=== PATIENT | male | born 1955 | race Caucasian/White ===

== ENCOUNTER 2019-08-01 10:02 | Outpatient (CLI) | payer OTHER, SELFPAY ==
[2019-08-01 11:25] LABS: Blood Urea Nitrogen 12 mg/dL (9-20); Estimated Glomerular Filt Rate > 60
== END 2019-08-01 10:03 | disposition home or self-care (01) ==
PROVIDERS: PCP Internal Medicine
DX: M54.9 Dorsalgia, unspecified (principal)
CPT/HCPCS: 36415; 82565; 84520

== ENCOUNTER 2019-08-21 08:52 | Outpatient (CLI) | payer OTHER, SELFPAY ==
--- NOTE | ~2019-08-21 | MR_ITS ---
EXAMINATION: MR lumbar spine wo/w con EXAM DATE: 08/21/2019 09:56 INDICATION: Low back pain. TECHNIQUE: Multi-sequential, multiplanar MR images of the lumbar spine were obtained without contrast . Sagittal T1, T2, T2 fat saturation images. Axial T2 weighted images. Axial T1 weighted sequence. Patient was then injected with 20 mL Multihance intravenous contrast and reimaged. Postcontrast axi al and sagittal T1-weighted fat saturation sequences were obtained. Comparison is made to prior exam ination from 11/15/2017. FINDINGS: There are old left L5 and probably L4 hemilaminotomy defects. There is mild disc disease L4 -5 and L5-S1. Mild to moderate disc disease at the lower thoracic spine. The conus medullaris termina orion at the L1/2 level and has normal signal intensity and morphology. There are no suspicious marrow signal abnormalities. Paraspinal soft tissue is unremarkable. There are no areas of abnormal enha ncement on the post contrast images. Level by level evaluation: T12-L1: There is a mild to moderate diffuse disc bulge asymmetric to the left Facet arthropathy: Mild. Neural foraminal stenosis: Mild left. Central canal stenosis: Mild. L1-L2: Disc does not extend beyond the endplate margin. Facet arthropathy: Mild. Neural foraminal stenosis: No stenosis. Central canal stenosis: No stenosis. L2-L3: There is a minimal diffuse disc bulge. Facet arthropathy: Mild. Neural foraminal stenosis: Minimal left. Central canal stenosis: No stenosis. L3-L4: There is a mild diffuse disc bulge. Facet arthropathy: Mild to moderate. Neural foraminal stenosis: No stenosis. Central canal stenosis: No stenosis. L4-L5: There is a mild to moderate diffuse disc bulge. Facet arthropathy: Mild to moderate. Neural foraminal stenosis: Mild to moderate bilateral. Central canal stenosis: Mild. L5-S1: There is a mild to moderate diffuse disc bulge. Facet arthropathy: Moderate right, mild to moderate left. Neural foraminal stenosis: Mild to moderate bilateral. Central canal stenosis: Mild. Difficult to appreciate any significant interval change compared to 2018 examination. IMPRESSION: Mild to moderate lower lumbar spondylosis. Reviewed, dictated and finalized at location B.
== END 2019-08-21 08:53 ==
PROVIDERS: PCP Internal Medicine
DX: M47.896 Other spondylosis, lumbar region (principal)
CPT/HCPCS: 72158; A9577

== ENCOUNTER 2019-11-21 17:30 | Outpatient (CLI) | payer OTHER, SELFPAY | END 2019-11-21 17:31 | disposition home or self-care (01) | LOC: CHSLAB 17:33 | PROVIDERS: PCP Internal Medicine; Visit Provider Specialist | DX: C44.519 Basal cell carcinoma of skin of other part of trunk (principal) | CPT/HCPCS: 88305 ==

== ENCOUNTER 2021-02-21 07:58 | Inpatient (IN) | payer OTHER, SELFPAY ==
[2021-02-21] VITALS (8 sets, daily range): BP systolic 120–177; BP diastolic 67–92; PULSE 68–88; RESP 14–22; TEMP 36.3–37.4; O2SAT 91–95
--- NOTE | ~2021-02-21 | CT_ITS ---
EXAMINATION: CT brain wo con EXAM DATE: 04/02/2021 08:57 INDICATION: Weakness. TECHNIQUE: Spiral CT of the head was performed without contrast. Axial, coronal and sagittal images were reviewed. The dose-length product (DLP) for this examination was 681.00 mGy-cm. The exposure w as tailored according to patient size, and iterative reconstruction (ASIR) was used as additional dos e reduction technique. There is no prior study for comparison. FINDINGS: There is no acute intraparenchymal hemorrhage. No evidence of intraparenchymal brain mass lesion. No evidence of acute infarction. Please note that initial head CT has limited sensitivity f or small or acute infarctions. There is mild periventricular and subcortical hypodensity, nonspecific but probably related to small vessel ischemic disease. There is mild to moderate prominence of the sulci and ventricles related to cerebral atrophy. There is intracranial carotid arteriosclerosis. There are no extra-axial collections. There is no mass effect or midline shift. The orbits are unr emarkable. Soft tissue is unremarkable. Bilateral otomastoiditis effusions. Completely opacified le ft maxillary, bilateral sphenoid sinuses. Moderate bilateral frontal sinus mucoperiosteal thickening. IMPRESSION: 1. No acute intracranial findings. 2. Chronic age related findings. 3. Bilateral otomastoiditis effusions and significant sinus opacity. Reviewed, dictated and finalized at location B. ENIR AND NOVELTY MAKER
--- NOTE | ~2021-02-21 | XR_ITS ---
XR chest 1V portable DATE: 03/11/2021 12:38 INDICATION: Respiratory failure TECHNIQUE: Portable AP chest on 03/11/2021 at 1138 hours COMPARISON: 03/10/2021 portable AP chest at 1019 hours FINDINGS: ET tube tip is 5.8 cm above the alyse. NG tube is in the upper body of the stomach, the pr oximal port just beyond the diaphragmatic hiatus. Right internal jugular central venous catheter tip overlies the proximal superior vena cava. No pneum othorax. Severe diffuse bilateral pulmonary infiltrates persist. Diffuse idiopathic skeletal hyperostosis of the thoracic spine. IMPRESSION: Persistent severe diffuse bilateral pulmonary infiltrates Reviewed, dictated and finalized at location A. PUMPING STATION SUPERVISOR
--- NOTE | ~2021-02-21 | XR_ITS ---
EXAMINATION: XR chest 1V portable INDICATION: COVID pneumonia, respiratory failure TECHNIQUE: Portable AP chest at 0508 hours COMPARISON: 04/04/2021 FINDINGS: A tracheostomy is noted. Diffuse interstitial and airspace opacities persist throughout all lung zones without significant change. There is no pleural effusion or pneumothorax. The cardiomedia stinal silhouette is stable. IMPRESSION: 1. Stable diffuse lung disease, consistent with pneumonia and/or pulmonary edema and/or acute respira tory distress syndrome (ARDS). Reviewed, dictated and finalized at location A. S DEPARTMENT SUPERVISOR IMPRESSION: 1. Stable diffuse lung disease, consistent with pneumonia and/or pulmonary yoli a and/or acute respiratory distress syndrome (ARDS).
--- NOTE | ~2021-02-21 | XR_ITS ---
EXAMINATION: XR chest 1V portable DATE: 04/07/2021 05:48 INDICATION: Acute respiratory failure. Pneumonia. TECHNIQUE: A single frontal view of the chest was obtained. COMPARISON: Chest single view 04/05/2021, chest CT 03/09/2021 FINDINGS: There are airspace and interstitial opacities throughout the lungs bilaterally. No pleural effusion or pneumothorax. The heart size is normal. A tracheostomy tube is noted. IMPRESSION: 1. Stable diffuse lung disease, consistent with pneumonia and/or pulmonary edema and/or acute respira tory distress syndrome (ARDS). Reviewed, dictated and finalized at location A. OLEER STRAIGHTENER STAMPER IMPRESSION: 1. Stable diffuse lung disease, consistent with pneumonia and/or pulmonary yoli a and/or acute respiratory distress syndrome (ARDS).
--- NOTE | ~2021-02-21 | XR_ITS ---
EXAMINATION: XR chest 1V portable DATE: 02/21/2021 08:20 INDICATION: COVID-19 pneumonia. Cough. TECHNIQUE: A single frontal view of the chest was obtained. COMPARISON: None. FINDINGS: There are patchy airspace opacities in all lung zones bilaterally. No pleural effusion or p neumothorax. The heart size is normal. IMPRESSION: 1. Diffuse lung disease, consistent with COVID-19 pneumonia. Reviewed, dictated and finalized at location A. SERVICES PLUMBER
--- NOTE | ~2021-02-21 | XR_ITS ---
XR chest 1V portable DATE: 03/15/2021 05:55 INDICATION: Respiratory distress, ventilator TECHNIQUE: Portable AP chest on 03/15/2021 0 5 mm COMPARISON: 03/14/2021 portable AP chest FINDINGS: ET tube in satisfactory position 4.4 cm above alyse. NG tube in stomach. Right internal jugular central venous catheter tip overlies the proximal superior vena cava. No pneum othorax. No pleural effusion. Persistent diffuse patchy bilateral infiltrates appear stable since 03/14/2021 IMPRESSION: Persistent diffuse patchy bilateral pulmonary infiltrates, not significantly changed sinc e 03/14/2021 Reviewed, dictated and finalized at location A. AGE MACHINE OPERATOR IMPRESSION: Persistent diffuse patchy bilateral pulmonary infiltrates, not sign ificantly changed since 03/14/2021
--- NOTE | ~2021-02-21 | CT_ITS ---
EXAMINATION: CTA chest PE protocol DATE: 02/21/2021 09:46 INDICATION: Shortness of breath and cough. COVID-19 pneumonia. TECHNIQUE: Computed tomography angiography (CTA) of the chest was performed with 100 mL Omnipaque-350 intravenous contrast timed to evaluate the pulmonary arteries. Coronal maximum intensity projection 3D-reconstructions were created by the technologist. Automated exposure control and iterative reconst ruction technique were employed. The dose-length product was 951.48 mGy-cm. COMPARISON: None. FINDINGS: There are patchy groundglass opacities, airspace opacities, crazy paving, and septal thicke chris involving all lobes. No pleural effusion. The heart size is normal. No pericardial effusion. The re is no pulmonary embolus. There is mild thoracic spondylosis. IMPRESSION: 1. No pulmonary embolus. 2. Diffuse lung disease, consistent with COVID-19 pneumonia. Reviewed, dictated and finalized at location A. ENISHMENT ANALYST
--- NOTE | ~2021-02-21 | XR_ITS ---
XR chest 1V portable DATE: 02/24/2021 06:26 INDICATION: Shortness of breath. Covid pneumonia. TECHNIQUE: Portable upright AP chest on 03/13/2021 at 0557 hours COMPARISON: 02/23/2021 portable AP chest at 1559 hours FINDINGS: There are severe diffuse patchy consolidating bilateral pulmonary infiltrates, increased in severity since 02/23/2021. Borderline heart size. There is minimal if any pleural effusion. No pneumothorax. Degenerative spurring of the thoracic spine. IMPRESSION: Extensive patchy diffuse bilateral pulmonary consolidating infiltrates, increased in gail rity since 02/23/2021 Reviewed, dictated and finalized at location A. ATRIC PHYSICIAN IMPRESSION: Extensive patchy diffuse bilateral pulmonary consolidating infiltra orion, increased in severity since 02/23/2021
--- NOTE | ~2021-02-21 | XR_ITS ---
EXAMINATION: XR chest 1V portable DATE: 03/07/2021 07:59 INDICATION: COVID pneumonia. TECHNIQUE: frontal view of the chest was obtained. COMPARISON: Chest radiograph dated 02/24/[address] dated 02/27/2021 FINDINGS: No significant interval change accounting for differences in positioning in patchy bilateral airspace opacities relatively sparing the right apex and left upper lung zone consistent with COVID pneumonia . No pleural effusion or pneumothorax. Mild cardiomegaly. IMPRESSION: 1. Unchanged diffuse bilateral lung disease consistent with COVID pneumonia. Reviewed, dictated and finalized at location A. MEL CUTTER HELPER
--- NOTE | ~2021-02-21 | XR_ITS ---
EXAMINATION: XR chest 1V portable DATE: 03/26/2021 06:14 INDICATION: COVID-19 pneumonia. TECHNIQUE: A single frontal view of the chest was obtained. COMPARISON: Chest single view 03/25/2021 FINDINGS: There are interstitial and airspace opacities throughout the lungs bilaterally. No pleural effusion or pneumothorax. The heart size is normal. There is a tracheostomy tube in expected position . A right internal jugular central venous catheter is seen with tip in the superior vena cava. IMPRESSION: 1. Diffuse lung disease with mild worsening on the right, consistent with COVID-19 pneumonia versus a cute respiratory distress syndrome (ARDS). Reviewed, dictated and finalized at location E. GLASS DESIGNER IMPRESSION: 1. Diffuse lung disease with mild worsening on the right, consistent with COVID -19 pneumonia versus acute respiratory distress syndrome (ARDS).
--- NOTE | ~2021-02-21 | XR_ITS ---
XR chest 1V portable DATE: 03/10/2021 10:30 INDICATION: Respiratory failure TECHNIQUE: Portable AP chest on 03/10/2021 at 1018 hours COMPARISON: 03/09/2021 portable AP chest at 1340 hours FINDINGS: ET tube tip is 5.3 cm above alyse. Right internal jugular central venous catheter tip over lies the proximal superior vena cava. A nasogastric tube is present, directed toward the stomach, whi ch is not included in this examination. There are persistent extensive diffuse bilateral pulmonary infiltrates IMPRESSION: Persistent extensive diffuse bilateral pulmonary infiltrates consistent with severe bilat eral pneumonia Reviewed, dictated and finalized at location A. OPEDIC CODER IMPRESSION: Persistent extensive diffuse bilateral pulmonary infiltrates consis tent with severe bilateral pneumonia
--- NOTE | ~2021-02-21 | CT_ITS ---
EXAMINATION: CTA chest PE protocol DATE: 03/09/2021 08:53 TECHNOLOGY DEVELOPMENT INTERN INDICATION: Worsening hypoxia. Covid pneumonia. TECHNIQUE: Computed tomographic angiography (CTA) of the chest was performed with 100 mL Omnipaque-35 0 intravenous contrast. The dose-length product was 1099.10 mGy-cm. Maximum intensity projection 3D-r econstructions of the aorta and other arteries were constructed by the technologist on a separate wor kstation. COMPARISON: CT dated 03/07/2021. FINDINGS: Study is technically adequate without evidence for pulmonary embolism. Evaluation of lower lobe segmental and subsegmental pulmonary arteries limited by motion. Cardiomegaly. No significant ef fusion. No pneumothorax. Mediastinal lymphadenopathy, likely reactive. There is mediastinal lipomatos is. Tiny infiltration of the liver. There is diffuse bilateral lung disease with mixed interstitial a nd airspace consolidation. No significant change from prior examination allowing for differences of t echnique. No pneumothorax. No evidence for pneumomediastinum on the current study. Mild thoracic spon dylosis. Small hiatal hernia. IMPRESSION: 1. No evidence for pulmonary embolism. 2: Stable diffuse bilateral lung disease, consistent with pneumonia. 3: Cardiomegaly. Reviewed, dictated and finalized at location A. NOLOGY DEVELOPMENT INTERN
--- NOTE | ~2021-02-21 | XR_ITS ---
XR chest 1V portable DATE: 03/31/2021 11:04 INDICATION: Increased oxygen requirement TECHNIQUE: Portable AP view on 03/31/2021 at 1056 hours COMPARISON: March 31, 2021 portable AP chest at 0526 hours FINDINGS: Tracheostomy tube in satisfactory position. No significant change of diffuse extensive bilateral pulmonary infiltrates since earlier this morning . Normal heart size. No pleural effusion or pneumothorax is evident. IMPRESSION: No significant change since earlier today Reviewed, dictated and finalized at location A. GE RELEASE MANAGER
--- NOTE | ~2021-02-21 | US_ITS ---
EXAMINATION: US venous doppler [facility] DATE: 04/09/2021 11:51 INDICATION: Fever TECHNIQUE: Camargo scale images without and with compression and Doppler images of the left lower extrem ity veins were obtained. COMPARISON: None FINDINGS: The left common femoral vein, profunda femoral vein, femoral vein, popliteal vein, peroneal trunk, posterior tibial veins, and greater saphenous vein are patent. IMPRESSION: 1. Patent left lower extremity veins. No evidence of deep venous thrombosis. Reviewed, dictated and finalized at location A. CAMERAMAN
--- NOTE | ~2021-02-21 | XR_ITS ---
EXAMINATION: XR chest 1V portable DATE: 04/04/2021 16:57 INDICATION: Respiratory distress. TECHNIQUE: A single frontal view of the chest was obtained. COMPARISON: Chest single view at 7:51 AM FINDINGS: There are airspace and interstitial opacities throughout the lungs bilaterally. No pleural effusion or pneumothorax. The heart size is normal. There is a tracheostomy tube in expected position . IMPRESSION: 1. Stable severe diffuse lung disease, consistent with pneumonia versus acute respiratory distress sy ndrome (ARDS). Reviewed, dictated and finalized at location E. TRANSCRIBER IMPRESSION: 1. Stable severe diffuse lung disease, consistent with pneumonia versus acute r espiratory distress syndrome (ARDS).
--- NOTE | ~2021-02-21 | XR_ITS ---
EXAMINATION: XR chest 1V portable DATE: 04/04/2021 08:07 INDICATION: Respiratory failure TECHNIQUE: frontal view of the chest was obtained. COMPARISON: Chest radiograph dated 04/02/2021 FINDINGS: Tracheostomy tube remains in expected position at the thoracic inlet. No significant change in diffus e patchy airspace opacities throughout both lungs. No pneumothorax or definitive pleural effusion. Fede rderline heart size accounting for AP technique IMPRESSION: 1. Unchanged diffuse bilateral lung disease consistent with pneumonia versus pulmonary edema. 2. Borderline heart size. Reviewed, dictated and finalized at location A. PERSON IMPRESSION: 1. Unchanged diffuse bilateral lung disease consistent with pneumonia versus pu lmonary edema. 2. Borderline heart size.
--- NOTE | ~2021-02-21 | XR_ITS ---
EXAMINATION: XR chest 1V portable INDICATION: Acute respiratory failure TECHNIQUE: Portable AP chest at 0509 hours COMPARISON: 04/09/2021 FINDINGS: A tracheostomy is again noted. A right upper extremity PICC ends with its tip in the midsup erior vena cava. Interstitial and airspace opacities persist throughout all lung zones with slight wo rsening in the right upper lung zone and mid lung zones. There is no pleural effusion or pneumothorax . The heart size is normal. IMPRESSION: 1. Diffuse lung disease with interval worsening, consistent with pneumonia and/or pulmonary edema and /or acute respiratory distress syndrome (ARDS). Reviewed, dictated and finalized at location A. ING CARE PARTNER IMPRESSION: 1. Diffuse lung disease with interval worsening, consistent with pneumonia and/ or pulmonary edema and/or acute respiratory distress syndrome (ARDS).
--- NOTE | ~2021-02-21 | XR_ITS ---
XR abdomen NG/feed tube insert INDICATION: Evaluate NG tube position. TECHNIQUE: Limited KUB perform for evaluating NG tube . COMPARISON: No prior studies for comparison. FINDINGS: NG tube tip in the stomach. Visualized bowel gas pattern is unremarkable. IMPRESSION: 1: NG tube tip in the stomach. Reviewed, dictated and finalized at location A. NG MACHINE TENDER CORK ROD
--- NOTE | ~2021-02-21 | XR_ITS ---
EXAMINATION: XR chest 1V portable DATE: 02/23/2021 15:03 INDICATION: Shortness of breath. COVID-19 pneumonia. TECHNIQUE: A single frontal view of the chest was obtained. COMPARISON: Chest single view 02/21/2021, chest CT 02/21/2021 FINDINGS: There are patchy airspace opacities in all lung zones bilaterally. No pleural effusion or p neumothorax. The heart size is normal. IMPRESSION: 1. Diffuse lung disease, likely stable considering differences in technique, consistent with COVID-19 pneumonia. Reviewed, dictated and finalized at location A. ORPHOLOGY TEACHER IMPRESSION: 1. Diffuse lung disease, likely stable considering differences in technique, co nsistent with COVID-19 pneumonia.
--- NOTE | ~2021-02-21 | XR_ITS ---
XR chest ET placement 03/09/2021 13:15 Indication: Shortness of breath Procedure: AP portable chest Comparison: Comparison to multiple prior studies sequentially, with oldest reviewed study dated 03/2021. Findings: Endotracheal tube tip 3.5 cm above the alyse. NG tube in the stomach. Cardiomegaly. Diffus e bilateral airspace disease. No significant effusion or pneumothorax. Impression: 1: Persistent diffuse bilateral airspace disease, compatible with pneumonia. Reviewed, dictated and finalized at location A. PHONE MESSENGER Impression: 1: Persistent diffuse bilateral airspace disease, compatible with pneumonia.
--- NOTE | ~2021-02-21 | US_ITS ---
EXAMINATION: US venous doppler [facility] DATE: 03/31/2021 12:45 INDICATION: Upper limb swelling TECHNIQUE: Grayscale images without and with compression and Doppler images of the bilateral upper ex tremity veins were obtained. COMPARISON: None. FINDINGS: The right internal jugular vein, subclavian vein, axillary vein, brachial vein, basilic vein, cephali c vein, radial vein, and ulnar vein are patent. The left internal jugular vein, subclavian vein, axillary vein, brachial vein, basilic vein, cephalic vein, radial vein, and ulnar vein are patent. IMPRESSION: 1. Patent bilateral upper extremity veins. No evidence of venous thrombosis. Reviewed, dictated and finalized at location A. HEAD SETTER
--- NOTE | ~2021-02-21 | CT_ITS ---
EXAMINATION: CTA chest PE protocol EXAM DATE: 02/27/2021 17:57 INDICATION: Covid 19 SOB . TECHNIQUE: Spiral CTA of the chest (pulmonary arteries) was performed with 100 cc Omnipaque 350 intr avenous contrast injection. Images were acquired during the pulmonary arterial phase. Coronal maxi mum intensity projection 3D-reconstructions were created by the technologist on dedicated workstation . Axial, coronal and sagittal reformatted images were reviewed. The dose-length product (DLP) for t his examination was 923.86 mGy-cm. The exposure was tailored according to patient size (auto mA exp osure control), and iterative reconstruction (ASIR) was used as additional dose reduction technique. Comparison is made to prior examination from 02/22/2020. FINDINGS: There are no pulmonary emboli in the 1st through 3rd order (central and interlobar) pulmon casey arteries. Some loss of attenuation in the basilar segmental pulmonary from respiratory motion, t hese regions not confidently evaluated. No Intraluminal filling defects identified. No thoracic aor tic dissection. Progression of diffuse airspace disease consistent with COVID pneumonia. Development of some dependent regions of confluence within this. There are no pleural or pericardial effusions. Tracheobronchial tree is patent. There is no mediastinal, hilar or axillary lymphadenopathy. T here is no pneumothorax. Mild cardiomegaly There is mild coronary arterial calcification, arterial sclerosis. Upper abdomen is unremarkable. There is thoracic spondylosis without osteoblastic or o steolytic lesions identified. IMPRESSION: 1. Limited basilar segmental evaluation, but no pulmonary emboli are suspected. 2. Diffuse COVID pneumonia, interval progression. Reviewed, dictated and finalized at location A. E MANAGEMENT SPECIALIST IMPRESSION: 1. Limited basilar segmental evaluation, but no pulmonary emboli are suspected . 2. Diffuse COVID pneumonia, interval progression.
--- NOTE | ~2021-02-21 | XR_ITS ---
EXAMINATION: XR chest 1V portable DATE: 04/09/2021 06:01 INDICATION: Acute respiratory failure. Pneumonia. TECHNIQUE: A single frontal view of the chest was obtained. COMPARISON: Chest single view 04/08/2021 FINDINGS: There are airspace and interstitial opacities throughout the lungs bilaterally. No pleural effusion or pneumothorax. The heart size is normal. There is a tracheostomy tube in expected position . A right upper extremity peripherally inserted central venous catheter (PICC) is seen with tip in th e superior vena cava. IMPRESSION: 1. Stable diffuse lung disease, consistent with pneumonia versus pulmonary edema versus acute respira tory distress syndrome (ARDS). Reviewed, dictated and finalized at location A. TRUCTION WORKER IMPRESSION: 1. Stable diffuse lung disease, consistent with pneumonia versus pulmonary yoli a versus acute respiratory distress syndrome (ARDS).
--- NOTE | ~2021-02-21 | CT_ITS ---
EXAMINATION: CT diagnostic chest wo con DATE: 03/07/2021 16:53 INDICATION: Pneumonia, worsening leukocytosis, COVID 19 positive TECHNIQUE: Computed tomography (CT) of the chest was performed without intravenous contrast. The dose -length product (DLP) was 788.12 mGy-cm. Automated exposure control and iterative reconstruction tech [id number] were employed. COMPARISON: 02/27/2021 FINDINGS: There are interstitial and airspace opacities throughout all lung zones with minimal interv al improvement. No pleural effusion or pneumothorax is identified. There is trace pneumomediastinum. No pathologically enlarged thoracic lymph nodes are identified. The heart size is normal. A small sli ding hiatal hernia is noted. There is mild thoracic spondylosis. IMPRESSION: 1. Diffuse lung disease with slight interval improvement, consistent with COVID 19 pneumonia. 2. Trace pneumomediastinum. Reviewed, dictated and finalized at location F. LTY HEAD
--- NOTE | ~2021-02-21 | XR_ITS ---
EXAMINATION: XR chest 1V portable EXAM DATE: 03/20/2021 06:13 INDICATION: Respiratory failure, COVID pneumonia . TECHNIQUE: Portable AP frontal chest x-ray was obtained. Comparison is made to prior examination from 03/19/2021. FINDINGS: There is a right-sided IJ venous line in position. Endotracheal tube tip is 5 centimeters a jaida the alyse. There is a nasogastric tube seen with tip collimated off the study, but below the l eft hemidiaphragm. Diffuse bilateral pneumonia and/or edema. There are no sizable pleural effusions. There is no pneu mothorax suspected. Cardiac silhouette is stable in size compared to prior exam. The bones and sof t tissues are unremarkable. There is no significant interval change compared to prior exam. IMPRESSION: 1. Line and tube(s) in position. 2. Diffuse bilateral pneumonia or edema unchanged. Reviewed, dictated and finalized at location A. T SPECIALIST
--- NOTE | ~2021-02-21 | XR_ITS ---
EXAMINATION: XR chest 1V portable DATE: 03/24/2021 07:07 INDICATION: COVID-19 pneumonia. Respiratory failure. TECHNIQUE: A single frontal view of the chest was obtained on 2 radiographs. COMPARISON: Chest single view 03/22/2021 FINDINGS: There are airspace and interstitial opacities throughout the lungs bilaterally. No pleural effusion or pneumothorax. The heart size is normal. There is a tracheostomy tube in expected position . A right internal jugular central venous catheter is seen with tip in the superior vena cava. IMPRESSION: 1. Stable diffuse lung disease, consistent with pneumonia versus acute respiratory distress syndrome (ARDS). Reviewed, dictated and finalized at location A. EL TRUCK TECHNICIAN IMPRESSION: 1. Stable diffuse lung disease, consistent with pneumonia versus acute respirat ory distress syndrome (ARDS).
--- NOTE | ~2021-02-21 | XR_ITS ---
XR chest 1V portable 03/30/2021 06:16 Indication: Respiratory failure Procedure: AP portable chest Comparison: Comparison to multiple prior studies sequentially, with oldest reviewed study dated 03/2021. Findings: Tracheostomy tube present. Borderline heart size. Stable diffuse bilateral airspace disease . No significant effusion or pneumothorax. No acute osseous abnormality. Impression: 1: Stable diffuse bilateral airspace disease which may represent pneumonia or edema. Reviewed, dictated and finalized at location A. NTER MACHINE APPLICATOR Impression: 1: Stable diffuse bilateral airspace disease which may represent pneumonia or e nancy.
--- NOTE | ~2021-02-21 | XR_ITS ---
EXAMINATION: XR chest 1V portable EXAM DATE: 03/17/2021 06:01 INDICATION: Respiratory failure, COVID pneumonia . TECHNIQUE: Portable AP frontal chest x-ray was obtained. Comparison is made to prior examination from 03/16/2021. FINDINGS: There is a right-sided IJ venous line in position. Endotracheal tube tip is 4-5 centimeter s above the alyse. There is a nasogastric tube seen with tip collimated off the study, but below th e left hemidiaphragm. Diffuse bilateral pneumonia and/or edema. There are no sizable pleural effusions. There is no pneu mothorax suspected. The cardiomediastinal silhouette is prominent but magnified on this AP techniqu e. The bones and soft tissues are unremarkable. There is no significant interval change compared to prior exam. IMPRESSION: 1. Line and tube(s) in position. 2. Stable airspace disease and other findings as above. Reviewed, dictated and finalized at location A. SQUEAK FILLER
--- NOTE | ~2021-02-21 | XR_ITS ---
EXAMINATION: XR chest 1V portable EXAM DATE: 03/19/2021 06:06 INDICATION: Respiratory failure, COVID pneumonia. TECHNIQUE: Portable AP frontal chest x-ray was obtained. Comparison is made to prior examination from 03/18/2021. FINDINGS: There is a right-sided IJ venous line in position. Endotracheal tube tip is 4 centimeters a jaida the alyse. There is a nasogastric tube seen with tip collimated off the study, but below the l eft hemidiaphragm. Diffuse bilateral pneumonia and/or edema. There are no sizable pleural effusions. There is no pneu mothorax suspected. Cardiac silhouette is stable in size compared to prior exam. The bones and sof t tissues are unremarkable. There is no significant interval change compared to prior exam. IMPRESSION: 1. Line and tube(s) in position. 2. Diffuse bilateral pneumonia or edema unchanged. NICAL SPECIALIST CYTOGENETICS Reviewed, dictated and finalized at location A.
--- NOTE | ~2021-02-21 | XR_ITS ---
EXAMINATION: XR chest 1V portable DATE: 03/28/2021 06:08 INDICATION: COVID-19 pneumonia. Respiratory failure. TECHNIQUE: A single frontal view of the chest was obtained. COMPARISON: Chest single view 03/27/2021 FINDINGS: There are interstitial and airspace opacities throughout the lungs bilaterally. No pleural effusion or pneumothorax. The heart size is normal. There is a tracheostomy tube in expected position . IMPRESSION: 1. Stable diffuse lung disease, consistent with COVID-19 pneumonia versus acute respiratory distress syndrome (ARDS). Reviewed, dictated and finalized at location E. WORKER
--- NOTE | ~2021-02-21 | US_ITS ---
EXAMINATION: US venous doppler [facility] DATE: 03/28/2021 12:25 INDICATION: Fever. Respiratory failure. TECHNIQUE: Grayscale ultrasound images without and with compression and Doppler ultrasound images of the bilateral lower extremity veins were obtained. COMPARISON: None. FINDINGS: The visualized portions of right common femoral vein, profunda (deep) femoral vein, femoral vein, pop liteal vein, posterior tibial veins, peroneal veins, gastrocnemius vein and greater saphenous vein ou tflow are patent. The visualized portions of left common femoral vein, profunda femoral vein, femoral vein, popliteal v ein, posterior tibial veins, peroneal veins, gastrocnemius vein and greater saphenous vein outflow ar e patent. IMPRESSION: 1. No deep venous thrombosis in either lower limb. Reviewed, dictated and finalized at location A. R AND DELIVERY REGISTERED NURSE
--- NOTE | ~2021-02-21 | XR_ITS ---
EXAMINATION: XR chest 1V portable EXAM DATE: 03/18/2021 05:34 INDICATION: Respiratory failure, COVID pneumonia. TECHNIQUE: Portable AP frontal chest x-ray was obtained. Comparison is made to prior examination from 03/17/2021. FINDINGS: There is a right-sided IJ venous line in position. Endotracheal tube tip is 5 centimeters a jaida the alyse. There is a nasogastric tube seen with tip collimated off the study, but below the l eft hemidiaphragm. Diffuse bilateral pneumonia and/or edema. There are no sizable pleural effusions. There is no pneu mothorax suspected. Cardiac silhouette is stable in size compared to prior exam. The bones and sof t tissues are unremarkable. There is no significant interval change compared to prior exam. IMPRESSION: 1. Line and tube(s) in position. 2. Stable airspace disease and other findings as above. MACHINE Reviewed, dictated and finalized at location A.
--- NOTE | ~2021-02-21 | XR_ITS ---
EXAMINATION: XR chest 1V portable INDICATION: Acute respiratory failure, pneumonia TECHNIQUE: Portable AP chest at 0510 hours COMPARISON: 04/10/2021 FINDINGS: A tracheostomy is noted. A right upper extremity PICC ends with its tip in the midsuperior vena cava. Interstitial and airspace opacities persist throughout all lung zones without significant change. There is no pleural effusion or pneumothorax. The heart size is normal. IMPRESSION: 1. Stable diffuse lung disease, consistent with pneumonia and/or pulmonary edema and/or acute respira tory distress syndrome (ARDS). Reviewed, dictated and finalized at location A. MUSICIAN IMPRESSION: 1. Stable diffuse lung disease, consistent with pneumonia and/or pulmonary yoli a and/or acute respiratory distress syndrome (ARDS).
--- NOTE | ~2021-02-21 | XR_ITS ---
EXAMINATION: XR chest 1V portable DATE: 03/22/2021 08:27 INDICATION: Respiratory failure. COVID-19 pneumonia. TECHNIQUE: A single frontal view of the chest was obtained. COMPARISON: Chest single view 03/20/2021, chest CT 03/09/21 FINDINGS: There are interstitial airspace opacities throughout the lungs bilaterally. No pleural effu josselyn or pneumothorax. The heart size is normal. There is a tracheostomy tube in expected position. A right internal jugular central venous catheter is seen with tip in the superior vena cava. IMPRESSION: 1. Stable diffuse lung disease, consistent with pneumonia versus acute respiratory distress syndrome (ARDS). Reviewed, dictated and finalized at location A. T SPINNER IMPRESSION: 1. Stable diffuse lung disease, consistent with pneumonia versus acute respirat ory distress syndrome (ARDS).
--- NOTE | ~2021-02-21 | XR_ITS ---
XR chest 1V portable DATE: 03/12/2021 11:23 INDICATION: Respiratory failure TECHNIQUE: Portable AP chest on 03/12/2021 at 1114 hours COMPARISON: 03/11/2021 portable AP chest 1138 hours FINDINGS: ET tube in satisfactory position 4.3 cm above alyse. NG tube in stomach. Right internal ju gular central venous catheter tip overlies the right brachiocephalic vein The superior vena cava. No pneumothorax. There are persistent diffuse bilateral pulmonary infiltrates, relatively unchanged since 03/11/2021. Normal heart size. No pleural effusion. IMPRESSION: No significant change of diffuse persistent bilateral pulmonary infiltrates since 03/11/19 22 Reviewed, dictated and finalized at location A. ION CUTTER IMPRESSION: No significant change of diffuse persistent bilateral pulmonary inf iltrates since 03/11/2021
--- NOTE | ~2021-02-21 | XR_ITS ---
EXAMINATION: XR chest 1V portable DATE: 04/02/2021 05:51 INDICATION: Respiratory failure TECHNIQUE: frontal view of the chest was obtained. COMPARISON: Chest radiograph dated 01/29/2022 FINDINGS: Tracheostomy tube at the thoracic inlet. No significant change accounting for differences in techniqu e in patchy airspace opacities throughout both lungs. No pneumothorax or definitive pleural effusion. Borderline heart size accounting for AP technique. IMPRESSION: 1. No change in diffuse bilateral lung disease consistent with pneumonia versus pulmonary edema 2. Borderline heart size. Reviewed, dictated and finalized at location A. PRESSROOM WORKER
--- NOTE | ~2021-02-21 | XR_ITS ---
XR chest 1V portable 03/29/2021 05:45 Indication: Respiratory failure Procedure: AP portable chest Comparison: Comparison to multiple prior studies sequentially, with oldest reviewed study dated 02/2021. Findings: There is stable diffuse bilateral airspace disease. No significant effusion or pneumothorax . Stable cardiomediastinal silhouette. Tracheostomy tube present. No pneumothorax. Impression: 1: Stable diffuse bilateral airspace disease which may represent pneumonia, edema and/or ARDS. Reviewed, dictated and finalized at location A. BER Impression: 1: Stable diffuse bilateral airspace disease which may represent pneumonia, ramona ma and/or ARDS.
--- NOTE | ~2021-02-21 | XR_ITS ---
XR chest 1V portable DATE: 03/13/2021 06:22 INDICATION: Respiratory failure TECHNIQUE: Portable AP chest on 03/13/2021 at 0516 hours COMPARISON: 03/12/2021 portable AP chest FINDINGS: Right internal jugular central venous catheter tip at right brachiocephalic vein approximat jose. No pneumothorax. ET tube tip approximately 5.5 cm above alyse. NG tube in stomach. Diffuse bilateral pulmonary infiltrates persist. No pleural effusion or pneumothorax is evident. IMPRESSION: Persistent diffuse bilateral pulmonary infiltrates; little interval change since 2 Reviewed, dictated and finalized at location A. MAKER IMPRESSION: Persistent diffuse bilateral pulmonary infiltrates; little interval change since 03/12/2021
--- NOTE | ~2021-02-21 | XR_ITS ---
EXAMINATION: XR chest 1V portable DATE: 04/08/2021 05:50 INDICATION: Acute respiratory failure. Pneumonia. TECHNIQUE: A single frontal view of the chest was obtained. COMPARISON: Chest single view 04/07/2021 FINDINGS: There are airspace and interstitial opacities throughout the lungs bilaterally. No pleural effusion or pneumothorax. The heart size is normal. There is a tracheostomy tube in expected position . IMPRESSION: 1. Stable diffuse lung disease, consistent with pneumonia versus pulmonary edema versus acute respira tory distress syndrome (ARDS). Reviewed, dictated and finalized at location A. ILE WORKER IMPRESSION: 1. Stable diffuse lung disease, consistent with pneumonia versus pulmonary yoli a versus acute respiratory distress syndrome (ARDS).
--- NOTE | ~2021-02-21 | XR_ITS ---
EXAMINATION: XR chest 1V portable DATE: 03/27/2021 06:15 INDICATION: COVID-19 pneumonia. Respiratory failure. TECHNIQUE: A single frontal view of the chest was obtained. COMPARISON: Chest single view 03/26/2021 FINDINGS: There are interstitial and airspace opacities throughout the lungs bilaterally. No pleural effusion or pneumothorax. The heart size is normal. There is a tracheostomy tube in expected position . A right internal jugular central venous catheter is seen with tip in the superior vena cava. IMPRESSION: 1. Stable diffuse lung disease, consistent with COVID-19 pneumonia versus acute respiratory distress syndrome (ARDS). Reviewed, dictated and finalized at location E. H SHEARING SUPERVISOR
--- NOTE | ~2021-02-21 | US_ITS ---
EXAMINATION: US venous doppler [facility] DATE: 04/09/2021 11:51 INDICATION: Fever TECHNIQUE: Grayscale ultrasound images without and with compression and Doppler ultrasound images of the bilateral upper extremity veins were obtained. COMPARISON: 03/31/2021 FINDINGS: The right internal jugular vein, subclavian vein, axillary vein, brachial veins, basilic vein, cephal ic vein, radial vein, and ulnar vein are patent. There is thrombosis in the left cephalic vein. The left internal jugular vein, subclavian vein, axill casey vein, brachial veins, basilic vein, radial vein, and ulnar vein are patent. IMPRESSION: 1. Left cephalic vein thrombosis. These findings were communicated to the patient's nurse in the ICU at 1204 hours on 04/09/2021. 2. No deep venous thrombosis of the right upper extremity. Reviewed, dictated and finalized at location A. ER YACHT IMPRESSION: 1. Left cephalic vein thrombosis. These findings [facility] the ICU at 1204 hours on 04/09/2021. 2. No deep venous thrombosis of the right upper extremity.
--- NOTE | ~2021-02-21 | XR_ITS ---
XR chest 1V portable DATE: 03/14/2021 06:22 INDICATION: Respiratory failure TECHNIQUE: Portable AP chest on 03/14/2021 0528 hours COMPARISON: 03/13/2021 portable AP chest FINDINGS: ET tube in satisfactory position 4.6 cm above alyse. NG tube noted passing into the stomac h. Right internal jugular central venous catheter tip overlies the right brachiocephalic vein. No pne umothorax. Persistent diffuse bilateral pulmonary infiltrates. Heart size appears normal. No pleural effusion. IMPRESSION: Persistent diffuse bilateral pulmonary infiltrates Reviewed, dictated and finalized at location A. GE TENDER
--- NOTE | ~2021-02-21 | XR_ITS ---
XR chest 1V portable 03/09/2021 06:13 Indication: Worsening hypoxia Procedure: AP portable chest Comparison: Comparison to multiple prior studies sequentially, with oldest reviewed study dated 01/24. Findings: Diffuse bilateral airspace disease, consistent with pneumonia unchanged. No significant eff usion. No pneumothorax. No acute osseous abnormality. Impression: 1: Stable diffuse bilateral airspace disease, compatible with pneumonia. Edema and ARDS less favored. Reviewed, dictated and finalized at location A. BALL WINDER Impression: 1: Stable diffuse bilateral airspace disease, compatible with pneumonia. Edema and ARDS less favored.
--- NOTE | ~2021-02-21 | XR_ITS ---
XR chest port-a-cath/central 03/09/2021 13:47 Indication: Line placement. Procedure: AP portable chest Comparison: Comparison to multiple prior studies sequentially, with oldest reviewed study dated 04/2021. Findings: Endotracheal tube tip 4.5 cm above the alyse. Right IJ central line tip in the SVC. Diffus e bilateral airspace disease, compatible with pneumonia. No acute osseous abnormality. Impression: 1: Diffuse bilateral airspace disease, compatible with pneumonia. Significant change. Reviewed, dictated and finalized at location A. ON PICKING MACHINE OPERATOR Impression: 1: Diffuse bilateral airspace disease, compatible with pneumonia. Significant dennis uribe.
--- NOTE | ~2021-02-21 | XR_ITS ---
EXAMINATION: XR chest 1V portable DATE: 04/01/2021 05:47 INDICATION: Respiratory failure TECHNIQUE: frontal view of the chest was obtained. COMPARISON: Chest radiograph dated 03/31/2021 FINDINGS: Tracheostomy tube in expected position at the thoracic inlet. No interval change accounting for diffe rences in technique in diffuse bilateral interstitial and airspace opacities. No pneumothorax. Possib le small left pleural effusion. No pneumothorax. Borderline heart size accounting for AP technique. IMPRESSION: 1. No significant interval change in diffuse bilateral lung disease consistent with pneumonia versus pulmonary edema. 2. Possible small left pleural effusion. 3. Borderline heart size. Reviewed, dictated and finalized at location A. ROPOMETRIST
--- NOTE | ~2021-02-21 | XR_ITS ---
EXAMINATION: XR chest 1V portable DATE: 03/25/2021 06:11 INDICATION: Respiratory failure. COVID-19 pneumonia. TECHNIQUE: A single frontal view of the chest was obtained. COMPARISON: Chest single view 03/24/21 FINDINGS: The patient is rotated to his left. There are airspace and interstitial opacities throughou t the lungs bilaterally. No pleural effusion or pneumothorax. The heart size is normal. There is a tr acheostomy tube in expected position. A right internal jugular central venous catheter is seen with t ip in the superior vena cava. IMPRESSION: 1. Stable diffuse lung disease, consistent with pneumonia versus acute respiratory distress syndrome (ARDS). Reviewed, dictated and finalized at location A. PING PRESS TENDER IMPRESSION: 1. Stable diffuse lung disease, consistent with pneumonia versus acute respirat ory distress syndrome (ARDS).
--- NOTE | ~2021-02-21 | XR_ITS ---
XR chest 1V portable DATE: 03/16/2021 06:31 INDICATION: Respiratory failure. Covid pneumonia. TECHNIQUE: Portable AP chest on 03/16/2021 at 0537 hours COMPARISON: 03/15/2021 portable AP chest at 0511 hours FINDINGS: ET tube is approximately 5.9 cm above alyse. NG tube in stomach. Right internal jugular central venous catheter is situated at the proximal superior vena cava. There is stable persistent diffuse bilateral pulmonary infiltrates since 03/15/2021. No pleural effusion or pneumothorax. IMPRESSION: Relatively unchanged extensive diffuse bilateral pulmonary infiltrates Reviewed, dictated and finalized at location A. CRITICAL CARE IMPRESSION: Relatively unchanged extensive diffuse bilateral pulmonary infiltra orion
--- NOTE | ~2021-02-21 | CT_ITS ---
EXAMINATION: CT chest abdomen pelvis wo con DATE: 04/11/2021 09:27 INDICATION: Fever, shortness of breath, sepsis and sinusitis. TECHNIQUE: Computed tomography (CT) of the chest, abdomen, and pelvis was performed without intraveno us contrast. Automated exposure control and iterative reconstruction technique were employed. The dos e-length product was 2211.58 mGy-cm. COMPARISON: 03/09/2021 FINDINGS: CHEST CT: Tracheostomy tube at the thoracic inlet. Diffuse consolidation and groundglass opacities throughout b oth lungs. No pleural effusion or pneumothorax. Mild emphysema. Mild cardiomegaly. No pericardial eff usion. Thoracic aorta is normal in caliber. Mild likely reactive mediastinal lymphadenopathy with rig ht paratracheal lymph node measuring 1.1 cm in maximal diameter. Right upper extremity peripherally i nserted central venous catheter (PICC) tip at the caudal superior vena cava. Mild thoracic spondylos is with bridging osteophytes at multiple levels consistent with diffuse idiopathic skeletal hyperosto sis (DISH). ABDOMEN/PELVIS CT: Percutaneous gastrostomy tube with inflated bulb within the body of the stomach. Liver, gallbladder, spleen, pancreas, bilateral adrenal glands and kidneys are normal. Shaikh catheter within the decompre ssed bladder. Small fat-containing left inguinal hernia. Bowels including the appendix are normal. No free intraperitoneal gas or fluid. No pathologically enlarged abdominal or pelvic lymphadenopathy. M oderate to severe facet osteoarthritis in the mid to lower lumbar spine. IMPRESSION: 1. Diffuse bilateral lung disease consistent with pneumonia, pulmonary edema, acute respiratory distr ess syndrome (ARDS) or some combination thereof. Line 2. Mild emphysema. 3. Mild cardiomegaly. 4. Mild likely reactive mediastinal lymphadenopathy. 5. Small fat-containing left inguinal hernia. Reviewed, dictated and finalized at location A. LE POINTED OPERATOR IMPRESSION: 1. Diffuse bilateral lung disease consistent with pneumonia, pulmonary edema, a cute respiratory distress syndrome (ARDS) or some combination thereof. Line 2. Mild emphysema. 3. Mild cardiomegaly. 4. Mild likely reactive mediastinal lymphadenopathy. 5. Small fat-containing left inguinal hernia.
--- NOTE | ~2021-02-21 | XR_ITS ---
EXAMINATION: XR chest 1V portable DATE: 03/31/2021 06:28 INDICATION: Respiratory failure TECHNIQUE: frontal view of the chest was obtained. COMPARISON: Chest radiograph dated 03/30/2021 FINDINGS: Tracheostomy tube at the thoracic inlet. No significant change in diffuse bilateral airspace opacitie s. No pneumothorax or definitive pleural effusion. Borderline heart size accounting for AP technique. IMPRESSION: 1. No significant change in diffuse bilateral lung disease consistent with pneumonia versus pulmonary edema. Reviewed, dictated and finalized at location A. EN PLANT OPERATOR IMPRESSION: 1. No significant change in diffuse bilateral lung disease consistent with pneu monia versus pulmonary edema.
--- NOTE | ~2021-02-21 | CT_ITS ---
EXAMINATION: CT sinus wo con DATE: 04/11/2021 09:26 INDICATION: Persistent fever TECHNIQUE: Computed tomography (CT) of the paranasal sinuses was performed without contrast. Iterativ e reconstruction technique was employed. Exam dose: 683.21 mGy-cm total exam DLP. COMPARISON: None FINDINGS: There is leftward deviation of the nasal septum. There is asymmetric soft tissue swelling of the right nasal turbinates There is complete opacification of the left ostiomeatal unit. The right ostiomeatal unit is clear. There is moderate mucoperiosteal thickening of the frontal sinuses. There is patchy opacification of ethmoid air cells bilaterally. There is nearly complete opacification of the left maxillary sinus. There is nearly complete opacification of both sphenoid sinuses. The mastoid air cells are completely opacified bilaterally. IMPRESSION: Leftward deviation of nasal septum Soft tissue swelling of right nasal turbinates Completely opacified left ostiomeatal unit Moderate mucoperiosteal thickening of the frontal sinuses, patchy opacification of ethmoid air cells Complete opacification of left maxillary sinus and bilateral sphenoid sinuses Complete opacification of the mastoid air cells bilaterally Reviewed, dictated and finalized at Location A. Reviewed, dictated and finalized at location B. [employer]
--- NOTE | 2021-02-21 08:09 | ECG_ITS ---
Measurements Intervals [place] Rate: 84 P: 42 MI: 142 QRS: 40 QRSD: 102 T: 17 QT: 349 QTc: 413 Interpretive Statements SINUS RHYTHM BORDERLINE ST ABNORMALITY- ANTEROLATERAL LEADS BASELINE WANDER- I, II, AVR, AVF, V3-V6 BORDERLINE ECG Electronically Signed On 02-21-2021 10:55:00 SUPPORT TEAM MEMBER by Kuldeep Nash D.O.
--- NOTE | 2021-02-21 08:20 | ED.SOB ---
HPI - SOB/Dyspnea General Chief Complaint: Shortness of Breath/Dyspnea Stated Complaint: shortness of breath, covid + Time Seen by Provider: 02/21/21 08:02 Source: RN notes reviewed History of Present Illness HPI Narrative: Patient presents to emergency department from home for shortness of breath. Patient states that he has been progressively more short of breath for the past 2 days. States he tested positive for COVID-19 yesterday but has been having initial symptoms approximately 2 weeks ago. States he is got a cough is nonproductive. He denies any fevers or chills chest pain abdominal pain notes mild nausea denies any vomiting or diarrhea. Patient states did not receive the COVID-19 vaccinations. Related Data Home Medications Medication Instructions Recorded Confirmed aspirin [Adult Low Dose Aspirin] 81 mg PO DAILY 02/21/21 02/21/21 cholecalciferol (vitamin D3) 50 mcg PO DAILY 02/21/21 02/21/21 xgworpruxmpy-owhntwcm-jxlhto 1 tablet PO DAILY 02/21/21 02/21/21 [Centrum Silver] omega 4-sul-stk-fish oil [Fish Oil] 1,200 cap PO DAILY 02/21/21 02/21/21 pregabalin 75 mg PO DAILY 02/21/21 02/21/21 simvastatin 20 mg PO DAILY 02/21/21 02/21/21 tramadol 50 mg PO Q6-12H PRN 02/21/21 02/21/21 vitamin B complex [B 1 tablet PO DAILY 02/21/21 02/21/21 Complex-Vitamin B12] Allergies Allergy/AdvReac Type Severity Reaction Status Date / Time No Known Allergies Allergy Verified 02/21/21 08:13 Review of Systems Review of Systems: Gen.: Denies fevers or chills Eyes: Denies eye pain or visual change ENT: Denies congestion Respiratory: See HPI CV: Denies chest pain or palpitations GI: Denies abdominal pain emesis or diarrhea reports nausea Musculoskeletal: Denies back pain or muscle pain Neuro: Denies numbness, tingling, weakness or focal weakness Skin: Denies rash Except as documented, all other systems reviewed and negative [facility] Past Medical History Medical History (Updated 02/21/21 @ 13:36 by Wm Cohen DO) History of hyperlipidemia Neuropathy Patient denies significant medical history Surgical History Surgical History (Updated 02/21/21 @ 12:52 by Minal Carlton PA-C) History of ankle surgery Family History Family History (Updated 02/21/21 @ 12:53 by Minal Carlton PA-C) Father Colon cancer Mother Hypertension Other Diabetes mellitus Social History Social History (Updated 02/21/21 @ 12:53 by Minal Carlton PA-C) Social History: Patient drinks a couple drinks a week but nothing significant. He does not smoke or do drugs. 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 He would like to be a full code. His surrogate decision maker is his , Lucretia Smoking status: Never smoker Alcohol intake: current Exam Narrative: APPEARANCE: No acute distress, nontoxic, resting in bed EYES: EOMI HEENT: Normocephalic, atraumatic, OMM RESPIRATORY: No respiratory distress Clear to auscultation bilaterally with no rhonchi wheezing or rales. CARDIOVASCULAR: Regular rate and rhythm without murmurs rubs or gallops. ABDOMINAL: Soft, nontender, nondistended, no rebound or guarding MUSCULOSKELETAl: Moves all extremities. No clubbing, cyanosis or edema. NEURO: Awake and alert. Following commands, speech normal, no focal deficits SKIN:: Warm, dry. No rashes lesions or abrasions PSYCHIATRIC: Normal affect/mood, Course Course Emergency Course: Patient with walking pulse ox with O2 saturation down to 88 will admit at this time Discussed with Dr Vann presentation work-up agrees with admission request patient started on remdesivir as well as Decadron Discussed with patient and family results of workup and diagnosis. Discussed need for admission. Patient and family understand and agree to current treatment plan Vital Signs Vital signs: Vital Signs Temperature 99.3 F 02/21/21 08:07 Pulse Rate 84 02/21/21 08:07 Respiratory Rate 20 02/21/21 08:07 Blood Pressure 159/77 H 01/24
[2021-02-21 09:01] LABS: INR 0.8; Prothrombin Time 11.3 Seconds (11.1-14.7)
[2021-02-21 09:02] LABS: Partial Thromboplastin Time 29.5 SECONDS (22.3-36.8)
[2021-02-21 09:05] LABS: Basophils Percent Auto 0.4 % (0.2-1.2); D Dimer 0.44 ug/mL (<0.48); Hematocrit 53.5 % (42.0-52.0); Hemoglobin 18.2 g/dL (14.0-18.0); Immature Granulocyte Absolute 0.04 K/mm3 (0.00-0.031); Immature Granulocyte Percent A 0.8 % (0-0.5); Immature Platelet Fraction Pct 6.5 % (0.9-11.2); Lymphocytes Absolute Auto 0.78 K/mm3 (0.9-3.2); Lymphocytes Percent Auto 16.3 % (18.3-44.2); Mean Corpuscular Hemoglobin 31.8 pg (26-34); Mean Corpuscular Volume 93.5 fl (80-100); Mean Platelet Volume 10.6 fl (7.4-10.4); Monocytes Absolute Auto 0.4 K/mm3 (0.1-0.6); Monocytes Percent Auto 8.8 % (2.6-8.5); Neutrophils Absolute Auto 3.5 K/mm3 (1.3-6.7); Neutrophils Percent Auto 73.7 % (45.5-73.1); Platelet Count Result 121 k/mm3 (150-375); Red Blood Count 5.72 M/mm3 (4.6-6.20); Red Cell Distribution Width 13.4 % (11.5-14.5); White Blood Count 4.8 K/mm3 (4.5-10.0)
[2021-02-21 09:19] LABS: Alanine Aminotransferase 62 U/L (4-50); Albumin Level 4.5 g/dL (3.5-5.1); Alkaline Phosphatase 75 U/L (38-126); Anion Gap 11 mmol/L (8-16); Aspartate Amino Transferase 85 U/L (17-59); Bilirubin,Total 0.9 mg/dL (0.2-1.3); Blood Urea Nitrogen 12 mg/dL (9-20); CRP 12.7 mg/dL (<1.0); Calcium 8.4 mg/dL (8.4-10.2); Carbon Dioxide 23 mmol/L (22-30); Chloride 94 mmol/L (98-107); Estimated CRCL calculation 102 ml/min; Estimated Glomerular Filt Rate > 60; Glucose 108 mg/dL (65-110); Lactate Dehydrogenase 965 U/L (313-618); Potassium 4.5 mmol/L (3.4-5.0); Sodium 128 mmol/L (137-145)
[2021-02-21] MEDS: ALBUTEROL SULFATE (*SP) AEROSOL 1 PUFF 2 PUFF INHALATION ×3 (10:12→20:09)
--- NOTE | 2021-02-21 10:38 | PC.NURSE ---
did walking o2 and patient stayed at 92% until almost done and then dropped to 88%
[2021-02-21] MEDS: REMDESIVIR 200 MG/NS 250 ML 200 MG/250 ML BAG 250 MG IVPB (12:00)
--- NOTE | 2021-02-21 12:13 | PM.IMHP ---
H&P: HPI History of Present Illness Date/Time: 02/21/21 12:13 Chief Complaint: sob Narrative: Pt is a 66-year-old male with a history of neuropathy who presented emergency room for shortness of breath. Patient states about 2 weeks ago he started feeling short of breath and was finally diagnosed with COVID yesterday 02/20/21. He called his primary care physician last week and obtained cephalexin which he says did not help. He continued to have shortness of breath and decided to come into the emergency room for such. He said he can lay flat but his shortness of breath is mostly with rest and walking. He also mentions that he feels very weak. He has not had an appetite and has had continuous diarrhea with no abdominal pain. Last week he had some soreness to touch to his sternum with cough but no other chest pain and this is actually improving. He said his cough is pretty minimal but he does have coughing spells where he feels like he can not breathe. He denies leg swelling, abdominal pain, vomiting, history of C diff, history of blood clots, or history of liver disease. Patient came into the emergency room for COVID antibody infusion and we had a conversation about the treatment plan and he agrees with the remdesivir and understands that he will not get the antibodies here. He has no history of sleep apnea but has been told that he snores. No official history of polycythemia or hyponatremia. Review of Systems Review of Systems: All systems reviewed & are unremarkable except as noted in HPI and below PMFSH Past Medical History Medical History (Updated 02/21/21 @ 13:36 by Wm Cohen DO) History of hyperlipidemia Neuropathy Patient denies significant medical history Surgical History Surgical History (Updated 02/21/21 @ 12:52 by Minal Carlton PA-C) History of ankle surgery Family History Family History (Updated 02/21/21 @ 12:53 by Minal Carlton PA-C) Father Colon cancer Mother Hypertension Other Diabetes mellitus Social History Social History (Updated 02/21/21 @ 12:53 by Minal Carlton PA-C) Social History: Patient drinks a couple drinks a week but nothing significant. He does not smoke or do drugs. 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 He would like to be a full code. His surrogate decision maker is his , Lucretia Smoking status: Never smoker Alcohol intake: current Meds Home Medications and Allergies Home Medications Medication Instructions Recorded Confirmed Type aspirin [Adult Low Dose Aspirin] 81 mg PO DAILY 02/21/21 02/21/21 History cholecalciferol (vitamin D3) 50 mcg PO DAILY 02/21/21 02/21/21 History zcnserkxphmr-tsyidcih-dfslyc 1 tablet PO DAILY 02/21/21 02/21/21 History [Centrum Silver] omega 9-lce-ugi-fish oil [Fish Oil] 1,200 cap PO DAILY 02/21/21 02/21/21 History pregabalin 75 mg PO DAILY 02/21/21 02/21/21 History simvastatin 20 mg PO DAILY 02/21/21 02/21/21 History tramadol 50 mg PO Q6-12H PRN 02/21/21 02/21/21 History vitamin B complex [B 1 tablet PO DAILY 02/21/21 02/21/21 History Complex-Vitamin B12] Allergies Allergy/AdvReac Type Severity Reaction Status Date / Time No Known Allergies Allergy Verified 02/21/21 08:13 Vital Signs Vital Signs - 24 hr 02/21/21 08:07 02/21/21 08:19 02/21/21 08:21 Temperature 99.3 F Pulse Rate 84 88 Respiratory Rate 20 Blood Pressure 159/77 H Pulse Oximetry 95 95 02/21/21 10:20 02/21/21 11:57 Temperature Pulse Rate 80 80 Respiratory Rate 20 18 Blood Pressure 177/92 H 163/86 H Pulse Oximetry 95 94 Exam Narrative: General:Well developed well nourished patient HEENT: Normocephalic, atraumatic, PERRL, Sclerae anicteric, oral mucosa moist. Neck: Supple Resp: Decreased breath sounds bilaterally with no wheezing or rhonchi Heart: RRR with no murmurs Abd: Soft, nontender. No pain to palpation. Positive bowel sounds Skin: Warm and dry Extremities: No swelling, maria
[2021-02-21] MEDS: SODIUM CHLORIDE 0.9% IV 250 ML 100 ML IV CONT (15:13)
[2021-02-21] MEDS: ENOXAPARIN 40 MG/0.4 ML SYRINGE SUB-Q (15:17)
--- NOTE | 2021-02-21 16:11 | ADMGEN ---
This patient, Wolf Castanon, was admitted to [facility] Surg Room 330-01. Patient/family oriented to hospital policies and general routines including ID bracelet, bed and alarms, visiting hours, pain management, procedures, bathroom and other care routines, personal items, smoking policy, room service/diet, and visiting hours. Information on how to activate the Rapid Response Team has been discussed. Patient/Family are encouraged to report perceived risks to care and to ask questions if they do not understand what they are told or what they should do.
[2021-02-22] MEDS: ALBUTEROL SULFATE (*SP) AEROSOL 1 PUFF 2 PUFF INHALATION ×3 (02:38→21:39)
[2021-02-22 04:00] VITALS: BP 122/62; PULSE 68; RESP 24; TEMP 36.2; O2SAT 93
[2021-02-22 07:36] LABS: Basophils Percent Auto 0.2 % (0.2-1.2); Hematocrit 50.6 % (42.0-52.0); Hemoglobin 17.4 g/dL (14.0-18.0); Immature Granulocyte Absolute 0.04 K/mm3 (0.00-0.031); Immature Granulocyte Percent A 0.8 % (0-0.5); Immature Platelet Fraction Pct 5.3 % (0.9-11.2); Lymphocytes Absolute Auto 0.68 K/mm3 (0.9-3.2); Lymphocytes Percent Auto 13.4 % (18.3-44.2); Mean Corpuscular HGB Conc 34.4 g/dl (32-36); Mean Corpuscular Hemoglobin 32.3 pg (26-34); Mean Corpuscular Volume 93.9 fl (80-100); Mean Platelet Volume 10.1 fl (7.4-10.4); Monocytes Absolute Auto 0.4 K/mm3 (0.1-0.6); Monocytes Percent Auto 7.5 % (2.6-8.5); Neutrophils Percent Auto 78.1 % (45.5-73.1); Platelet Count Result 133 k/mm3 (150-375); Red Blood Count 5.39 M/mm3 (4.6-6.20); Red Cell Distribution Width 13.1 % (11.5-14.5); White Blood Count 5.1 K/mm3 (4.5-10.0)
[2021-02-22 07:42] LABS: INR 1.1; Prothrombin Time 13.9 Seconds (11.1-14.7)
[2021-02-22 07:46] LABS: Alanine Aminotransferase 61 U/L (4-50); Albumin Level 3.9 g/dL (3.5-5.1); Alkaline Phosphatase 76 U/L (38-126); Anion Gap 9 mmol/L (8-16); Aspartate Amino Transferase 61 U/L (17-59); Bilirubin,Total 0.6 mg/dL (0.2-1.3); Blood Urea Nitrogen 13 mg/dL (9-20); Calcium 8.5 mg/dL (8.4-10.2); Carbon Dioxide 25 mmol/L (22-30); Chloride 97 mmol/L (98-107); Estimated CRCL calculation 102 ml/min; Estimated Glomerular Filt Rate > 60; Glucose 131 mg/dL (65-110); Magnesium 2.5 mg/dL (1.6-2.3); Potassium 4.6 mmol/L (3.4-5.0); Sodium 131 mmol/L (137-145)
[2021-02-22 09:14] LABS: Hepatitis B Surface Antigen Negative (Negative)
[2021-02-22 09:19] LABS: HAV RESULT Negative (Negative); Hepatitis B Core IgM Result Negative (Negative)
[2021-02-22 09:31] LABS: Hepatitis C Virus Antibody Negative (Negative)
[2021-02-22] MEDS: ACETAMINOPHEN 325 MG TABLET 650 MG PO (09:52)
[2021-02-22] MEDS: ENOXAPARIN 40 MG/0.4 ML SYRINGE SUB-Q (09:52)
[2021-02-22] MEDS: PREGABALIN (*CRX) 75 MG CAPSULE PO (09:52)
[2021-02-22] MEDS: ONDANSETRON INJ 4 MG/2 ML VIAL IV PUSH (09:53)
[2021-02-22] MEDS: SIMVASTATIN 20 MG TABLET PO (10:31)
[2021-02-22] MEDS: REMDESIVIR 100 MG/NS 250 ML 100 MG/250 ML BAG 250 MG IVPB (10:31)
--- NOTE | 2021-02-22 11:47 | PCRCNOTE ---
Window of time for administration has passed. See next scheduled administration.
[2021-02-22] MEDS: ASPIRIN 81 MG CHEWABLE TABLET PO (12:25)
[2021-02-22 12:53] VITALS: O2SAT 92
[2021-02-22 14:00] VITALS: BP 127/61; PULSE 73; RESP 14; TEMP 36.7; O2SAT 94
--- NOTE | 2021-02-22 15:04 | PM.IMPN ---
Progress Note: A&P Assessment and Plan (1) Pneumonia due to COVID-19 virus: Code(s): U07.1 - COVID-19; J12.82 - Pneumonia due to coronavirus disease 2018 Status: Acute Assessment and Plan: CTA and symptoms consistent with viral pneumonia -continue remdesivir, Decadron and Lovenox. May consider baricitinib if he starts requiring more oxygen as CXR looks severe. -he tested positive for COVID 02/20/21 but had symptoms for 2 weeks -CTA shows no signs of PE -continue isolation -he is unvaccinated CRP elevated at 0.7 LDS mildly elevated at 965 (2) Polycythemia: Code(s): D75.1 - Secondary polycythemia Status: Acute Assessment and Plan: Last hemoglobin 18.2 -could be due to dehydration, will give 250cc fluids to see if this improves -if this continues to be high may consider sleep apnea testing or follow-up with Hematology (3) Hyponatremia: Code(s): E87.1 - Hypo-osmolality and hyponatremia Status: Acute Assessment and Plan: Last sodium 128 -could be due to infection or dehydration. Will give 250cc fluids and see if this improves Check urine sodium -monitor daily labs Slightly improved 131 today (4) Transaminitis: Code(s): R74.01 - Elevation of levels of liver transaminase levels Status: Acute Assessment and Plan: Liver enzymes elevated likely due to COVID Hepatitis panel negative -hold simvastatin -monitor (5) Elevated blood pressure reading: Code(s): R03.0 - Elevated blood-pressure reading, without diagnosis of hypertension Status: Acute Assessment and Plan: Last blood pressure 163/86 -no history of this, could be due to anxiety -will do p.r.n. hydralazine. If he continues to be high may consider starting a daily medication (6) Diarrhea: Code(s): R19.7 - Diarrhea, unspecified Status: Acute Assessment and Plan: Likely due to COVID -C diff less likely, no leukocytosis. He did take a couple days of cephalexin -monitor (7) Acute respiratory failure with hypoxia: Code(s): J96.01 - Acute respiratory failure with hypoxia Status: Acute Assessment and Plan: Oxygen saturation 88% with exertion in the ER. Admitted and started on Decadron and remdesivir Additional Plan DVT prophylaxis Lovenox Subjective Date/time seen: 02/22/21 15:04 Interval history: HPI:Pt is a 66-year-old male with a history of neuropathy who presented emergency room for shortness of breath. Patient states about 2 weeks ago he started feeling short of breath and was finally diagnosed with COVID yesterday 02/20/21. He called his primary care physician last week and obtained cephalexin which he says did not help. He continued to have shortness of breath and decided to come into the emergency room for such. He said he can lay flat but his shortness of breath is mostly with rest and walking. He also mentions that he feels very weak. He has not had an appetite and has had continuous diarrhea with no abdominal pain. Last week he had some soreness to touch to his sternum with cough but no other chest pain and this is actually improving. He said his cough is pretty minimal but he does have coughing spells where he feels like he can not breathe. He denies leg swelling, abdominal pain, vomiting, history of C diff, history of blood clots, or history of liver disease. Patient came into the emergency room for COVID antibody infusion and we had a conversation about the treatment plan and he agrees with the remdesivir and understands that he will not get the antibodies here. He has no history of sleep apnea but has been told that he snores. No official history of polycythemia or hyponatremia. 02/22/2021 no overnight events feels about the same. Shortness of breath on exertion. There is on room air. Review of Systems Review of Systems: All systems reviewed & are unremarkable except as noted in HPI and
[2021-02-22 17:55] LABS: NT Pro B Type Natriuretic Pept 38 pg/mL (5-100)
[2021-02-22 20:00] VITALS: BP 137/61; PULSE 60; RESP 18; TEMP 36.8; O2SAT 91
[2021-02-22 21:40] VITALS: PULSE 98; RESP 18
[2021-02-23] VITALS (8 sets, daily range): BP systolic 118–153; BP diastolic 47–82; PULSE 63–98; RESP 14–20; TEMP 36.2–37.3; O2SAT 90–93
[2021-02-23] MEDS: MELATONIN 3 MG TABLET PO ×2 (00:41→20:08)
[2021-02-23] MEDS: PREGABALIN (*CRX) 75 MG CAPSULE PO ×3 (00:41→17:10)
[2021-02-23] MEDS: ALBUTEROL SULFATE (*SP) AEROSOL 1 PUFF 2 PUFF INHALATION ×2 (02:42→14:03)
[2021-02-23 08:30] LABS: Alanine Aminotransferase 50 U/L (4-50); Albumin Level 3.6 g/dL (3.5-5.1); Alkaline Phosphatase 70 U/L (38-126); Anion Gap 9 mmol/L (8-16); Aspartate Amino Transferase 44 U/L (17-59); Bilirubin,Total 0.4 mg/dL (0.2-1.3); Blood Urea Nitrogen 14 mg/dL (9-20); CRP 4.8 mg/dL (<1.0); Calcium 8.4 mg/dL (8.4-10.2); Carbon Dioxide 24 mmol/L (22-30); Chloride 101 mmol/L (98-107); Estimated CRCL calculation 128 ml/min; Estimated Glomerular Filt Rate > 60; Glucose 124 mg/dL (65-110); Lactate Dehydrogenase 775 U/L (313-618); Magnesium 2.3 mg/dL (1.6-2.3); Potassium 4.3 mmol/L (3.4-5.0); Sodium 134 mmol/L (137-145)
[2021-02-23 08:57] LABS: INR 1.1; Prothrombin Time 13.7 Seconds (11.1-14.7)
[2021-02-23] MEDS: REMDESIVIR 100 MG/NS 250 ML 100 MG/250 ML BAG 250 MG IVPB (10:20)
[2021-02-23] MEDS: ENOXAPARIN 40 MG/0.4 ML SYRINGE SUB-Q (10:21)
[2021-02-23] MEDS: SIMVASTATIN 20 MG TABLET PO (10:21)
[2021-02-23] MEDS: ASPIRIN 81 MG CHEWABLE TABLET PO (10:21)
[2021-02-23 12:04] LABS: Basophils Percent Auto 0.2 % (0.2-1.2); Hematocrit 47.7 % (42.0-52.0); Hemoglobin 16.4 g/dL (14.0-18.0); Immature Granulocyte Absolute 0.06 K/mm3 (0.00-0.031); Immature Granulocyte Percent A 0.7 % (0-0.5); Lymphocytes Absolute Auto 0.79 K/mm3 (0.9-3.2); Lymphocytes Percent Auto 9.8 % (18.3-44.2); Mean Corpuscular HGB Conc 34.4 g/dl (32-36); Mean Corpuscular Hemoglobin 32.5 pg (26-34); Mean Corpuscular Volume 94.5 fl (80-100); Monocytes Absolute Auto 0.5 K/mm3 (0.1-0.6); Monocytes Percent Auto 6.3 % (2.6-8.5); Neutrophils Absolute Auto 6.7 K/mm3 (1.3-6.7); Platelet Count Result 157 k/mm3 (150-375); Red Blood Count 5.05 M/mm3 (4.6-6.20); Red Cell Distribution Width 13.2 % (11.5-14.5); White Blood Count 8.1 K/mm3 (4.5-10.0)
--- NOTE | 2021-02-23 13:29 | PCRCNOTE ---
Past window of treatment time.
--- NOTE | 2021-02-23 14:26 | PM.IMPN ---
Progress Note: A&P Assessment and Plan (1) Pneumonia due to COVID-19 virus: Code(s): U07.1 - COVID-19; J12.82 - Pneumonia due to coronavirus disease 2018 Status: Acute Assessment and Plan: CTA and symptoms consistent with viral pneumonia -continue remdesivir, Decadron and Lovenox. May consider baricitinib if he starts requiring more oxygen as CXR looks severe. -he tested positive for COVID 02/20/21 but had symptoms for 2 weeks -CTA shows no signs of PE -continue isolation -he is unvaccinated CRP elevated at 0.7 LDS mildly elevated at 965 implant markers are slowly improving Will give a dose of Lasix today 40 mg IV BNP was normal Repeat chest x-ray today and monitor (2) Polycythemia: Code(s): D75.1 - Secondary polycythemia Status: Acute Assessment and Plan: Last hemoglobin 18.2 -could be due to dehydration, will give 250cc fluids to see if this improves -if this continues to be high may consider sleep apnea testing or follow-up with Hematology (3) Hyponatremia: Code(s): E87.1 - Hypo-osmolality and hyponatremia Status: Acute Assessment and Plan: Last sodium 128 -could be due to infection or dehydration. Will give 250cc fluids and see if this improves Check urine sodium -monitor daily labs Sodium level improves and back to normal (4) Transaminitis: Code(s): R74.01 - Elevation of levels of liver transaminase levels Status: Acute Assessment and Plan: Liver enzymes elevated likely due to COVID Hepatitis panel negative -hold simvastatin -monitor Liver enzymes is normal (5) Elevated blood pressure reading: Code(s): R03.0 - Elevated blood-pressure reading, without diagnosis of hypertension Status: Acute Assessment and Plan: Last blood pressure 163/86 -no history of this, could be due to anxiety -will do p.r.n. hydralazine. If he continues to be high may consider starting a daily medication (6) Diarrhea: Code(s): R19.7 - Diarrhea, unspecified Status: Acute Assessment and Plan: Likely due to COVID -C diff less likely, no leukocytosis. He did take a couple days of cephalexin -monitor (7) Acute respiratory failure with hypoxia: Code(s): J96.01 - Acute respiratory failure with hypoxia Status: Acute Assessment and Plan: Oxygen saturation 88% with exertion in the ER. Admitted and started on Decadron and remdesivir Recheck chest x-ray Limited ambulation due to shortness of breath Additional Plan DVT prophylaxis Lovenox Subjective Date/time seen: 02/23/21 14:26 Interval history: Patient still very sort of breath breathing treatment gets him coughing spell. Oxygen low low normal on room air however not able to ambulate because she gets short of breath Review of Systems Review of Systems: All systems reviewed & are unremarkable except as noted in HPI and below (HPI) Exam Narrative: General:Well developed well nourished patient looks ill HEENT: Normocephalic, atraumatic, PERRL, Sclerae anicteric, oral mucosa moist. Neck: Supple Resp: Decreased breath sounds bilaterally with no wheezing or rhonchi Heart: RRR with no murmurs Abd: Soft, nontender. No pain to palpation. Positive bowel sounds Skin: Warm and dry Extremities: No swelling, erythema or pain to palpation Neuro: Alert and Oriented x4 . CN 2-12 intact. No focal neurological deficits. Objective Data Vital Signs Vital Signs: Vital Signs - 24 hr 02/22/21 20:00 02/22/21 21:40 02/23/21 00:17 Temperature 98.2 F 99.1 F Pulse Rate 60 98 67 Respiratory Rate 18 18 20 Blood Pressure 137/61 133/47 L Pulse Oximetry 91 90 02/23/21 02:46 02/23/21 04:00 02/23/21 07:36 Temperature 97.2 F L 97.8 F Pulse Rate 98 63 63 Respiratory Rate 18 18 14 Blood Pressure 121/68 122/82 Pulse Oximetry 92 93 02/23/21 12:00 Temperature 98.7 F Pulse Rate 67 Respiratory Rate 14 Blood Pressure 123/6
[2021-02-23] MEDS: guaiFENesin 600 MG/DEXTROMETHORPHAN 30 MG SR TAB 12 HR 1 TAB PO ×2 (17:10→20:08)
[2021-02-23] MEDS: FUROSEMIDE INJ 40 MG/4 ML VIAL IV PUSH (17:10)
[2021-02-24 03:37] VITALS: BP 146/70; PULSE 67; RESP 18; TEMP 36.7; O2SAT 90
[2021-02-24 06:58] LABS: Basophils Percent Auto 0.1 % (0.2-1.2); Hematocrit 50.1 % (42.0-52.0); Hemoglobin 16.9 g/dL (14.0-18.0); Lymphocytes Absolute Auto 0.87 K/mm3 (0.9-3.2); Mean Corpuscular HGB Conc 33.7 g/dl (32-36); Mean Corpuscular Hemoglobin 31.8 pg (26-34); Mean Corpuscular Volume 94.2 fl (80-100); Mean Platelet Volume 10.2 fl (7.4-10.4); Monocytes Absolute Auto 0.7 K/mm3 (0.1-0.6); Monocytes Percent Auto 6.8 % (2.6-8.5); Neutrophils Absolute Auto 8.1 K/mm3 (1.3-6.7); Neutrophils Percent Auto 83.1 % (45.5-73.1); Platelet Count Result 182 k/mm3 (150-375); Red Blood Count 5.32 M/mm3 (4.6-6.20); Red Cell Distribution Width 13.2 % (11.5-14.5); White Blood Count 9.7 K/mm3 (4.5-10.0)
[2021-02-24 07:12] LABS: Alanine Aminotransferase 43 U/L (4-50); Albumin Level 3.7 g/dL (3.5-5.1); Alkaline Phosphatase 75 U/L (38-126); Anion Gap 8 mmol/L (8-16); Aspartate Amino Transferase 41 U/L (17-59); Bilirubin,Total 0.4 mg/dL (0.2-1.3); Blood Urea Nitrogen 15 mg/dL (9-20); CRP 3.5 mg/dL (<1.0); Calcium 8.3 mg/dL (8.4-10.2); Carbon Dioxide 28 mmol/L (22-30); Chloride 99 mmol/L (98-107); Estimated CRCL calculation 102 ml/min; Estimated Glomerular Filt Rate > 60; Glucose 120 mg/dL (65-110); Lactate Dehydrogenase 917 U/L (313-618); Potassium 3.9 mmol/L (3.4-5.0); Sodium 135 mmol/L (137-145)
[2021-02-24 07:17] LABS: INR 1.1; Prothrombin Time 14.1 Seconds (11.1-14.7)
[2021-02-24 08:00] VITALS: BP 130/68; PULSE 62; RESP 18; TEMP 35.9; O2SAT 93
[2021-02-24] MEDS: PREGABALIN (*CRX) 75 MG CAPSULE PO ×2 (10:44→18:12)
[2021-02-24] MEDS: ASPIRIN 81 MG CHEWABLE TABLET PO (10:45)
[2021-02-24] MEDS: SIMVASTATIN 20 MG TABLET PO (10:45)
[2021-02-24] MEDS: guaiFENesin 600 MG/DEXTROMETHORPHAN 30 MG SR TAB 12 HR 1 TAB PO ×2 (10:45→20:46)
[2021-02-24] MEDS: REMDESIVIR 100 MG/NS 250 ML 100 MG/250 ML BAG 250 MG IVPB (10:45)
[2021-02-24] MEDS: ENOXAPARIN 40 MG/0.4 ML SYRINGE SUB-Q (10:45)
[2021-02-24 11:58] VITALS: BP 129/68; PULSE 73; RESP 18; TEMP 36.2; O2SAT 92
[2021-02-24 15:49] VITALS: BP 123/67; PULSE 62; RESP 18; TEMP 35.9; O2SAT 94
--- NOTE | 2021-02-24 16:53 | PM.IMPN ---
Progress Note: A&P Assessment and Plan (1) Pneumonia due to COVID-19 virus: Code(s): U07.1 - COVID-19; J12.82 - Pneumonia due to coronavirus disease 2018 Status: Acute Assessment and Plan: CTA and symptoms consistent with viral pneumonia -continue remdesivir, Decadron and Lovenox. May consider baricitinib if he starts requiring more oxygen as CXR looks severe. -he tested positive for COVID 02/20/21 but had symptoms for 2 weeks -CTA shows no signs of PE -continue isolation -he is unvaccinated CRP elevated at 0.7 LDS mildly elevated at 965 implant markers are slowly improving Will give a dose of Lasix today 40 mg IV BNP was normal Repeat chest x-ray persistent opacities Continue to diurese intermittently 40 mg IV x1 today (2) Polycythemia: Code(s): D75.1 - Secondary polycythemia Status: Acute Assessment and Plan: Last hemoglobin 18.2 -could be due to dehydration, will give 250cc fluids to see if this improves -if this continues to be high may consider sleep apnea testing or follow-up with Hematology (3) Hyponatremia: Code(s): E87.1 - Hypo-osmolality and hyponatremia Status: Acute Assessment and Plan: Last sodium 128 -could be due to infection or dehydration. Will give 250cc fluids and see if this improves Check urine sodium -monitor daily labs Sodium level improves and back to normal (4) Transaminitis: Code(s): R74.01 - Elevation of levels of liver transaminase levels Status: Acute Assessment and Plan: Liver enzymes elevated likely due to COVID Hepatitis panel negative -hold simvastatin -monitor Liver enzymes is normal (5) Elevated blood pressure reading: Code(s): R03.0 - Elevated blood-pressure reading, without diagnosis of hypertension Status: Acute Assessment and Plan: Last blood pressure 163/86 -no history of this, could be due to anxiety -will do p.r.n. hydralazine. If he continues to be high may consider starting a daily medication (6) Diarrhea: Code(s): R19.7 - Diarrhea, unspecified Status: Acute Assessment and Plan: Likely due to COVID -C diff less likely, no leukocytosis. He did take a couple days of cephalexin -monitor (7) Acute respiratory failure with hypoxia: Code(s): J96.01 - Acute respiratory failure with hypoxia Status: Acute Assessment and Plan: Oxygen saturation 88% with exertion in the ER. Admitted and started on Decadron and remdesivir Recheck chest x-ray Limited ambulation due to shortness of breath Continue to finish him this Decadron Will check home O2 with ambulation Additional Plan DVT prophylaxis Lovenox Subjective Date/time seen: 02/24/21 16:53 Interval history: No overnight events. He still feels pretty bad. He has not had any bowel movement. His appetite is poor. He gets short of breath with minimal ambulation. Even going to the bathroom takes a toll on him. Review of Systems Review of Systems: All systems reviewed & are unremarkable except as noted in HPI and below (HPI) Exam Narrative: General:Well developed well nourished patient looks ill HEENT: Normocephalic, atraumatic, PERRL, Sclerae anicteric, oral mucosa moist. Neck: Supple Resp: Decreased breath sounds bilaterally with no wheezing or rhonchi Heart: RRR with no murmurs Abd: Soft, nontender. No pain to palpation. Positive bowel sounds Skin: Warm and dry Extremities: No swelling, erythema or pain to palpation Neuro: Alert and Oriented x4 . CN 2-12 intact. No focal neurological deficits. Objective Data Vital Signs Vital Signs: Vital Signs - 24 hr 02/23/21 17:00 02/23/21 20:00 02/23/21 23:25 Temperature 98.1 F 97.7 F 97.5 F L Pulse Rate 65 64 63 Respiratory Rate 16 18 20 Blood Pressure 120/75 153/72 H 118/63 Pulse Oximetry 92 90 91 02/24/21 03:37 02/24/21 08:00 02/24/21 11:58 Temperature 98.0 F 96.6 F L 97.2 F L Pulse Rate
[2021-02-24] MEDS: FUROSEMIDE INJ 40 MG/4 ML VIAL IV PUSH (18:12)
[2021-02-24] MEDS: polyethylene glycoL 3350 17 GM POWD.PACK PO (18:12)
[2021-02-24 20:00] VITALS: BP 123/77; PULSE 74; RESP 18; TEMP 36.9; O2SAT 86
[2021-02-24] MEDS: MELATONIN 3 MG TABLET PO (20:46)
[2021-02-25] VITALS (9 sets, daily range): BP systolic 116–152; BP diastolic 65–71; PULSE 61–71; RESP 16–22; TEMP 36–36.9; O2SAT 85–97
--- NOTE | 2021-02-25 04:33 | PC.NURSE ---
Pt spo2 87-89% on room air, pt in no acute distress. Pt states im not putting on oxygen, i'm not short of breath and I have not used oxygen since I been here. Encouraged pt to inform nurse if have difficulty breathing, verbalize understanding. HOB elevated 45 degrees, will continue to monitor.
[2021-02-25 07:27] LABS: Basophils Percent Auto 0.2 % (0.2-1.2); Hematocrit 51.9 % (42.0-52.0); Hemoglobin 17.5 g/dL (14.0-18.0); Immature Granulocyte Absolute 0.12 K/mm3 (0.00-0.031); Immature Granulocyte Percent A 1.3 % (0-0.5); Lymphocytes Absolute Auto 0.93 K/mm3 (0.9-3.2); Lymphocytes Percent Auto 9.9 % (18.3-44.2); Mean Corpuscular HGB Conc 33.7 g/dl (32-36); Mean Corpuscular Hemoglobin 31.8 pg (26-34); Mean Corpuscular Volume 94.2 fl (80-100); Mean Platelet Volume 10.1 fl (7.4-10.4); Monocytes Absolute Auto 0.5 K/mm3 (0.1-0.6); Monocytes Percent Auto 5.2 % (2.6-8.5); Neutrophils Absolute Auto 7.9 K/mm3 (1.3-6.7); Neutrophils Percent Auto 83.4 % (45.5-73.1); Platelet Count Result 232 k/mm3 (150-375); Red Blood Count 5.51 M/mm3 (4.6-6.20); Red Cell Distribution Width 13.3 % (11.5-14.5); White Blood Count 9.4 K/mm3 (4.5-10.0)
[2021-02-25 07:34] LABS: Alanine Aminotransferase 41 U/L (4-50); CRP 6.4 mg/dL (<1.0); Estimated CRCL calculation 128 ml/min; Estimated Glomerular Filt Rate > 60; Lactate Dehydrogenase 1003 U/L (313-618); Lipase 452 U/L (23-300)
[2021-02-25 07:47] LABS: INR 1.1; Prothrombin Time 14.3 Seconds (11.1-14.7)
[2021-02-25] MEDS: SIMVASTATIN 20 MG TABLET PO (09:42)
[2021-02-25] MEDS: ASPIRIN 81 MG CHEWABLE TABLET PO (09:42)
[2021-02-25] MEDS: guaiFENesin 600 MG/DEXTROMETHORPHAN 30 MG SR TAB 12 HR 1 TAB PO ×2 (09:42→20:13)
[2021-02-25] MEDS: ENOXAPARIN 40 MG/0.4 ML SYRINGE SUB-Q (09:42)
[2021-02-25] MEDS: PREGABALIN (*CRX) 75 MG CAPSULE PO ×2 (09:42→17:29)
[2021-02-25] MEDS: REMDESIVIR 100 MG/NS 250 ML 100 MG/250 ML BAG 250 MG IVPB (09:43)
[2021-02-25] MEDS: FUROSEMIDE INJ 40 MG/4 ML VIAL IV PUSH (09:49)
--- NOTE | 2021-02-25 09:53 | PCRCNOTE ---
Home o2 eval on hold, RN notified. Pt was on room air throughout stay, he is now requiring 3L at rest. Pt feels weak, shaky and SOB. Did not ambulate at this time for home O2.
[2021-02-25] MEDS: DOCUSATE SODIUM 100 MG CAPSULE PO ×2 (10:52→20:13)
--- NOTE | 2021-02-25 16:36 | PM.IMPN ---
Progress Note: A&P Assessment and Plan (1) Pneumonia due to COVID-19 virus: Code(s): U07.1 - COVID-19; J12.82 - Pneumonia due to coronavirus disease 2018 Status: Acute Assessment and Plan: CTA and symptoms consistent with viral pneumonia -continue remdesivir, Decadron and Lovenox. May consider baricitinib if he starts requiring more oxygen as CXR looks severe. -he tested positive for COVID 02/20/21 but had symptoms for 2 weeks -CTA shows no signs of PE -continue isolation -he is unvaccinated CRP elevated at 0.7 LDS mildly elevated at 965 implant markers are slowly improving Will give a dose of Lasix today 40 mg IV BNP was normal Repeat chest x-ray persistent opacities Continue to diurese intermittently 40 mg IV x1 today 02/26/2020 interval history today patient states is getting more short of breath requiring oxygen at rest and requiring 3 L of oxygen, patient being treated with dexamethasone 6 mg q.day 05/31 remdesivir 05/31, will start the patient on Lasix 40 mg IV daily his it has shown to improve oxygenation, patient's CRP is also increased 6.4 from 3.5 on 02/23 will continue to monitor and further recommendation to follow (2) Polycythemia: Code(s): D75.1 - Secondary polycythemia Status: Acute Assessment and Plan: Last hemoglobin 18.2 -could be due to dehydration, will give 250cc fluids to see if this improves -if this continues to be high may consider sleep apnea testing or follow-up with Hematology (3) Hyponatremia: Code(s): E87.1 - Hypo-osmolality and hyponatremia Status: Acute Assessment and Plan: Last sodium 128 -could be due to infection or dehydration. Will give 250cc fluids and see if this improves Check urine sodium -monitor daily labs Sodium level improves and back to normal (4) Transaminitis: Code(s): R74.01 - Elevation of levels of liver transaminase levels Status: Acute Assessment and Plan: Liver enzymes elevated likely due to COVID Hepatitis panel negative -hold simvastatin -monitor Liver enzymes is normal (5) Elevated blood pressure reading: Code(s): R03.0 - Elevated blood-pressure reading, without diagnosis of hypertension Status: Acute Assessment and Plan: Last blood pressure 163/86 -no history of this, could be due to anxiety -will do p.r.n. hydralazine. If he continues to be high may consider starting a daily medication (6) Diarrhea: Code(s): R19.7 - Diarrhea, unspecified Status: Acute Assessment and Plan: Likely due to COVID -C diff less likely, no leukocytosis. He did take a couple days of cephalexin -monitor (7) Acute respiratory failure with hypoxia: Code(s): J96.01 - Acute respiratory failure with hypoxia Status: Acute Assessment and Plan: Oxygen saturation 88% with exertion in the ER. Admitted and started on Decadron and remdesivir Recheck chest x-ray Limited ambulation due to shortness of breath Continue to finish him this Decadron Will check home O2 with ambulation Subjective Date/time seen: 02/25/21 16:36 Interval history: No overnight events. He still feels pretty bad. He has not had any bowel movement. His appetite is poor. He gets short of breath with minimal ambulation. Even going to the bathroom takes a toll on him. 02/26/2020 interval history today patient states is getting more short of breath requiring oxygen at rest and requiring 3 L of oxygen, patient being treated with dexamethasone 6 mg q.day 05/31 remdesivir 05/31, will start the patient on Lasix 40 mg IV daily his it has shown to improve oxygenation, patient's CRP is also increased 6.4 from 3.5 on 02/23 will continue to monitor and further recommendation to follow Review of Systems Review of Systems: All systems reviewed & are unremarkable except as noted in HPI and below (HPI) Exam Narrative: moderately obese Patient is comfortable, NAD HEENT:
[2021-02-25] MEDS: MELATONIN 3 MG TABLET PO (20:14)
[2021-02-26] VITALS (9 sets, daily range): BP systolic 121–134; BP diastolic 68–78; PULSE 63–84; RESP 14–20; TEMP 36.3–37.6; O2SAT 87–93
[2021-02-26 07:56] LABS: INR 1.1; Prothrombin Time 13.6 Seconds (11.1-14.7)
[2021-02-26 07:58] LABS: Alanine Aminotransferase 41 U/L (4-50); CRP 5.7 mg/dL (<1.0); Estimated CRCL calculation 92 ml/min; Estimated Glomerular Filt Rate > 60
[2021-02-26] MEDS: guaiFENesin 600 MG/DEXTROMETHORPHAN 30 MG SR TAB 12 HR 1 TAB PO ×2 (09:37→20:30)
[2021-02-26] MEDS: PREGABALIN (*CRX) 75 MG CAPSULE PO ×2 (09:37→16:54)
[2021-02-26] MEDS: SIMVASTATIN 20 MG TABLET PO (09:37)
[2021-02-26] MEDS: ASPIRIN 81 MG CHEWABLE TABLET PO (09:37)
[2021-02-26] MEDS: DOCUSATE SODIUM 100 MG CAPSULE PO ×2 (09:37→20:29)
[2021-02-26] MEDS: REMDESIVIR 100 MG/NS 250 ML 100 MG/250 ML BAG 250 MG IVPB (09:38)
[2021-02-26] MEDS: FUROSEMIDE INJ 40 MG/4 ML VIAL IV PUSH (09:38)
[2021-02-26] MEDS: CHOLECALCIFEROL 1,000 UNITS TABLET 1000 UNITS PO (13:16)
[2021-02-26] MEDS: ENOXAPARIN 40 MG/0.4 ML SYRINGE SUB-Q ×2 (13:16→20:29)
[2021-02-26] MEDS: ASCORBIC ACID 500 MG TABLET PO (13:16)
--- NOTE | 2021-02-26 13:18 | PM.IMPN ---
Progress Note: A&P Assessment and Plan (1) Pneumonia due to COVID-19 virus: Code(s): U07.1 - COVID-19; J12.82 - Pneumonia due to coronavirus disease 2018 Status: Acute Assessment and Plan: CTA and symptoms consistent with viral pneumonia -continue remdesivir, Decadron and Lovenox. May consider baricitinib if he starts requiring more oxygen as CXR looks severe. -he tested positive for COVID 02/20/21 but had symptoms for 2 weeks -CTA shows no signs of PE -continue isolation -he is unvaccinated CRP elevated at 0.7 LDS mildly elevated at 965 implant markers are slowly improving Will give a dose of Lasix today 40 mg IV BNP was normal Repeat chest x-ray persistent opacities Continue to diurese intermittently 40 mg IV x1 today 02/26/2020 interval history today patient states is getting more short of breath requiring oxygen at rest and requiring 3 L of oxygen, patient being treated with dexamethasone 6 mg q.day 05/31 remdesivir 05/31, will start the patient on Lasix 40 mg IV daily his it has shown to improve oxygenation, patient's CRP is also increased 6.4 from 3.5 on 02/23 will continue to monitor and further recommendation to follow 02/27/2020 interval history today patient appears more short of breath and gets short winded with exertion, complains of cough and shortness of breath, currently patient is on dexamethasone 6 mg q.day will increase it to dexamethasone 20 mg q.day for 5 days 02/26, continue remdesivir 06/30, add vitamin C and D as well zinc will monitor and further recommendation to follow. (2) Polycythemia: Code(s): D75.1 - Secondary polycythemia Status: Acute Assessment and Plan: Last hemoglobin 18.2 -could be due to dehydration, will give 250cc fluids to see if this improves -if this continues to be high may consider sleep apnea testing or follow-up with Hematology (3) Hyponatremia: Code(s): E87.1 - Hypo-osmolality and hyponatremia Status: Acute Assessment and Plan: Last sodium 128 -could be due to infection or dehydration. Will give 250cc fluids and see if this improves Check urine sodium -monitor daily labs Sodium level improves and back to normal (4) Transaminitis: Code(s): R74.01 - Elevation of levels of liver transaminase levels Status: Acute Assessment and Plan: Liver enzymes elevated likely due to COVID Hepatitis panel negative -hold simvastatin -monitor Liver enzymes is normal (5) Elevated blood pressure reading: Code(s): R03.0 - Elevated blood-pressure reading, without diagnosis of hypertension Status: Acute Assessment and Plan: Last blood pressure 163/86 -no history of this, could be due to anxiety -will do p.r.n. hydralazine. If he continues to be high may consider starting a daily medication (6) Diarrhea: Code(s): R19.7 - Diarrhea, unspecified Status: Acute Assessment and Plan: Likely due to COVID -C diff less likely, no leukocytosis. He did take a couple days of cephalexin -monitor (7) Acute respiratory failure with hypoxia: Code(s): J96.01 - Acute respiratory failure with hypoxia Status: Acute Assessment and Plan: Oxygen saturation 88% with exertion in the ER. Admitted and started on Decadron and remdesivir Recheck chest x-ray Limited ambulation due to shortness of breath Continue to finish him this Decadron Will check home O2 with ambulation Additional Plan DVT prophylaxis Lovenox Subjective Date/time seen: 02/26/21 13:18 Interval history: No overnight events. He still feels pretty bad. He has not had any bowel movement. His appetite is poor. He gets short of breath with minimal ambulation. Even going to the bathroom takes a toll on him. 02/26/2020 interval history today patient states is getting more short of breath requiring oxygen at rest and requiring 3 L of oxygen, patient being treated with dexamethasone 6 mg q
[2021-02-26] MEDS: MELATONIN 3 MG TABLET PO (20:30)
[2021-02-27] VITALS (12 sets, daily range): BP systolic 102–135; BP diastolic 64–75; PULSE 64–80; RESP 16–28; TEMP 35.7–37.8; O2SAT 83–97
[2021-02-27 07:45] LABS: INR 1.2; Prothrombin Time 14.6 Seconds (11.1-14.7)
[2021-02-27 07:50] LABS: Alanine Aminotransferase 32 U/L (4-50); Estimated CRCL calculation 92 ml/min; Estimated Glomerular Filt Rate > 60
[2021-02-27] MEDS: FUROSEMIDE INJ 40 MG/4 ML VIAL IV PUSH (09:13)
[2021-02-27] MEDS: guaiFENesin 600 MG/DEXTROMETHORPHAN 30 MG SR TAB 12 HR 1 TAB PO ×2 (09:13→20:57)
[2021-02-27] MEDS: PREGABALIN (*CRX) 75 MG CAPSULE PO ×2 (09:13→18:58)
[2021-02-27] MEDS: DOCUSATE SODIUM 100 MG CAPSULE PO ×2 (09:13→20:58)
[2021-02-27] MEDS: ASCORBIC ACID 500 MG TABLET PO (09:14)
[2021-02-27] MEDS: SIMVASTATIN 20 MG TABLET PO (09:14)
[2021-02-27] MEDS: ZINC SULFATE 220 MG CAPSULE PO (09:14)
[2021-02-27] MEDS: ASPIRIN 81 MG CHEWABLE TABLET PO (09:14)
[2021-02-27] MEDS: CHOLECALCIFEROL 1,000 UNITS TABLET 1000 UNITS PO (09:14)
[2021-02-27] MEDS: REMDESIVIR 100 MG/NS 250 ML 100 MG/250 ML BAG 250 MG IVPB (10:01)
[2021-02-27 10:54] LABS: Alveolar/Arterial O2 Gradient 282.9 mmHg; Base Excess ABG 1.7 mEq/l (+/-2.0); Fractional Inspired Oxygen 52 %; HCO3 ABG 24.2 mEq/l (22.0-26.0); Oxygen Content ABG 24.5 %vol (16.0-22.0); Oxygen Saturation ABG 88.7 % (95.0-100.0); PCO2 ABG 33.3 mmHg (35.0-45.0); PO2 ABG 50.6 mmHg (80.0-100.0); PO2 FiO2 Ratio Arterial Blood 0.97 %; Total Hemoglobin 20.2 g/dL (12.0-18.0)
[2021-02-27 10:59] LABS: Modified Allen's Test Pass; Oxyhemoglobin 86.7 % THb (90.0-100.0); Site Drawn RIGHT RADIAL
[2021-02-27 11:00] LABS: Device NASAL CANNULA
[2021-02-27] MEDS: ENOXAPARIN 40 MG/0.4 ML SYRINGE SUB-Q ×2 (12:54→20:57)
[2021-02-27] MEDS: WATER FOR IRRIGATION, STERILE 1,000 ML BOTTLE 1000 ML (15:45)
--- NOTE | 2021-02-27 16:47 | P.PNIM_ITS ---
Progress Note: A&P Assessment and Plan (1) Pneumonia due to COVID-19 virus: Code(s): U07.1 - COVID-19; J12.82 - Pneumonia due to coronavirus disease 2019 Status: Acute Assessment and Plan: CTA and symptoms consistent with viral pneumonia -continue remdesivir, Decadron and Lovenox. May consider baricitinib if he starts requiring more oxygen as CXR looks severe. -he tested positive for COVID 02/20/21 but had symptoms for 2 weeks -CTA shows no signs of PE -continue isolation -he is unvaccinated CRP elevated at 0.7 LDS mildly elevated at 965 implant markers are slowly improving Will give a dose of Lasix today 40 mg IV BNP was normal Repeat chest x-ray persistent opacities Continue to diurese intermittently 40 mg IV x1 today 02/26/2020 interval history today patient states is getting more short of breath requiring oxygen at rest and requiring 3 L of oxygen, patient being treated with dexamethasone 6 mg q.day 05/31 remdesivir 05/31, will start the patient on Lasix 40 mg IV daily his it has shown to improve oxygenation, patient's CRP is also increased 6.4 from 3.5 on 02/23 will continue to monitor and further recommendation to follow 02/27/2020 interval history today patient appears more short of breath and gets short winded with exertion, complains of cough and shortness of breath, currently patient is on dexamethasone 6 mg q.day will increase it to dexamethasone 20 mg q.day for 5 days 02/26, continue remdesivir 06/30, add vitamin C and D as well zinc will monitor and further recommendation to follow. 02/28/2020 interval history on 02/26 patient appeared more short of breath and got short winded with exertion, complained of cough and shortness of breath, patient was on dexamethasone 6 mg q.day, increased it to dexamethasone 20 mg q.day for 5 days 03/29, continue remdesivir 06/30, and being diursed, added vitamin C and D as well zinc will monitor and further recommendation to follow. will start the patient on Levaquin to cover for possible bacterial infection will continue to monitor. will also do CTA of the chest to rule out PE. (2) Polycythemia: Code(s): D75.1 - Secondary polycythemia Status: Acute Assessment and Plan: Last hemoglobin 18.2 -could be due to dehydration, will give 250cc fluids to see if this improves -if this continues to be high may consider sleep apnea testing or follow-up with Hematology (3) Hyponatremia: Code(s): E87.1 - Hypo-osmolality and hyponatremia Status: Acute Assessment and Plan: Last sodium 128 -could be due to infection or dehydration. Will give 250cc fluids and see if this improves Check urine sodium -monitor daily labs Sodium level improves and back to normal (4) Transaminitis: Code(s): R74.01 - Elevation of levels of liver transaminase levels Status: Acute Assessment and Plan: Liver enzymes elevated likely due to COVID Hepatitis panel negative -hold simvastatin -monitor Liver enzymes is normal (5) Elevated blood pressure reading: Code(s): R03.0 - Elevated blood-pressure reading, without diagnosis of hypertension Status: Acute Assessment and Plan: Last blood pressure 163/86 -no history of this, could be due to anxiety -will do p.r.n. hydralazine. If he continues to be high may consider starting a daily medication (6) Diarrhea: Code(s): R19.7 - Diarrhea, unspecified Status: Acute Assessment and Plan: Likely due to COVID -C diff less likely, no leukocytosis. He did take
[2021-02-27] MEDS: MELATONIN 3 MG TABLET PO (20:58)
[2021-02-28] VITALS (8 sets, daily range): BP systolic 123–137; BP diastolic 59–75; PULSE 61–89; RESP 16–24; TEMP 36.2–37.1; O2SAT 87–98
[2021-02-28 07:28] LABS: Hematocrit 54.2 % (42.0-52.0); Hemoglobin 18.2 g/dL (14.0-18.0); Mean Corpuscular HGB Conc 33.6 g/dl (32-36); Mean Corpuscular Hemoglobin 31.5 pg (26-34); Mean Corpuscular Volume 93.9 fl (80-100); Mean Platelet Volume 9.7 fl (7.4-10.4); Platelet Count Result 346 k/mm3 (150-375); Red Blood Count 5.77 M/mm3 (4.6-6.20); Red Cell Distribution Width 13.1 % (11.5-14.5); White Blood Count 11.4 K/mm3 (4.5-10.0)
[2021-02-28 07:39] LABS: INR 1.2; Prothrombin Time 14.7 Seconds (11.1-14.7)
[2021-02-28 07:44] LABS: Alanine Aminotransferase 28 U/L (4-50); Albumin Level 3.5 g/dL (3.5-5.1); Alkaline Phosphatase 88 U/L (38-126); Anion Gap 7 mmol/L (8-16); Aspartate Amino Transferase 31 U/L (17-59); Bilirubin,Total 0.6 mg/dL (0.2-1.3); Blood Urea Nitrogen 20 mg/dL (9-20); CRP 8.1 mg/dL (<1.0); Calcium 8.4 mg/dL (8.4-10.2); Carbon Dioxide 29 mmol/L (22-30); Chloride 97 mmol/L (98-107); Estimated CRCL calculation 102 ml/min; Estimated Glomerular Filt Rate > 60; Glucose 138 mg/dL (65-110); Potassium 3.9 mmol/L (3.4-5.0); Sodium 133 mmol/L (137-145)
[2021-02-28] MEDS: FUROSEMIDE INJ 40 MG/4 ML VIAL IV PUSH (08:13)
[2021-02-28] MEDS: ASCORBIC ACID 500 MG TABLET PO (08:14)
[2021-02-28] MEDS: ZINC SULFATE 220 MG CAPSULE PO (08:14)
[2021-02-28] MEDS: SIMVASTATIN 20 MG TABLET PO (08:14)
[2021-02-28] MEDS: DOCUSATE SODIUM 100 MG CAPSULE PO ×2 (08:14→20:13)
[2021-02-28] MEDS: ASPIRIN 81 MG CHEWABLE TABLET PO (08:14)
[2021-02-28] MEDS: guaiFENesin 600 MG/DEXTROMETHORPHAN 30 MG SR TAB 12 HR 1 TAB PO ×2 (08:14→20:13)
[2021-02-28] MEDS: CHOLECALCIFEROL 1,000 UNITS TABLET 1000 UNITS PO (08:14)
[2021-02-28] MEDS: ENOXAPARIN 40 MG/0.4 ML SYRINGE SUB-Q ×2 (08:14→20:13)
[2021-02-28] MEDS: PREGABALIN (*CRX) 75 MG CAPSULE PO ×2 (08:28→18:14)
[2021-02-28] MEDS: REMDESIVIR 100 MG/NS 250 ML 100 MG/250 ML BAG 250 MG IVPB (11:15)
[2021-02-28] MEDS: SALINE 0.65% NAS SOLN 44 ML BTL 1 SPRAY NASAL (11:16)
[2021-02-28] MEDS: ALBUTEROL SULFATE (*SP) AEROSOL 1 PUFF 2 PUFF INHALATION ×2 (15:12→19:59)
--- NOTE | 2021-02-28 15:53 | PM.IMPN ---
Progress Note: A&P Assessment and Plan (1) Pneumonia due to COVID-19 virus: Code(s): U07.1 - COVID-19; J12.82 - Pneumonia due to coronavirus disease 2019 Status: Acute Assessment and Plan: CTA and symptoms consistent with viral pneumonia -continue remdesivir, Decadron and Lovenox. May consider baricitinib if he starts requiring more oxygen as CXR looks severe. -he tested positive for COVID 02/20/21 but had symptoms for 2 weeks -CTA shows no signs of PE -continue isolation -he is unvaccinated CRP elevated at 0.7 LDS mildly elevated at 965 implant markers are slowly improving Will give a dose of Lasix today 40 mg IV BNP was normal Repeat chest x-ray persistent opacities Continue to diurese intermittently 40 mg IV x1 today 02/26/2020 interval history today patient states is getting more short of breath requiring oxygen at rest and requiring 3 L of oxygen, patient being treated with dexamethasone 6 mg q.day 05/31 remdesivir 05/31, will start the patient on Lasix 40 mg IV daily his it has shown to improve oxygenation, patient's CRP is also increased 6.4 from 3.5 on 02/23 will continue to monitor and further recommendation to follow 02/27/2020 interval history today patient appears more short of breath and gets short winded with exertion, complains of cough and shortness of breath, currently patient is on dexamethasone 6 mg q.day will increase it to dexamethasone 20 mg q.day for 5 days 02/26, continue remdesivir 06/30, add vitamin C and D as well zinc will monitor and further recommendation to follow. 02/28/2020 interval history on 02/26 patient appeared more short of breath and got short winded with exertion, complained of cough and shortness of breath, patient was on dexamethasone 6 mg q.day, increased it to dexamethasone 20 mg q.day for 5 days 03/29, continue remdesivir 06/30, and being diursed, added vitamin C and D as well zinc will monitor and further recommendation to follow. will start the patient on Levaquin to cover for possible bacterial infection will continue to monitor. will also do CTA of the chest to rule out PE. 02/29/2020 interval history CTA of the chest was negative for pulmonary emboli, patient remains on high flow oxygen complaint of shortness of breath with exertion denies any fever or chills, patient was on dexamethasone 6 mg q.day, increased it to dexamethasone 20 mg q.day for 5 days 04/26, continue remdesivir 07/31, and being diursed, added vitamin C and D as well zinc will monitor and further recommendation to follow. started the patient on Levaquin to cover for possible bacterial infection will continue to monitor. (2) Polycythemia: Code(s): D75.1 - Secondary polycythemia Status: Acute Assessment and Plan: Last hemoglobin 18.2 -could be due to dehydration, will give 250cc fluids to see if this improves -if this continues to be high may consider sleep apnea testing or follow-up with Hematology (3) Hyponatremia: Code(s): E87.1 - Hypo-osmolality and hyponatremia Status: Acute Assessment and Plan: Last sodium 128 -could be due to infection or dehydration. Will give 250cc fluids and see if this improves Check urine sodium -monitor daily labs Sodium level improves and back to normal (4) Transaminitis: Code(s): R74.01 - Elevation of levels of liver transaminase levels Status: Acute Assessment and Plan: Liver enzymes elevated likely due to COVID Hepatitis panel negative -hold simvastatin -monitor Liver enzymes is normal (5) Elevated blood pressure reading: Code(s): R03.0 - Elevated blood-pressure reading, without diagnosis of hypertension Status: Acute Assessment and Plan: Last blood pressure 163/86 -no history of this, could be due to anxiety -will do p.r.n. hydralazine. If he continues to be high may consider starting a daily medication (6) Diarrhea: Code(s): R19.7 - Diarrhea, unspecified Statu
[2021-02-28] MEDS: MELATONIN 3 MG TABLET PO (20:13)
[2021-03-01] VITALS (7 sets, daily range): BP systolic 118–141; BP diastolic 46–88; PULSE 71–80; RESP 16–22; TEMP 35.6–36.3; O2SAT 89–93
[2021-03-01] MEDS: ALBUTEROL SULFATE (*SP) AEROSOL 1 PUFF 2 PUFF INHALATION ×2 (03:30→21:56)
[2021-03-01] MEDS: PREGABALIN (*CRX) 75 MG CAPSULE PO ×2 (08:48→17:55)
[2021-03-01] MEDS: guaiFENesin 600 MG/DEXTROMETHORPHAN 30 MG SR TAB 12 HR 1 TAB PO ×2 (08:48→20:13)
[2021-03-01] MEDS: ENOXAPARIN 40 MG/0.4 ML SYRINGE SUB-Q ×2 (08:48→20:13)
[2021-03-01] MEDS: DOCUSATE SODIUM 100 MG CAPSULE PO ×2 (08:48→20:13)
[2021-03-01] MEDS: ZINC SULFATE 220 MG CAPSULE PO (08:48)
[2021-03-01] MEDS: SIMVASTATIN 20 MG TABLET PO (08:48)
[2021-03-01] MEDS: CHOLECALCIFEROL 1,000 UNITS TABLET 1000 UNITS PO (08:48)
[2021-03-01] MEDS: ASCORBIC ACID 500 MG TABLET PO (08:48)
[2021-03-01] MEDS: ASPIRIN 81 MG CHEWABLE TABLET PO (08:48)
[2021-03-01] MEDS: FUROSEMIDE INJ 40 MG/4 ML VIAL IV PUSH (08:50)
[2021-03-01 09:22] LABS: Hematocrit 53.1 % (42.0-52.0); Hemoglobin 17.7 g/dL (14.0-18.0); Mean Corpuscular HGB Conc 33.3 g/dl (32-36); Mean Corpuscular Hemoglobin 30.9 pg (26-34); Mean Corpuscular Volume 92.8 fl (80-100); Mean Platelet Volume 9.6 fl (7.4-10.4); Platelet Count Result 360 k/mm3 (150-375); Red Blood Count 5.72 M/mm3 (4.6-6.20); Red Cell Distribution Width 12.8 % (11.5-14.5); White Blood Count 13.9 K/mm3 (4.5-10.0)
[2021-03-01 09:33] LABS: INR 1.1; Prothrombin Time 14.3 Seconds (11.1-14.7)
[2021-03-01 09:42] LABS: Alanine Aminotransferase 26 U/L (4-50); Albumin Level 3.5 g/dL (3.5-5.1); Alkaline Phosphatase 80 U/L (38-126); Anion Gap 10 mmol/L (8-16); Aspartate Amino Transferase 32 U/L (17-59); Bilirubin,Total 0.5 mg/dL (0.2-1.3); Blood Urea Nitrogen 21 mg/dL (9-20); CRP 3.1 mg/dL (<1.0); Calcium 8.4 mg/dL (8.4-10.2); Carbon Dioxide 27 mmol/L (22-30); Chloride 98 mmol/L (98-107); Estimated CRCL calculation 92 ml/min; Estimated Glomerular Filt Rate > 60; Glucose 169 mg/dL (65-110); Potassium 3.6 mmol/L (3.4-5.0); Sodium 135 mmol/L (137-145)
[2021-03-01] MEDS: POTASSIUM CHLORIDE 20 MEQ TABLET 40 MEQ PO (10:53)
[2021-03-01] MEDS: REMDESIVIR 100 MG/NS 250 ML 100 MG/250 ML BAG 250 MG IVPB (10:53)
--- NOTE | 2021-03-01 14:32 | PM.IMPN ---
Progress Note: A&P Assessment and Plan (1) Pneumonia due to COVID-19 virus: Code(s): U07.1 - COVID-19; J12.82 - Pneumonia due to coronavirus disease 2019 Status: Acute Assessment and Plan: CTA and symptoms consistent with viral pneumonia -continue remdesivir, Decadron and Lovenox. May consider baricitinib if he starts requiring more oxygen as CXR looks severe. -he tested positive for COVID 02/20/21 but had symptoms for 2 weeks -CTA shows no signs of PE -continue isolation -he is unvaccinated CRP elevated at 0.7 LDS mildly elevated at 965 implant markers are slowly improving Will give a dose of Lasix today 40 mg IV BNP was normal Repeat chest x-ray persistent opacities Continue to diurese intermittently 40 mg IV x1 today 02/26/2020 interval history today patient states is getting more short of breath requiring oxygen at rest and requiring 3 L of oxygen, patient being treated with dexamethasone 6 mg q.day 05/31 remdesivir 05/31, will start the patient on Lasix 40 mg IV daily his it has shown to improve oxygenation, patient's CRP is also increased 6.4 from 3.5 on 02/23 will continue to monitor and further recommendation to follow 02/27/2020 interval history today patient appears more short of breath and gets short winded with exertion, complains of cough and shortness of breath, currently patient is on dexamethasone 6 mg q.day will increase it to dexamethasone 20 mg q.day for 5 days 02/26, continue remdesivir 06/30, add vitamin C and D as well zinc will monitor and further recommendation to follow. 02/28/2020 interval history on 02/26 patient appeared more short of breath and got short winded with exertion, complained of cough and shortness of breath, patient was on dexamethasone 6 mg q.day, increased it to dexamethasone 20 mg q.day for 5 days 03/29, continue remdesivir 06/30, and being diursed, added vitamin C and D as well zinc will monitor and further recommendation to follow. will start the patient on Levaquin to cover for possible bacterial infection will continue to monitor. will also do CTA of the chest to rule out PE. 02/29/2020 interval history CTA of the chest was negative for pulmonary emboli, patient remains on high flow oxygen complaint of shortness of breath with exertion denies any fever or chills, patient was on dexamethasone 6 mg q.day, increased it to dexamethasone 20 mg q.day for 5 days 04/26, continue remdesivir 07/31, and being diursed, added vitamin C and D as well zinc will monitor and further recommendation to follow. started the patient on Levaquin to cover for possible bacterial infection will continue to monitor. 03/01/2020 interval history CTA of the chest was negative for pulmonary emboli, patient remains on high flow oxygen complaint of shortness of breath with exertion denies any fever or chills, patient was on dexamethasone 6 mg q.day, increased it to dexamethasone 20 mg q.day for 5 days 05/27, Patient CRP is trending down to 3.1 from 8 on 02/27, continue remdesivir 08/30, and being diuresed, added vitamin C and D as well zinc will monitor and further recommendation to follow. started the patient on Levaquin to cover for possible bacterial infection will continue to monitor. will have PT evaluate the patient. (2) Polycythemia: Code(s): D75.1 - Secondary polycythemia Status: Acute Assessment and Plan: Last hemoglobin 18.2 -could be due to dehydration, will give 250cc fluids to see if this improves -if this continues to be high may consider sleep apnea testing or follow-up with Hematology (3) Hyponatremia: Code(s): E87.1 - Hypo-osmolality and hyponatremia Status: Acute Assessment and Plan: Last sodium 128 -could be due to infection or dehydration. Will give 250cc fluids and see if this improves Check urine sodium -monitor daily labs Sodium level improves and back to normal (4) Transaminitis: Code(s): R74.01 - Elevation of levels of liver transaminase le
--- NOTE | 2021-03-01 19:01 | PCRCNOTE ---
Window of time for administration has passed. See next scheduled administration.
[2021-03-01] MEDS: MELATONIN 3 MG TABLET PO (20:13)
[2021-03-01] MEDS: SODIUM CHLORIDE NASAL GEL 14.1 GM 1 APPLIC NASAL (20:21)
[2021-03-02] VITALS (8 sets, daily range): BP systolic 112–142; BP diastolic 51–83; PULSE 56–83; RESP 14–20; TEMP 36.1–36.7; O2SAT 88–97
--- NOTE | 2021-03-02 00:30 | PC.NURSE ---
Patient attempted to lay prone and got short of breath. 15L high flow cannula in place and oxygen sats are 80%, non rebreather applied 15L in addition to high flow.
--- NOTE | 2021-03-02 01:10 | PC.NURSE ---
Pt resting comfortably, no dstress noted, O2 sats are 98%, non rebreather removed and oxygen sats are 91% on 15L high flow cannula.
[2021-03-02] MEDS: ALBUTEROL SULFATE (*SP) AEROSOL 1 PUFF 2 PUFF INHALATION ×4 (03:18→19:36)
[2021-03-02 07:23] LABS: Hematocrit 51.1 % (42.0-52.0); Hemoglobin 17.3 g/dL (14.0-18.0); Mean Corpuscular HGB Conc 33.9 g/dl (32-36); Mean Corpuscular Hemoglobin 31.7 pg (26-34); Mean Corpuscular Volume 93.8 fl (80-100); Mean Platelet Volume 9.8 fl (7.4-10.4); Platelet Count Result 341 k/mm3 (150-375); Red Blood Count 5.45 M/mm3 (4.6-6.20); Red Cell Distribution Width 13.1 % (11.5-14.5)
[2021-03-02 07:33] LABS: INR 1.1; Prothrombin Time 14.2 Seconds (11.1-14.7)
[2021-03-02 07:43] LABS: Alanine Aminotransferase 21 U/L (4-50); Albumin Level 3.2 g/dL (3.5-5.1); Alkaline Phosphatase 75 U/L (38-126); Anion Gap 8 mmol/L (8-16); Aspartate Amino Transferase 32 U/L (17-59); Bilirubin,Total 0.4 mg/dL (0.2-1.3); Blood Urea Nitrogen 21 mg/dL (9-20); CRP 2.2 mg/dL (<1.0); Calcium 8.2 mg/dL (8.4-10.2); Carbon Dioxide 25 mmol/L (22-30); Chloride 100 mmol/L (98-107); Estimated CRCL calculation 114 ml/min; Estimated Glomerular Filt Rate > 60; Glucose 127 mg/dL (65-110); Sodium 133 mmol/L (137-145)
[2021-03-02] MEDS: guaiFENesin 600 MG/DEXTROMETHORPHAN 30 MG SR TAB 12 HR 1 TAB PO ×2 (10:27→21:14)
[2021-03-02] MEDS: ZINC SULFATE 220 MG CAPSULE PO (10:27)
[2021-03-02] MEDS: SIMVASTATIN 20 MG TABLET PO (10:27)
[2021-03-02] MEDS: DOCUSATE SODIUM 100 MG CAPSULE PO ×2 (10:27→21:14)
[2021-03-02] MEDS: CHOLECALCIFEROL 1,000 UNITS TABLET 1000 UNITS PO (10:28)
[2021-03-02] MEDS: ENOXAPARIN 40 MG/0.4 ML SYRINGE SUB-Q ×2 (10:28→21:13)
[2021-03-02] MEDS: ASCORBIC ACID 500 MG TABLET PO (10:28)
[2021-03-02] MEDS: ASPIRIN 81 MG CHEWABLE TABLET PO (10:28)
[2021-03-02] MEDS: REMDESIVIR 100 MG/NS 250 ML 100 MG/250 ML BAG 250 MG IVPB (10:29)
[2021-03-02] MEDS: FUROSEMIDE INJ 40 MG/4 ML VIAL IV PUSH (10:29)
[2021-03-02] MEDS: PREGABALIN (*CRX) 75 MG CAPSULE PO ×2 (10:37→18:20)
--- NOTE | 2021-03-02 11:18 | PM.IMPN ---
Progress Note: A&P Assessment and Plan (1) Pneumonia due to COVID-19 virus: Code(s): U07.1 - COVID-19; J12.82 - Pneumonia due to coronavirus disease 2019 Status: Acute Assessment and Plan: CTA and symptoms consistent with viral pneumonia -continue remdesivir, Decadron and Lovenox. May consider baricitinib if he starts requiring more oxygen as CXR looks severe. -he tested positive for COVID 02/20/21 but had symptoms for 2 weeks -CTA shows no signs of PE -continue isolation -he is unvaccinated CRP elevated at 0.7 LDS mildly elevated at 965 implant markers are slowly improving Will give a dose of Lasix today 40 mg IV BNP was normal Repeat chest x-ray persistent opacities Continue to diurese intermittently 40 mg IV x1 today 02/26/2020 interval history today patient states is getting more short of breath requiring oxygen at rest and requiring 3 L of oxygen, patient being treated with dexamethasone 6 mg q.day 05/31 remdesivir 05/31, will start the patient on Lasix 40 mg IV daily his it has shown to improve oxygenation, patient's CRP is also increased 6.4 from 3.5 on 02/23 will continue to monitor and further recommendation to follow 02/27/2020 interval history today patient appears more short of breath and gets short winded with exertion, complains of cough and shortness of breath, currently patient is on dexamethasone 6 mg q.day will increase it to dexamethasone 20 mg q.day for 5 days 02/26, continue remdesivir 06/30, add vitamin C and D as well zinc will monitor and further recommendation to follow. 02/28/2020 interval history on 02/26 patient appeared more short of breath and got short winded with exertion, complained of cough and shortness of breath, patient was on dexamethasone 6 mg q.day, increased it to dexamethasone 20 mg q.day for 5 days 03/29, continue remdesivir 06/30, and being diursed, added vitamin C and D as well zinc will monitor and further recommendation to follow. will start the patient on Levaquin to cover for possible bacterial infection will continue to monitor. will also do CTA of the chest to rule out PE. 02/29/2020 interval history CTA of the chest was negative for pulmonary emboli, patient remains on high flow oxygen complaint of shortness of breath with exertion denies any fever or chills, patient was on dexamethasone 6 mg q.day, increased it to dexamethasone 20 mg q.day for 5 days 04/26, continue remdesivir 07/31, and being diursed, added vitamin C and D as well zinc will monitor and further recommendation to follow. started the patient on Levaquin to cover for possible bacterial infection will continue to monitor. 03/01/2020 interval history CTA of the chest was negative for pulmonary emboli, patient remains on high flow oxygen complaint of shortness of breath with exertion denies any fever or chills, patient was on dexamethasone 6 mg q.day, increased it to dexamethasone 20 mg q.day for 5 days 05/27, Patient CRP is trending down to 3.1 from 8 on 02/27, continue remdesivir 08/30, and being diuresed, added vitamin C and D as well zinc will monitor and further recommendation to follow. started the patient on Levaquin to cover for possible bacterial infection will continue to monitor. will have PT evaluate the patient. 03/02/2020 interval history CTA of the chest was negative for pulmonary emboli, patient remains on high flow oxygen 15L today will try to wean patient of oxygen, complaint of shortness of breath with exertion denies any fever or chills, patient was on dexamethasone 6 mg q.day, increased it to dexamethasone 20 mg q.day for 5 days 06/26, today patient will come high-dose dexamethasone for 5 days, will taper to 10 mg q.day for another 5 days, Patient CRP is trending down to 2.2 from 8 on 02/27, continue remdesivir 08/30, and being diuresed, added vitamin C and D as well zinc will monitor and further recommendation to follow. started the patient on Levaquin to cover for possible bacterial infection will continue to monitor. will have PT
--- NOTE | 2021-03-02 14:12 | PCPTNOTE ---
The patient treatment was not able to be completed on 03/02/21 due to patient declining stating he is just to wore out today. Will plan to continue treatment per plan of care.
[2021-03-02] MEDS: MELATONIN 3 MG TABLET PO (21:14)
[2021-03-02] MEDS: SALINE 0.65% NAS SOLN 44 ML BTL 1 SPRAY NASAL ×2 (21:26→21:27)
[2021-03-02] MEDS: SODIUM CHLORIDE NASAL GEL 14.1 GM 1 APPLIC NASAL (21:27)
[2021-03-03 04:00] VITALS: BP 121/76; PULSE 57; RESP 20; TEMP 36.5; O2SAT 95
[2021-03-03 08:00] VITALS: BP 151/68; PULSE 61; PULSE 76; RESP 18; TEMP 36.5; O2SAT 93; O2SAT 95
[2021-03-03] MEDS: ENOXAPARIN 40 MG/0.4 ML SYRINGE SUB-Q ×2 (08:51→21:29)
[2021-03-03] MEDS: SIMVASTATIN 20 MG TABLET PO (08:52)
[2021-03-03] MEDS: guaiFENesin 600 MG/DEXTROMETHORPHAN 30 MG SR TAB 12 HR 1 TAB PO ×2 (08:52→21:29)
[2021-03-03] MEDS: CHOLECALCIFEROL 1,000 UNITS TABLET 1000 UNITS PO (08:52)
[2021-03-03] MEDS: ASCORBIC ACID 500 MG TABLET PO (08:52)
[2021-03-03] MEDS: ASPIRIN 81 MG CHEWABLE TABLET PO (08:52)
[2021-03-03] MEDS: ZINC SULFATE 220 MG CAPSULE PO (08:52)
[2021-03-03] MEDS: FUROSEMIDE INJ 40 MG/4 ML VIAL IV PUSH (08:53)
[2021-03-03] MEDS: PREGABALIN (*CRX) 75 MG CAPSULE PO ×2 (08:55→17:20)
[2021-03-03] MEDS: ALBUTEROL SULFATE (*SP) AEROSOL 1 PUFF 2 PUFF INHALATION ×3 (09:13→20:46)
[2021-03-03 10:48] LABS: Hematocrit 53.5 % (42.0-52.0); Hemoglobin 18.1 g/dL (14.0-18.0); Mean Corpuscular HGB Conc 33.8 g/dl (32-36); Mean Corpuscular Hemoglobin 31.9 pg (26-34); Mean Corpuscular Volume 94.2 fl (80-100); Mean Platelet Volume 9.6 fl (7.4-10.4); Platelet Count Result 335 k/mm3 (150-375); Red Blood Count 5.68 M/mm3 (4.6-6.20); Red Cell Distribution Width 13.1 % (11.5-14.5); White Blood Count 14.4 K/mm3 (4.5-10.0)
[2021-03-03 11:06] LABS: Alanine Aminotransferase 25 U/L (4-50); Albumin Level 3.7 g/dL (3.5-5.1); Alkaline Phosphatase 81 U/L (38-126); Anion Gap 11 mmol/L (8-16); Aspartate Amino Transferase 29 U/L (17-59); Bilirubin,Total 0.5 mg/dL (0.2-1.3); Blood Urea Nitrogen 22 mg/dL (9-20); CRP 2.1 mg/dL (<1.0); Calcium 8.6 mg/dL (8.4-10.2); Carbon Dioxide 30 mmol/L (22-30); Chloride 95 mmol/L (98-107); Estimated CRCL calculation 102 ml/min; Estimated Glomerular Filt Rate > 60; Glucose 200 mg/dL (65-110); Sodium 136 mmol/L (137-145)
[2021-03-03 12:00] VITALS: BP 114/67; PULSE 76; RESP 18; TEMP 35.8; O2SAT 95
--- NOTE | 2021-03-03 13:05 | PCNWS ---
Weekly nutritional screen. Pt screened in for 7 day length of stay. Patient is tolerating current diet with adequate intake. No weight loss reported. Recommend reweighing pt prior to d/c. No nutritional needs at this time.
[2021-03-03 16:00] VITALS: BP 143/63; PULSE 72; RESP 21; TEMP 35.9; O2SAT 90
[2021-03-03 20:00] VITALS: BP 125/69; PULSE 63; RESP 20; TEMP 36.6; O2SAT 92; O2SAT 93
[2021-03-03 20:49] VITALS: O2SAT 92
[2021-03-03] MEDS: DOCUSATE SODIUM 100 MG CAPSULE PO (21:29)
[2021-03-03] MEDS: MELATONIN 3 MG TABLET PO (21:29)
[2021-03-03] MEDS: SALINE 0.65% NAS SOLN 44 ML BTL 1 SPRAY NASAL (21:31)
[2021-03-03] MEDS: SODIUM CHLORIDE NASAL GEL 14.1 GM 1 APPLIC NASAL (21:32)
[2021-03-04] VITALS: BP 135/83; PULSE 63; RESP 18; TEMP 36.4; O2SAT 91
[2021-03-04] MEDS: ALBUTEROL SULFATE (*SP) AEROSOL 1 PUFF 2 PUFF INHALATION ×3 (01:36→13:40)
[2021-03-04 04:00] VITALS: BP 128/69; PULSE 64; RESP 20; TEMP 36.6; O2SAT 92
[2021-03-04 06:47] LABS: Hematocrit 51.8 % (42.0-52.0); Hemoglobin 17.3 g/dL (14.0-18.0); Mean Corpuscular HGB Conc 33.4 g/dl (32-36); Mean Corpuscular Hemoglobin 31.6 pg (26-34); Mean Corpuscular Volume 94.7 fl (80-100); Mean Platelet Volume 9.6 fl (7.4-10.4); Platelet Count Result 318 k/mm3 (150-375); Red Blood Count 5.47 M/mm3 (4.6-6.20); Red Cell Distribution Width 12.9 % (11.5-14.5); White Blood Count 15.6 K/mm3 (4.5-10.0)
[2021-03-04 07:05] LABS: Alanine Aminotransferase 21 U/L (4-50); Albumin Level 3.3 g/dL (3.5-5.1); Alkaline Phosphatase 78 U/L (38-126); Anion Gap 9 mmol/L (8-16); Aspartate Amino Transferase 26 U/L (17-59); Bilirubin,Total 0.7 mg/dL (0.2-1.3); Blood Urea Nitrogen 21 mg/dL (9-20); CRP 1.6 mg/dL (<1.0); Calcium 8.5 mg/dL (8.4-10.2); Carbon Dioxide 31 mmol/L (22-30); Chloride 94 mmol/L (98-107); Estimated CRCL calculation 92 ml/min; Estimated Glomerular Filt Rate > 60; Glucose 112 mg/dL (65-110); Potassium 4.2 mmol/L (3.4-5.0); Sodium 134 mmol/L (137-145)
[2021-03-04 08:00] VITALS: BP 139/86; PULSE 83; RESP 20; TEMP 36.5; O2SAT 90
[2021-03-04] MEDS: ASCORBIC ACID 500 MG TABLET PO (08:36)
[2021-03-04] MEDS: ZINC SULFATE 220 MG CAPSULE PO (08:36)
[2021-03-04] MEDS: DOCUSATE SODIUM 100 MG CAPSULE PO ×2 (08:36→21:58)
[2021-03-04] MEDS: ENOXAPARIN 40 MG/0.4 ML SYRINGE SUB-Q ×2 (08:36→21:57)
[2021-03-04] MEDS: SIMVASTATIN 20 MG TABLET PO (08:36)
[2021-03-04] MEDS: ASPIRIN 81 MG CHEWABLE TABLET PO (08:36)
[2021-03-04] MEDS: CHOLECALCIFEROL 1,000 UNITS TABLET 1000 UNITS PO (08:36)
[2021-03-04] MEDS: guaiFENesin 600 MG/DEXTROMETHORPHAN 30 MG SR TAB 12 HR 1 TAB PO ×2 (08:36→21:57)
[2021-03-04] MEDS: PREGABALIN (*CRX) 75 MG CAPSULE PO ×2 (08:37→17:33)
[2021-03-04] MEDS: FUROSEMIDE INJ 40 MG/4 ML VIAL IV PUSH (08:37)
[2021-03-04 12:00] VITALS: BP 124/55; PULSE 88; RESP 18; TEMP 36.2; O2SAT 92
[2021-03-04 16:00] VITALS: BP 138/71; PULSE 96; RESP 20; TEMP 36.7; O2SAT 90
--- NOTE | 2021-03-04 16:05 | PCOTNOTE ---
The patient treatment was not able to be completed on 03/04. Will plan to continue treatment per plan of care.
--- NOTE | 2021-03-04 17:55 | PM.IMPN ---
Progress Note: A&P Assessment and Plan (1) Pneumonia due to COVID-19 virus: Code(s): U07.1 - COVID-19; J12.82 - Pneumonia due to coronavirus disease 2019 Status: Acute (2) Polycythemia: Code(s): D75.1 - Secondary polycythemia Status: Acute Assessment and Plan: Last hemoglobin 18.2 -could be due to dehydration, will give 250cc fluids to see if this improves -if this continues to be high may consider sleep apnea testing or follow-up with Hematology (3) Hyponatremia: Code(s): E87.1 - Hypo-osmolality and hyponatremia Status: Acute Assessment and Plan: Last sodium 128 -could be due to infection or dehydration. Will give 250cc fluids and see if this improves Check urine sodium -monitor daily labs Sodium level improves and back to normal (4) Transaminitis: Code(s): R74.01 - Elevation of levels of liver transaminase levels Status: Acute Assessment and Plan: Liver enzymes elevated likely due to COVID Hepatitis panel negative -hold simvastatin -monitor Liver enzymes is normal (5) Elevated blood pressure reading: Code(s): R03.0 - Elevated blood-pressure reading, without diagnosis of hypertension Status: Acute Assessment and Plan: Last blood pressure 163/86 -no history of this, could be due to anxiety -will do p.r.n. hydralazine. If he continues to be high may consider starting a daily medication (6) Diarrhea: Code(s): R19.7 - Diarrhea, unspecified Status: Acute Assessment and Plan: Likely due to COVID -C diff less likely, no leukocytosis. He did take a couple days of cephalexin -monitor (7) Acute respiratory failure with hypoxia: Code(s): J96.01 - Acute respiratory failure with hypoxia Status: Acute Assessment and Plan: Oxygen saturation 88% with exertion in the ER. Admitted and started on Decadron and remdesivir Recheck chest x-ray Limited ambulation due to shortness of breath Continue to finish him this Decadron Will check home O2 with ambulation Additional Plan CTA and symptoms consistent with viral pneumonia -continue remdesivir, Decadron and Lovenox. May consider baricitinib if he starts requiring more oxygen as CXR looks severe. -he tested positive for COVID 02/20/21 but had symptoms for 2 weeks -CTA shows no signs of PE -continue isolation -he is unvaccinated CRP elevated at 0.7 LDS mildly elevated at 965 implant markers are slowly improving Will give a dose of Lasix today 40 mg IV BNP was normal Repeat chest x-ray persistent opacities Continue to diurese intermittently 40 mg IV x1 today 02/26/2020 interval history today patient states is getting more short of breath requiring oxygen at rest and requiring 3 L of oxygen, patient being treated with dexamethasone 6 mg q.day 05/31 remdesivir 05/31, will start the patient on Lasix 40 mg IV daily his it has shown to improve oxygenation, patient's CRP is also increased 6.4 from 3.5 on 02/23 will continue to monitor and further recommendation to follow 02/27/2020 interval history today patient appears more short of breath and gets short winded with exertion, complains of cough and shortness of breath, currently patient is on dexamethasone 6 mg q.day will increase it to dexamethasone 20 mg q.day for 5 days 02/26, continue remdesivir 06/30, add vitamin C and D as well zinc will monitor and further recommendation to follow. 02/28/2020 interval history on 02/26 patient appeared more short of breath and got short winded with exertion, complained of cough and shortness of breath, patient was on dexamethasone 6 mg q.day, increased it to dexamethasone 20 mg q.day for 5 days 03/29, continue remdesivir 06/30, and being diursed, added vitamin C and D as well zinc will monitor and further recommendation to follow. will start the patient on Levaquin to cover for possible bacterial infection will continue to monitor. will also do CTA of the chest to
[2021-03-04 20:00] VITALS: BP 121/64; PULSE 69; RESP 222; TEMP 36.2; O2SAT 90
[2021-03-04] MEDS: MELATONIN 3 MG TABLET PO (21:58)
[2021-03-04] MEDS: SODIUM CHLORIDE NASAL GEL 14.1 GM 1 APPLIC NASAL (21:58)
[2021-03-05] VITALS (8 sets, daily range): BP systolic 96–128; BP diastolic 50–69; PULSE 68–98; RESP 18–22; TEMP 35.8–36.6; O2SAT 90–97
[2021-03-05] MEDS: ALBUTEROL SULFATE (*SP) AEROSOL 1 PUFF 2 PUFF INHALATION ×4 (02:24→20:19)
--- NOTE | 2021-03-05 08:16 | PC.NURSE ---
I was encouraged by by manager cosmetic, Alan Sage, to contact the hospitalist re pt's status (ABG, labs trending down, chest xray that was never ordered, and lack of hospitalists notes for last 2 days) and that he was on 15L high flow nasal cannula/non-rebreather satting at 91%. I called Dr. Beck who stated that she had pt's who were more critical at the moment but we could discuss pt's case when she rounded later today.
[2021-03-05] MEDS: ENOXAPARIN 40 MG/0.4 ML SYRINGE SUB-Q ×2 (09:30→20:19)
[2021-03-05] MEDS: FUROSEMIDE INJ 40 MG/4 ML VIAL IV PUSH (09:31)
[2021-03-05] MEDS: ZINC SULFATE 220 MG CAPSULE PO (09:31)
[2021-03-05] MEDS: ASPIRIN 81 MG CHEWABLE TABLET PO (09:31)
[2021-03-05] MEDS: DOCUSATE SODIUM 100 MG CAPSULE PO ×2 (09:31→20:19)
[2021-03-05] MEDS: ASCORBIC ACID 500 MG TABLET PO (09:31)
[2021-03-05] MEDS: guaiFENesin 600 MG/DEXTROMETHORPHAN 30 MG SR TAB 12 HR 1 TAB PO ×2 (09:31→20:19)
[2021-03-05] MEDS: SIMVASTATIN 20 MG TABLET PO (09:31)
[2021-03-05] MEDS: CHOLECALCIFEROL 1,000 UNITS TABLET 1000 UNITS PO (09:31)
--- NOTE | 2021-03-05 12:12 | PCPTNOTE ---
The patient treatment was not able to be completed this morning due to patient stating he did not feel well and was maintaining SPO2 at 90% at rest with 15L nasal cannula and 15L non-rebreather. Will plan to continue treatment per plan of care.
--- NOTE | 2021-03-05 13:18 | PCOTNOTE ---
Attempted to see patient this pm, however RN advised not to see patient stating, He's not having the best of days, and his stats aren't the best. Pt on 15L high flow with additional 15L non-rebreather with SpO2 at 90%. Pt not seen for this reason.
--- NOTE | 2021-03-05 14:04 | P.PNIM_ITS ---
Progress Note: A&P Assessment and Plan (1) Pneumonia due to COVID-19 virus: Code(s): U07.1 - COVID-19; J12.82 - Pneumonia due to coronavirus disease 2019 Status: Acute (2) Polycythemia: Code(s): D75.1 - Secondary polycythemia Status: Acute Assessment and Plan: Last hemoglobin 18.2 -could be due to dehydration, will give 250cc fluids to see if this improves -if this continues to be high may consider sleep apnea testing or follow-up with Hematology (3) Hyponatremia: Code(s): E87.1 - Hypo-osmolality and hyponatremia Status: Acute Assessment and Plan: Last sodium 128 -could be due to infection or dehydration. Will give 250cc fluids and see if this improves Check urine sodium -monitor daily labs Sodium level improves and back to normal (4) Transaminitis: Code(s): R74.01 - Elevation of levels of liver transaminase levels Status: Acute Assessment and Plan: Liver enzymes elevated likely due to COVID Hepatitis panel negative -hold simvastatin -monitor Liver enzymes is normal (5) Elevated blood pressure reading: Code(s): R03.0 - Elevated blood-pressure reading, without diagnosis of hypertension Status: Acute Assessment and Plan: Last blood pressure 163/86 -no history of this, could be due to anxiety -will do p.r.n. hydralazine. If he continues to be high may consider starting a daily medication (6) Diarrhea: Code(s): R19.7 - Diarrhea, unspecified Status: Acute Assessment and Plan: Likely due to COVID -C diff less likely, no leukocytosis. He did take a couple days of cephalexin -monitor (7) Acute respiratory failure with hypoxia: Code(s): J96.01 - Acute respiratory failure with hypoxia Status: Acute Assessment and Plan: Oxygen saturation 88% with exertion in the ER. Admitted and started on Decadron and remdesivir Recheck chest x-ray Limited ambulation due to shortness of breath Continue to finish him this Decadron Will check home O2 with ambulation Additional Plan CTA and symptoms consistent with viral pneumonia -continue remdesivir, Decadron and Lovenox. May consider baricitinib if he starts requiring more oxygen as CXR looks severe. -he tested positive for COVID 02/20/21 but had symptoms for 2 weeks -CTA shows no signs of PE -continue isolation -he is unvaccinated CRP elevated at 0.7 LDS mildly elevated at 965 implant markers are slowly improving Will give a dose of Lasix today 40 mg IV BNP was normal Repeat chest x-ray persistent opacities Continue to diurese intermittently 40 mg IV x1 today 02/26/2020 interval history today patient states is getting more short of breath requiring oxygen at rest and requiring 3 L of oxygen, patient being treated with dexamethasone 6 mg q.day 05/31 remdesivir 05/31, will start the patient on Lasix 40 mg IV daily his it has shown to improve oxygenation, patient's CRP is also increased 6.4 from 3.5 on 02/23 will continue to monitor and further recommendation to follow 02/27/2020 interval history today patient appears more short of breath and gets short winded with exertion, complains of cough and shortness of breath, currently patient is on dexamethasone 6 mg q.day will increase it to dexamethasone 20 mg q.day for 5 days 02/26, continue remdesivir 06/30, add vitamin C and D as well zinc will monitor and further recommendation to follow. 02/28/2020 interval history on 02/26 patient appeared more short of breath and got short winded with
[2021-03-05 14:49] LABS: Basophils Absolute Auto 0.1 K/mm3 (0.0-0.1); Basophils Percent Auto 0.4 % (0.2-1.2); Hematocrit 53.4 % (42.0-52.0); Hemoglobin 18.1 g/dL (14.0-18.0); Immature Granulocyte Absolute 0.32 K/mm3 (0.00-0.031); Immature Granulocyte Percent A 1.9 % (0-0.5); Lymphocytes Absolute Auto 0.54 K/mm3 (0.9-3.2); Lymphocytes Percent Auto 3.2 % (18.3-44.2); Mean Corpuscular HGB Conc 33.9 g/dl (32-36); Mean Corpuscular Hemoglobin 31.2 pg (26-34); Mean Corpuscular Volume 92.1 fl (80-100); Mean Platelet Volume 9.4 fl (7.4-10.4); Monocytes Absolute Auto 0.5 K/mm3 (0.1-0.6); Monocytes Percent Auto 2.7 % (2.6-8.5); Neutrophils Absolute Auto 15.3 K/mm3 (1.3-6.7); Neutrophils Percent Auto 91.8 % (45.5-73.1); Platelet Count Result 313 k/mm3 (150-375); White Blood Count 16.7 K/mm3 (4.5-10.0)
[2021-03-05 15:01] LABS: Alanine Aminotransferase 25 U/L (4-50); Aspartate Amino Transferase 31 U/L (17-59); Estimated CRCL calculation 114 ml/min; Estimated Glomerular Filt Rate > 60
[2021-03-05 15:09] LABS: D Dimer 0.59 ug/mL (<0.48)
[2021-03-05 15:30] LABS: Alveolar/Arterial O2 Gradient 610.3 mmHg; Carboxyhemoglobin 0.2 % THb (0-2.0); Fractional Inspired Oxygen 100 %; HCO3 ABG 26.8 mEq/l (22.0-26.0); Methemoglobin ABG 0.6 %THb (0-1.5); Oxygen Content ABG 25.2 %vol (16.0-22.0); Oxygen Saturation ABG 93.7 % (95.0-100.0); Oxyhemoglobin 92.3 % THb (90.0-100.0); PCO2 ABG 38.3 mmHg (35.0-45.0); PO2 ABG 64.4 mmHg (80.0-100.0); PO2 FiO2 Ratio Arterial Blood 0.64 %; Reduced Hemoglobin 6.9 %THb (0-5.0); Total Hemoglobin 19.5 g/dL (12.0-18.0); pH ABG 7.462 (7.350-7.450)
[2021-03-05 15:32] LABS: Device HIGH FLOW NASAL CANN; Modified Allen's Test Pass; Site Drawn LEFT RADIAL
[2021-03-05] MEDS: BARICITINIB 2 MG TABLET 4 MG PO (17:33)
[2021-03-05] MEDS: hydrOXYzine HCL 25 MG TABLET PO (17:34)
[2021-03-05] MEDS: PREGABALIN (*CRX) 75 MG CAPSULE PO (17:34)
[2021-03-05] MEDS: MELATONIN 3 MG TABLET PO (20:19)
[2021-03-05] MEDS: SALINE 0.65% NAS SOLN 44 ML BTL 1 SPRAY NASAL (20:21)
[2021-03-05] MEDS: SODIUM CHLORIDE NASAL GEL 14.1 GM 1 APPLIC NASAL (20:24)
[2021-03-06] VITALS (9 sets, daily range): BP systolic 109–136; BP diastolic 56–81; PULSE 60–98; RESP 18–24; TEMP 36.1–36.6; O2SAT 90–95
[2021-03-06] MEDS: ALBUTEROL SULFATE (*SP) AEROSOL 1 PUFF 2 PUFF INHALATION ×4 (02:33→21:50)
[2021-03-06 06:49] LABS: Basophils Absolute Auto 0.1 K/mm3 (0.0-0.1); Basophils Percent Auto 0.4 % (0.2-1.2); Eosinophils Percent Auto 0.1 % (0-4.4); Hematocrit 51.9 % (42.0-52.0); Hemoglobin 17.1 g/dL (14.0-18.0); Immature Granulocyte Absolute 0.39 K/mm3 (0.00-0.031); Immature Granulocyte Percent A 2.4 % (0-0.5); Lymphocytes Absolute Auto 1.03 K/mm3 (0.9-3.2); Lymphocytes Percent Auto 6.4 % (18.3-44.2); Mean Corpuscular HGB Conc 32.9 g/dl (32-36); Mean Corpuscular Hemoglobin 31.3 pg (26-34); Mean Corpuscular Volume 94.9 fl (80-100); Mean Platelet Volume 9.7 fl (7.4-10.4); Monocytes Absolute Auto 0.8 K/mm3 (0.1-0.6); Monocytes Percent Auto 5.2 % (2.6-8.5); Neutrophils Absolute Auto 13.7 K/mm3 (1.3-6.7); Neutrophils Percent Auto 85.5 % (45.5-73.1); Platelet Count Result 301 k/mm3 (150-375); Red Blood Count 5.47 M/mm3 (4.6-6.20)
[2021-03-06 07:04] LABS: Lactic Acid Reflex 1.9 mmol/L (0.7-2.1)
[2021-03-06 07:05] LABS: Alanine Aminotransferase 21 U/L (4-50); Albumin Level 3.3 g/dL (3.5-5.1); Alkaline Phosphatase 81 U/L (38-126); Anion Gap 5 mmol/L (8-16); Aspartate Amino Transferase 25 U/L (17-59); Bilirubin,Total 0.4 mg/dL (0.2-1.3); Blood Urea Nitrogen 19 mg/dL (9-20); CRP 2.7 mg/dL (<1.0); Calcium 8.6 mg/dL (8.4-10.2); Carbon Dioxide 33 mmol/L (22-30); Chloride 99 mmol/L (98-107); Estimated CRCL calculation 102 ml/min; Estimated Glomerular Filt Rate > 60; Glucose 133 mg/dL (65-110); Magnesium 2.4 mg/dL (1.6-2.3); Potassium 4.2 mmol/L (3.4-5.0); Sodium 137 mmol/L (137-145)
[2021-03-06 07:10] LABS: Creatine Kinase 39 U/L (55-170); Lactate Dehydrogenase 850 U/L (313-618)
[2021-03-06] MEDS: ZINC SULFATE 220 MG CAPSULE PO (08:45)
[2021-03-06] MEDS: ENOXAPARIN 40 MG/0.4 ML SYRINGE SUB-Q ×2 (08:45→20:50)
[2021-03-06] MEDS: SIMVASTATIN 20 MG TABLET PO (08:45)
[2021-03-06] MEDS: PREGABALIN (*CRX) 75 MG CAPSULE PO ×2 (08:46→17:33)
[2021-03-06] MEDS: ASPIRIN 81 MG CHEWABLE TABLET PO (08:46)
[2021-03-06] MEDS: ASCORBIC ACID 500 MG TABLET PO (08:46)
[2021-03-06] MEDS: CHOLECALCIFEROL 1,000 UNITS TABLET 1000 UNITS PO (08:46)
[2021-03-06] MEDS: guaiFENesin 600 MG/DEXTROMETHORPHAN 30 MG SR TAB 12 HR 1 TAB PO ×2 (08:46→20:50)
[2021-03-06] MEDS: BARICITINIB 2 MG TABLET 4 MG PO (11:18)
[2021-03-06] MEDS: SALINE 0.65% NAS SOLN 44 ML BTL 1 SPRAY NASAL (20:49)
[2021-03-06] MEDS: DOCUSATE SODIUM 100 MG CAPSULE PO (20:50)
[2021-03-06] MEDS: MELATONIN 3 MG TABLET PO (20:50)
[2021-03-06] MEDS: SODIUM CHLORIDE NASAL GEL 14.1 GM 1 APPLIC NASAL (20:51)
[2021-03-07] VITALS (9 sets, daily range): BP systolic 111–133; BP diastolic 61–70; PULSE 60–102; RESP 16–38; TEMP 35.8–36.8; O2SAT 90–97
[2021-03-07] MEDS: ALBUTEROL SULFATE (*SP) AEROSOL 1 PUFF 2 PUFF INHALATION ×4 (02:48→21:12)
[2021-03-07 08:10] LABS: Basophils Absolute Auto 0.1 K/mm3 (0.0-0.1); Basophils Percent Auto 0.4 % (0.2-1.2); Eosinophils Percent Auto 0.2 % (0-4.4); Hematocrit 50.9 % (42.0-52.0); Hemoglobin 17.1 g/dL (14.0-18.0); Immature Granulocyte Absolute 0.55 K/mm3 (0.00-0.031); Immature Granulocyte Percent A 2.8 % (0-0.5); Lymphocytes Absolute Auto 1.15 K/mm3 (0.9-3.2); Lymphocytes Percent Auto 5.9 % (18.3-44.2); Mean Corpuscular HGB Conc 33.6 g/dl (32-36); Mean Corpuscular Hemoglobin 31.8 pg (26-34); Mean Corpuscular Volume 94.8 fl (80-100); Mean Platelet Volume 9.7 fl (7.4-10.4); Monocytes Absolute Auto 1.3 K/mm3 (0.1-0.6); Monocytes Percent Auto 6.4 % (2.6-8.5); Neutrophils Absolute Auto 16.6 K/mm3 (1.3-6.7); Neutrophils Percent Auto 84.3 % (45.5-73.1); Platelet Count Result 298 k/mm3 (150-375); Red Blood Count 5.37 M/mm3 (4.6-6.20); Red Cell Distribution Width 13.1 % (11.5-14.5); White Blood Count 19.6 K/mm3 (4.5-10.0)
[2021-03-07 08:30] LABS: Alanine Aminotransferase 20 U/L (4-50); Aspartate Amino Transferase 32 U/L (17-59); Estimated CRCL calculation 114 ml/min; Estimated Glomerular Filt Rate > 60
[2021-03-07] MEDS: ENOXAPARIN 40 MG/0.4 ML SYRINGE SUB-Q ×2 (08:36→21:05)
[2021-03-07] MEDS: ASCORBIC ACID 500 MG TABLET PO (08:37)
[2021-03-07] MEDS: SIMVASTATIN 20 MG TABLET PO (08:37)
[2021-03-07] MEDS: CHOLECALCIFEROL 1,000 UNITS TABLET 1000 UNITS PO (08:37)
[2021-03-07] MEDS: guaiFENesin 600 MG/DEXTROMETHORPHAN 30 MG SR TAB 12 HR 1 TAB PO ×2 (08:37→21:06)
[2021-03-07] MEDS: PREGABALIN (*CRX) 75 MG CAPSULE PO ×2 (08:37→17:05)
[2021-03-07] MEDS: ZINC SULFATE 220 MG CAPSULE PO (08:37)
[2021-03-07] MEDS: ASPIRIN 81 MG CHEWABLE TABLET PO (08:37)
[2021-03-07] MEDS: BARICITINIB 2 MG TABLET 4 MG PO (12:15)
--- NOTE | 2021-03-07 14:10 | PCOTNOTE ---
The OT treatment was unable to be completed 03/07/21. Will continue OT plan of care tomorrow.
--- NOTE | 2021-03-07 15:00 | PM.IMPN ---
Progress Note: A&P Assessment and Plan (1) Pneumonia due to COVID-19 virus: Code(s): U07.1 - COVID-19; J12.82 - Pneumonia due to coronavirus disease 2019 Status: Acute (2) Polycythemia: Code(s): D75.1 - Secondary polycythemia Status: Acute Assessment and Plan: Last hemoglobin 18.2 -could be due to dehydration, will give 250cc fluids to see if this improves -if this continues to be high may consider sleep apnea testing or follow-up with Hematology (3) Hyponatremia: Code(s): E87.1 - Hypo-osmolality and hyponatremia Status: Acute Assessment and Plan: Last sodium 128 -could be due to infection or dehydration. Will give 250cc fluids and see if this improves Check urine sodium -monitor daily labs Sodium level improves and back to normal (4) Transaminitis: Code(s): R74.01 - Elevation of levels of liver transaminase levels Status: Acute Assessment and Plan: Liver enzymes elevated likely due to COVID Hepatitis panel negative -hold simvastatin -monitor Liver enzymes is normal (5) Elevated blood pressure reading: Code(s): R03.0 - Elevated blood-pressure reading, without diagnosis of hypertension Status: Acute Assessment and Plan: Last blood pressure 163/86 -no history of this, could be due to anxiety -will do p.r.n. hydralazine. If he continues to be high may consider starting a daily medication (6) Diarrhea: Code(s): R19.7 - Diarrhea, unspecified Status: Acute Assessment and Plan: Likely due to COVID -C diff less likely, no leukocytosis. He did take a couple days of cephalexin -monitor (7) Acute respiratory failure with hypoxia: Code(s): J96.01 - Acute respiratory failure with hypoxia Status: Acute Assessment and Plan: Oxygen saturation 88% with exertion in the ER. Admitted and started on Decadron and remdesivir Recheck chest x-ray Limited ambulation due to shortness of breath Continue to finish him this Decadron Will check home O2 with ambulation (8) Neutrophilic leukocytosis: Code(s): D72.9 - Disorder of white blood cells, unspecified Status: Acute Additional Plan CTA and symptoms consistent with viral pneumonia -continue remdesivir, Decadron and Lovenox. May consider baricitinib if he starts requiring more oxygen as CXR looks severe. -he tested positive for COVID 02/20/21 but had symptoms for 2 weeks -CTA shows no signs of PE -continue isolation -he is unvaccinated CRP elevated at 0.7 LDS mildly elevated at 965 implant markers are slowly improving Will give a dose of Lasix today 40 mg IV BNP was normal Repeat chest x-ray persistent opacities Continue to diurese intermittently 40 mg IV x1 today 02/26/2020 interval history today patient states is getting more short of breath requiring oxygen at rest and requiring 3 L of oxygen, patient being treated with dexamethasone 6 mg q.day 05/31 remdesivir 05/31, will start the patient on Lasix 40 mg IV daily his it has shown to improve oxygenation, patient's CRP is also increased 6.4 from 3.5 on 02/23 will continue to monitor and further recommendation to follow 02/27/2020 interval history today patient appears more short of breath and gets short winded with exertion, complains of cough and shortness of breath, currently patient is on dexamethasone 6 mg q.day will increase it to dexamethasone 20 mg q.day for 5 days 02/26, continue remdesivir 06/30, add vitamin C and D as well zinc will monitor and further recommendation to follow. 02/28/2020 interval history on 02/26 patient appeared more short of breath and got short winded with exertion, complained of cough and shortness of breath, patient was on dexamethasone 6 mg q.day, increased it to dexamethasone 20 mg q.day for 5 days 03/29, continue remdesivir 06/30, and being diursed, added vitamin C and D as well zinc will monitor and further recommendation to follow. will start the
[2021-03-07 15:37] LABS: Lactic Acid Reflex 2.5 mmol/L (0.7-2.1)
[2021-03-07 15:37] LABS: Estimated CRCL calculation 128 ml/min; Estimated Glomerular Filt Rate > 60
[2021-03-07 15:39] LABS: D Dimer 0.53 ug/mL (<0.48)
[2021-03-07 15:40] LABS: CRP 2.1 mg/dL (<1.0)
[2021-03-07 15:42] LABS: Erythrocyte Sedimentation Rate 13 mm/hr (0-20)
[2021-03-07 15:46] LABS: NT Pro B Type Natriuretic Pept 46 pg/mL (5-100)
[2021-03-07] MEDS: SODIUM CHLORIDE 0.9% IV 1,000 ML 100 ML IV CONT (17:04)
[2021-03-07 17:22] LABS: Base Excess ABG 0.2 mEq/l (+/-2.0); HCO3 ABG 23.8 mEq/l (22.0-26.0); Oxygen Saturation ABG 95.1 % (95.0-100.0); PCO2 ABG 36.4 mmHg (35.0-45.0); PO2 ABG 72.2 mmHg (80.0-100.0); Total Hemoglobin 18.7 g/dL (12.0-18.0); pH ABG 7.434 (7.350-7.450)
[2021-03-07 17:23] LABS: Alveolar/Arterial O2 Gradient 24.7 mmHg; Fractional Inspired Oxygen 100 %; Oxygen Content ABG 18.7 %vol (16.0-22.0); Oxyhemoglobin 96.5 % THb (90.0-100.0)
[2021-03-07 17:24] LABS: Device HIGH FLOW NASAL CANN; Modified Allen's Test Pass; Site Drawn RIGHT RADIAL
[2021-03-07 18:19] LABS: Reflex Lactic Acid Yes or No Add Lactic
[2021-03-07 19:35] LABS: Lactic Acid 2.4 mmol/L (0.7-2.1)
[2021-03-07] MEDS: MELATONIN 3 MG TABLET PO (21:06)
[2021-03-07] MEDS: DOCUSATE SODIUM 100 MG CAPSULE PO (21:06)
[2021-03-07] MEDS: SODIUM CHLORIDE NASAL GEL 14.1 GM 1 APPLIC NASAL (21:07)
[2021-03-08] VITALS (7 sets, daily range): BP systolic 100–128; BP diastolic 44–82; PULSE 59–86; RESP 18–32; TEMP 35.9–37.4; O2SAT 90–97
[2021-03-08] MEDS: ALBUTEROL SULFATE (*SP) AEROSOL 1 PUFF 2 PUFF INHALATION ×4 (02:58→20:01)
[2021-03-08] MEDS: SODIUM CHLORIDE 0.9% IV 1,000 ML 100 ML IV CONT ×2 (03:20→16:13)
[2021-03-08 07:21] LABS: Basophils Absolute Auto 0.1 K/mm3 (0.0-0.1); Basophils Percent Auto 0.4 % (0.2-1.2); Eosinophils Percent Auto 0.1 % (0-4.4); Hematocrit 47.9 % (42.0-52.0); Immature Granulocyte Absolute 0.41 K/mm3 (0.00-0.031); Immature Granulocyte Percent A 2.5 % (0-0.5); Lymphocytes Percent Auto 4.9 % (18.3-44.2); Mean Corpuscular HGB Conc 33.4 g/dl (32-36); Mean Corpuscular Hemoglobin 31.4 pg (26-34); Mean Corpuscular Volume 93.9 fl (80-100); Mean Platelet Volume 10.2 fl (7.4-10.4); Monocytes Absolute Auto 1.1 K/mm3 (0.1-0.6); Monocytes Percent Auto 6.8 % (2.6-8.5); Neutrophils Percent Auto 85.3 % (45.5-73.1); Platelet Count Result 260 k/mm3 (150-375); Red Cell Distribution Width 12.9 % (11.5-14.5); White Blood Count 16.4 K/mm3 (4.5-10.0)
[2021-03-08 07:46] LABS: Alanine Aminotransferase 17 U/L (4-50); Aspartate Amino Transferase 34 U/L (17-59); Estimated CRCL calculation 128 ml/min; Estimated Glomerular Filt Rate > 60
--- NOTE | 2021-03-08 08:40 | P.PNIM_ITS ---
Progress Note: A&P Assessment and Plan (1) Pneumonia due to COVID-19 virus: Code(s): U07.1 - COVID-19; J12.82 - Pneumonia due to coronavirus disease 2019 Status: Acute (2) Polycythemia: Code(s): D75.1 - Secondary polycythemia Status: Acute Assessment and Plan: Last hemoglobin 18.2 -could be due to dehydration, will give 250cc fluids to see if this improves -if this continues to be high may consider sleep apnea testing or follow-up with Hematology (3) Hyponatremia: Code(s): E87.1 - Hypo-osmolality and hyponatremia Status: Acute Assessment and Plan: Last sodium 128 -could be due to infection or dehydration. Will give 250cc fluids and see if this improves Check urine sodium -monitor daily labs Sodium level improves and back to normal (4) Transaminitis: Code(s): R74.01 - Elevation of levels of liver transaminase levels Status: Acute Assessment and Plan: Liver enzymes elevated likely due to COVID Hepatitis panel negative -hold simvastatin -monitor Liver enzymes is normal (5) Elevated blood pressure reading: Code(s): R03.0 - Elevated blood-pressure reading, without diagnosis of hypertension Status: Acute Assessment and Plan: Last blood pressure 163/86 -no history of this, could be due to anxiety -will do p.r.n. hydralazine. If he continues to be high may consider starting a daily medication (6) Diarrhea: Code(s): R19.7 - Diarrhea, unspecified Status: Acute Assessment and Plan: Likely due to COVID -C diff less likely, no leukocytosis. He did take a couple days of cephalexin -monitor (7) Acute respiratory failure with hypoxia: Code(s): J96.01 - Acute respiratory failure with hypoxia Status: Acute Assessment and Plan: Oxygen saturation 88% with exertion in the ER. Admitted and started on Decadron and remdesivir Recheck chest x-ray Limited ambulation due to shortness of breath Continue to finish him this Decadron Will check home O2 with ambulation (8) Neutrophilic leukocytosis: Code(s): D72.9 - Disorder of white blood cells, unspecified Status: Acute Additional Plan CTA and symptoms consistent with viral pneumonia -continue remdesivir, Decadron and Lovenox. May consider baricitinib if he starts requiring more oxygen as CXR looks severe. -he tested positive for COVID 02/20/21 but had symptoms for 2 weeks -CTA shows no signs of PE -continue isolation -he is unvaccinated CRP elevated at 0.7 LDS mildly elevated at 965 implant markers are slowly improving Will give a dose of Lasix today 40 mg IV BNP was normal Repeat chest x-ray persistent opacities Continue to diurese intermittently 40 mg IV x1 today 02/26/2020 interval history today patient states is getting more short of breath requiring oxygen at rest and requiring 3 L of oxygen, patient being treated with dexamethasone 6 mg q.day 05/31 remdesivir 05/31, will start the patient on Lasix 40 mg IV daily his it has shown to improve oxygenation, patient's CRP is also increased 6.4 from 3.5 on 02/23 will continue to monitor and further recommendation to follow 02/27/2020 interval history today patient appears more short of breath and gets short winded with exertion, complains of cough and shortness of breath, currently patient is on dexamethasone 6 mg q.day will increase it to dexamethasone 20 mg q.day for 5 days 02/26, continue remdesivir 06/30, add vitamin C and D as well zinc will monitor and further recom
[2021-03-08] MEDS: ENOXAPARIN 40 MG/0.4 ML SYRINGE SUB-Q ×2 (08:44→20:01)
--- NOTE | 2021-03-08 08:44 | PC.NURSE ---
pt resting in bed, wishes to wait to take PO meds at this time, reviewed plan of care, and to call for assistance
--- NOTE | 2021-03-08 10:50 | PC.NURSE ---
pt winded after getting up to [facility] for BM, will take meds in aprox 30 per his request
[2021-03-08] MEDS: CHOLECALCIFEROL 1,000 UNITS TABLET 1000 UNITS PO (11:31)
[2021-03-08] MEDS: BARICITINIB 2 MG TABLET 4 MG PO (11:32)
[2021-03-08] MEDS: ASCORBIC ACID 500 MG TABLET PO (11:32)
[2021-03-08] MEDS: guaiFENesin 600 MG/DEXTROMETHORPHAN 30 MG SR TAB 12 HR 1 TAB PO (11:32)
[2021-03-08] MEDS: ZINC SULFATE 220 MG CAPSULE PO (11:32)
[2021-03-08] MEDS: SIMVASTATIN 20 MG TABLET PO (11:32)
[2021-03-08] MEDS: ASPIRIN 81 MG CHEWABLE TABLET PO (11:32)
[2021-03-08] MEDS: PREGABALIN (*CRX) 75 MG CAPSULE PO ×2 (11:32→16:14)
--- NOTE | 2021-03-08 11:45 | PCPTNOTE ---
Attempted to see pt. this date. Pt. was encouraged to participate in therapeutic exercises however, Pt. reported that he just couldn't do therapy today because he was feeling too tired and worn out.
--- NOTE | 2021-03-08 13:11 | PCOTNOTE ---
Patient not available for treatment this date due to lunch and EKG test.
[2021-03-08] MEDS: hydrOXYzine HCL 25 MG TABLET PO (17:51)
[2021-03-08] MEDS: MELATONIN 3 MG TABLET PO (20:01)
[2021-03-08] MEDS: DOCUSATE SODIUM 100 MG CAPSULE PO (20:01)
[2021-03-08] MEDS: SALINE 0.65% NAS SOLN 44 ML BTL 1 SPRAY NASAL (20:07)
[2021-03-08] MEDS: SODIUM CHLORIDE NASAL GEL 14.1 GM 1 APPLIC NASAL (20:09)
[2021-03-09] VITALS (21 sets, daily range): BP systolic 90–143; BP diastolic 55–67; PULSE 60–123; RESP 22–36; TEMP 36.1–36.6; O2SAT 75–96
[2021-03-09] MEDS: ALBUTEROL SULFATE (*SP) AEROSOL 1 PUFF 2 PUFF INHALATION ×2 (02:20→09:08)
[2021-03-09 03:46] LABS: Basophils Percent Auto 0.3 % (0.2-1.2); Eosinophils Percent Auto 0.1 % (0-4.4); Hematocrit 50.7 % (42.0-52.0); Hemoglobin 16.8 g/dL (14.0-18.0); Immature Granulocyte Absolute 0.34 K/mm3 (0.00-0.031); Immature Granulocyte Percent A 2.2 % (0-0.5); Lymphocytes Absolute Auto 0.71 K/mm3 (0.9-3.2); Lymphocytes Percent Auto 4.6 % (18.3-44.2); Mean Corpuscular HGB Conc 33.1 g/dl (32-36); Mean Corpuscular Hemoglobin 31.6 pg (26-34); Mean Corpuscular Volume 95.3 fl (80-100); Mean Platelet Volume 9.5 fl (7.4-10.4); Monocytes Percent Auto 6.3 % (2.6-8.5); Neutrophils Absolute Auto 13.4 K/mm3 (1.3-6.7); Neutrophils Percent Auto 86.5 % (45.5-73.1); Platelet Count Result 243 k/mm3 (150-375); Red Blood Count 5.32 M/mm3 (4.6-6.20); Red Cell Distribution Width 13.1 % (11.5-14.5); White Blood Count 15.5 K/mm3 (4.5-10.0)
[2021-03-09 04:16] LABS: Alanine Aminotransferase 19 U/L (4-50); Aspartate Amino Transferase 31 U/L (17-59); Estimated CRCL calculation 114 ml/min; Estimated Glomerular Filt Rate > 60
[2021-03-09 04:17] LABS: Lactic Acid Reflex 1.8 mmol/L (0.7-2.1)
[2021-03-09 04:21] LABS: Vancomycin Trough 9.8 ug/mL (10.0-20.0)
--- NOTE | 2021-03-09 04:22 | PC.NURSE ---
called Lucretia and gave her an update to let her know that pt will be transferring to [facility].
--- NOTE | 2021-03-09 05:29 | PC.NURSE ---
This patient, Wolf Castanon, was transferred to [IMU 9 ] on 03/09/21 at 0510. Personal belongings sent with patient. Report given to [[facility] ]. Appropriate documentation sent with patient.
[2021-03-09] MEDS: hydrOXYzine HCL 25 MG TABLET PO (06:20)
[2021-03-09] MEDS: SIMVASTATIN 20 MG TABLET PO (09:44)
[2021-03-09] MEDS: ASPIRIN 81 MG CHEWABLE TABLET PO (09:45)
[2021-03-09] MEDS: FUROSEMIDE INJ 40 MG/4 ML VIAL IV PUSH (09:46)
[2021-03-09] MEDS: CHOLECALCIFEROL 1,000 UNITS TABLET 1000 UNITS PO (09:46)
[2021-03-09] MEDS: ASCORBIC ACID 500 MG TABLET PO (09:46)
[2021-03-09] MEDS: SODIUM CHLORIDE NASAL GEL 14.1 GM 1 APPLIC NASAL (09:47)
[2021-03-09] MEDS: ENOXAPARIN 40 MG/0.4 ML SYRINGE SUB-Q ×2 (09:47→20:27)
[2021-03-09] MEDS: PREGABALIN (*CRX) 75 MG CAPSULE PO (09:47)
[2021-03-09] MEDS: DOCUSATE SODIUM 100 MG CAPSULE PO ×2 (09:47→20:27)
[2021-03-09] MEDS: ZINC SULFATE 220 MG CAPSULE PO (09:47)
[2021-03-09] MEDS: BARICITINIB 2 MG TABLET 4 MG PO (10:07)
--- NOTE | 2021-03-09 13:20 | PC.NURSE ---
1300- Patient arrived to ICU - 8, intubated upon arrival , R. IJ central line placed by Dr. Cox. Sedation & NMB started .
--- NOTE | 2021-03-09 13:26 | PCPTNOTE ---
Attempted to see pt this date however he was moved from IMU to ICU and per chart review is intubated.
[2021-03-09] MEDS: MIDAZOLAM 100MG/NS 100ML(*CRX) 100 MG/100 ML BAG 8 MG IV CONT (13:36)
--- NOTE | 2021-03-09 13:37 | WPDPROCEDUR ---
Procedures Intubation Intubation Date: 03/09/21 Intubation Time: 12:45 Consent: Verbal consent was obtained from the patient who is an respiratory failure A pre-procedural Time-Out was completed immediately before starting the procedure and confirmed: Patient Identification, Site, Procedure, Patient Position and the Availability of Requisite Equipment: Yes Sedative: etomidate Mg given: 20 Paralytic: succinylcholine Mg given: 100 Laryngoscope: fiber optic video scope Assist device used: fiber optic device ET tube size: 8 Tube secured depth (cm): 25 Tube secured location: lips Tube placement confirmation: visualized tube passing through cords, equal breath sounds bilaterally, no breath sounds over epigastrium and confirmation by capnometry Patient tolerated procedure: well Intubation complications: hypoxia Additional comments: patient's saturations were in 70s to 80s on BiPAP. Despite bagging with PEEP valve, his sats remained 80s. Patient was emergently intubated. Post intubation he was bagged with PEEP valve. And then placed on ventilator on high PEEP. It took him a while but he eventually recover into high 80s to low 90s.
[2021-03-09] MEDS: FENTANYL 2,500MCG/NS250ML(*CRX 2,500 MCG/250 ML BAG 20 MCG IV CONT (13:38)
--- NOTE | 2021-03-09 13:41 | PM.CNPUL ---
Assessment and Plan Assessment and plan (1) Pneumonia due to COVID-19 virus: Code(s): U07.1 - COVID-19; J12.82 - Pneumonia due to coronavirus disease 2019 Status: Acute Assessment and Plan: Patient tested positive for COVID-19 on 02/20/21 And initially was on room air. He was started on Remdesivir 02/11 and completed 10 days. He was started on dexamethasone on 02/21/2021. Baricitinob on 03/05. Patient 1st required oxygen on 02/25/2021 and has per had progressive hypoxemic respiratory failure since then, failing airflow high-flow nasal cannula and noninvasive ventilation and requiring intubation on 03/09/2021. Ventilator management per internet media planner. Patient's serial CT scans from 02/21, 02/27, 03/07 and 03/09 show progression of his COVID pneumonia despite and adequate coure of Remdesivir and continued dexamethasone and baricitinib on 03/07. He now has diffuse ground-glass infiltrates and with interstitial fibrosis in all lung webster. At this time I recommend discontinuation of the baricitinib and dexamethasone and follow him clinically off of these immunosuppressants. Given the severity of his disease I would continue vancomycin and cefepime for total of 7 days. Discussed with doctors Kiran and Brooke History of Present Illness History of Present Illness Consult date: 03/09/21 Requesting physician: Hortensia Beck MD Reason for consult: hypoxemia and other (COVID pneumonia) Chief complaint: Respiratory failure with hypoxia/COVID 19 Narrative: 03/09/2021: This is a new Pulmonary consult for COVID pneumonia with hypoxemic respiratory failure. 66-year-old man with a history of neuropathy, Hyperlipidemia who was unvaccinated for COVID presented to the emergency department on 02/21 with 2 weeks history of cough and shortness of breath which got worse 2 days prior to admission. Patient had a CT angiogram that was negative for pulmonary embolism but had patchy bilateral alveolar ground-glass infiltrates characteristic of COVID pneumonia. Patient was initially on room air from 02/21 to 02/25/21. on 02/25/2021 year carotid 3 L nasal cannula for saturations 90%. On 02/27 he required 15 L nasal cannula with saturations of 90% and a blood gas of 7.48/33/51. CT angiogram on 02/27 demonstrated progressive alveolar and interstitial infiltrates and no pulmonary embolism. Levaquin was started on 02/27 and continued to 03/06. Remdesivir was continued for 10 days and discontinued on 03/02/2021. on 03/03 required 15 L NC aplus 15 L NRB On 03/04 required 15 L NC aplus 15 L NRB, restarted Dexamethasone 10 mg q.day was started on 03/04. On 03/05 Baricitinib started On 03/06 the patient required 15 L nasal cannula post 15 L non-rebreather with saturations 93%. On 03/07 patient had white blood cell count that increased from 16-19.6, a BNP of 46, blood cultures that were negative. CT of the chest without contrast again showed progressive alveolar and interstitial infiltrates throughout the lung webster compared with 02/27/2021. there was trace pneumomediastinum. Vancomycin and cefepime were empirically started. Baricitinib was started. On 03/08 the patient required 15 L nasal cannula plus 15 L non-rebreather for saturations 95%. On 03/09 the patient required Airvo high flow NC 60 L with FIO2 94% plus a non-rebreather for saturations 90%. Patient had a CT angiogram on 03/09 that demonstrated no PE with no significant change In his diffuse alveolar and interstitial infiltrates from 03/07. no pneumo study and was appreciated. I was consulted On entering the room patient was on Airvo 60 L, 94% FIO2 plus 15 L NRB mask with saturations of 82% and in moderate respiratory distress. I immediately contacted respiratory therapy and placed him on BiPAP with a rate of 20, 18/10 and 100% FiO2. His saturations did not improve in 5 minutes and I increased him to a BiPAP of 21/13 and his saturations did not improve in 5
[2021-03-09] MEDS: MIDAZOLAM HCL (*CRX) 2 MG/2 ML VIAL 4 MG IV PUSH (13:45)
[2021-03-09] MEDS: ROCURONIUM BROMIDE 50 MG/5 ML VIAL IV PUSH (13:45)
[2021-03-09] MEDS: CISATRACURIUM BESYLATE 200 MG in DEXTROSE 5% 80 ML 19.61 ML IV CONT ×2 (13:46→20:25)
--- NOTE | 2021-03-09 14:02 | WPDPROCEDUR ---
Procedures Central Line Placement Right IJ: Central Line Date: 03/09/21 Central Line Time: 13:15 Performed Emergently - Given emergent patient condition, temporal constraints may have precluded informed consent.: Yes Consent: Patient was emergently intubated for COVID 19 pneumonia respiratory failure. He needed multiple infusions including sedation and paralytic. Patient also needed to be prone emergently to maintain his saturation. To prone we needed a secure IV access and in case patient needs vasopressors once sedated. once patient is prone to it would have been difficult to place a better IV access. Hence emergently central venous catheter was placed in right IJ. Time Out Performed: Yes Patient Position: trendelenburg Patient placed on monitor/pulse ox: Yes Provider Prep: mask, sterile gown, sterile gloves, Max. sterile barrier precautions, cap and hand hygiene with conventional soap/water or alcohol based hand rub Central line prep: 2% Chlorhexidine scrub Sterile US Technique with sterile gel/sterile probe covers: Yes Central line lumen inserted: triple Length (cm): 16 Depth of Insertion (cm): 16 Post Procedure: sutured in place, good blood return, all ports aspirated, flushed, capped, transparent dressing, hemostatic product, antimicrobial product and aseptic technique maintained throughout procedure Post procedure x-ray: tip of catheter in good position and no pneumothorax seen Patient tolerated procedure: well Complications: none
--- NOTE | 2021-03-09 14:44 | WPDCNINT ---
Assessment and Plan Assessment and plan (1) Acute respiratory failure with hypoxia: Code(s): J96.01 - Acute respiratory failure with hypoxia Status: Acute Assessment and Plan: Acute Respiratory failure secondary to COVID-19 pneumonia patient was emergently intubated and placed on mechanical ventilation I have reviewed chest x-ray and ETT advanced by 1 cm patient is currently on 100% FiO2 and PEEP of 15. ABGs pending I have placed patient in prone position. Saturations are 85% at this time and I am hoping that with time and lung recruitment his oxygenation will improve. Continue full mechanical ventilation support to prevent hypoxemia/hypercarbia and end organ damage. Low tidal volume ventilation strategy to prevent volutrauma He was given Lasix this morning but does not appear intravascularly volume overloaded as his internal jugular vein during central venous catheter insertion was collapsing. his BNP was only 46 on 03/07. I will hold further diuretics at this time Empiric vancomycin and cefepime were started on 03/07 will be continued for at least 7 days Blood cultures were sent and were pending I will check procalcitonin level Patient's serial CT scans from 02/21 to now show progression of his COVID pneumonia and worsening of CT scan despite complete course of Remdesivir and continued dexamethasone and baricitinib on 03/07. (2) Pneumonia due to COVID-19 virus: Code(s): U07.1 - COVID-19; J12.82 - Pneumonia due to coronavirus disease 2019 Status: Acute Assessment and Plan: Patient tested positive for COVID-19 on 02/20/21 and initially was on room air. Patient 1st required oxygen on 02/25/2021 and has per had progressive hypoxemic respiratory failure since then, failing airflow high-flow nasal cannula and noninvasive ventilation and requiring intubation on 03/09/2021. He was started on Remdesivir 02/11 and completed 10 days. He was started on dexamethasone on 02/21/2021 and was increased to 10 mg IV daily on 03/04. Baricitinib was started on 03/05 and will be continued at this time I am not sure off the benefit of either Barcitinib or dexamethasone at this time considering this late in the course and patient's most recent CRP was only 2.1. I will discuss with Pulmonary. (3) History of hyperlipidemia: Code(s): Z86.39 - Personal history of other endocrine, nutritional and metabolic disease Status: Inactive Assessment and Plan: on Zocor Additional Plan DVT prophylaxis - Lovenox Stress ulcer prophylaxis - start PPI Nutrition - start Tube Feeds Code Status - Full Code Case initially discussed with Dr. Augustine, Dr. Beck prior to transfer to ICU and prior to intubation. CT scan results reviewed with radiologist Total Critical Care Time - 50 minutes Due to a high probability of clinically significant, life threatening deterioration, the patient required my highest level of preparedness to intervene emergently and I personally spent this critical care time directly and personally managing the patient. This critical care time included obtaining a history; examining the patient; pulse oximetry; ordering and review of studies; arranging urgent treatment with development of a management plan; evaluation of patient's response to treatment; frequent reassessment; and discussions with other providers. It was exclusive of separately billable procedures and treating other patients and teaching time. Please see Assessment and Plan section and the rest of the note for further information on patient assessment and treatment [facility] Consult Note Consult date: 03/09/21 HPI: Wolf Castanon is a 66 year old male with past medical history of neuropathy, Hyperlipidemia who was unvaccinated for COVID was admitted on 02/21 with 2 weeks history of cough and shortness of breath which got worse 2 days prior to admission. Patient had a CT angiogram that was negative for pu
[2021-03-09 14:55] LABS: Alveolar/Arterial O2 Gradient 549.1 mmHg; Base Excess ABG -0.9 mEq/l (+/-2.0); Fractional Inspired Oxygen 100 %; HCO3 ABG 30.2 mEq/l (22.0-26.0); Oxygen Content ABG 25.9 %vol (16.0-22.0); Oxygen Saturation ABG 94.4 % (95.0-100.0); Oxyhemoglobin 93.7 % THb (90.0-100.0); PO2 ABG 87.5 mmHg (80.0-100.0); PO2 FiO2 Ratio Arterial Blood 0.88 %; Total Hemoglobin 19.7 g/dL (12.0-18.0); pH ABG 7.215 (7.350-7.450)
[2021-03-09 14:56] LABS: PCO2 ABG 76.4 mmHg (35.0-45.0)
[2021-03-09 14:57] LABS: Device VENTILATOR; Modified Allen's Test Pass; Site Drawn RIGHT RADIAL
[2021-03-09 14:59] LABS: Arterial Blood Gas PEEP 15 cmH2O; Arterial Blood Gas Tidal Volume 420 ml; Arterial Blood Gas Vent Mode CMV; Arterial Blood Gas Ventilator rate 25 /MIN
[2021-03-09] MEDS: SODIUM BICARBONATE 8.4% 50 MEQ/50 ML SYRINGE 100 MEQ IV PUSH (15:25)
--- NOTE | 2021-03-09 15:30 | PM.EVENT ---
Event Note Event Note Event Note: ABG reviewed. respiratory acidosis and hypercarbia. Pressure high on the ventilator as expected. Will give IV bicarb and tolerate permissive hypercapnia. PO2 is 87 while saturation on the monitor is only 83% which is likely an error in measurement. Requested nurse to switched to different site
[2021-03-09 17:53] LABS: Glucose Point of Care 285 mg/dl (65-105)
[2021-03-09] MEDS: INSULIN ASPART (*BKC) 100 UNITS/ML SUB-Q (17:53)
[2021-03-09 20:39] LABS: Glucose Point of Care 185 mg/dl (65-105)
[2021-03-09] MEDS: MINERAL OIL/WHITE PETROLATUM OINTMENT 1 APPLIC EACH EYE (21:00)
[2021-03-10] VITALS (35 sets, daily range): BP systolic 88–115; BP diastolic 53–66; PULSE 50–97; RESP 25; TEMP 35.9–36.7; O2SAT 91–97; BMI 39.0
[2021-03-10] MEDS: CISATRACURIUM BESYLATE 200 MG in DEXTROSE 5% 80 ML 19.61 ML IV CONT ×3 (00:48→11:28)
[2021-03-10 03:54] LABS: Hematocrit 51.3 % (42.0-52.0); Hemoglobin 16.6 g/dL (14.0-18.0); Mean Corpuscular HGB Conc 32.4 g/dl (32-36); Mean Corpuscular Hemoglobin 31.2 pg (26-34); Mean Corpuscular Volume 96.4 fl (80-100); Mean Platelet Volume 9.7 fl (7.4-10.4); Platelet Count Result 236 k/mm3 (150-375); Red Blood Count 5.32 M/mm3 (4.6-6.20); Red Cell Distribution Width 12.9 % (11.5-14.5); White Blood Count 14.9 K/mm3 (4.5-10.0)
[2021-03-10 04:07] LABS: Alanine Aminotransferase 17 U/L (4-50); Albumin Level 3.4 g/dL (3.5-5.1); Alkaline Phosphatase 86 U/L (38-126); Anion Gap 6 mmol/L (8-16); Aspartate Amino Transferase 19 U/L (17-59); Bilirubin,Total 0.5 mg/dL (0.2-1.3); Blood Urea Nitrogen 24 mg/dL (9-20); Calcium 8.5 mg/dL (8.4-10.2); Carbon Dioxide 34 mmol/L (22-30); Chloride 94 mmol/L (98-107); Estimated CRCL calculation 114 ml/min; Estimated Glomerular Filt Rate > 60; Glucose 130 mg/dL (65-110); Magnesium 2.7 mg/dL (1.6-2.3); Potassium 4.6 mmol/L (3.4-5.0); Sodium 134 mmol/L (137-145)
[2021-03-10 04:53] LABS: CRP 14.8 mg/dL (<1.0); Lactate Dehydrogenase 911 U/L (313-618)
[2021-03-10 05:31] LABS: Vancomycin Trough 13.4 ug/mL (10.0-20.0)
[2021-03-10 05:35] LABS: Alveolar/Arterial O2 Gradient 473.5 mmHg; Base Excess ABG 1.5 mEq/l (+/-2.0); Carboxyhemoglobin 0.3 % THb (0-2.0); Fractional Inspired Oxygen 95 %; HCO3 ABG 28.8 mEq/l (22.0-26.0); Methemoglobin ABG 0.3 %THb (0-1.5); Oxygen Content ABG 24.3 %vol (16.0-22.0); Oxygen Saturation ABG 98.7 % (95.0-100.0); Oxyhemoglobin 97.8 % THb (90.0-100.0); PCO2 ABG 54.8 mmHg (35.0-45.0); PO2 ABG 148.4 mmHg (80.0-100.0); PO2 FiO2 Ratio Arterial Blood 1.56 %; Reduced Hemoglobin 1.6 %THb (0-5.0); Total Hemoglobin 17.5 g/dL (12.0-18.0); pH ABG 7.338 (7.350-7.450)
[2021-03-10 05:37] LABS: Device VENTILATOR; Modified Allen's Test Pass; Site Drawn RIGHT RADIAL
[2021-03-10 05:38] LABS: Arterial Blood Gas Vent Mode CMV; Arterial Blood Gas Ventilator rate 26 /MIN
[2021-03-10 05:39] LABS: Arterial Blood Gas PEEP 15 cmH2O; Arterial Blood Gas Tidal Volume 420 ml
[2021-03-10] MEDS: ASPIRIN 81 MG CHEWABLE TABLET PO (07:53)
--- NOTE | 2021-03-10 07:57 | PCOTNOTE ---
Patient had a change in medical status and is no longer appropriate for Occupational Therapy, will discharge. If patient condition improves can re-order when medically appropriate.
[2021-03-10] MEDS: ENOXAPARIN 40 MG/0.4 ML SYRINGE SUB-Q ×2 (08:02→20:22)
[2021-03-10] MEDS: ASCORBIC ACID 500 MG TABLET PO (08:02)
[2021-03-10] MEDS: ZINC SULFATE 220 MG CAPSULE PO (08:02)
[2021-03-10] MEDS: SIMVASTATIN 20 MG TABLET PO (08:02)
[2021-03-10] MEDS: CHOLECALCIFEROL 1,000 UNITS TABLET 1000 UNITS PO (08:02)
[2021-03-10] MEDS: PANTOPRAZOLE SODIUM IV 40 MG VIAL IV PUSH (08:03)
[2021-03-10] MEDS: MINERAL OIL/WHITE PETROLATUM OINTMENT 1 APPLIC EACH EYE ×2 (08:03→20:23)
[2021-03-10 08:19] LABS: Glucose Point of Care 178 mg/dl (65-105)
--- NOTE | 2021-03-10 08:28 | PCPTNOTE ---
Patient with a decline in status, will D/C PT orders at this time, please re-order when appropriate.
[2021-03-10] MEDS: BARICITINIB 2 MG TABLET 4 MG PO (10:06)
[2021-03-10 11:58] LABS: Glucose Point of Care 130 mg/dl (65-105)
--- NOTE | 2021-03-10 12:00 | WPDINTPN ---
Progress Note: A&P Assessment and Plan (1) Acute respiratory failure with hypoxia: Code(s): J96.01 - Acute respiratory failure with hypoxia Status: Acute Assessment and Plan: Acute Respiratory failure secondary to COVID-19 pneumonia 03/09 patient was emergently intubated and placed on mechanical ventilation Chest x-ray reviewed and will advance ET tube by 2 cm patient is currently on 95% FiO2 and PEEP of 15. I have wean down FiO2 to 80% ABGs review. Patient is currently in prone position which I will continue the day today. Continue daily prone ventilation for 16-18 hours as tolerated Continue full mechanical ventilation support to prevent hypoxemia/hypercarbia and end organ damage. Low tidal volume ventilation strategy to prevent volutrauma . Permissive hypercapnia Empiric vancomycin and cefepime were started on 03/07 will be continued for at least 7 days Blood cultures were sent and negative till now Patient's serial CT scans from 02/21 to now show progression of his COVID pneumonia and worsening of CT scan despite complete course of Remdesivir and continued dexamethasone and baricitinib on 03/07. Will check procalcitonin level (2) Pneumonia due to COVID-19 virus: Code(s): U07.1 - COVID-19; J12.82 - Pneumonia due to coronavirus disease 2019 Status: Acute Assessment and Plan: Patient tested positive for COVID-19 on 02/20/21 and initially was on room air. Patient 1st required oxygen on 02/25/2021 and has per had progressive hypoxemic respiratory failure since then, failing airflow high-flow nasal cannula and noninvasive ventilation and requiring intubation on 03/09/2021. He was started on Remdesivir 02/11 and completed 10 days. He was started on dexamethasone on 02/21/2021 and was increased to 10 mg IV daily on 03/04. Baricitinib was started on 03/05 and will be continued at this time His inflammatory markers remain elevated (3) History of hyperlipidemia: Code(s): Z86.39 - Personal history of other endocrine, nutritional and metabolic disease Status: Inactive Assessment and Plan: on Zocor Additional Plan DVT prophylaxis - Lovenox Stress ulcer prophylaxis - start PPI Nutrition - continue Tube Feeds Code Status - Full Code Total Critical Care Time - 32 minutes Due to a high probability of clinically significant, life threatening deterioration, the patient required my highest level of preparedness to intervene emergently and I personally spent this critical care time directly and personally managing the patient. This critical care time included obtaining a history; examining the patient; pulse oximetry; ordering and review of studies; arranging urgent treatment with development of a management plan; evaluation of patient's response to treatment; frequent reassessment; and discussions with other providers. It was exclusive of separately billable procedures and treating other patients and teaching time. Please see Assessment and Plan section and the rest of the note for further information on patient assessment and treatment Subjective Date/time seen: 03/10/21 12:00 Overnight events reviewed. Afebrile Continues to be on mechanical ventilation 95% FiO2 and 15 he Continues to be sedated and chemically paralyzed Vitals acceptable Review of Systems Review of Systems: ROS unobtainable: Yes unobtainable due to endotracheal tube, unobtainable due to medical condition and unobtainable due to mental status Exam Narrative: General: Pt is sedated, intubated and on mechanical ventilation patient is in prone position Lungs/Chest: Trachea central Coarse BS B/L, No crackles or wheezing. Cardiac: RRR. Normal S1 S2. No murmurs Abdomen: Decreased bowel sounds. Obese. Soft. NT. ND. bilateral dorsalis pedis are weak and sometimes dopplerable Extremities: No clubbing, cyanosis or edema. Warm : Shaikh in place Neurologic: sedated and chemically paralyzed PERRL Sk
[2021-03-10 12:14] LABS: Glucose Point of Care 116 mg/dl (65-105)
[2021-03-10] MEDS: MIDAZOLAM 100MG/NS 100ML(*CRX) 100 MG/100 ML BAG 8 MG IV CONT (13:10)
[2021-03-10] MEDS: FENTANYL 2,500MCG/NS250ML(*CRX 2,500 MCG/250 ML BAG 20 MCG IV CONT (13:12)
[2021-03-10 13:34] LABS: Procalcitonin 0.1 ng/mL
[2021-03-10] MEDS: CISATRACURIUM BESYLATE 200 MG in DEXTROSE 5% 80 ML 15.68 ML IV CONT ×2 (17:25→22:06)
[2021-03-10 17:31] LABS: Glucose Point of Care 179 mg/dl (65-105)
[2021-03-10 20:33] LABS: Glucose Point of Care 208 mg/dl (65-105)
[2021-03-10] MEDS: INSULIN ASPART (*BKC) 100 UNITS/ML SUB-Q (20:35)
[2021-03-11] VITALS (28 sets, daily range): BP systolic 99–133; BP diastolic 46–92; PULSE 50–67; RESP 25–30; TEMP 35.7–36.7; O2SAT 93–100
--- NOTE | 2021-03-11 | ECHO_ITS ---
Patient Info Name: Wolf Castanon Age: 66 years : 1955 Gender: Male Ht: 72 in Wt: 280 lbs BSA: 2.59 m2 HR: 54 bpm BP: 100 / 54 mmHg Technical Quality: Fair Exam Date: 03/11/2021 3:07 PM Exam Location: [facility] Pulmonary Patient Status: Inpatient Admit Date: 02/24/2021 Staff Ordering Physician: Hortensia Beck MD Clay Hoister: Dylan Cedeno RDCS, RT Attending Provider: Choco Vann MD Referring Physician: Kiran SKAGGS; Exam Type: CA echo doppler color flow Study Info Indications R06.02 - Shortness of breath Complete two-dimensional, color flow and Doppler transthoracic echocardiogram is performed with contrast to opacify the left ventricle and to improve the deliniation of the left ventricle endocardial borders. Summary 1. Left ventricular chamber dimension is normal. 2. Definity contrast administered improved wall motion interpretation. 3. Left ventricular systolic function is normal, estimated at 65-70%. 4. There is mildly increased left ventricular wall thickness. 5. The left ventricular diastolic function is grade I diastolic dysfunction. 6. E/e' 8 is minimally elevated. 7. Moderate to severe pulmonary hypertension, estimated pulmonary arterial systolic pressure is 60 mmHg. 8. There is mild tricuspid valve regurgitation. 9. Dilated inferior vena cava with >50% collapse upon inspiration consistent with elevated right atrial pressure, 10 mmHg. Left Ventricle Definity contrast administered improved wall motion interpretation. E/e' 8 is minimally elevated. Left ventricular chamber dimension is normal. Left ventricular systolic function is normal, estimated at 65-70%. There is mildly increased left ventricular wall thickness. The left ventricular diastolic function is grade I diastolic dysfunction. Right Ventricle Right ventricular chamber dimension is not well visualized. Left Atria Left atrial chamber dimension is normal. Right Atria Right atrial chamber dimension is not well visualized. Aortic Valve The aortic valve is trileaflet. There is no aortic valve stenosis. There is no aortic valve regurgitation. Pulmonic Valve There is no pulmonic regurgitation. Mitral Valve There is no mitral valve stenosis. There is no mitral valve regurgitation. Tricuspid Valve Moderate to severe pulmonary hypertension, estimated pulmonary arterial systolic pressure is 60 mmHg. There is mild tricuspid valve regurgitation. Pericardium/Pleural There is no pericardial effusion. Inferior Vena Cava Dilated inferior vena cava with >50% collapse upon inspiration consistent with elevated right atrial pressure, 10 mmHg. Aorta The aortic root size at the sinus of Valsalva is normal. Left Ventricular Outflow Tract Name Value Normal LVOT 2D LVOT Diameter 2.4 cm LVOT Doppler LVOT Peak Gradient 6 mmHg LVOT Mean Gradient 4 mmHg LVOT VTI 26 cm LVOT VTI/AV VTI Ratio 0.7 LVOT Stroke Volume 117 ml LVOT CO 6.5 l/
[2021-03-11] MEDS: CISATRACURIUM BESYLATE 200 MG in DEXTROSE 5% 80 ML 15.68 ML IV CONT (03:41)
[2021-03-11 04:23] LABS: Hematocrit 46.9 % (42.0-52.0); Hemoglobin 15.5 g/dL (14.0-18.0); Mean Corpuscular Hemoglobin 31.5 pg (26-34); Mean Corpuscular Volume 95.3 fl (80-100); Platelet Count Result 238 k/mm3 (150-375); Red Blood Count 4.92 M/mm3 (4.6-6.20); Red Cell Distribution Width 12.5 % (11.5-14.5); White Blood Count 14.8 K/mm3 (4.5-10.0)
[2021-03-11 04:46] LABS: Alanine Aminotransferase 17 U/L (4-50); Albumin Level 3.1 g/dL (3.5-5.1); Alkaline Phosphatase 79 U/L (38-126); Anion Gap 5 mmol/L (8-16); Aspartate Amino Transferase 21 U/L (17-59); Bilirubin,Total 0.2 mg/dL (0.2-1.3); Blood Urea Nitrogen 24 mg/dL (9-20); Calcium 8.5 mg/dL (8.4-10.2); Carbon Dioxide 35 mmol/L (22-30); Chloride 92 mmol/L (98-107); Estimated CRCL calculation 128 ml/min; Estimated Glomerular Filt Rate > 60; Glucose 174 mg/dL (65-110); Magnesium 2.7 mg/dL (1.6-2.3); Potassium 4.6 mmol/L (3.4-5.0); Sodium 132 mmol/L (137-145)
[2021-03-11 06:23] LABS: Alveolar/Arterial O2 Gradient 343.4 mmHg; Base Excess ABG 3.2 mEq/l (+/-2.0); Carboxyhemoglobin 1.7 % THb (0-2.0); Fractional Inspired Oxygen 70 %; HCO3 ABG 33.1 mEq/l (22.0-26.0); Methemoglobin ABG 0.2 %THb (0-1.5); Oxygen Content ABG 21.7 %vol (16.0-22.0); Oxygen Saturation ABG 92.7 % (95.0-100.0); Oxyhemoglobin 93.1 % THb (90.0-100.0); PO2 ABG 75.8 mmHg (80.0-100.0); PO2 FiO2 Ratio Arterial Blood 1.08 %; Total Hemoglobin 16.6 g/dL (12.0-18.0)
[2021-03-11 06:34] LABS: PCO2 ABG 74.3 mmHg (35.0-45.0); pH ABG 7.267 (7.350-7.450)
[2021-03-11 06:35] LABS: Device VENTILATOR; Modified Allen's Test Unable to perform; Site Drawn LEFT RADIAL
[2021-03-11 06:36] LABS: Arterial Blood Gas PEEP 15 cmH2O; Arterial Blood Gas Tidal Volume 420 ml; Arterial Blood Gas Vent Mode CMV; Arterial Blood Gas Ventilator rate 25 /MIN
[2021-03-11 08:53] LABS: Alanine Aminotransferase 16 U/L (4-50); Aspartate Amino Transferase 24 U/L (17-59)
[2021-03-11 08:55] LABS: Estimated CRCL calculation 128 ml/min; Estimated Glomerular Filt Rate > 60
[2021-03-11] MEDS: ENOXAPARIN 40 MG/0.4 ML SYRINGE SUB-Q ×2 (08:58→21:09)
[2021-03-11] MEDS: CHOLECALCIFEROL 1,000 UNITS TABLET 1000 UNITS PO (08:58)
[2021-03-11] MEDS: PANTOPRAZOLE SODIUM IV 40 MG VIAL IV PUSH (08:58)
[2021-03-11] MEDS: ZINC SULFATE 220 MG CAPSULE PO (08:58)
[2021-03-11] MEDS: ASCORBIC ACID 500 MG TABLET PO (08:58)
[2021-03-11] MEDS: SIMVASTATIN 20 MG TABLET PO (08:58)
[2021-03-11] MEDS: MINERAL OIL/WHITE PETROLATUM OINTMENT 1 APPLIC EACH EYE ×2 (08:59→21:10)
[2021-03-11] MEDS: DOCUSATE SODIUM 100 MG CAPSULE PO (08:59)
[2021-03-11] MEDS: CISATRACURIUM BESYLATE 200 MG in DEXTROSE 5% 80 ML 19.61 ML IV CONT ×3 (09:14→21:15)
[2021-03-11 09:39] LABS: Basophils Percent Auto 0.2 % (0.2-1.2); Immature Granulocyte Absolute 0.21 K/mm3 (0.00-0.031); Immature Granulocyte Percent A 1.4 % (0-0.5); Lymphocytes Absolute Auto 0.43 K/mm3 (0.9-3.2); Lymphocytes Percent Auto 2.9 % (18.3-44.2); Monocytes Absolute Auto 0.8 K/mm3 (0.1-0.6); Monocytes Percent Auto 5.2 % (2.6-8.5); Neutrophils Absolute Auto 13.5 K/mm3 (1.3-6.7); Neutrophils Percent Auto 90.3 % (45.5-73.1)
[2021-03-11 09:51] LABS: Prothrombin Time 12.8 Seconds (11.1-14.7)
--- NOTE | 2021-03-11 11:26 | PCNFU ---
Nutrition Follow-Up Complete: Inadequate oral intake related to mechanical ventilation as evidenced by need for advanced nutrition support. Goal: Pt. to meet estimated nutritional needs. Pt. is progressing towards goal. No new goal at this time. Pt current nutrition is Jevity 1.5 at 65 mls per hour over 22 hours per day and tolerating well. Last recorded weight is 130.7 kg. Bowel Motility: + BM 03/07/2021 Labs Reviewed: Alb 3.1, Na 132, BUN 24, Glu 174 Meds Noted: Vitamin C, Albuterol, Lovenox, Colace Capsule, Glucose, Glucagon, Novolog, Versed, Protonix, Miralax, Zocor, Zinc Sulfate, Vitamin D, Vancomycin Hcl Skin: No skin break down at this time. WNL. Additional Notes: Patient remains on mechanical vent and tube feedings of Jevity 1.5 at 65 mls per hour over 22 hours per day providing him with 2145 calories, 91 grams of protein and 1087 mls of water with an additional 30 ml water flush q4. He is meeting 96% of his caloric needs and 94% of his protein needs. Pt. is not receiving propofol at this time. Monitor pt. labs, medications, weight and tube feeding tolerance every Wednesday and Wednesday as well as daily in ICU rounds.
--- NOTE | 2021-03-11 12:02 | WPDINTPN ---
Progress Note: A&P Assessment and Plan (1) Acute respiratory failure with hypoxia: Code(s): J96.01 - Acute respiratory failure with hypoxia Status: Acute Assessment and Plan: Acute Respiratory failure secondary to COVID-19 pneumonia 03/09 patient was emergently intubated and placed on mechanical ventilation Chest x-ray reviewed and will advance ET tube by 3 cm patient is currently on 70% FiO2 and PEEP of 15. ABGs reviewed. Increased respiratory rate to 30 Patient is currently in prone position. Continue daily prone ventilation for 16-18 hours as tolerated Continue full mechanical ventilation support to prevent hypoxemia/hypercarbia and end organ damage. Low tidal volume ventilation strategy to prevent volutrauma. Permissive hypercapnia Empiric vancomycin and cefepime were started on 03/07 will be continued for at least 7 days Blood cultures were sent and negative till now Patient's serial CT scans from 02/21 to now show progression of his COVID pneumonia and worsening of CT scan despite complete course of Remdesivir and continued dexamethasone and baricitinib on 03/07. Will check procalcitonin level (2) Pneumonia due to COVID-19 virus: Code(s): U07.1 - COVID-19; J12.82 - Pneumonia due to coronavirus disease 2018 Status: Acute Assessment and Plan: Patient tested positive for COVID-19 on 02/20/21 and initially was on room air. Patient 1st required oxygen on 02/25/2021 and has per had progressive hypoxemic respiratory failure since then, failing airflow high-flow nasal cannula and noninvasive ventilation and requiring intubation on 03/09/2021. He was started on Remdesivir 02/11 and completed 10 days. He was started on dexamethasone on 02/21/2021 and was increased to 10 mg IV daily on 03/04. Baricitinib was started on 03/05 and will be continued at this time His inflammatory markers remain elevated (3) History of hyperlipidemia: Code(s): Z86.39 - Personal history of other endocrine, nutritional and metabolic disease Status: Inactive Assessment and Plan: on Zocor Additional Plan DVT prophylaxis - Lovenox Q12H Stress ulcer prophylaxis - start PPI Nutrition - continue Tube Feeds Code Status - Full Code I spoke to patient's by phone. I updated her with patient's current status including current ventilator settings, current treatment plan and answered all her questions. Total Critical Care Time - 30 minutes Due to a high probability of clinically significant, life threatening deterioration, the patient required my highest level of preparedness to intervene emergently and I personally spent this critical care time directly and personally managing the patient. This critical care time included obtaining a history; examining the patient; pulse oximetry; ordering and review of studies; arranging urgent treatment with development of a management plan; evaluation of patient's response to treatment; frequent reassessment; and discussions with other providers. It was exclusive of separately billable procedures and treating other patients and teaching time. Please see Assessment and Plan section and the rest of the note for further information on patient assessment and treatment Subjective Date/time seen: 03/11/21 Overnight events reviewed. Afebrile Continues to be on mechanical ventilation 70% FiO2 and 15 of PEEP Continues to be sedated and chemically paralyzed Vitals acceptable Review of Systems Review of Systems: ROS unobtainable: Yes unobtainable due to endotracheal tube, unobtainable due to medical condition and unobtainable due to mental status Exam Narrative: General: Pt is sedated, intubated and on mechanical ventilation patient is in prone position Lungs/Chest: Trachea central Coarse BS B/L, No crackles or wheezing. Cardiac: RRR. Normal S1 S2. No murmurs Abdomen: Decreased bowel sounds. Obese. Soft. NT. ND. bilateral dorsalis pedis are weak and so
[2021-03-11] MEDS: ASPIRIN 81 MG CHEWABLE TABLET PO (12:22)
[2021-03-11] MEDS: INSULIN ASPART (*BKC) 100 UNITS/ML SUB-Q ×2 (12:22→17:06)
[2021-03-11] MEDS: BARICITINIB 2 MG TABLET 4 MG PO (12:23)
[2021-03-11] MEDS: MIDAZOLAM 100MG/NS 100ML(*CRX) 100 MG/100 ML BAG 8 MG IV CONT (13:24)
[2021-03-11] MEDS: FENTANYL 2,500MCG/NS250ML(*CRX 2,500 MCG/250 ML BAG 20 MCG IV CONT (13:25)
[2021-03-11] MEDS: CENTRAL LINE FLUSH 10 ML IV PUSH ×2 (13:28→21:12)
[2021-03-11 13:38] LABS: Glucose Point of Care 213 mg/dl (65-105)
[2021-03-11 17:10] LABS: Glucose Point of Care 271 mg/dl (65-105)
[2021-03-11] MEDS: DOCUSATE SODIUM LIQ 100 MG/10 ML UDC FEED TUBE (21:08)
[2021-03-11] MEDS: SODIUM CHLORIDE NASAL GEL 14.1 GM 1 APPLIC NASAL (21:11)
[2021-03-12] VITALS (39 sets, daily range): BP systolic 96–149; BP diastolic 47–76; PULSE 47–93; RESP 30; TEMP 36–36.7; O2SAT 94–97
[2021-03-12 00:54] LABS: Glucose Point of Care 197 mg/dl (65-105)
[2021-03-12] MEDS: CISATRACURIUM BESYLATE 200 MG in DEXTROSE 5% 80 ML 19.61 ML IV CONT ×5 (02:53→23:31)
[2021-03-12] MEDS: FENTANYL 2,500MCG/NS250ML(*CRX 2,500 MCG/250 ML BAG 20 MCG IV CONT (03:29)
[2021-03-12] MEDS: MIDAZOLAM 100MG/NS 100ML(*CRX) 100 MG/100 ML BAG 8 MG IV CONT (03:31)
[2021-03-12 05:34] LABS: Alveolar/Arterial O2 Gradient 328.9 mmHg; Base Excess ABG 4.7 mEq/l (+/-2.0); Carboxyhemoglobin 0.5 % THb (0-2.0); Fractional Inspired Oxygen 65 %; HCO3 ABG 32.1 mEq/l (22.0-26.0); Methemoglobin ABG 0.1 %THb (0-1.5); Oxygen Content ABG 18.9 %vol (16.0-22.0); Oxygen Saturation ABG 93.1 % (95.0-100.0); Oxyhemoglobin 93.3 % THb (90.0-100.0); PO2 ABG 70.4 mmHg (80.0-100.0); PO2 FiO2 Ratio Arterial Blood 1.08 %; Reduced Hemoglobin 6.1 %THb (0-5.0); Total Hemoglobin 14.4 g/dL (12.0-18.0); pH ABG 7.353 (7.350-7.450)
[2021-03-12 05:35] LABS: Arterial Blood Gas Vent Mode CMV; Arterial Blood Gas Ventilator rate 30 /MIN; Device VENTILATOR; Modified Allen's Test Unable to perform; Site Drawn LEFT RADIAL
[2021-03-12 05:36] LABS: Arterial Blood Gas PEEP 15 cmH2O; Arterial Blood Gas Tidal Volume 420 ml
[2021-03-12 05:56] LABS: Basophils Percent Auto 0.3 % (0.2-1.2); Eosinophils Percent Auto 0.1 % (0-4.4); Hematocrit 40.7 % (42.0-52.0); Hemoglobin 13.3 g/dL (14.0-18.0); Immature Granulocyte Absolute 0.52 K/mm3 (0.00-0.031); Immature Granulocyte Percent A 3.7 % (0-0.5); Lymphocytes Absolute Auto 0.57 K/mm3 (0.9-3.2); Lymphocytes Percent Auto 4.1 % (18.3-44.2); Mean Corpuscular HGB Conc 32.7 g/dl (32-36); Mean Corpuscular Hemoglobin 31.4 pg (26-34); Mean Corpuscular Volume 96.2 fl (80-100); Mean Platelet Volume 10.1 fl (7.4-10.4); Monocytes Absolute Auto 0.8 K/mm3 (0.1-0.6); Monocytes Percent Auto 5.8 % (2.6-8.5); Platelet Count Result 200 k/mm3 (150-375); Red Blood Count 4.23 M/mm3 (4.6-6.20); Red Cell Distribution Width 12.5 % (11.5-14.5); White Blood Count 13.9 K/mm3 (4.5-10.0)
[2021-03-12 06:10] LABS: Alanine Aminotransferase 17 U/L (4-50); Albumin Level 2.7 g/dL (3.5-5.1); Alkaline Phosphatase 68 U/L (38-126); Anion Gap 2 mmol/L (8-16); Aspartate Amino Transferase 22 U/L (17-59); Bilirubin,Total 0.2 mg/dL (0.2-1.3); Blood Urea Nitrogen 18 mg/dL (9-20); CRP 1.7 mg/dL (<1.0); Carbon Dioxide 34 mmol/L (22-30); Chloride 90 mmol/L (98-107); Estimated CRCL calculation 148 ml/min; Estimated Glomerular Filt Rate > 60; Glucose 241 mg/dL (65-110); Lactate Dehydrogenase 431 U/L (313-618); Magnesium 2.3 mg/dL (1.6-2.3); Potassium 4.6 mmol/L (3.4-5.0); Sodium 126 mmol/L (137-145)
[2021-03-12] MEDS: INSULIN ASPART (*BKC) 100 UNITS/ML SUB-Q (06:22)
[2021-03-12] MEDS: CENTRAL LINE FLUSH 10 ML IV PUSH ×3 (06:23→21:09)
[2021-03-12] MEDS: CHOLECALCIFEROL 1,000 UNITS TABLET 1000 UNITS PO (08:55)
[2021-03-12] MEDS: ZINC SULFATE 220 MG CAPSULE PO (08:56)
[2021-03-12] MEDS: SIMVASTATIN 20 MG TABLET PO (08:56)
[2021-03-12] MEDS: ASCORBIC ACID 500 MG TABLET PO (08:56)
[2021-03-12] MEDS: DOCUSATE SODIUM LIQ 100 MG/10 ML UDC FEED TUBE ×2 (08:56→21:09)
[2021-03-12] MEDS: PANTOPRAZOLE SODIUM IV 40 MG VIAL IV PUSH (08:56)
[2021-03-12] MEDS: MINERAL OIL/WHITE PETROLATUM OINTMENT 1 APPLIC EACH EYE ×2 (08:56→21:09)
[2021-03-12] MEDS: ENOXAPARIN 40 MG/0.4 ML SYRINGE SUB-Q (09:12)
--- NOTE | 2021-03-12 10:35 | WPDINTPN ---
Progress Note: A&P Assessment and Plan (1) Acute respiratory failure with hypoxia: Code(s): J96.01 - Acute respiratory failure with hypoxia Status: Acute Assessment and Plan: Acute Respiratory failure secondary to COVID-19 pneumonia 03/09 patient was emergently intubated and placed on mechanical ventilation Chest x-ray pending patient is currently on 65% FiO2 and PEEP of 15. ABGs reviewed. Patient is currently in prone position. Continue daily prone ventilation for 16-18 hours as tolerated Continue full mechanical ventilation support to prevent hypoxemia/hypercarbia and end organ damage. Low tidal volume ventilation strategy to prevent volutrauma. Permissive hypercapnia Blood cultures were sent and negative till now Patient's serial CT scans from 02/21 to now show progression of his COVID pneumonia and worsening of CT scan despite complete course of Remdesivir and continued dexamethasone and baricitinib on 03/07. Procalcitonin level was normal hence will discontinue Empiric vancomycin and cefepime (2) Pneumonia due to COVID-19 virus: Code(s): U07.1 - COVID-19; J12.82 - Pneumonia due to coronavirus disease 2018 Status: Acute Assessment and Plan: Patient tested positive for COVID-19 on 02/20/21 and initially was on room air. Patient 1st required oxygen on 02/25/2021 and has per had progressive hypoxemic respiratory failure since then, failing airflow high-flow nasal cannula and noninvasive ventilation and requiring intubation on 03/09/2021. He was started on Remdesivir 02/11 and completed 10 days. He was started on dexamethasone on 02/21/2021 and was increased to 10 mg IV daily on 03/04. Baricitinib was started on 03/05 and will be continued at this time His inflammatory markers remain elevated (3) History of hyperlipidemia: Code(s): Z86.39 - Personal history of other endocrine, nutritional and metabolic disease Status: Inactive Assessment and Plan: on Zocor (4) Hyponatremia: Code(s): E87.1 - Hypo-osmolality and hyponatremia Status: Acute Assessment and Plan: Change free water flushes to saline Treat hyperglycemia Lasix IV (5) Hyperglycemia: Code(s): R73.9 - Hyperglycemia, unspecified Status: Acute Assessment and Plan: Continue sliding scale and add Lantus Additional Plan DVT prophylaxis - Lovenox Stress ulcer prophylaxis - PPI Nutrition - continue Tube Feeds. Add Reglan Code Status - Full Code 03/11 I spoke to patient's by phone. I updated her with patient's current status including current ventilator settings, current treatment plan and answered all her questions. Total Critical Care Time - 30 minutes Due to a high probability of clinically significant, life threatening deterioration, the patient required my highest level of preparedness to intervene emergently and I personally spent this critical care time directly and personally managing the patient. This critical care time included obtaining a history; examining the patient; pulse oximetry; ordering and review of studies; arranging urgent treatment with development of a management plan; evaluation of patient's response to treatment; frequent reassessment; and discussions with other providers. It was exclusive of separately billable procedures and treating other patients and teaching time. Please see Assessment and Plan section and the rest of the note for further information on patient assessment and treatment Subjective Date/time seen: 03/12/21 10:35 Overnight events reviewed. Afebrile Continues to be on mechanical ventilation 65% FiO2 and 15 of PEEP Continues to be sedated and chemically paralyzed Vitals acceptable Review of Systems Review of Systems: ROS unobtainable: Yes unobtainable due to endotracheal tube, unobtainable due to medical condition and unobtainable due to mental status Exam Narrative: General: Pt is sedated, intubated
--- NOTE | 2021-03-12 11:30 | PCFNICU ---
ICU Rounding Note: Pt current nutrition is Vital AF 1.2 at 65 ml/hr over 22 hours. Last recorded weight is 121.9 kg, down from 130.7 kg on admit. Bowel Motility:+Bm reported 02/26-Reglan added today. Labs Reviewed:Glu 241, Na 126, Hct 40.7,Hgb 13.3 Meds Noted:Vitamin C, Albuterol, Lovenox, Colace Capsule, Glucose, Glucagon, Novolog, Versed, Protonix, Miralax, Zocor, Zinc Sulfate, Vitamin D, Vancomycin Hcl,Reglan. Skin: WNL Additional Notes: Patient remains mechanical vent and tube feedings of Vital AF 1.2. Spoke with nursing today, residual of 300 ml reported. Tube feeding has been on hold with plans to restart. Agree with diet orders. Monitor pt. labs, medications, weight and tube feeding tolerance every Wednesday and Wednesday as well as daily in ICU rounds.
[2021-03-12 12:17] LABS: Glucose Point of Care 148 mg/dl (65-105)
[2021-03-12] MEDS: INSULIN GLARGINE (*BKC) 100 UNITS/ML 25 UNITS SUB-Q (12:35)
[2021-03-12] MEDS: ASPIRIN 81 MG CHEWABLE TABLET PO (12:35)
[2021-03-12] MEDS: BARICITINIB 2 MG TABLET 4 MG PO (12:35)
[2021-03-12] MEDS: METOCLOPRAMIDE HCL 10 MG/10 ML SOLN UDC PO ×3 (12:37→23:29)
[2021-03-12] MEDS: FENTANYL 2,500MCG/NS250ML(*CRX 2,500 MCG/250 ML BAG 15 MCG IV CONT (15:52)
[2021-03-12] MEDS: MIDAZOLAM 100MG/NS 100ML(*CRX) 100 MG/100 ML BAG 6 MG IV CONT (15:53)
[2021-03-12 18:37] LABS: Glucose Point of Care 163 mg/dl (65-105)
[2021-03-12] MEDS: SODIUM CHLORIDE NASAL GEL 14.1 GM 1 APPLIC NASAL (21:09)
[2021-03-12 23:41] LABS: Glucose Point of Care 172 mg/dl (65-105)
[2021-03-13] VITALS (26 sets, daily range): BP systolic 104–180; BP diastolic 59–88; PULSE 51–108; RESP 30; TEMP 36.5–37.1; O2SAT 92–96
[2021-03-13 05:00] LABS: Alveolar/Arterial O2 Gradient 286.7 mmHg; Base Excess ABG 6.4 mEq/l (+/-2.0); Carboxyhemoglobin 0.2 % THb (0-2.0); Fractional Inspired Oxygen 60 %; HCO3 ABG 34.3 mEq/l (22.0-26.0); Methemoglobin ABG 0.4 %THb (0-1.5); Oxygen Content ABG 20.7 %vol (16.0-22.0); Oxygen Saturation ABG 93.5 % (95.0-100.0); PO2 ABG 72.2 mmHg (80.0-100.0); Reduced Hemoglobin 5.4 %THb (0-5.0); Total Hemoglobin 15.7 g/dL (12.0-18.0); pH ABG 7.357 (7.350-7.450)
[2021-03-13 05:07] LABS: Device VENTILATOR; Modified Allen's Test Unable to perform; PCO2 ABG 62.6 mmHg (35.0-45.0); Site Drawn LEFT RADIAL
[2021-03-13 05:08] LABS: Arterial Blood Gas PEEP 15 cmH2O; Arterial Blood Gas Tidal Volume 420 ml; Arterial Blood Gas Vent Mode CMV; Arterial Blood Gas Ventilator rate 30 /MIN
[2021-03-13] MEDS: MIDAZOLAM 100MG/NS 100ML(*CRX) 100 MG/100 ML BAG 6 MG IV CONT ×2 (05:12→22:50)
[2021-03-13] MEDS: CISATRACURIUM BESYLATE 200 MG in DEXTROSE 5% 80 ML 19.61 ML IV CONT ×4 (05:13→21:22)
[2021-03-13 05:15] LABS: Basophils Absolute Auto 0.1 K/mm3 (0.0-0.1); Basophils Percent Auto 0.5 % (0.2-1.2); Hematocrit 44.8 % (42.0-52.0); Hemoglobin 14.8 g/dL (14.0-18.0); Immature Granulocyte Absolute 0.64 K/mm3 (0.00-0.031); Immature Granulocyte Percent A 3.2 % (0-0.5); Lymphocytes Absolute Auto 0.51 K/mm3 (0.9-3.2); Lymphocytes Percent Auto 2.6 % (18.3-44.2); Mean Corpuscular Hemoglobin 31.7 pg (26-34); Mean Corpuscular Volume 95.9 fl (80-100); Mean Platelet Volume 9.8 fl (7.4-10.4); Monocytes Absolute Auto 1.2 K/mm3 (0.1-0.6); Monocytes Percent Auto 6.1 % (2.6-8.5); Neutrophils Absolute Auto 17.3 K/mm3 (1.3-6.7); Neutrophils Percent Auto 87.6 % (45.5-73.1); Platelet Count Result 262 k/mm3 (150-375); Red Blood Count 4.67 M/mm3 (4.6-6.20); Red Cell Distribution Width 12.7 % (11.5-14.5); White Blood Count 19.7 K/mm3 (4.5-10.0)
[2021-03-13] MEDS: METOCLOPRAMIDE HCL 10 MG/10 ML SOLN UDC PO ×4 (05:19→20:00)
[2021-03-13] MEDS: CENTRAL LINE FLUSH 10 ML IV PUSH ×3 (05:19→21:16)
[2021-03-13 05:25] LABS: Alanine Aminotransferase 23 U/L (4-50); Albumin Level 3.3 g/dL (3.5-5.1); Alkaline Phosphatase 80 U/L (38-126); Anion Gap 2 mmol/L (8-16); Aspartate Amino Transferase 31 U/L (17-59); Bilirubin,Total 0.3 mg/dL (0.2-1.3); Blood Urea Nitrogen 22 mg/dL (9-20); Calcium 8.5 mg/dL (8.4-10.2); Carbon Dioxide 39 mmol/L (22-30); Chloride 89 mmol/L (98-107); Estimated CRCL calculation 144 ml/min; Estimated Glomerular Filt Rate > 60; Glucose 173 mg/dL (65-110); Magnesium 2.2 mg/dL (1.6-2.3); Potassium 4.9 mmol/L (3.4-5.0); Sodium 130 mmol/L (137-145)
[2021-03-13] MEDS: FENTANYL 2,500MCG/NS250ML(*CRX 2,500 MCG/250 ML BAG 15 MCG IV CONT (08:05)
[2021-03-13] MEDS: CHOLECALCIFEROL 1,000 UNITS TABLET 1000 UNITS PO (09:33)
[2021-03-13] MEDS: DOCUSATE SODIUM LIQ 100 MG/10 ML UDC FEED TUBE ×2 (09:33→20:33)
[2021-03-13] MEDS: ASCORBIC ACID 500 MG TABLET PO (09:33)
[2021-03-13] MEDS: INSULIN GLARGINE (*BKC) 100 UNITS/ML 25 UNITS SUB-Q (09:34)
[2021-03-13] MEDS: ENOXAPARIN 40 MG/0.4 ML SYRINGE SUB-Q (09:34)
[2021-03-13] MEDS: SIMVASTATIN 20 MG TABLET PO (09:35)
[2021-03-13] MEDS: MINERAL OIL/WHITE PETROLATUM OINTMENT 1 APPLIC EACH EYE ×2 (09:35→20:00)
[2021-03-13] MEDS: ZINC SULFATE 220 MG CAPSULE PO (09:35)
[2021-03-13] MEDS: PANTOPRAZOLE SODIUM IV 40 MG VIAL IV PUSH (09:35)
[2021-03-13] MEDS: ASPIRIN 81 MG CHEWABLE TABLET PO (09:39)
[2021-03-13] MEDS: SODIUM CHLORIDE 0.9% IV 1,000 ML 100 ML IV CONT (09:52)
--- NOTE | 2021-03-13 11:10 | PCFNICU ---
ICU Rounding Note: Pt current nutrition is Vital AF 1.2 at 50 ml/hr over 22 hours. Last recorded weight is 124.7 kg, down from 1430.7 kg on admit. Bowel Motility:+BM reported 03/08, Reglan and Colace have started. Labs Reviewed:Glu 173, Cr 0.6,BUN 22, Alb 3.3,Na 130 Meds Noted:Reglan, Colace, Vit C, Vit D, Nimbex, Lantus, Zocor, NS, Zinc Sulfate, Versed, Protonix, Lovenox. Skin: WNL Additional Notes: Patient remains on mechanical vent and tube feedings of Vital AF 1.2 at 50 ml/hr over 22 hours. Goal rate is 65 ml/hr. Spoke with nursing today, Patient residuals lower today. Free water flush increased from 30 ml to 60 ml q 4 hours today. Following daily in ICU rounds. Monitor pt. labs, medications, weight and tube feeding tolerance every Wednesday and Wednesday.
--- NOTE | 2021-03-13 11:59 | WPDINTPN ---
Progress Note: A&P Assessment and Plan (1) Acute respiratory failure with hypoxia: Code(s): J96.01 - Acute respiratory failure with hypoxia Status: Acute Assessment and Plan: Acute Respiratory failure secondary to COVID-19 pneumonia 03/09 patient was emergently intubated and placed on mechanical ventilation Chest x-ray reviewed. Advance ET tube by 2 cm patient is currently on 65% FiO2 and PEEP of 15. Decrease PEEP to 13 ABGs reviewed. Patient is currently in prone position. Continue daily prone ventilation for 16-18 hours as tolerated Continue full mechanical ventilation support to prevent hypoxemia/hypercarbia and end organ damage. Low tidal volume ventilation strategy to prevent volutrauma. Permissive hypercapnia Blood cultures were sent and negative till now Patient's serial CT scans from 02/21 to now show progression of his COVID pneumonia and worsening of CT scan despite complete course of Remdesivir and continued dexamethasone and baricitinib on 03/07. Procalcitonin level was normal hence I have discontinued empiric vancomycin and cefepime (2) Pneumonia due to COVID-19 virus: Code(s): U07.1 - COVID-19; J12.82 - Pneumonia due to coronavirus disease 2019 Status: Acute Assessment and Plan: Patient tested positive for COVID-19 on 02/20/21 and initially was on room air. Patient 1st required oxygen on 02/25/2021 and has per had progressive hypoxemic respiratory failure since then, failing airflow high-flow nasal cannula and noninvasive ventilation and requiring intubation on 03/09/2021. He was started on Remdesivir 02/11 and completed 10 days. He was started on dexamethasone on 02/21/2021 and was increased to 10 mg IV daily on 03/04. I would discontinue dexamethasone today after a 20+ day course of Baricitinib was started on 03/05 and will be continued at this time for total of 14 days His CRP is down to 1.7 (3) History of hyperlipidemia: Code(s): Z86.39 - Personal history of other endocrine, nutritional and metabolic disease Status: Inactive Assessment and Plan: on Zocor (4) Hyponatremia: Code(s): E87.1 - Hypo-osmolality and hyponatremia Status: Acute Assessment and Plan: Change free water flushes to saline Treat hyperglycemia (5) Hyperglycemia: Code(s): R73.9 - Hyperglycemia, unspecified Status: Acute Assessment and Plan: Continue sliding scale and add Lantus Additional Plan DVT prophylaxis - Lovenox Stress ulcer prophylaxis - PPI Nutrition - continue Tube Feeds. Continue Reglan Code Status - Full Code 03/11 I spoke to patient's by phone. I updated her with patient's current status including current ventilator settings, current treatment plan and answered all her questions. Total Critical Care Time - 30 minutes Due to a high probability of clinically significant, life threatening deterioration, the patient required my highest level of preparedness to intervene emergently and I personally spent this critical care time directly and personally managing the patient. This critical care time included obtaining a history; examining the patient; pulse oximetry; ordering and review of studies; arranging urgent treatment with development of a management plan; evaluation of patient's response to treatment; frequent reassessment; and discussions with other providers. It was exclusive of separately billable procedures and treating other patients and teaching time. Please see Assessment and Plan section and the rest of the note for further information on patient assessment and treatment Subjective Date/time seen: 03/13/21 11:59 Overnight events reviewed. Afebrile Continues to be on mechanical ventilation 60% FiO2 and 15 of PEEP Sedated and chemically paralyzed Review of Systems Review of Systems: ROS unobtainable: Yes unobtainable due to endotracheal tube, unobtainable due to medical condition and unobtain
[2021-03-13 12:11] LABS: Glucose Point of Care 212 mg/dl (65-105)
[2021-03-13] MEDS: INSULIN ASPART (*BKC) 100 UNITS/ML SUB-Q (12:38)
[2021-03-13] MEDS: BARICITINIB 2 MG TABLET 4 MG PO (12:38)
[2021-03-14] VITALS (23 sets, daily range): BP systolic 113–185; BP diastolic 61–88; PULSE 52–114; RESP 30; TEMP 36.8–37; O2SAT 91–100
[2021-03-14] MEDS: FENTANYL 2,500MCG/NS250ML(*CRX 2,500 MCG/250 ML BAG 15 MCG IV CONT ×2 (00:09→15:20)
[2021-03-14] MEDS: INSULIN ASPART (*BKC) 100 UNITS/ML SUB-Q (00:22)
[2021-03-14 00:33] LABS: Glucose Point of Care 230 mg/dl (65-105)
[2021-03-14] MEDS: CISATRACURIUM BESYLATE 200 MG in DEXTROSE 5% 80 ML 19.61 ML IV CONT ×3 (02:58→18:26)
[2021-03-14 05:03] LABS: Basophils Absolute Auto 0.1 K/mm3 (0.0-0.1); Basophils Percent Auto 0.9 % (0.2-1.2); Hematocrit 41.6 % (42.0-52.0); Immature Granulocyte Percent A 5.7 % (0-0.5); Lymphocytes Percent Auto 3.8 % (18.3-44.2); Mean Corpuscular HGB Conc 33.7 g/dl (32-36); Mean Corpuscular Hemoglobin 31.6 pg (26-34); Mean Corpuscular Volume 93.9 fl (80-100); Mean Platelet Volume 9.8 fl (7.4-10.4); Monocytes Absolute Auto 1.2 K/mm3 (0.1-0.6); Monocytes Percent Auto 7.4 % (2.6-8.5); Neutrophils Absolute Auto 13.1 K/mm3 (1.3-6.7); Neutrophils Percent Auto 82.2 % (45.5-73.1); Platelet Count Result 238 k/mm3 (150-375); Red Blood Count 4.43 M/mm3 (4.6-6.20); Red Cell Distribution Width 12.5 % (11.5-14.5); White Blood Count 15.9 K/mm3 (4.5-10.0)
[2021-03-14] MEDS: CENTRAL LINE FLUSH 10 ML IV PUSH ×3 (05:06→21:37)
[2021-03-14] MEDS: METOCLOPRAMIDE HCL 10 MG/10 ML SOLN UDC PO ×3 (05:06→16:49)
[2021-03-14 05:18] LABS: Alanine Aminotransferase 25 U/L (4-50); Albumin Level 3.2 g/dL (3.5-5.1); Alkaline Phosphatase 68 U/L (38-126); Anion Gap 5 mmol/L (8-16); Aspartate Amino Transferase 25 U/L (17-59); Bilirubin,Total 0.2 mg/dL (0.2-1.3); Blood Urea Nitrogen 24 mg/dL (9-20); CRP 0.9 mg/dL (<1.0); Calcium 8.1 mg/dL (8.4-10.2); Carbon Dioxide 35 mmol/L (22-30); Chloride 91 mmol/L (98-107); Estimated CRCL calculation 125 ml/min; Estimated Glomerular Filt Rate > 60; Glucose 181 mg/dL (65-110); Lactate Dehydrogenase 488 U/L (313-618); Magnesium 2.5 mg/dL (1.6-2.3); Potassium 4.8 mmol/L (3.4-5.0); Sodium 131 mmol/L (137-145)
[2021-03-14 05:42] LABS: Alveolar/Arterial O2 Gradient 223.8 mmHg; Base Excess ABG 6.2 mEq/l (+/-2.0); Carboxyhemoglobin 0.1 % THb (0-2.0); Fractional Inspired Oxygen 50 %; HCO3 ABG 33.1 mEq/l (22.0-26.0); Methemoglobin ABG 0.3 %THb (0-1.5); Oxygen Content ABG 20.9 %vol (16.0-22.0); Oxygen Saturation ABG 93.6 % (95.0-100.0); Oxyhemoglobin 93.4 % THb (90.0-100.0); PCO2 ABG 55.8 mmHg (35.0-45.0); PO2 ABG 69.9 mmHg (80.0-100.0); Reduced Hemoglobin 6.2 %THb (0-5.0); Total Hemoglobin 15.9 g/dL (12.0-18.0); pH ABG 7.391 (7.350-7.450)
[2021-03-14 05:44] LABS: Device VENTILATOR; Modified Allen's Test Pass; Site Drawn RIGHT RADIAL
[2021-03-14 05:45] LABS: Arterial Blood Gas PEEP 13 cmH2O; Arterial Blood Gas Tidal Volume 420 ml; Arterial Blood Gas Vent Mode CMV; Arterial Blood Gas Ventilator rate 30 /MIN
[2021-03-14] MEDS: CISATRACURIUM BESYLATE 200 MG in DEXTROSE 5% 80 ML 17.65 ML IV CONT (08:13)
[2021-03-14] MEDS: DOCUSATE SODIUM LIQ 100 MG/10 ML UDC FEED TUBE ×2 (08:17→20:02)
[2021-03-14] MEDS: ASPIRIN 81 MG CHEWABLE TABLET PO (08:17)
[2021-03-14] MEDS: ASCORBIC ACID 500 MG TABLET PO (08:17)
[2021-03-14] MEDS: CHOLECALCIFEROL 1,000 UNITS TABLET 1000 UNITS PO (08:17)
[2021-03-14] MEDS: SIMVASTATIN 20 MG TABLET PO (08:17)
[2021-03-14] MEDS: PANTOPRAZOLE SODIUM IV 40 MG VIAL IV PUSH (08:17)
[2021-03-14] MEDS: ZINC SULFATE 220 MG CAPSULE PO (08:17)
[2021-03-14] MEDS: INSULIN GLARGINE (*BKC) 100 UNITS/ML 25 UNITS SUB-Q (08:18)
[2021-03-14] MEDS: MINERAL OIL/WHITE PETROLATUM OINTMENT 1 APPLIC EACH EYE ×2 (08:18→20:02)
[2021-03-14] MEDS: ENOXAPARIN 40 MG/0.4 ML SYRINGE SUB-Q (08:18)
[2021-03-14] MEDS: BARICITINIB 2 MG TABLET 4 MG PO (11:49)
[2021-03-14] MEDS: hydrALAZINE HCL 20 MG/ML VIAL 10 MG IV PUSH ×2 (11:57→16:49)
[2021-03-14 12:14] LABS: Glucose Point of Care 185 mg/dl (65-105)
--- NOTE | 2021-03-14 12:43 | WPDINTPN ---
Progress Note: A&P Assessment and Plan (1) Acute respiratory failure with hypoxia: Code(s): J96.01 - Acute respiratory failure with hypoxia Status: Acute Assessment and Plan: Acute Respiratory failure secondary to COVID-19 pneumonia 03/09/2021 patient was emergently intubated and placed on mechanical ventilation Chest x-ray and ABGs reviewed, currently on 50% FiO2 and peep of 13 -hold prone positioning for now Continue full mechanical ventilation support to prevent hypoxemia/hypercarbia and end organ damage. Low tidal volume ventilation strategy to prevent volutrauma. Permissive hypercapnia Blood cultures were sent and negative till now Patient's serial CT scans from 02/21 to now show progression of his COVID pneumonia and worsening of CT scan despite complete course of Remdesivir and continued dexamethasone and baricitinib on 03/07. Procalcitonin level was normal hence I have discontinued empiric vancomycin and cefepime (2) Pneumonia due to COVID-19 virus: Code(s): U07.1 - COVID-19; J12.82 - Pneumonia due to coronavirus disease 2019 Status: Acute Assessment and Plan: Patient tested positive for COVID-19 on 02/20/21 and initially was on room air. Patient 1st required oxygen on 02/25/2021 and has per had progressive hypoxemic respiratory failure since then, failing airflow high-flow nasal cannula and noninvasive ventilation and requiring intubation on 03/09/2021. He was started on Remdesivir 02/11 and completed 10 days. He was started on dexamethasone on 02/21/2021 and was increased to 10 mg IV daily on 03/04. I would discontinue dexamethasone today after a 20+ day course of Baricitinib was started on 03/05 and will be continued at this time for total of 14 days His CRP is down to 1.7 (3) History of hyperlipidemia: Code(s): Z86.39 - Personal history of other endocrine, nutritional and metabolic disease Status: Inactive Assessment and Plan: on Zocor (4) Hyponatremia: Code(s): E87.1 - Hypo-osmolality and hyponatremia Status: Acute Assessment and Plan: Change free water flushes to saline Treat hyperglycemia (5) Hyperglycemia: Code(s): R73.9 - Hyperglycemia, unspecified Status: Acute Assessment and Plan: Continue sliding scale and add Lantus Additional Plan DVT prophylaxis - Lovenox Stress ulcer prophylaxis - PPI Nutrition - continue Tube Feeds. Continue Reglan Code Status - Full Code 03/11 Dr Cox spoke to patient's by phone. I updated her with patient's current status including current ventilator settings, current treatment plan and answered all her questions. Total Critical Care Time - 33 minutes Due to a high probability of clinically significant, life threatening deterioration, the patient required my highest level of preparedness to intervene emergently and I personally spent this critical care time directly and personally managing the patient. This critical care time included obtaining a history; examining the patient; pulse oximetry; ordering and review of studies; arranging urgent treatment with development of a management plan; evaluation of patient's response to treatment; frequent reassessment; and discussions with other providers. It was exclusive of separately billable procedures and treating other patients and teaching time. Please see Assessment and Plan section and the rest of the note for further information on patient assessment and treatment Subjective Date/time seen: 03/14/21 12:43 Interval history: 66-year-old gentleman who presented to the ED with shortness of breath, CT angio was negative for PE but had bilateral patchy alveolar ground-glass infiltrates CT a stress take of COVID-19 pneumonia. Patient was initially on room air from 02/21/2021 to 02/25/2021 after which he started requiring nasal cannula, thereafter he was on Airvo on BiPAP after which she failed and was intubated on 03/09
--- NOTE | 2021-03-14 13:20 | PCNFU ---
Nutrition Follow-Up Complete: Inadequate oral intake related to mechanical ventilation as evidenced by need for advanced nutrition support. Goal: Pt. to meet estimated nutritional needs. Will will continue current goal. Pt current nutrition is Vital AF 1.2 at 65 ml/hr over 22 hours. Last recorded weight is 127.4 kg, down from 130.7 kg on admit. Bowel Motility:+BM reported 03/08 Labs Reviewed:BUN 24, Glu 181, ALb 3.2,Na 131, Hct 41.6 Meds Noted:Nimbex, Lantus, Versed, Protonix,Zocor, NS, Reglan, Colace, Vit C, Vit D, Zinc Sulfate, Fentanyl. Skin: WNL Additional Notes: Patient remains on mechanical vent and tube feedings of Vital AF 1.2 at 65 ml/hr over 22 hours and tolerating. Current tube feeding is providing 1716 kcals/107 gms protein/1160 ml water. Meeting 77% of caloric needs/100% of protein needs. Free water flush 60 ml q 4 hours. BMI: 38.1 obese. Agree with diet orders. Monitor pt. labs, medications, weight and tube feeding tolerance every Wednesday and Wednesday as well as daily in ICU rounds.
[2021-03-14] MEDS: MIDAZOLAM 100MG/NS 100ML(*CRX) 100 MG/100 ML BAG 6 MG IV CONT (15:19)
[2021-03-14 17:19] LABS: Glucose Point of Care 181 mg/dl (65-105)
[2021-03-14] MEDS: SODIUM CHLORIDE NASAL GEL 14.1 GM 1 APPLIC NASAL (20:02)
[2021-03-14 21:03] LABS: Mean Platelet Volume 9.5 fl (7.4-10.4); Platelet Count Result 241 k/mm3 (150-375)
[2021-03-14 21:14] LABS: Magnesium 2.3 mg/dL (1.6-2.3); Partial Thromboplastin Time 24.3 SECONDS (22.3-36.8); Prothrombin Time 13.1 Seconds (11.1-14.7)
[2021-03-14 21:18] LABS: D Dimer 0.51 ug/mL (<0.48)
[2021-03-14 21:30] LABS: Fibrinogen 292 mg/dl (215-510)
[2021-03-14] MEDS: amLODIPine BESYLATE 5 MG TABLET FEED TUBE (21:37)
[2021-03-15] VITALS (32 sets, daily range): BP systolic 115–168; BP diastolic 49–89; PULSE 66–116; RESP 28–30; TEMP 36.4–36.9; O2SAT 89–100
[2021-03-15] MEDS: CISATRACURIUM BESYLATE 200 MG in DEXTROSE 5% 80 ML 19.61 ML IV CONT (00:02)
[2021-03-15] MEDS: METOCLOPRAMIDE HCL 10 MG/10 ML SOLN UDC PO ×5 (00:03→22:55)
[2021-03-15 00:19] LABS: Glucose Point of Care 147 mg/dl (65-105)
[2021-03-15] MEDS: CELLULOSE OXIDIZED 2 x 14 INCH 1 PKT XX ×2 (02:25→02:35)
[2021-03-15] MEDS: hydrALAZINE HCL 20 MG/ML VIAL IV PUSH (04:08)
[2021-03-15 04:25] LABS: Eosinophils Absolute Auto 0.1 K/mm3 (0-0.3); Eosinophils Percent Auto 0.3 % (0-4.4); Hematocrit 42.9 % (42.0-52.0); Hemoglobin 13.8 g/dL (14.0-18.0); Immature Granulocyte Absolute 1.46 K/mm3 (0.00-0.031); Immature Granulocyte Percent A 7.2 % (0-0.5); Lymphocytes Absolute Auto 2.02 K/mm3 (0.9-3.2); Mean Corpuscular HGB Conc 32.2 g/dl (32-36); Mean Corpuscular Hemoglobin 31.3 pg (26-34); Mean Corpuscular Volume 97.3 fl (80-100); Mean Platelet Volume 9.5 fl (7.4-10.4); Monocytes Absolute Auto 1.5 K/mm3 (0.1-0.6); Monocytes Percent Auto 7.6 % (2.6-8.5); Neutrophils Absolute Auto 15.1 K/mm3 (1.3-6.7); Neutrophils Percent Auto 74.9 % (45.5-73.1); Nucleated Red Blood Cells Perc 0.1 % (0.0-0.2); Platelet Count Result 265 k/mm3 (150-375); Red Blood Count 4.41 M/mm3 (4.6-6.20); Red Cell Distribution Width 13.3 % (11.5-14.5); White Blood Count 20.2 K/mm3 (4.5-10.0)
[2021-03-15 04:56] LABS: Anion Gap 2 mmol/L (8-16); Blood Urea Nitrogen 25 mg/dL (9-20); Carbon Dioxide 36 mmol/L (22-30); Chloride 94 mmol/L (98-107); Estimated CRCL calculation 146 ml/min; Estimated Glomerular Filt Rate > 60; Glucose 147 mg/dL (65-110); Magnesium 2.3 mg/dL (1.6-2.3); Phosphorus 3.9 mg/dL (2.5-4.5); Potassium 4.4 mmol/L (3.4-5.0); Sodium 132 mmol/L (137-145)
[2021-03-15] MEDS: CISATRACURIUM BESYLATE 200 MG in DEXTROSE 5% 80 ML 21.57 ML IV CONT (05:04)
[2021-03-15] MEDS: CENTRAL LINE FLUSH 10 ML IV PUSH ×3 (05:05→21:12)
[2021-03-15 05:24] LABS: Alveolar/Arterial O2 Gradient 116.3 mmHg; Base Excess ABG 3.6 mEq/l (+/-2.0); Carboxyhemoglobin 0.4 % THb (0-2.0); Fractional Inspired Oxygen 50 %; HCO3 ABG 25.4 mEq/l (22.0-26.0); Methemoglobin ABG 0.2 %THb (0-1.5); Oxygen Content ABG 21.3 %vol (16.0-22.0); Oxygen Saturation ABG 99.5 % (95.0-100.0); Oxyhemoglobin 98.3 % THb (90.0-100.0); PCO2 ABG 30.8 mmHg (35.0-45.0); PO2 ABG 205.6 mmHg (80.0-100.0); PO2 FiO2 Ratio Arterial Blood 4.11 %; Reduced Hemoglobin 1.1 %THb (0-5.0); Total Hemoglobin 15.1 g/dL (12.0-18.0)
[2021-03-15 05:26] LABS: Arterial Blood Gas PEEP 13 cmH2O; Arterial Blood Gas Tidal Volume 420 ml; Arterial Blood Gas Vent Mode CMV; Arterial Blood Gas Ventilator rate 30 /MIN; Device VENTILATOR; Modified Allen's Test Unable to perform; Site Drawn RIGHT RADIAL; pH ABG 7.534 (7.350-7.450)
[2021-03-15] MEDS: FENTANYL 2,500MCG/NS250ML(*CRX 2,500 MCG/250 ML BAG 15 MCG IV CONT (07:28)
[2021-03-15] MEDS: MIDAZOLAM 100MG/NS 100ML(*CRX) 100 MG/100 ML BAG 6 MG IV CONT (07:29)
[2021-03-15 07:41] LABS: Glucose Point of Care 200 mg/dl (65-105)
[2021-03-15] MEDS: DOCUSATE SODIUM LIQ 100 MG/10 ML UDC FEED TUBE ×2 (09:39→21:11)
[2021-03-15] MEDS: ZINC SULFATE 220 MG CAPSULE PO (09:39)
[2021-03-15] MEDS: ENOXAPARIN 40 MG/0.4 ML SYRINGE SUB-Q (09:40)
[2021-03-15] MEDS: ASCORBIC ACID 500 MG TABLET PO (09:40)
[2021-03-15] MEDS: CHOLECALCIFEROL 1,000 UNITS TABLET 1000 UNITS PO (09:40)
[2021-03-15] MEDS: SIMVASTATIN 20 MG TABLET PO (09:41)
[2021-03-15] MEDS: PANTOPRAZOLE SODIUM IV 40 MG VIAL IV PUSH (09:41)
[2021-03-15] MEDS: ASPIRIN 81 MG CHEWABLE TABLET PO (09:52)
[2021-03-15] MEDS: INSULIN GLARGINE (*BKC) 100 UNITS/ML 25 UNITS SUB-Q (09:53)
[2021-03-15] MEDS: MINERAL OIL/WHITE PETROLATUM OINTMENT 1 APPLIC EACH EYE ×2 (09:53→21:11)
[2021-03-15] MEDS: BARICITINIB 2 MG TABLET 4 MG PO (10:00)
[2021-03-15] MEDS: CISATRACURIUM BESYLATE 200 MG in DEXTROSE 5% 80 ML 15.68 ML IV CONT ×3 (10:24→22:56)
[2021-03-15 10:52] LABS: Alanine Aminotransferase 27 U/L (4-50); Aspartate Amino Transferase 23 U/L (17-59)
[2021-03-15 12:21] LABS: Glucose Point of Care 190 mg/dl (65-105)
--- NOTE | 2021-03-15 12:23 | WPDINTPN ---
Progress Note: A&P Assessment and Plan (1) Acute respiratory failure with hypoxia: Code(s): J96.01 - Acute respiratory failure with hypoxia Status: Acute Assessment and Plan: Acute Respiratory failure secondary to COVID-19 pneumonia 03/09/2021 patient was emergently intubated and placed on mechanical ventilation Chest x-ray and ABGs reviewed, will decrease PEEP to 12, FiO2 of 50% -hold prone positioning for now Continue full mechanical ventilation support to prevent hypoxemia/hypercarbia and end organ damage. Low tidal volume ventilation strategy to prevent volutrauma. Permissive hypercapnia Blood cultures were sent and negative till now Patient's serial CT scans from 02/21 to now show progression of his COVID pneumonia and worsening of CT scan despite complete course of Remdesivir and continued dexamethasone and baricitinib on 03/07. Procalcitonin level was normal hence I have discontinued empiric vancomycin and cefepime (2) Pneumonia due to COVID-19 virus: Code(s): U07.1 - COVID-19; J12.82 - Pneumonia due to coronavirus disease 2019 Status: Acute Assessment and Plan: Patient tested positive for COVID-19 on 02/20/21 and initially was on room air. Patient 1st required oxygen on 02/25/2021 and has per had progressive hypoxemic respiratory failure since then, failing airflow high-flow nasal cannula and noninvasive ventilation and requiring intubation on 03/09/2021. He was started on Remdesivir 02/11 and completed 10 days. He was started on dexamethasone on 02/21/2021 and was increased to 10 mg IV daily on 03/04. I would discontinue dexamethasone today after a 20+ day course of Baricitinib was started on 03/05 and will be continued at this time for total of 14 days His CRP is down to 1.7 (3) History of hyperlipidemia: Code(s): Z86.39 - Personal history of other endocrine, nutritional and metabolic disease Status: Inactive Assessment and Plan: on Zocor (4) Hyponatremia: Code(s): E87.1 - Hypo-osmolality and hyponatremia Status: Acute Assessment and Plan: Improving, continue free water flushes to saline Treat hyperglycemia (5) Hyperglycemia: Code(s): R73.9 - Hyperglycemia, unspecified Status: Acute Assessment and Plan: Continue sliding scale and add Lantus Additional Plan DVT prophylaxis - Lovenox Stress ulcer prophylaxis - PPI Nutrition - continue Tube Feeds. Continue Reglan Code Status - Full Code 03/11 Dr Cox spoke to patient's by phone. I updated her with patient's current status including current ventilator settings, current treatment plan and answered all her questions. Total Critical Care Time - 33 minutes Due to a high probability of clinically significant, life threatening deterioration, the patient required my highest level of preparedness to intervene emergently and I personally spent this critical care time directly and personally managing the patient. This critical care time included obtaining a history; examining the patient; pulse oximetry; ordering and review of studies; arranging urgent treatment with development of a management plan; evaluation of patient's response to treatment; frequent reassessment; and discussions with other providers. It was exclusive of separately billable procedures and treating other patients and teaching time. Please see Assessment and Plan section and the rest of the note for further information on patient assessment and treatment Subjective Date/time seen: 03/15/21 12:23 Interval history: 66-year-old gentleman who presented to the ED with shortness of breath, CT angio was negative for PE but had bilateral patchy alveolar ground-glass infiltrates CT a stress take of COVID-19 pneumonia. Patient was initially on room air from 02/21/2021 to 02/25/2021 after which he started requiring nasal cannula, thereafter he was on Airvo on BiPAP after which she failed and was [facility]
[2021-03-15] MEDS: amLODIPine BESYLATE 2.5 MG, amLODIPine BESYLATE 5 MG 7.5 MG PO (13:50)
[2021-03-15 16:29] LABS: Glucose Point of Care 174 mg/dl (65-105)
[2021-03-15] MEDS: SODIUM CHLORIDE NASAL GEL 14.1 GM 1 APPLIC NASAL (21:11)
[2021-03-15 23:25] LABS: Glucose Point of Care 161 mg/dl (65-105)
[2021-03-16] VITALS (28 sets, daily range): BP systolic 108–153; BP diastolic 48–70; PULSE 60–87; RESP 25–28; TEMP 36.4–37.1; O2SAT 89–98
[2021-03-16] MEDS: FENTANYL 2,500MCG/NS250ML(*CRX 2,500 MCG/250 ML BAG 15 MCG IV CONT ×2 (00:59→16:48)
[2021-03-16] MEDS: MIDAZOLAM 100MG/NS 100ML(*CRX) 100 MG/100 ML BAG 6 MG IV CONT ×2 (01:00→16:46)
[2021-03-16 05:10] LABS: pH ABG 7.311 (7.350-7.450)
[2021-03-16 05:12] LABS: Base Excess ABG 6.9 mEq/l (+/-2.0)
[2021-03-16 05:13] LABS: Carboxyhemoglobin 0.7 % THb (0-2.0); Methemoglobin ABG 0.3 %THb (0-1.5); Reduced Hemoglobin 9.9 %THb (0-5.0)
[2021-03-16 05:14] LABS: Device VENTILATOR; Fractional Inspired Oxygen 40 %; Modified Allen's Test Pass; PO2 FiO2 Ratio Arterial Blood 1.44 %; Site Drawn LEFT RADIAL
[2021-03-16 05:15] LABS: Arterial Blood Gas PEEP 10 cmH2O; Arterial Blood Gas Tidal Volume 420 ml; Arterial Blood Gas Vent Mode CMV; Arterial Blood Gas Ventilator rate 28 /MIN
[2021-03-16] MEDS: CISATRACURIUM BESYLATE 200 MG in DEXTROSE 5% 80 ML 15.68 ML IV CONT (05:18)
[2021-03-16] MEDS: CENTRAL LINE FLUSH 10 ML IV PUSH ×3 (05:23→22:37)
[2021-03-16] MEDS: METOCLOPRAMIDE HCL 10 MG/10 ML SOLN UDC PO ×3 (05:23→17:27)
[2021-03-16 05:59] LABS: Glucose Point of Care 163 mg/dl (65-105)
[2021-03-16 06:16] LABS: Basophils Absolute Auto 0.1 K/mm3 (0.0-0.1); Basophils Percent Auto 0.9 % (0.2-1.2); Eosinophils Absolute Auto 0.2 K/mm3 (0-0.3); Eosinophils Percent Auto 1.2 % (0-4.4); Hematocrit 38.5 % (42.0-52.0); Hemoglobin 11.9 g/dL (14.0-18.0); Immature Granulocyte Absolute 0.97 K/mm3 (0.00-0.031); Immature Granulocyte Percent A 7.1 % (0-0.5); Lymphocytes Absolute Auto 1.37 K/mm3 (0.9-3.2); Mean Corpuscular HGB Conc 30.9 g/dl (32-36); Mean Corpuscular Hemoglobin 31.4 pg (26-34); Mean Corpuscular Volume 101.6 fl (80-100); Mean Platelet Volume 9.8 fl (7.4-10.4); Monocytes Absolute Auto 0.9 K/mm3 (0.1-0.6); Monocytes Percent Auto 6.4 % (2.6-8.5); Neutrophils Absolute Auto 10.2 K/mm3 (1.3-6.7); Neutrophils Percent Auto 74.4 % (45.5-73.1); Platelet Count Result 187 k/mm3 (150-375); Red Blood Count 3.79 M/mm3 (4.6-6.20); Red Cell Distribution Width 13.8 % (11.5-14.5); White Blood Count 13.7 K/mm3 (4.5-10.0)
[2021-03-16 06:37] LABS: Alanine Aminotransferase 22 U/L (4-50); Albumin Level 2.6 g/dL (3.5-5.1); Alkaline Phosphatase 66 U/L (38-126); Anion Gap 0 mmol/L (8-16); Aspartate Amino Transferase 19 U/L (17-59); Bilirubin,Total 0.1 mg/dL (0.2-1.3); Blood Urea Nitrogen 30 mg/dL (9-20); Calcium 7.9 mg/dL (8.4-10.2); Carbon Dioxide 38 mmol/L (22-30); Chloride 95 mmol/L (98-107); Estimated CRCL calculation 146 ml/min; Estimated Glomerular Filt Rate > 60; Glucose 122 mg/dL (65-110); Magnesium 2.4 mg/dL (1.6-2.3); Phosphorus 3.9 mg/dL (2.5-4.5); Potassium 4.6 mmol/L (3.4-5.0); Sodium 133 mmol/L (137-145)
[2021-03-16] MEDS: ASPIRIN 81 MG CHEWABLE TABLET PO (09:14)
[2021-03-16] MEDS: MINERAL OIL/WHITE PETROLATUM OINTMENT 1 APPLIC EACH EYE ×2 (09:14→20:27)
[2021-03-16] MEDS: ZINC SULFATE 220 MG CAPSULE PO (09:15)
[2021-03-16] MEDS: amLODIPine BESYLATE 2.5 MG, amLODIPine BESYLATE 5 MG 7.5 MG PO (09:15)
[2021-03-16] MEDS: ENOXAPARIN 40 MG/0.4 ML SYRINGE SUB-Q (09:15)
[2021-03-16] MEDS: SIMVASTATIN 20 MG TABLET PO (09:15)
[2021-03-16] MEDS: CHOLECALCIFEROL 1,000 UNITS TABLET 1000 UNITS PO (09:15)
[2021-03-16] MEDS: DOCUSATE SODIUM LIQ 100 MG/10 ML UDC FEED TUBE ×2 (09:15→20:27)
[2021-03-16] MEDS: ASCORBIC ACID 500 MG TABLET PO (09:15)
[2021-03-16] MEDS: PANTOPRAZOLE SODIUM IV 40 MG VIAL IV PUSH (09:16)
[2021-03-16] MEDS: INSULIN GLARGINE (*BKC) 100 UNITS/ML 25 UNITS SUB-Q (09:16)
[2021-03-16] MEDS: BARICITINIB 2 MG TABLET 4 MG PO (10:10)
[2021-03-16 10:13] LABS: Glucose Point of Care 140 mg/dl (65-105)
[2021-03-16] MEDS: CISATRACURIUM BESYLATE 200 MG in DEXTROSE 5% 80 ML 11.76 ML IV CONT ×2 (10:43→19:20)
--- NOTE | 2021-03-16 11:26 | WPDINTPN ---
Progress Note: A&P Assessment and Plan (1) Acute respiratory failure with hypoxia: Code(s): J96.01 - Acute respiratory failure with hypoxia Status: Acute Assessment and Plan: Acute Respiratory failure secondary to COVID-19 pneumonia 03/09/2021 patient was emergently intubated and placed on mechanical ventilation Chest x-ray and ABGs reviewed, will increase PEEP to 12 and maintain O2 sats greater than 90% -hold prone positioning for now Continue full mechanical ventilation support to prevent hypoxemia/hypercarbia and end organ damage. Low tidal volume ventilation strategy to prevent volutrauma. Permissive hypercapnia Blood cultures were sent and negative till now Patient's serial CT scans from 02/21 to now show progression of his COVID pneumonia and worsening of CT scan despite complete course of Remdesivir and continued dexamethasone and baricitinib on 03/07. Procalcitonin level was normal hence I have discontinued empiric vancomycin and cefepime (2) Pneumonia due to COVID-19 virus: Code(s): U07.1 - COVID-19; J12.82 - Pneumonia due to coronavirus disease 2019 Status: Acute Assessment and Plan: Patient tested positive for COVID-19 on 02/20/21 and initially was on room air. Patient 1st required oxygen on 02/25/2021 and has per had progressive hypoxemic respiratory failure since then, failing airflow high-flow nasal cannula and noninvasive ventilation and requiring intubation on 03/09/2021. He was started on Remdesivir 02/11 and completed 10 days. He was started on dexamethasone on 02/21/2021 and was increased to 10 mg IV daily on 03/04. I would discontinue dexamethasone today after a 20+ day course of Baricitinib was started on 03/05 and will be continued at this time for total of 14 days His CRP is down to 1.7 (3) History of hyperlipidemia: Code(s): Z86.39 - Personal history of other endocrine, nutritional and metabolic disease Status: Inactive Assessment and Plan: on Zocor (4) Hyponatremia: Code(s): E87.1 - Hypo-osmolality and hyponatremia Status: Acute Assessment and Plan: Improving, continue free water flushes to saline Treat hyperglycemia (5) Hyperglycemia: Code(s): R73.9 - Hyperglycemia, unspecified Status: Acute Assessment and Plan: Continue sliding scale and add Lantus Additional Plan DVT prophylaxis - Lovenox Stress ulcer prophylaxis - PPI Nutrition - continue Tube Feeds. Continue Reglan Code Status - Full Code Total Critical Care Time - 33 minutes Due to a high probability of clinically significant, life threatening deterioration, the patient required my highest level of preparedness to intervene emergently and I personally spent this critical care time directly and personally managing the patient. This critical care time included obtaining a history; examining the patient; pulse oximetry; ordering and review of studies; arranging urgent treatment with development of a management plan; evaluation of patient's response to treatment; frequent reassessment; and discussions with other providers. It was exclusive of separately billable procedures and treating other patients and teaching time. Please see Assessment and Plan section and the rest of the note for further information on patient assessment and treatment Subjective Date/time seen: 03/16/21 11:26 Interval history: 66-year-old gentleman who presented to the ED with shortness of breath, CT angio was negative for PE but had bilateral patchy alveolar ground-glass infiltrates CT a stress take of COVID-19 pneumonia. Patient was initially on room air from 02/21/2021 to 02/25/2021 after which he started requiring nasal cannula, thereafter he was on Airvo on BiPAP after which she failed and was intubated on 03/09/2021. 03/16/2021: Patient seen and examined the ICU, remains intubated on CMV mode of ventilation, peep of 10, 40% FiO2. Patient is sedated
[2021-03-16 12:34] LABS: Glucose Point of Care 124 mg/dl (65-105)
[2021-03-16] MEDS: SODIUM CHLORIDE NASAL GEL 14.1 GM 1 APPLIC NASAL (20:27)
[2021-03-16 21:04] LABS: Glucose Point of Care 111 mg/dl (65-105)
[2021-03-17] VITALS (29 sets, daily range): BP systolic 106–151; BP diastolic 53–79; PULSE 62–97; RESP 26–28; TEMP 36.6–37.3; O2SAT 92–100
[2021-03-17] MEDS: METOCLOPRAMIDE HCL 10 MG/10 ML SOLN UDC PO ×4 (00:28→18:03)
[2021-03-17 01:09] LABS: Glucose Point of Care 125 mg/dl (65-105)
[2021-03-17 04:17] LABS: Alveolar/Arterial O2 Gradient 239.8 mmHg; Base Excess ABG 6.5 mEq/l (+/-2.0); Carboxyhemoglobin 0.3 % THb (0-2.0); Fractional Inspired Oxygen 55 %; HCO3 ABG 34.2 mEq/l (22.0-26.0); Methemoglobin ABG 0.3 %THb (0-1.5); Oxygen Saturation ABG 94.6 % (95.0-100.0); Oxyhemoglobin 93.9 % THb (90.0-100.0); PO2 ABG 79.2 mmHg (80.0-100.0); PO2 FiO2 Ratio Arterial Blood 1.44 %; Reduced Hemoglobin 5.5 %THb (0-5.0); Total Hemoglobin 12.1 g/dL (12.0-18.0); pH ABG 7.334 (7.350-7.450)
[2021-03-17 04:19] LABS: Device VENTILATOR; Modified Allen's Test Pass; PCO2 ABG 65.8 mmHg (35.0-45.0); Site Drawn RIGHT RADIAL
[2021-03-17 04:20] LABS: Arterial Blood Gas PEEP 12 cmH2O; Arterial Blood Gas Tidal Volume 420 ml; Arterial Blood Gas Vent Mode CMV; Arterial Blood Gas Ventilator rate 28 /MIN
[2021-03-17] MEDS: CISATRACURIUM BESYLATE 200 MG in DEXTROSE 5% 80 ML 11.76 ML IV CONT ×3 (04:56→21:29)
[2021-03-17] MEDS: CENTRAL LINE FLUSH 10 ML IV PUSH ×3 (04:58→21:15)
[2021-03-17 05:12] LABS: Basophils Absolute Auto 0.1 K/mm3 (0.0-0.1); Basophils Percent Auto 0.9 % (0.2-1.2); Eosinophils Absolute Auto 0.5 K/mm3 (0-0.3); Eosinophils Percent Auto 3.7 % (0-4.4); Hematocrit 35.7 % (42.0-52.0); Hemoglobin 11.1 g/dL (14.0-18.0); Immature Granulocyte Absolute 0.83 K/mm3 (0.00-0.031); Immature Granulocyte Percent A 6.1 % (0-0.5); Lymphocytes Absolute Auto 1.34 K/mm3 (0.9-3.2); Lymphocytes Percent Auto 9.8 % (18.3-44.2); Mean Corpuscular HGB Conc 31.1 g/dl (32-36); Mean Corpuscular Hemoglobin 31.3 pg (26-34); Mean Corpuscular Volume 100.6 fl (80-100); Mean Platelet Volume 9.6 fl (7.4-10.4); Monocytes Absolute Auto 0.7 K/mm3 (0.1-0.6); Monocytes Percent Auto 4.9 % (2.6-8.5); Neutrophils Absolute Auto 10.2 K/mm3 (1.3-6.7); Neutrophils Percent Auto 74.6 % (45.5-73.1); Platelet Count Result 191 k/mm3 (150-375); Red Blood Count 3.55 M/mm3 (4.6-6.20); Red Cell Distribution Width 13.8 % (11.5-14.5); White Blood Count 13.6 K/mm3 (4.5-10.0)
[2021-03-17 05:33] LABS: Alanine Aminotransferase 23 U/L (4-50); Albumin Level 2.7 g/dL (3.5-5.1); Alkaline Phosphatase 67 U/L (38-126); Anion Gap 2 mmol/L (8-16); Aspartate Amino Transferase 21 U/L (17-59); Bilirubin,Total 0.2 mg/dL (0.2-1.3); Blood Urea Nitrogen 28 mg/dL (9-20); Calcium 7.9 mg/dL (8.4-10.2); Carbon Dioxide 35 mmol/L (22-30); Chloride 97 mmol/L (98-107); Estimated CRCL calculation 172 ml/min; Estimated Glomerular Filt Rate > 60; Glucose 138 mg/dL (65-110); Magnesium 2.2 mg/dL (1.6-2.3); Phosphorus 4.3 mg/dL (2.5-4.5); Potassium 4.4 mmol/L (3.4-5.0); Sodium 134 mmol/L (137-145)
[2021-03-17] MEDS: amLODIPine BESYLATE 2.5 MG, amLODIPine BESYLATE 5 MG 7.5 MG PO (08:43)
[2021-03-17] MEDS: ASPIRIN 81 MG CHEWABLE TABLET PO (08:43)
[2021-03-17] MEDS: ASCORBIC ACID 500 MG TABLET PO (08:44)
[2021-03-17] MEDS: CHOLECALCIFEROL 1,000 UNITS TABLET 1000 UNITS PO (08:44)
[2021-03-17] MEDS: DOCUSATE SODIUM LIQ 100 MG/10 ML UDC FEED TUBE ×2 (08:44→21:16)
[2021-03-17] MEDS: PANTOPRAZOLE SODIUM IV 40 MG VIAL IV PUSH (08:45)
[2021-03-17] MEDS: MINERAL OIL/WHITE PETROLATUM OINTMENT 1 APPLIC EACH EYE ×2 (08:45→21:16)
[2021-03-17] MEDS: ENOXAPARIN 40 MG/0.4 ML SYRINGE SUB-Q (08:45)
[2021-03-17] MEDS: ZINC SULFATE 220 MG CAPSULE PO (08:45)
[2021-03-17] MEDS: SIMVASTATIN 20 MG TABLET PO (08:45)
[2021-03-17] MEDS: MIDAZOLAM 100MG/NS 100ML(*CRX) 100 MG/100 ML BAG 6 MG IV CONT (08:55)
[2021-03-17] MEDS: FENTANYL 2,500MCG/NS250ML(*CRX 2,500 MCG/250 ML BAG 15 MCG IV CONT (10:44)
[2021-03-17 11:46] LABS: Glucose Point of Care 148 mg/dl (65-105)
--- NOTE | 2021-03-17 12:12 | PCFNICU ---
ICU Rounding Note: Pt current nutrition is Vital AF 1.2 at 65 ml/hr over 22 hours. Last recorded weight is 129.3 kg, down from 130.7 kg on admit. Bowel Motility: Last BM reported 03/08. BM addressed today, Miralax started. Labs Reviewed:Glu 138, BUN 28, Na 134, Alb 2.7,Hgb 11.1,Hct 35.7 Meds Noted: Nimbex, Lantus, Versed, Protonix, Zocor, Vit C, Vit D, Lovenox, Colace, Zinc Sulfate, Reglan Skin: WNL Additional Notes: Patient remains on mechanical vent and tube feedings of Vital AF 1.2 at 65 ml/hr over 22 hours. NS flush 60 ml q 4 hours. Agree with diet orders at this time. Monitor pt. labs, medications, weight and tube feeding tolerance every Wednesday and Wednesday as well as daily in ICU rounds.
[2021-03-17] MEDS: BISACODYL 10 MG SUPPOSITORY RECTAL (13:11)
[2021-03-17] MEDS: BARICITINIB 2 MG TABLET 4 MG PO (13:22)
--- NOTE | 2021-03-17 13:37 | WPDINTPN ---
Progress Note: A&P Assessment and Plan (1) Acute respiratory failure with hypoxia: Code(s): J96.01 - Acute respiratory failure with hypoxia Status: Acute Assessment and Plan: Acute Respiratory failure secondary to COVID-19 pneumonia 03/09/2021 patient was emergently intubated and placed on mechanical ventilation Chest x-ray and ABGs reviewed, and a PEEP of 12 and 55% FiO2, wean FiO2 to maintain O2 sats greater than 92% -hold prone positioning for now Continue full mechanical ventilation support to prevent hypoxemia/hypercarbia and end organ damage. Low tidal volume ventilation strategy to prevent volutrauma. Permissive hypercapnia Blood cultures were sent and negative till now Patient's serial CT scans from 02/21 to now show progression of his COVID pneumonia and worsening of CT scan despite complete course of Remdesivir and continued dexamethasone and baricitinib on 03/07. Procalcitonin level was normal hence I have discontinued empiric vancomycin and cefepime (2) Pneumonia due to COVID-19 virus: Code(s): U07.1 - COVID-19; J12.82 - Pneumonia due to coronavirus disease 2019 Status: Acute Assessment and Plan: Patient tested positive for COVID-19 on 02/20/21 and initially was on room air. Patient 1st required oxygen on 02/25/2021 and has per had progressive hypoxemic respiratory failure since then, failing airflow high-flow nasal cannula and noninvasive ventilation and requiring intubation on 03/09/2021. He was started on Remdesivir 02/11 and completed 10 days. Status post complete course of dexamethasone -continue Baricitinib for total of 14 days His CRP is down to 1.7 (3) History of hyperlipidemia: Code(s): Z86.39 - Personal history of other endocrine, nutritional and metabolic disease Status: Inactive Assessment and Plan: on Zocor (4) Hyponatremia: Code(s): E87.1 - Hypo-osmolality and hyponatremia Status: Acute Assessment and Plan: Improving, continue flushes with normal saline Treat hyperglycemia (5) Hyperglycemia: Code(s): R73.9 - Hyperglycemia, unspecified Status: Acute Assessment and Plan: Continue sliding scale and Lantus Additional Plan DVT prophylaxis - Lovenox Stress ulcer prophylaxis - PPI Nutrition - continue Tube Feeds. Continue Reglan, will schedule MiraLax and add Dulcolax suppository Code Status - Full Code Total Critical Care Time - 32 minutes Due to a high probability of clinically significant, life threatening deterioration, the patient required my highest level of preparedness to intervene emergently and I personally spent this critical care time directly and personally managing the patient. This critical care time included obtaining a history; examining the patient; pulse oximetry; ordering and review of studies; arranging urgent treatment with development of a management plan; evaluation of patient's response to treatment; frequent reassessment; and discussions with other providers. It was exclusive of separately billable procedures and treating other patients and teaching time. Please see Assessment and Plan section and the rest of the note for further information on patient assessment and treatment Subjective Date/time seen: 03/17/21 13:37 Interval history: 66-year-old gentleman who presented to the ED with shortness of breath, CT angio was negative for PE but had bilateral patchy alveolar ground-glass infiltrates CT a stress take of COVID-19 pneumonia. Patient was initially on room air from 02/21/2021 to 02/25/2021 after which he started requiring nasal cannula, thereafter he was on Airvo on BiPAP after which she failed and was intubated on 03/09/2021. 03/17/2021: Patient seen and examined the ICU, remains intubated on CMV mode of ventilation, peep of 12, 55% FiO2. Patient is sedated with fentanyl, Versed and Nimbex infusions. Urine output has been adequate, patient is afebrile hem
[2021-03-17 18:13] LABS: Glucose Point of Care 121 mg/dl (65-105)
[2021-03-17] MEDS: SODIUM CHLORIDE NASAL GEL 14.1 GM 1 APPLIC NASAL (21:15)
[2021-03-18] VITALS (34 sets, daily range): BP systolic 95–126; BP diastolic 55–73; PULSE 65–86; RESP 28–29; TEMP 36.6–37; O2SAT 90–95
[2021-03-18] MEDS: METOCLOPRAMIDE HCL 10 MG/10 ML SOLN UDC PO ×4 (00:30→17:43)
[2021-03-18 00:34] LABS: Glucose Point of Care 124 mg/dl (65-105)
[2021-03-18] MEDS: MIDAZOLAM 100MG/NS 100ML(*CRX) 100 MG/100 ML BAG 6 MG IV CONT ×2 (01:35→16:54)
[2021-03-18] MEDS: FENTANYL 2,500MCG/NS250ML(*CRX 2,500 MCG/250 ML BAG 15 MCG IV CONT ×2 (01:36→16:55)
[2021-03-18] MEDS: CISATRACURIUM BESYLATE 200 MG in DEXTROSE 5% 80 ML 11.76 ML IV CONT (05:15)
[2021-03-18] MEDS: CENTRAL LINE FLUSH 10 ML IV PUSH ×3 (05:18→20:46)
[2021-03-18 05:51] LABS: Hematocrit 32.8 % (42.0-52.0); Hemoglobin 10.4 g/dL (14.0-18.0); Mean Corpuscular HGB Conc 31.7 g/dl (32-36); Mean Corpuscular Hemoglobin 31.7 pg (26-34); Mean Platelet Volume 10.1 fl (7.4-10.4); Platelet Count Result 169 k/mm3 (150-375); Red Blood Count 3.28 M/mm3 (4.6-6.20); Red Cell Distribution Width 13.9 % (11.5-14.5); White Blood Count 9.3 K/mm3 (4.5-10.0)
[2021-03-18 06:02] LABS: Alanine Aminotransferase 20 U/L (4-50); Albumin Level 2.6 g/dL (3.5-5.1); Alkaline Phosphatase 67 U/L (38-126); Anion Gap 1 mmol/L (8-16); Aspartate Amino Transferase 18 U/L (17-59); Bilirubin,Total 0.3 mg/dL (0.2-1.3); Blood Urea Nitrogen 28 mg/dL (9-20); Calcium 7.8 mg/dL (8.4-10.2); Carbon Dioxide 36 mmol/L (22-30); Chloride 96 mmol/L (98-107); Estimated CRCL calculation 146 ml/min; Estimated Glomerular Filt Rate > 60; Glucose 138 mg/dL (65-110); Magnesium 2.2 mg/dL (1.6-2.3); Phosphorus 3.5 mg/dL (2.5-4.5); Potassium 4.1 mmol/L (3.4-5.0); Sodium 133 mmol/L (137-145)
[2021-03-18 06:11] LABS: Alveolar/Arterial O2 Gradient 229.4 mmHg; Base Excess ABG 7.8 mEq/l (+/-2.0); Carboxyhemoglobin 0.5 % THb (0-2.0); Device VENTILATOR; Fractional Inspired Oxygen 50 %; HCO3 ABG 33.9 mEq/l (22.0-26.0); Methemoglobin ABG 0.2 %THb (0-1.5); Modified Allen's Test Unable to perform; Oxygen Content ABG 19.1 %vol (16.0-22.0); Oxygen Saturation ABG 93.7 % (95.0-100.0); Oxyhemoglobin 92.6 % THb (90.0-100.0); PCO2 ABG 52.6 mmHg (35.0-45.0); PO2 ABG 67.9 mmHg (80.0-100.0); PO2 FiO2 Ratio Arterial Blood 1.36 %; Reduced Hemoglobin 6.7 %THb (0-5.0); Site Drawn RIGHT RADIAL; Total Hemoglobin 14.7 g/dL (12.0-18.0); pH ABG 7.427 (7.350-7.450)
[2021-03-18 06:12] LABS: Arterial Blood Gas PEEP 12 cmH2O; Arterial Blood Gas Tidal Volume 420 ml; Arterial Blood Gas Vent Mode CMV; Arterial Blood Gas Ventilator rate 28 /MIN
[2021-03-18 07:45] LABS: Band Neutrophils Percent 7 % (0-6); Eosinophils Absolute Manual 0.46 K/mm3 (0.02-0.5); Eosinophils Percent Manual 5 % (0-4); Lymphocytes Absolute Manual 0.93 K/mm3 (1.1-4.5); Monocytes Absolute Manual 0.37 K/mm3 (0.1-0.90); Monocytes Percent Manual 4 % (3-9); Neutrophils Absolute Manual 7.53 K/mm3 (1.3-6.7); Neutrophils Percent Manual 74 % (46-73); Total Cells Counted 100
[2021-03-18 07:46] LABS: Anisocytosis 1+ (NORMAL); Platelet Estimate Adequate (Adequate); Stomatocytes 1+ (NORMAL)
[2021-03-18] MEDS: amLODIPine BESYLATE 2.5 MG, amLODIPine BESYLATE 5 MG 7.5 MG PO (09:20)
[2021-03-18] MEDS: ASPIRIN 81 MG CHEWABLE TABLET PO (09:20)
[2021-03-18] MEDS: ASCORBIC ACID 500 MG TABLET PO (09:21)
[2021-03-18] MEDS: CHOLECALCIFEROL 1,000 UNITS TABLET 1000 UNITS PO (09:21)
[2021-03-18] MEDS: DOCUSATE SODIUM LIQ 100 MG/10 ML UDC FEED TUBE ×2 (09:21→20:46)
[2021-03-18] MEDS: PANTOPRAZOLE SODIUM IV 40 MG VIAL IV PUSH (09:22)
[2021-03-18] MEDS: MINERAL OIL/WHITE PETROLATUM OINTMENT 1 APPLIC EACH EYE ×2 (09:22→20:46)
[2021-03-18] MEDS: ENOXAPARIN 40 MG/0.4 ML SYRINGE SUB-Q (09:22)
[2021-03-18] MEDS: polyethylene glycoL 3350 17 GM POWD.PACK PO (09:23)
[2021-03-18] MEDS: SIMVASTATIN 20 MG TABLET PO (09:23)
[2021-03-18] MEDS: ZINC SULFATE 220 MG CAPSULE PO (09:23)
[2021-03-18] MEDS: PROPOFOL IV EMULSION 100 ML 11.55 MG IV CONT ×2 (11:04→20:43)
[2021-03-18] MEDS: BARICITINIB 2 MG TABLET 4 MG PO (11:56)
[2021-03-18 12:01] LABS: Glucose Point of Care 158 mg/dl (65-105)
--- NOTE | 2021-03-18 12:01 | PCNFU ---
Nutrition Follow-Up Complete: Inadequate oral intake related to mechanical ventilation as evidenced by need for advanced nutrition support. Goal: Pt. to meet estimated nutritional needs. Patient is progressing towards goal. We will continue current goal. Pt current nutrition is Vital AF 1.2 at 65 ml/hr over 22 hours. Last recorded weight is 128.3 kg-stable Bowel Motility:+BM reported 03/17 Labs Reviewed:Cr 0.6,BUN 28, Alb 2.6,Na 133, Hct 32.8,Hgb 10.4 Meds Noted:Nimbex, Lantus, Versed, Protonix, Zocor, Vit C, Vit D, Lovenox, Colace, Zinc Sulfate, Reglan, Fentanyl, Propofol 15 [id number] kcals. Skin: WNL Additional Notes: Patient remains on mechanical vent and tube feedings of Vital AF 1.2 at 65 ml/hr over 22hours. Propofol is providing an additional 305 kcals. Total caloric intake 2021 kcals/107 gms protein/1160 ml water. Free water flush 30 ml q 4 hours. Agree with diet orders. Monitoring: reassessing every Wednesday and Wednesday as well as daily in ICU rounds.
--- NOTE | 2021-03-18 14:08 | WPDINTPN ---
Progress Note: A&P Assessment and Plan (1) Acute respiratory failure with hypoxia: Code(s): J96.01 - Acute respiratory failure with hypoxia Status: Acute Assessment and Plan: Acute Respiratory failure secondary to COVID-19 pneumonia 03/09/2021 patient was emergently intubated and placed on mechanical ventilation Chest x-ray and ABGs reviewed, and a PEEP of 12 and 55% FiO2, wean FiO2 to maintain O2 sats greater than 92% -hold prone positioning for now -sedated with fentanyl, Versed infusion. Patient on Nimbex for neuromuscular blockade and ventilator synchrony. Will start propofol infusion and the Nimbex to off -will discuss with family regarding tracheostomy and PEG tube placement Continue full mechanical ventilation support to prevent hypoxemia/hypercarbia and end organ damage. Low tidal volume ventilation strategy to prevent volutrauma. Permissive hypercapnia Blood cultures were sent and negative till now Patient's serial CT scans from 02/21 to now show progression of his COVID pneumonia and worsening of CT scan despite complete course of Remdesivir and continued dexamethasone and baricitinib on 03/07. Procalcitonin level was normal hence discontinued empiric vancomycin and cefepime (2) Pneumonia due to COVID-19 virus: Code(s): U07.1 - COVID-19; J12.82 - Pneumonia due to coronavirus disease 2019 Status: Acute Assessment and Plan: Patient tested positive for COVID-19 on 02/20/21 and initially was on room air. Patient 1st required oxygen on 02/25/2021 and has per had progressive hypoxemic respiratory failure since then, failing airflow high-flow nasal cannula and noninvasive ventilation and requiring intubation on 03/09/2021. He was started on Remdesivir 02/11 and completed 10 days. Status post complete course of dexamethasone -continue Baricitinib for total of 14 days His CRP is down to 1.7 (3) History of hyperlipidemia: Code(s): Z86.39 - Personal history of other endocrine, nutritional and metabolic disease Status: Inactive Assessment and Plan: on Zocor (4) Hyponatremia: Code(s): E87.1 - Hypo-osmolality and hyponatremia Status: Acute Assessment and Plan: Improving, continue flushes with normal saline Treat hyperglycemia (5) Hyperglycemia: Code(s): R73.9 - Hyperglycemia, unspecified Status: Acute Assessment and Plan: Continue sliding scale and Lantus Additional Plan DVT prophylaxis - Lovenox Stress ulcer prophylaxis - PPI Nutrition - continue Tube Feeds. Continue Reglan, will schedule MiraLax and add Dulcolax suppository Code Status - Full Code Total Critical Care Time - 32 minutes Due to a high probability of clinically significant, life threatening deterioration, the patient required my highest level of preparedness to intervene emergently and I personally spent this critical care time directly and personally managing the patient. This critical care time included obtaining a history; examining the patient; pulse oximetry; ordering and review of studies; arranging urgent treatment with development of a management plan; evaluation of patient's response to treatment; frequent reassessment; and discussions with other providers. It was exclusive of separately billable procedures and treating other patients and teaching time. Please see Assessment and Plan section and the rest of the note for further information on patient assessment and treatment Subjective Date/time seen: 03/18/21 14:08 Interval history: 66-year-old gentleman who presented to the ED with shortness of breath, CT angio was negative for PE but had bilateral patchy alveolar ground-glass infiltrates CT a stress take of COVID-19 pneumonia. Patient was initially on room air from 02/21/2021 to 02/25/2021 after which he started requiring nasal cannula, thereafter he was on Airvo on BiPAP after which she failed and was intubated on 03/09/2021. 03/18/2021:
[2021-03-18] MEDS: PROPOFOL IV EMULSION 100 ML 15.4 MG IV CONT (14:52)
[2021-03-18 17:48] LABS: Glucose Point of Care 149 mg/dl (65-105)
[2021-03-18] MEDS: SODIUM CHLORIDE NASAL GEL 14.1 GM 1 APPLIC NASAL (20:46)
[2021-03-19] VITALS (30 sets, daily range): BP systolic 103–141; BP diastolic 55–70; PULSE 65–96; RESP 28–31; TEMP 36.8–37.9; O2SAT 91–95
[2021-03-19] MEDS: METOCLOPRAMIDE HCL 10 MG/10 ML SOLN UDC PO ×4 (00:06→17:25)
[2021-03-19 00:11] LABS: Glucose Point of Care 119 mg/dl (65-105)
[2021-03-19 03:53] LABS: Hematocrit 33.8 % (42.0-52.0); Hemoglobin 10.6 g/dL (14.0-18.0); Mean Corpuscular HGB Conc 31.4 g/dl (32-36); Mean Corpuscular Hemoglobin 31.3 pg (26-34); Mean Corpuscular Volume 99.7 fl (80-100); Mean Platelet Volume 9.8 fl (7.4-10.4); Platelet Count Result 194 k/mm3 (150-375); Red Blood Count 3.39 M/mm3 (4.6-6.20); Red Cell Distribution Width 13.9 % (11.5-14.5); White Blood Count 9.7 K/mm3 (4.5-10.0)
[2021-03-19 04:04] LABS: Alanine Aminotransferase 22 U/L (4-50); Albumin Level 2.7 g/dL (3.5-5.1); Alkaline Phosphatase 74 U/L (38-126); Anion Gap 4 mmol/L (8-16); Aspartate Amino Transferase 22 U/L (17-59); Bilirubin,Total 0.3 mg/dL (0.2-1.3); Blood Urea Nitrogen 24 mg/dL (9-20); Calcium 8.1 mg/dL (8.4-10.2); Carbon Dioxide 35 mmol/L (22-30); Chloride 95 mmol/L (98-107); Estimated CRCL calculation 149 ml/min; Estimated Glomerular Filt Rate > 60; Glucose 110 mg/dL (65-110); Magnesium 2.2 mg/dL (1.6-2.3); Potassium 4.4 mmol/L (3.4-5.0); Sodium 134 mmol/L (137-145)
[2021-03-19 05:04] LABS: Alveolar/Arterial O2 Gradient 235.8 mmHg; Base Excess ABG 6.1 mEq/l (+/-2.0); Carboxyhemoglobin 0.2 % THb (0-2.0); Fractional Inspired Oxygen 50 %; HCO3 ABG 32.1 mEq/l (22.0-26.0); Methemoglobin ABG 0.3 %THb (0-1.5); Oxygen Content ABG 15.1 %vol (16.0-22.0); Oxygen Saturation ABG 91.1 % (95.0-100.0); Oxyhemoglobin 90.3 % THb (90.0-100.0); PCO2 ABG 52.9 mmHg (35.0-45.0); PO2 ABG 61.2 mmHg (80.0-100.0); PO2 FiO2 Ratio Arterial Blood 1.22 %; Reduced Hemoglobin 9.2 %THb (0-5.0); Total Hemoglobin 11.9 g/dL (12.0-18.0); pH ABG 7.401 (7.350-7.450)
[2021-03-19 05:05] LABS: Device VENTILATOR; Modified Allen's Test Unable to perform; Site Drawn RIGHT RADIAL
[2021-03-19 05:06] LABS: Arterial Blood Gas PEEP 12 cmH2O; Arterial Blood Gas Tidal Volume 420 ml; Arterial Blood Gas Vent Mode CMV; Arterial Blood Gas Ventilator rate 28 /MIN
[2021-03-19 05:25] LABS: Band Neutrophils Percent 4 % (0-6); Eosinophils Absolute Manual 0.38 K/mm3 (0.02-0.5); Eosinophils Percent Manual 4 % (0-4); Lymphocytes Absolute Manual 2.03 K/mm3 (1.1-4.5); Monocytes Absolute Manual 0.19 K/mm3 (0.1-0.90); Monocytes Percent Manual 2 % (3-9); Neutrophils Absolute Manual 7.08 K/mm3 (1.3-6.7); Neutrophils Percent Manual 69 % (46-73); Platelet Estimate Adequate (Adequate); Total Cells Counted 100
[2021-03-19 05:26] LABS: Anisocytosis 1+ (NORMAL); Atypical Lymphocytes Present
[2021-03-19] MEDS: CENTRAL LINE FLUSH 10 ML IV PUSH ×3 (05:27→20:41)
[2021-03-19] MEDS: MIDAZOLAM 100MG/NS 100ML(*CRX) 100 MG/100 ML BAG 6 MG IV CONT (08:09)
[2021-03-19] MEDS: FENTANYL 2,500MCG/NS250ML(*CRX 2,500 MCG/250 ML BAG 10 MCG IV CONT (08:09)
[2021-03-19] MEDS: MINERAL OIL/WHITE PETROLATUM OINTMENT 1 APPLIC EACH EYE ×2 (08:10→20:40)
[2021-03-19] MEDS: CHOLECALCIFEROL 1,000 UNITS TABLET 1000 UNITS PO (08:12)
[2021-03-19] MEDS: PANTOPRAZOLE SODIUM IV 40 MG VIAL IV PUSH (08:12)
[2021-03-19] MEDS: polyethylene glycoL 3350 17 GM POWD.PACK PO (08:12)
[2021-03-19] MEDS: INSULIN GLARGINE (*BKC) 100 UNITS/ML 25 UNITS SUB-Q (08:13)
[2021-03-19] MEDS: ASCORBIC ACID 500 MG TABLET PO (08:13)
[2021-03-19] MEDS: ZINC SULFATE 220 MG CAPSULE PO (08:13)
[2021-03-19] MEDS: amLODIPine BESYLATE 2.5 MG, amLODIPine BESYLATE 5 MG 7.5 MG PO (08:13)
[2021-03-19] MEDS: ENOXAPARIN 40 MG/0.4 ML SYRINGE SUB-Q (08:13)
[2021-03-19] MEDS: DOCUSATE SODIUM LIQ 100 MG/10 ML UDC FEED TUBE ×2 (08:13→20:41)
[2021-03-19] MEDS: ASPIRIN 81 MG CHEWABLE TABLET PO (08:15)
[2021-03-19] MEDS: SIMVASTATIN 20 MG TABLET PO (08:29)
--- NOTE | 2021-03-19 12:03 | PCFNICU ---
ICU Rounding Note: Pt current nutrition is Vital AF 1.2 at 65 ml/hr over 22 hours. Last recorded weight is 132.1 kg-stable Bowel Motility:+BM 03/17 Labs Reviewed: Cr 0.6,BUN 24, Na 134, Alb 2.7,Hct 33.8,Hgb 10.6 Meds Noted:Lantus, Versed, Fentanyl, Protonix, Zocar,Reglan, Vit C, Lovenox, Vit D, Zinc,Propofol 5 jwqd=111 kcals, Colace, Miralax. Skin: WNL Additional Notes: Patient remains on mechanical vent and tube feedings of Vital AF 1.2 at 65 ml/hr over 22 hours. Current caloric intake 1817 kcals/107 gms protein/ 1160 ml water. NS flush 60 ml q 6 hours. Agree with diet orders. Monitoring: Following daily in ICU rounds. Monitor pt. labs, medications, weight and tube feeding tolerance every Wednesday and Wednesday.
[2021-03-19 12:09] LABS: Glucose Point of Care 146 mg/dl (65-105)
[2021-03-19] MEDS: PROPOFOL IV EMULSION 100 ML 3.85 MG IV CONT (12:28)
--- NOTE | 2021-03-19 12:54 | WPDINTPN ---
Progress Note: A&P Assessment and Plan (1) Acute respiratory failure with hypoxia: Code(s): J96.01 - Acute respiratory failure with hypoxia Status: Acute Assessment and Plan: Acute Respiratory failure secondary to COVID-19 pneumonia 03/09/2021 patient was emergently intubated and placed on mechanical ventilation Chest x-ray and ABGs reviewed, and a PEEP of 12 and 55% FiO2, wean FiO2 to maintain O2 sats greater than 92% -hold prone positioning for now -sedated with fentanyl, Versed infusion. Patient on Nimbex for neuromuscular blockade and ventilator synchrony. Will start propofol infusion and the Nimbex to off Continue full mechanical ventilation support to prevent hypoxemia/hypercarbia and end organ damage. Low tidal volume ventilation strategy to prevent volutrauma. Permissive hypercapnia Blood cultures were sent and negative till now Patient's serial CT scans from 02/21 to now show progression of his COVID pneumonia and worsening of CT scan despite complete course of Remdesivir and continued dexamethasone and baricitinib on 03/07. Procalcitonin level was normal hence discontinued empiric vancomycin and cefepime (2) Pneumonia due to COVID-19 virus: Code(s): U07.1 - COVID-19; J12.82 - Pneumonia due to coronavirus disease 2019 Status: Acute Assessment and Plan: Patient tested positive for COVID-19 on 02/20/21 and initially was on room air. Patient 1st required oxygen on 02/25/2021 and has per had progressive hypoxemic respiratory failure since then, failing airflow high-flow nasal cannula and noninvasive ventilation and requiring intubation on 03/09/2021. He was started on Remdesivir 02/11 and completed 10 days. Status post complete course of dexamethasone -continue Baricitinib for total of 14 days His CRP is down to 1.7 (3) History of hyperlipidemia: Code(s): Z86.39 - Personal history of other endocrine, nutritional and metabolic disease Status: Inactive Assessment and Plan: on Zocor (4) Hyponatremia: Code(s): E87.1 - Hypo-osmolality and hyponatremia Status: Acute Assessment and Plan: Improving, continue flushes with normal saline Treat hyperglycemia (5) Hyperglycemia: Code(s): R73.9 - Hyperglycemia, unspecified Status: Acute Assessment and Plan: Continue sliding scale and Lantus Additional Plan DVT prophylaxis - Lovenox Stress ulcer prophylaxis - PPI Nutrition - continue Tube Feeds. Continue Reglan, will schedule MiraLax and add Dulcolax suppository -03/19/2021 discussed with Lucretia, regarding tracheostomy and PEG tube placement, explained to her in details regarding want the procedures entails, I also told her that the patient will be transferred to LTAC facility at some point after all these procedures are done for Pulmonary and Rehab and Physical therapy and Occupational therapy. He is agreeable for tracheostomy and PEG tube placement Code Status - Full Code Total Critical Care Time - 32 minutes Due to a high probability of clinically significant, life threatening deterioration, the patient required my highest level of preparedness to intervene emergently and I personally spent this critical care time directly and personally managing the patient. This critical care time included obtaining a history; examining the patient; pulse oximetry; ordering and review of studies; arranging urgent treatment with development of a management plan; evaluation of patient's response to treatment; frequent reassessment; and discussions with other providers. It was exclusive of separately billable procedures and treating other patients and teaching time. Please see Assessment and Plan section and the rest of the note for further information on patient assessment and treatment Subjective Date/time seen: 03/19/21 12:54 Interval history: 66-year-old gentleman who presented to the ED with shortness of breath, CT angio was
--- NOTE | 2021-03-19 17:12 | WPDCN ---
Assessment and Plan Assessment and plan (1) Respiratory failure: Code(s): J96.90 - Respiratory failure, unspecified, unspecified whether with hypoxia or hypercapnia Status: Acute Assessment and Plan: Plan is for the OR for tracheostomy tomorrow by Dr. Bee. Please obtain consent. Please make NPO hold VTE at midnight. Thank you. HPI Data of Consult Date/Time: 03/19/21 17:12 Requesting Physician: Franki Vann MD Primary Care Provider: Clayton Pinto, Consult Narrative Narrative: Wolf Castanon is a 66 year old male with respiratory failure. ENT consulted for tracheostomy. PEEP 12 FiO2 Review of Systems Review of Systems: ROS unobtainable: Yes unobtainable due to endotracheal tube ENT: Comments: Palpable neck landmarks PMFSH Past Medical History Medical History (Updated 03/19/21 @ 17:16 by Roland Holt MD) History of hyperlipidemia Neuropathy Patient denies significant medical history Surgical History Surgical History History of ankle surgery Family History Family History Father Colon cancer Mother Hypertension Other Diabetes mellitus Social History Social History Social History: Patient drinks a couple drinks a week but nothing significant. He does not smoke or do drugs. 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 He would like to be a full code. His surrogate decision maker is his , Lucretia Smoking status: Never smoker Alcohol intake: unknown Substance use: never Spiritual care concerns: No Meds Home Medications and Allergies Home Medications Medication Instructions Recorded Confirmed Type aspirin [Adult Low Dose Aspirin] 81 mg PO DAILY 02/21/21 02/21/21 History cholecalciferol (vitamin D3) 50 mcg PO DAILY 02/21/21 02/21/21 History lajraexjrqej-lmdebrli-xfbqzo 1 tablet PO DAILY 02/21/21 02/21/21 History [Centrum Silver] omega 0-mff-syn-fish oil [Fish Oil] 1,200 cap PO DAILY 02/21/21 02/21/21 History pregabalin 75 mg PO BID 02/21/21 02/21/21 History simvastatin 20 mg PO DAILY 02/21/21 02/21/21 History tramadol 50 mg PO Q6-12H PRN 02/21/21 02/21/21 History vitamin B complex [B 1 tablet PO DAILY 02/21/21 02/21/21 History Complex-Vitamin B12] Allergies Allergy/AdvReac Type Severity Reaction Status Date / Time No Known Allergies Allergy Verified 02/21/21 08:13 Vital Signs Vital Signs - 24 hr 03/18/21 17:56 03/18/21 18:00 03/18/21 20:00 Temperature 36.6 C Pulse Rate 70 70 67 Respiratory Rate 28 H 28 H Blood Pressure 100/55 L 110/57 L Pulse Oximetry 92 92 91 03/18/21 20:43 03/18/21 20:56 03/18/21 20:57 Temperature Pulse Rate 65 71 69 Respiratory Rate 28 H 29 H 28 H Blood Pressure Pulse Oximetry 03/18/21 21:01 03/18/21 22:00 03/18/21 23:40 Temperature Pulse Rate 68 66 65 Respiratory Rate 28 H Blood Pressure 113/62 Pulse Oximetry 94 94 95 03/19/21 00:00 03/19/21 00:07 03/19/21 00:08 Temperature 36.8 C Pulse Rate 67 65 65 Respiratory Rate 28 H 28 H 28 H Blood Pressure 109/61 Pulse Oximetry 95 03/19/21 02:00 03/19/21 02:29 03/19/21 03:05 Temperature Pulse Rate 66 67 67 Respiratory Rate 28 H 28 H Blood Pressure 103/63 Pulse Oximetry 95 95 95 03/19/21 03:27 03/19/21 04:00 03/19/21 05:07 Temperature 36.9 C Pulse Rate 81 69 72 Respiratory Rate 28 H 29 H Blood Pressure 128/68 Pulse Oximetry 92 94 03/19/21 06:00 03/19/21 08:00 03/19/21 08:09 Temperature 37.7 C H Pulse Rate 73 76 71 Respiratory Rate 28 H 31 H 28 H Blood Pressure 126/70 127/69 Pulse Oximetry 94 95 03/19/21 09:34 03/19/21 10:00 03/19/21 11:43 Temperature Pulse Rate 70 72 72 Respiratory Rate 28 H Blood Pressure 110/69 Pulse Oximetry 94 95 94 03/19/21 12:00 03/19/21 14:00 03/19/21 14:31 Tem
[2021-03-19 17:57] LABS: Prothrombin Time 12.9 Seconds (11.1-14.7)
[2021-03-19 18:08] LABS: Glucose Point of Care 142 mg/dl (65-105)
[2021-03-19] MEDS: SODIUM CHLORIDE NASAL GEL 14.1 GM 1 APPLIC NASAL (20:41)
[2021-03-20] VITALS (24 sets, daily range): BP systolic 104–160; BP diastolic 61–78; PULSE 69–107; RESP 25–28; TEMP 36.6–37.7; O2SAT 91–100
[2021-03-20 00:05] LABS: Glucose Point of Care 126 mg/dl (65-105)
[2021-03-20] MEDS: MIDAZOLAM 100MG/NS 100ML(*CRX) 100 MG/100 ML BAG 6 MG IV CONT ×2 (00:26→17:28)
[2021-03-20] MEDS: CENTRAL LINE FLUSH 10 ML IV PUSH ×3 (04:14→22:46)
[2021-03-20 04:44] LABS: Basophils Absolute Auto 0.1 K/mm3 (0.0-0.1); Basophils Percent Auto 0.8 % (0.2-1.2); Eosinophils Absolute Auto 0.5 K/mm3 (0-0.3); Eosinophils Percent Auto 5.7 % (0-4.4); Hematocrit 33.7 % (42.0-52.0); Hemoglobin 10.7 g/dL (14.0-18.0); Immature Granulocyte Absolute 0.46 K/mm3 (0.00-0.031); Immature Granulocyte Percent A 5.3 % (0-0.5); Lymphocytes Absolute Auto 0.67 K/mm3 (0.9-3.2); Lymphocytes Percent Auto 7.6 % (18.3-44.2); Mean Corpuscular HGB Conc 31.8 g/dl (32-36); Mean Corpuscular Hemoglobin 31.7 pg (26-34); Mean Corpuscular Volume 99.7 fl (80-100); Mean Platelet Volume 9.5 fl (7.4-10.4); Monocytes Absolute Auto 0.8 K/mm3 (0.1-0.6); Monocytes Percent Auto 8.9 % (2.6-8.5); Neutrophils Absolute Auto 6.3 K/mm3 (1.3-6.7); Neutrophils Percent Auto 71.7 % (45.5-73.1); Nucleated Red Blood Cells Perc 0.2 % (0.0-0.2); Platelet Count Result 219 k/mm3 (150-375); Red Blood Count 3.38 M/mm3 (4.6-6.20); Red Cell Distribution Width 14.2 % (11.5-14.5); White Blood Count 8.8 K/mm3 (4.5-10.0)
[2021-03-20 04:54] LABS: Alanine Aminotransferase 22 U/L (4-50); Alkaline Phosphatase 82 U/L (38-126); Anion Gap 4 mmol/L (8-16); Aspartate Amino Transferase 23 U/L (17-59); Bilirubin,Total 0.6 mg/dL (0.2-1.3); Blood Urea Nitrogen 21 mg/dL (9-20); Calcium 8.3 mg/dL (8.4-10.2); Carbon Dioxide 33 mmol/L (22-30); Chloride 97 mmol/L (98-107); Estimated CRCL calculation 175 ml/min; Estimated Glomerular Filt Rate > 60; Glucose 118 mg/dL (65-110); Magnesium 2.2 mg/dL (1.6-2.3); Phosphorus 3.9 mg/dL (2.5-4.5); Sodium 134 mmol/L (137-145)
[2021-03-20 05:02] LABS: Alveolar/Arterial O2 Gradient 197.3 mmHg; Base Excess ABG 5.4 mEq/l (+/-2.0); Carboxyhemoglobin 0.4 % THb (0-2.0); Fractional Inspired Oxygen 45 %; HCO3 ABG 31.1 mEq/l (22.0-26.0); Methemoglobin ABG 0.1 %THb (0-1.5); Oxygen Saturation ABG 93.1 % (95.0-100.0); Oxyhemoglobin 92.2 % THb (90.0-100.0); PCO2 ABG 50.2 mmHg (35.0-45.0); PO2 ABG 66.5 mmHg (80.0-100.0); PO2 FiO2 Ratio Arterial Blood 1.48 %; Reduced Hemoglobin 7.3 %THb (0-5.0); Total Hemoglobin 13.1 g/dL (12.0-18.0)
[2021-03-20 05:07] LABS: Arterial Blood Gas PEEP 12 cmH2O; Arterial Blood Gas Tidal Volume 420 ml; Arterial Blood Gas Vent Mode CMV; Arterial Blood Gas Ventilator rate 28 /MIN; Device VENTILATOR; Modified Allen's Test Unable to perform; Site Drawn RIGHT RADIAL
[2021-03-20] MEDS: BUMETANIDE INJ 1 MG/4 ML VIAL IV PUSH ×2 (08:28→17:13)
[2021-03-20] MEDS: FENTANYL 2,500MCG/NS250ML(*CRX 2,500 MCG/250 ML BAG 10 MCG IV CONT ×2 (08:28→17:12)
[2021-03-20] MEDS: polyethylene glycoL 3350 17 GM POWD.PACK PO (08:29)
[2021-03-20] MEDS: CHOLECALCIFEROL 1,000 UNITS TABLET 1000 UNITS PO (08:29)
[2021-03-20] MEDS: amLODIPine BESYLATE 2.5 MG, amLODIPine BESYLATE 5 MG 7.5 MG PO (08:29)
[2021-03-20] MEDS: ASCORBIC ACID 500 MG TABLET PO (08:29)
[2021-03-20] MEDS: ZINC SULFATE 220 MG CAPSULE PO (08:29)
[2021-03-20] MEDS: ASPIRIN 81 MG CHEWABLE TABLET PO (08:30)
[2021-03-20] MEDS: MINERAL OIL/WHITE PETROLATUM OINTMENT 1 APPLIC EACH EYE ×2 (08:30→22:45)
[2021-03-20] MEDS: SIMVASTATIN 20 MG TABLET PO (08:30)
[2021-03-20] MEDS: PANTOPRAZOLE SODIUM IV 40 MG VIAL IV PUSH (08:30)
[2021-03-20] MEDS: DOCUSATE SODIUM LIQ 100 MG/10 ML UDC FEED TUBE ×2 (08:30→22:45)
--- NOTE | 2021-03-20 09:07 | WPDGICN ---
Assessment and Plan Assessment and plan (1) COVID-19: Code(s): U07.1 - COVID-19 Status: Acute Assessment and Plan: he has been hospitalized for 4 weeks now. Has received a course of remdesivir as well as dexamethasone baricitinib (2) Dysphagia: Code(s): R13.10 - Dysphagia, unspecified Status: Acute Assessment and Plan: because of sedation intubation, he is unable to eat and therefore at risk of protein calorie malnutrition. I will place percutaneous gastrostomy tube this morning (3) Respiratory failure: Code(s): J96.90 - Respiratory failure, unspecified, unspecified whether with hypoxia or hypercapnia Status: Acute Assessment and Plan: because of persistent respiratory failure, he will received tracheostomy today following gastrostomy tube placement GI Consult Note Consult date/time: 03/20/21 09:07 HPI: Wolf Castanon is a 66 year old male who was admitted 4 weeks ago with shortness of breath. Two weeks prior to that he had been having symptoms and was diagnosed with COVID. He took antibiotics as an outpatient but subsequently was admitted and developed respiratory failure. Consequently he has been intubated and dependent on nasogastric tube feedings. He is going to have tracheostomy later today and we are asked to see him for possible G-tube placement. Review of Systems Review of Systems: All systems reviewed & are unremarkable except as noted in HPI and below PMFSH Past Medical History Medical History History of hyperlipidemia Neuropathy Patient denies significant medical history Surgical History Surgical History History of ankle surgery Family History Family History Father Colon cancer Mother Hypertension Other Diabetes mellitus Social History Social History Social History: Patient drinks a couple drinks a week but nothing significant. He does not smoke or do drugs. 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 He would like to be a full code. His surrogate decision maker is his , Lucretia Smoking status: Never smoker Alcohol intake: unknown Substance use: never Spiritual care concerns: No Meds Home Medications and Allergies Home Medications Medication Instructions Recorded Confirmed Type aspirin [Adult Low Dose Aspirin] 81 mg PO DAILY 02/21/21 02/21/21 History cholecalciferol (vitamin D3) 50 mcg PO DAILY 02/21/21 02/21/21 History myhsiwqxzvyn-tcryaetx-vlixpm 1 tablet PO DAILY 02/21/21 02/21/21 History [Centrum Silver] omega 5-szu-lam-fish oil [Fish Oil] 1,200 cap PO DAILY 02/21/21 02/21/21 History pregabalin 75 mg PO BID 02/21/21 02/21/21 History simvastatin 20 mg PO DAILY 02/21/21 02/21/21 History tramadol 50 mg PO Q6-12H PRN 02/21/21 02/21/21 History vitamin B complex [B 1 tablet PO DAILY 02/21/21 02/21/21 History Complex-Vitamin B12] Allergies Allergy/AdvReac Type Severity Reaction Status Date / Time No Known Allergies Allergy Verified 02/21/21 08:13 Vital Signs Vital Signs - 24 hr 03/19/21 09:34 03/19/21 10:00 03/19/21 11:43 Temperature Pulse Rate 70 72 72 Respiratory Rate 28 H Blood Pressure 110/69 Pulse Oximetry 94 95 94 03/19/21 12:00 03/19/21 14:00 03/19/21 14:31 Temperature 37.4 C Pulse Rate 74 75 77 Respiratory Rate 30 H 28 H Blood Pressure 141/69 H 139/55 L Pulse Oximetry 91 91 94 03/19/21 16:00 03/19/21 16:51 03/19/21 18:00 Temperature 37.9 C H Pulse Rate 76 82 75 Respiratory Rate 28 H 30 H Blood Pressure 128/60 127/58 L Pulse Oximetry 92 95 92 03/19/21 20:00 03/19/21 20:45 03/19/21 20:50 Temperature 37.9 C H Pulse Rate 82 77 92 Respiratory Rate 28 H 28 H Blood Pressure 133/60 Pulse Oximetry 92 93 03/19/21
--- NOTE | 2021-03-20 11:30 | PCFNICU ---
ICU Rounding Note: Pt current nutrition is NPO Last recorded weight is 131.8 kg-stable Bowel Motility: +BM reported 03/19 Labs Reviewed:Glu 118,BUN 21,Na 134,Cr 0.5,Alb 3.0,Hct 33.7,Hgb 10.7 Meds Noted:Lantus, Versed, Fentanyl, Protonix, Zocor,Reglan, Vit C, Lovenox, Vit D, Zinc,Colace, Miralax. Skin: WNL Additional Notes: Patient remains on mechanical vent. NPO for PEG/Trach today. Recommend tube feedings of Vital AF 1.2 at 65 ml/hr over 22 hours. Free water flush 60 ml q 4hours. Agree with diet orders. Following daily in ICU rounds. Monitor pt. labs, medications, weight and tube feeding tolerance every Wednesday and Wednesday.
--- NOTE | 2021-03-20 11:40 | WPDANESEPPF ---
Anes - Initial Pre Proc Eval Procedure: Operation Date: 03/20/21 12:00 Proposed Procedures p Tracheostomy - Christiano Bee MD Operation Date: 03/20/21 12:30 Proposed Procedures p Percutaneous Endoscopic Gastrostomy - Wolf Cadet MD Date/Time: 03/20/21 11:40 Surgeon: Franki Vann MD Pre Op Diagnosis: Respiratory failure with hypoxia/COVID 19 Patient Data Age: 66 Gender: M Height: 1.83 m Weight: 131.8 kg Last Vital Signs Temp 37.2 C 03/20/21 10:00 Pulse 88 03/20/21 10:00 Resp 28 H 03/20/21 10:00 BP 133/74 03/20/21 10:00 Pulse Ox 94 03/20/21 10:00 Allergies Allergy/AdvReac Type Severity Reaction Status Date / Time No Known Allergies Allergy Verified 02/21/21 08:13 Home Medications Medication Instructions Recorded Confirmed Type aspirin [Adult Low Dose Aspirin] 81 mg PO DAILY 02/21/21 02/21/21 History cholecalciferol (vitamin D3) 50 mcg PO DAILY 02/21/21 02/21/21 History opysavcfokhy-wlbmppbv-eoozux 1 tablet PO DAILY 02/21/21 02/21/21 History [Centrum Silver] omega 3-zzi-wvt-fish oil [Fish Oil] 1,200 cap PO DAILY 02/21/21 02/21/21 History pregabalin 75 mg PO BID 02/21/21 02/21/21 History simvastatin 20 mg PO DAILY 02/21/21 02/21/21 History tramadol 50 mg PO Q6-12H PRN 02/21/21 02/21/21 History vitamin B complex [B 1 tablet PO DAILY 02/21/21 02/21/21 History Complex-Vitamin B12] Laboratory Tests 03/19/21 03/19/21 03/19/21 11:44 17:24 17:50 WBC RBC Hgb Hct MCV MCH MCHC RDW Plt Count MPV Immature Gran % (Auto) Neut % (Auto) Lymph % (Auto) [place] % (Auto) Eos % (Auto) Baso % (Auto) Lymph # (Auto) [place] # (Auto) Eos # (Auto) Baso # (Auto) Abs Immat Gran (auto) Absolute Neuts (auto) Absolute Nucleated RBC Nucleated RBC % PT 12.9 Seconds Seconds (11.1-14.7) INR 1.0 Puncture Site ABG pH ABG pCO2 ABG pO2 ABG PO2/FiO2 Ratio ABG HCO3 ABG O2 Saturation ABG O2 Content ABG Base Excess A-a Gradient Oxyhemoglobin Carboxyhemoglobin Methemoglobin Reduced Hemoglobin Total Hemoglobin O2 Delivery Device O2 Liters/Min Minute Volume Vent Rate Vent Mode FiO2 Tidal Volume PEEP Peak Inspir Pressure Pressure Support Sodium Potassium Chloride Carbon Dioxide Anion Gap BUN Creatinine Estim Creat Clear Calc Estimated GFR Glucose POC Capillary Glucose 146 mg/dl H mg/dl 142 mg/dl H mg/dl (65-105) (65-105) Calcium Phosphorus Magnesium Total Bilirubin AST ALT Alkaline Phosphatase Total Protein Albumin 03/19/21 03/20/21 03/20/21 23:06 04:12 04:12 WBC 8.8 K/mm3 K/mm3 (4.5-10.0) RBC 3.38 M/mm3 L M/mm3 (4.6-6.20) Hgb 10.7 g/dL L g/dL (14.0-18.0) Hct 33.7 % L % (42.0-52.0) MCV 99.7 fl fl (80-100) MCH 31.7 pg pg (26-34) MCHC 31.8 g/dl L g/dl (32-36) RDW 14.2 % % (11.5-14.5) Plt Count 219 k/mm3 k/mm3 (150-375) MPV 9.5 fl fl (7.4-10.4) Immature Gran % (Auto) 5.3 % H % (0-0.5) Neut % (Auto) 71.7 % % (45.5-73.1) Lymph % (Auto) 7.6 % L % (18.3-44.2) [place] % (Auto) 8.9 % H
--- NOTE | 2021-03-20 11:51 | PC.NURSE ---
1150-GI lab nurses and Dr. Caballero at bedside to perform PEG tube placement.
--- NOTE | 2021-03-20 12:40 | WPDHPUPDATE1 ---
History and Physical Update Update Date/Time: 03/20/21 12:40 History and Physical has been reviewed, including an updated exam of the patient. There are NO changes in the patient's condition. Risks, benefits, and alternatives have been discussed and questions answered. Patient agrees to proceed with procedure.
--- NOTE | 2021-03-20 12:52 | WPDINTPN ---
Progress Note: A&P Assessment and Plan (1) Acute respiratory failure with hypoxia: Code(s): J96.01 - Acute respiratory failure with hypoxia Status: Acute Assessment and Plan: Acute Respiratory failure secondary to COVID-19 pneumonia 03/09/2021 patient was emergently intubated and placed on mechanical ventilation Chest x-ray and ABGs reviewed, and a PEEP of 12 and 55% FiO2, wean FiO2 to maintain O2 sats greater than 92% -hold prone positioning for now -sedated with fentanyl, Versed infusion. Off Nimbex -TRACHEOSTOMY AND PEG TUBE SCHEDULED FOR TODAY Continue full mechanical ventilation support to prevent hypoxemia/hypercarbia and end organ damage. Low tidal volume ventilation strategy to prevent volutrauma. Permissive hypercapnia Blood cultures were sent and negative till now Patient's serial CT scans from 02/21 to now show progression of his COVID pneumonia and worsening of CT scan despite complete course of Remdesivir and continued dexamethasone and baricitinib on 03/07. (2) Pneumonia due to COVID-19 virus: Code(s): U07.1 - COVID-19; J12.82 - Pneumonia due to coronavirus disease 2019 Status: Acute Assessment and Plan: Patient tested positive for COVID-19 on 02/20/21 and initially was on room air. Patient 1st required oxygen on 02/25/2021 and has per had progressive hypoxemic respiratory failure since then, failing airflow high-flow nasal cannula and noninvasive ventilation and requiring intubation on 03/09/2021. He was started on Remdesivir 02/11 and completed 10 days. Status post complete course of dexamethasone -continue Baricitinib for total of 14 days His CRP is down to 1.7 (3) History of hyperlipidemia: Code(s): Z86.39 - Personal history of other endocrine, nutritional and metabolic disease Status: Inactive Assessment and Plan: on Zocor (4) Hyponatremia: Code(s): E87.1 - Hypo-osmolality and hyponatremia Status: Acute Assessment and Plan: Improving, continue flushes with normal saline Treat hyperglycemia (5) Hyperglycemia: Code(s): R73.9 - Hyperglycemia, unspecified Status: Acute Assessment and Plan: Continue sliding scale and Lantus Additional Plan DVT prophylaxis - Lovenox on hold for trach and PEG procedures today Stress ulcer prophylaxis - PPI Nutrition -holding tube feeds the procedures today, patient did have a bowel movement, continue MiraLax, docusate and Reglan -03/19/2021 discussed with Lucretia, regarding tracheostomy and PEG tube placement, explained to her in details regarding want the procedures entails, I also told her that the patient will be transferred to LTAC facility at some point after all these procedures are done for Pulmonary and Rehab and Physical therapy and Occupational therapy. He is agreeable for tracheostomy and PEG tube placement Code Status - Full Code Total Critical Care Time - 32 minutes Due to a high probability of clinically significant, life threatening deterioration, the patient required my highest level of preparedness to intervene emergently and I personally spent this critical care time directly and personally managing the patient. This critical care time included obtaining a history; examining the patient; pulse oximetry; ordering and review of studies; arranging urgent treatment with development of a management plan; evaluation of patient's response to treatment; frequent reassessment; and discussions with other providers. It was exclusive of separately billable procedures and treating other patients and teaching time. Please see Assessment and Plan section and the rest of the note for further information on patient assessment and treatment Subjective Date/time seen: 03/20/21 12:52 Interval history: 66-year-old gentleman who presented to the ED with shortness of breath, CT angio was negative for PE but had bilateral patchy alveolar ground-glass infiltrates CT
--- NOTE | 2021-03-20 12:55 | PC.NURSE ---
1245-Pt. transported to OR with respiratory therapy. Report given to Toño MICHAEL. Pt. stable upon transfer.
[2021-03-20] MEDS: LIDO 1%/EPINEPHRINE 1:100,000 50 ML VIAL INFILTRATE (13:16)
--- NOTE | 2021-03-20 13:20 | W.PM.PROC2 ---
Procedure Note - Detailed Date of Procedure 03/24/21 Pre-op Diagnosis Respiratory failure with hypoxia/COVID 19 Post-op Diagnosis same Procedure Performed Tracheotomy Surgeon Christiano Bee MD Description of Procedure Patient prepped and draped general anesthesia of the lower neck was sterilely prepped and draped a vertical incision was made subplatysmal flaps elevated midline strap muscle divided trachea was identified and incision made in tracheal ring a hook was used to elevate the trachea 8. Shiley placed and sutured in with 4 2-0 silks Urine Output 500 Disposition ICU
--- NOTE | 2021-03-20 13:23 | SUR.OPER ---
1155: PT SEDATED PER ICU TEAM
--- NOTE | 2021-03-20 13:57 | PC.NURSE ---
1335-Pt. returned from OR. Bedside report received from Toño Patrick CRNA. Pt. vitals stable upon transfer. Will call to give an update on pt.'s condition.
[2021-03-20] MEDS: METOCLOPRAMIDE HCL 10 MG/10 ML SOLN UDC PO (17:13)
[2021-03-20 17:36] LABS: Glucose Point of Care 93 mg/dl (65-105)
[2021-03-20] MEDS: SALINE 0.65% NAS SOLN 44 ML BTL 1 SPRAY NASAL (22:45)
[2021-03-20] MEDS: SODIUM CHLORIDE NASAL GEL 14.1 GM 1 APPLIC NASAL (22:46)
[2021-03-21] VITALS (20 sets, daily range): BP systolic 121–143; BP diastolic 65–82; PULSE 92–106; RESP 24–30; TEMP 36.6–37.7; O2SAT 90–97
[2021-03-21] MEDS: METOCLOPRAMIDE HCL 10 MG/10 ML SOLN UDC PO ×3 (02:50→18:19)
[2021-03-21 05:34] LABS: Alanine Aminotransferase 23 U/L (4-50); Aspartate Amino Transferase 37 U/L (17-59); Estimated CRCL calculation 175 ml/min; Estimated Glomerular Filt Rate > 60
[2021-03-21 05:47] LABS: Alveolar/Arterial O2 Gradient 205.6 mmHg; Base Excess ABG 5.4 mEq/l (+/-2.0); Carboxyhemoglobin 0.2 % THb (0-2.0); Fractional Inspired Oxygen 45 %; HCO3 ABG 30.3 mEq/l (22.0-26.0); Oxygen Content ABG 15.2 %vol (16.0-22.0); Oxyhemoglobin 91.2 % THb (90.0-100.0); PCO2 ABG 45.4 mmHg (35.0-45.0); PO2 ABG 63.6 mmHg (80.0-100.0); PO2 FiO2 Ratio Arterial Blood 1.41 %; Reduced Hemoglobin 8.6 %THb (0-5.0); Total Hemoglobin 11.8 g/dL (12.0-18.0); pH ABG 7.442 (7.350-7.450)
[2021-03-21 05:48] LABS: Arterial Blood Gas Vent Mode CMV; Arterial Blood Gas Ventilator rate 28 /MIN; Device VENTILATOR; Modified Allen's Test Pass; Site Drawn RIGHT RADIAL
[2021-03-21 05:49] LABS: Arterial Blood Gas PEEP 10 cmH2O; Arterial Blood Gas Tidal Volume 420 ml
[2021-03-21] MEDS: CENTRAL LINE FLUSH 10 ML IV PUSH ×3 (06:18→20:32)
[2021-03-21] MEDS: polyethylene glycoL 3350 17 GM POWD.PACK PO (07:47)
[2021-03-21] MEDS: DOCUSATE SODIUM LIQ 100 MG/10 ML UDC FEED TUBE ×2 (07:47→20:27)
[2021-03-21] MEDS: amLODIPine BESYLATE 2.5 MG, amLODIPine BESYLATE 5 MG 7.5 MG PO (07:47)
[2021-03-21] MEDS: PANTOPRAZOLE SODIUM IV 40 MG VIAL IV PUSH (07:48)
[2021-03-21] MEDS: ASCORBIC ACID 500 MG TABLET PO (07:48)
[2021-03-21] MEDS: CHOLECALCIFEROL 1,000 UNITS TABLET 1000 UNITS PO (07:48)
[2021-03-21] MEDS: BUMETANIDE INJ 1 MG/4 ML VIAL IV PUSH ×2 (07:48→18:18)
[2021-03-21] MEDS: MINERAL OIL/WHITE PETROLATUM OINTMENT 1 APPLIC EACH EYE ×2 (07:48→20:26)
[2021-03-21] MEDS: INSULIN GLARGINE (*BKC) 100 UNITS/ML 25 UNITS SUB-Q (07:49)
[2021-03-21] MEDS: SIMVASTATIN 20 MG TABLET PO (07:49)
[2021-03-21 07:54] LABS: Basophils Absolute Auto 0.1 K/mm3 (0.0-0.1); Basophils Percent Auto 0.6 % (0.2-1.2); Eosinophils Absolute Auto 0.4 K/mm3 (0-0.3); Eosinophils Percent Auto 5.1 % (0-4.4); Hematocrit 34.6 % (42.0-52.0); Hemoglobin 10.8 g/dL (14.0-18.0); Immature Granulocyte Absolute 0.38 K/mm3 (0.00-0.031); Immature Granulocyte Percent A 4.4 % (0-0.5); Lymphocytes Absolute Auto 0.68 K/mm3 (0.9-3.2); Lymphocytes Percent Auto 7.9 % (18.3-44.2); Mean Corpuscular HGB Conc 31.2 g/dl (32-36); Mean Corpuscular Hemoglobin 30.9 pg (26-34); Mean Corpuscular Volume 99.1 fl (80-100); Mean Platelet Volume 9.3 fl (7.4-10.4); Monocytes Absolute Auto 0.8 K/mm3 (0.1-0.6); Monocytes Percent Auto 9.4 % (2.6-8.5); Neutrophils Absolute Auto 6.3 K/mm3 (1.3-6.7); Neutrophils Percent Auto 72.6 % (45.5-73.1); Platelet Count Result 233 k/mm3 (150-375); Red Blood Count 3.49 M/mm3 (4.6-6.20); Red Cell Distribution Width 14.3 % (11.5-14.5); White Blood Count 8.7 K/mm3 (4.5-10.0)
[2021-03-21 08:13] LABS: Anion Gap 2 mmol/L (8-16); Blood Urea Nitrogen 20 mg/dL (9-20); Calcium 8.3 mg/dL (8.4-10.2); Carbon Dioxide 35 mmol/L (22-30); Chloride 98 mmol/L (98-107); Estimated CRCL calculation 148 ml/min; Estimated Glomerular Filt Rate > 60; Glucose 137 mg/dL (65-110); Magnesium 2.2 mg/dL (1.6-2.3); Phosphorus 4.1 mg/dL (2.5-4.5); Potassium 3.7 mmol/L (3.4-5.0); Sodium 135 mmol/L (137-145)
[2021-03-21] MEDS: ASPIRIN 81 MG CHEWABLE TABLET PO (12:01)
[2021-03-21] MEDS: ZINC SULFATE 220 MG CAPSULE PO (12:01)
[2021-03-21] MEDS: ALPRAZolam (*CRX) 0.5 MG TABLET PO ×2 (12:02→18:18)
[2021-03-21 12:11] LABS: Glucose Point of Care 148 mg/dl (65-105)
--- NOTE | 2021-03-21 12:13 | PCNFU ---
Nutrition Follow-Up Complete: Inadequate oral intake related to mechanical ventilation as evidenced by need for advanced nutrition support. Goal:Pt. to meet estimated nutritional needs. Patient is progressing towards goal. We will continue current goal. Pt current nutrition is Vital AF 1.2 at 40 ml/hr over 22 hours. Last recorded weight is 131.8 kg-stable Bowel Motility:+BM reported 03/20 Labs Reviewed: Glu 137, Cr 0.6,Na 135, Hct 34.6,Hgb 10.8 Meds Noted:Seroquel, Lantus, Versed, Fentanyl, Protonix, Zocor,Reglan, Vit C, Lovenox, Vit D, Zinc,Colace, Miralax. Skin: WNL Additional Notes: Patient had PEG and Trach placed 03/20. Tube feedings of Vital AF 1.2 at 40 ml/hr, goal rate is 75 ml/hr. Goal rate of tube feedings will provide 1980 kcals/124 gms protein/1338 ml water. NS flush 60 ml q 4 hours. Agree with diet orders. Monitor pt. labs, medications, weight and tube feeding tolerance every Wednesday and Wednesday as well as daily in ICU rounds.
--- NOTE | 2021-03-21 13:32 | WPDINTPN ---
Progress Note: A&P Assessment and Plan (1) Acute respiratory failure with hypoxia: Code(s): J96.01 - Acute respiratory failure with hypoxia Status: Acute Assessment and Plan: Acute Respiratory failure secondary to COVID-19 pneumonia 03/09/2021 patient was emergently intubated and placed on mechanical ventilation Chest x-ray and ABGs reviewed, and a PEEP of 10 and 45% FiO2, wean FiO2 to maintain O2 sats greater than 92% -hold prone positioning for now -sedated with fentanyl, Versed infusion. Off Nimbex -02/17/2022: TRACHEOSTOMY AND PEG TUBE placed -will start Seroquel and schedule Xanax, this we will be able to wean off his sedation Continue full mechanical ventilation support to prevent hypoxemia/hypercarbia and end organ damage. Low tidal volume ventilation strategy to prevent volutrauma. Permissive hypercapnia Blood cultures were sent and negative till now Patient's serial CT scans from 02/21 to now show progression of his COVID pneumonia and worsening of CT scan despite complete course of Remdesivir and continued dexamethasone and baricitinib on 03/07. (2) Pneumonia due to COVID-19 virus: Code(s): U07.1 - COVID-19; J12.82 - Pneumonia due to coronavirus disease 2019 Status: Acute Assessment and Plan: Patient tested positive for COVID-19 on 02/20/21 and initially was on room air. Patient 1st required oxygen on 02/25/2021 and has per had progressive hypoxemic respiratory failure since then, failing airflow high-flow nasal cannula and noninvasive ventilation and requiring intubation on 03/09/2021. He was started on Remdesivir 02/11 and completed 10 days. Status post complete course of dexamethasone -continue Baricitinib for total of 14 days His CRP is down to 1.7 (3) History of hyperlipidemia: Code(s): Z86.39 - Personal history of other endocrine, nutritional and metabolic disease Status: Inactive Assessment and Plan: on Zocor (4) Hyponatremia: Code(s): E87.1 - Hypo-osmolality and hyponatremia Status: Acute Assessment and Plan: Improving, continue flushes with normal saline Treat hyperglycemia (5) Hyperglycemia: Code(s): R73.9 - Hyperglycemia, unspecified Status: Acute Assessment and Plan: Continue sliding scale and Lantus Additional Plan DVT prophylaxis -restarted Lovenox Stress ulcer prophylaxis - PPI Nutrition -continue tube feeds, MiraLax, docusate and Reglan. -03/19/2021 discussed with Lucretia, regarding tracheostomy and PEG tube placement, explained to her in details regarding want the procedures entails, I also told her that the patient will be transferred to LTAC facility at some point after all these procedures are done for Pulmonary and Rehab and Physical therapy and Occupational therapy. He is agreeable for tracheostomy and PEG tube placement Code Status - Full Code Total Critical Care Time - 32 minutes Due to a high probability of clinically significant, life threatening deterioration, the patient required my highest level of preparedness to intervene emergently and I personally spent this critical care time directly and personally managing the patient. This critical care time included obtaining a history; examining the patient; pulse oximetry; ordering and review of studies; arranging urgent treatment with development of a management plan; evaluation of patient's response to treatment; frequent reassessment; and discussions with other providers. It was exclusive of separately billable procedures and treating other patients and teaching time. Please see Assessment and Plan section and the rest of the note for further information on patient assessment and treatment Subjective Date/time seen: 03/21/21 13:32 Interval history: 66-year-old gentleman who presented to the ED with shortness of breath, CT angio was negative for PE but had bilateral patchy alveolar ground-glass infiltrates CT a stres
[2021-03-21] MEDS: MIDAZOLAM 100MG/NS 100ML(*CRX) 100 MG/100 ML BAG IV CONT (18:18)
[2021-03-21 18:28] LABS: Glucose Point of Care 136 mg/dl (65-105)
[2021-03-21] MEDS: QUEtiapine FUMARATE 25 MG TABLET PO (20:28)
[2021-03-22] VITALS (53 sets, daily range): BP systolic 110–143; BP diastolic 25–73; PULSE 79–116; RESP 22–35; TEMP 36.9–37.5; O2SAT 90–100
[2021-03-22] MEDS: METOCLOPRAMIDE HCL 10 MG/10 ML SOLN UDC PO ×4 (00:12→17:48)
[2021-03-22 00:37] LABS: Glucose Point of Care 131 mg/dl (65-105)
[2021-03-22] MEDS: FENTANYL 2,500MCG/NS250ML(*CRX 2,500 MCG/250 ML BAG 7.5 MCG IV CONT (04:05)
[2021-03-22 04:58] LABS: Alveolar/Arterial O2 Gradient 233.9 mmHg; Base Excess ABG 7.1 mEq/l (+/-2.0); Carboxyhemoglobin 0.3 % THb (0-2.0); Fractional Inspired Oxygen 50 %; HCO3 ABG 31.7 mEq/l (22.0-26.0); Methemoglobin ABG 0.2 %THb (0-1.5); Oxygen Content ABG 13.8 %vol (16.0-22.0); Oxygen Saturation ABG 95.2 % (95.0-100.0); Oxyhemoglobin 93.7 % THb (90.0-100.0); PCO2 ABG 44.9 mmHg (35.0-45.0); PO2 ABG 72.1 mmHg (80.0-100.0); PO2 FiO2 Ratio Arterial Blood 1.44 %; Reduced Hemoglobin 5.8 %THb (0-5.0); Total Hemoglobin 10.4 g/dL (12.0-18.0); pH ABG 7.466 (7.350-7.450)
[2021-03-22 04:59] LABS: Device VENTILATOR; Modified Allen's Test Pass; Site Drawn RIGHT RADIAL
[2021-03-22 05:00] LABS: Arterial Blood Gas PEEP 10 cmH2O; Arterial Blood Gas Tidal Volume 420 ml; Arterial Blood Gas Vent Mode CMV; Arterial Blood Gas Ventilator rate 28 /MIN
[2021-03-22] MEDS: CENTRAL LINE FLUSH 10 ML IV PUSH ×3 (05:15→21:08)
[2021-03-22] MEDS: SODIUM CHLORIDE NASAL GEL 14.1 GM 1 APPLIC NASAL ×2 (05:15→20:17)
[2021-03-22 05:26] LABS: Basophils Absolute Auto 0.1 K/mm3 (0.0-0.1); Basophils Percent Auto 0.7 % (0.2-1.2); Eosinophils Absolute Auto 0.5 K/mm3 (0-0.3); Eosinophils Percent Auto 6.2 % (0-4.4); Hematocrit 32.8 % (42.0-52.0); Hemoglobin 10.5 g/dL (14.0-18.0); Immature Granulocyte Absolute 0.36 K/mm3 (0.00-0.031); Immature Granulocyte Percent A 4.4 % (0-0.5); Lymphocytes Absolute Auto 0.79 K/mm3 (0.9-3.2); Lymphocytes Percent Auto 9.7 % (18.3-44.2); Mean Corpuscular Hemoglobin 30.6 pg (26-34); Mean Corpuscular Volume 95.6 fl (80-100); Mean Platelet Volume 9.6 fl (7.4-10.4); Monocytes Absolute Auto 0.8 K/mm3 (0.1-0.6); Monocytes Percent Auto 9.2 % (2.6-8.5); Neutrophils Absolute Auto 5.7 K/mm3 (1.3-6.7); Neutrophils Percent Auto 69.8 % (45.5-73.1); Nucleated Red Blood Cells Perc 0.2 % (0.0-0.2); Platelet Count Result 248 k/mm3 (150-375); Red Blood Count 3.43 M/mm3 (4.6-6.20); White Blood Count 8.1 K/mm3 (4.5-10.0)
[2021-03-22 05:58] LABS: Alanine Aminotransferase 21 U/L (4-50); Anion Gap 1 mmol/L (8-16); Aspartate Amino Transferase 27 U/L (17-59); Blood Urea Nitrogen 22 mg/dL (9-20); Calcium 8.2 mg/dL (8.4-10.2); Carbon Dioxide 36 mmol/L (22-30); Chloride 98 mmol/L (98-107); Estimated CRCL calculation 171 ml/min; Estimated Glomerular Filt Rate > 60; Glucose 146 mg/dL (65-110); Potassium 3.5 mmol/L (3.4-5.0); Sodium 135 mmol/L (137-145)
[2021-03-22] MEDS: POTASSIUM CHLORIDE 20 MEQ PACKET (FOR LIQUID) 40 MEQ PO (09:58)
[2021-03-22] MEDS: MINERAL OIL/WHITE PETROLATUM OINTMENT 1 APPLIC EACH EYE ×2 (09:58→20:16)
[2021-03-22] MEDS: ENOXAPARIN 40 MG/0.4 ML SYRINGE SUB-Q (09:59)
[2021-03-22] MEDS: DOCUSATE SODIUM LIQ 100 MG/10 ML UDC FEED TUBE ×2 (09:59→20:16)
[2021-03-22] MEDS: CHOLECALCIFEROL 1,000 UNITS TABLET 1000 UNITS PO (09:59)
[2021-03-22] MEDS: SIMVASTATIN 20 MG TABLET PO (10:00)
[2021-03-22] MEDS: amLODIPine BESYLATE 2.5 MG, amLODIPine BESYLATE 5 MG 7.5 MG PO (10:00)
[2021-03-22] MEDS: ASPIRIN 81 MG CHEWABLE TABLET PO (10:00)
[2021-03-22] MEDS: QUEtiapine FUMARATE 25 MG TABLET PO ×2 (10:00→20:17)
[2021-03-22] MEDS: ASCORBIC ACID 500 MG TABLET PO (10:00)
[2021-03-22] MEDS: PANTOPRAZOLE SODIUM IV 40 MG VIAL IV PUSH (10:01)
[2021-03-22] MEDS: polyethylene glycoL 3350 17 GM POWD.PACK PO (10:01)
[2021-03-22] MEDS: ZINC SULFATE 220 MG CAPSULE PO (10:01)
[2021-03-22] MEDS: INSULIN GLARGINE (*BKC) 100 UNITS/ML 25 UNITS SUB-Q (10:09)
[2021-03-22] MEDS: ALPRAZolam (*CRX) 0.5 MG TABLET PO ×3 (10:09→17:48)
[2021-03-22 12:38] LABS: Glucose Point of Care 137 mg/dl (65-105)
--- NOTE | 2021-03-22 13:58 | P.PNINT_ITS ---
Progress Note: A&P Assessment and Plan (1) Acute respiratory failure with hypoxia: Code(s): J96.01 - Acute respiratory failure with hypoxia Status: Acute Assessment and Plan: Acute Respiratory failure secondary to COVID-19 pneumonia 03/09/2021 patient was emergently intubated and placed on mechanical ventilation Chest x-ray and ABGs reviewed, and a PEEP of 10 and 45% FiO2, wean FiO2 to maintain O2 sats greater than 92% -hold prone positioning for now -sedated with fentanyl, Versed infusion. Off Nimbex -02/17/2022: TRACHEOSTOMY AND PEG TUBE placed - continue Seroquel and schedule Xanax, this we will be able to wean off his sedation Continue full mechanical ventilation support to prevent hypoxemia/hypercarbia and end organ damage. Low tidal volume ventilation strategy to prevent volutrauma. Permissive hypercapnia Blood cultures were sent and negative till now Patient's serial CT scans from 02/21 to now show progression of his COVID pneumonia and worsening of CT scan despite complete course of Remdesivir and continued dexamethasone and baricitinib on 03/07. (2) Pneumonia due to COVID-19 virus: Code(s): U07.1 - COVID-19; J12.82 - Pneumonia due to coronavirus disease 2019 Status: Acute Assessment and Plan: Patient tested positive for COVID-19 on 02/20/21 and initially was on room air. Patient 1st required oxygen on 02/25/2021 and has per had progressive hypoxemic respiratory failure since then, failing airflow high-flow nasal cannula and noninvasive ventilation and requiring intubation on 03/09/2021. He was started on Remdesivir 02/11 and completed 10 days. Status post complete course of dexamethasone -continue Baricitinib for total of 14 days His CRP is down to 1.7 (3) History of hyperlipidemia: Code(s): Z86.39 - Personal history of other endocrine, nutritional and metabolic disease Status: Inactive Assessment and Plan: on Zocor (4) Hyponatremia: Code(s): E87.1 - Hypo-osmolality and hyponatremia Status: Acute Assessment and Plan: Improving, continue flushes with normal saline Treat hyperglycemia (5) Hyperglycemia: Code(s): R73.9 - Hyperglycemia, unspecified Status: Acute Assessment and Plan: Continue sliding scale and Lantus Additional Plan DVT prophylaxis -restarted Lovenox Stress ulcer prophylaxis - PPI Nutrition -continue tube feeds, MiraLax, docusate and Reglan. -03/19/2021 discussed with Lucretia, regarding tracheostomy and PEG tube placement, explained to her in details regarding want the procedures entails, I also told her that the patient will be transferred to LTAC facility at some point after all these procedures are done for Pulmonary and Rehab and Physical therapy and Occupational therapy. He is agreeable for tracheostomy and PEG tube placement Code Status - Full Code Total Critical Care Time - 32 minutes Due to a high probability of clinically significant, life threatening deterioration, the patient required my highest level of preparedness to intervene emergently and I personally spent this critical care time directly and personally managing the patient. This critical care time included obtaining a history; examining the patient; pulse oximetry; ordering and review of studies; arranging urgent treatment with development of a management plan; evaluation of patient's response to treatment; frequent reassessment; and discussions with other providers. It was exclusive of separately billable procedures and treating other patients and teaching time. Please se
[2021-03-22 18:14] LABS: Glucose Point of Care 156 mg/dl (65-105)
[2021-03-23] VITALS (49 sets, daily range): BP systolic 126–152; BP diastolic 61–79; PULSE 86–115; RESP 18–36; TEMP 34.1–37.7; O2SAT 90–98
[2021-03-23] MEDS: METOCLOPRAMIDE HCL 10 MG/10 ML SOLN UDC PO ×4 (00:11→17:30)
[2021-03-23 00:19] LABS: Glucose Point of Care 114 mg/dl (65-105)
[2021-03-23] MEDS: MIDAZOLAM 100MG/NS 100ML(*CRX) 100 MG/100 ML BAG IV CONT (04:35)
[2021-03-23 04:42] LABS: Alveolar/Arterial O2 Gradient 233.2 mmHg; Base Excess ABG 6.7 mEq/l (+/-2.0); Carboxyhemoglobin 0.1 % THb (0-2.0); Fractional Inspired Oxygen 50 %; HCO3 ABG 32.2 mEq/l (22.0-26.0); Methemoglobin ABG 0.3 %THb (0-1.5); Oxygen Content ABG 13.9 %vol (16.0-22.0); Oxygen Saturation ABG 93.1 % (95.0-100.0); Oxyhemoglobin 91.3 % THb (90.0-100.0); PCO2 ABG 50.9 mmHg (35.0-45.0); PO2 FiO2 Ratio Arterial Blood 1.32 %; Reduced Hemoglobin 8.3 %THb (0-5.0); Total Hemoglobin 10.8 g/dL (12.0-18.0); pH ABG 7.419 (7.350-7.450)
[2021-03-23 04:54] LABS: Device VENTILATOR; Modified Allen's Test Unable to perform; Site Drawn RIGHT RADIAL
[2021-03-23 04:55] LABS: Arterial Blood Gas PEEP 10 cmH2O; Arterial Blood Gas Tidal Volume 420 ml; Arterial Blood Gas Vent Mode CMV; Arterial Blood Gas Ventilator rate 28 /MIN
[2021-03-23] MEDS: CENTRAL LINE FLUSH 10 ML IV PUSH ×3 (06:37→22:47)
[2021-03-23 06:47] LABS: Glucose Point of Care 137 mg/dl (65-105)
[2021-03-23 07:15] LABS: Alanine Aminotransferase 21 U/L (4-50); Aspartate Amino Transferase 24 U/L (17-59); Estimated CRCL calculation 208 ml/min; Estimated Glomerular Filt Rate > 60
[2021-03-23] MEDS: INSULIN GLARGINE (*BKC) 100 UNITS/ML 25 UNITS SUB-Q (08:50)
[2021-03-23] MEDS: ENOXAPARIN 40 MG/0.4 ML SYRINGE SUB-Q (08:51)
[2021-03-23] MEDS: CHOLECALCIFEROL 1,000 UNITS TABLET 1000 UNITS PO (08:51)
[2021-03-23] MEDS: ASCORBIC ACID 500 MG TABLET PO (08:51)
[2021-03-23] MEDS: ASPIRIN 81 MG CHEWABLE TABLET PO (08:51)
[2021-03-23] MEDS: polyethylene glycoL 3350 17 GM POWD.PACK PO (08:51)
[2021-03-23] MEDS: SIMVASTATIN 20 MG TABLET PO (08:51)
[2021-03-23] MEDS: ZINC SULFATE 220 MG CAPSULE PO (08:51)
[2021-03-23] MEDS: DOCUSATE SODIUM LIQ 100 MG/10 ML UDC FEED TUBE ×2 (08:51→20:09)
[2021-03-23] MEDS: amLODIPine BESYLATE 2.5 MG, amLODIPine BESYLATE 5 MG 7.5 MG PO (08:51)
[2021-03-23] MEDS: MINERAL OIL/WHITE PETROLATUM OINTMENT 1 APPLIC EACH EYE ×2 (08:52→20:10)
[2021-03-23] MEDS: PANTOPRAZOLE SODIUM IV 40 MG VIAL IV PUSH (08:52)
[2021-03-23] MEDS: QUEtiapine FUMARATE 25 MG TABLET PO (08:52)
[2021-03-23] MEDS: ALPRAZolam (*CRX) 0.5 MG TABLET PO ×3 (09:12→17:30)
--- NOTE | 2021-03-23 12:29 | WPDINTPN ---
Progress Note: A&P Assessment and Plan (1) Acute respiratory failure with hypoxia: Code(s): J96.01 - Acute respiratory failure with hypoxia Status: Acute Assessment and Plan: Acute Respiratory failure secondary to COVID-19 pneumonia 03/09/2021 patient was emergently intubated and placed on mechanical ventilation Chest x-ray and ABGs reviewed, and a PEEP of 10 and 45% FiO2, wean FiO2 to maintain O2 sats greater than 92% -hold prone positioning for now -sedated with fentanyl, Versed infusion. Off Nimbex -02/17/2022: TRACHEOSTOMY AND PEG TUBE placed -increase Seroquel and continue Xanax, this will help wean off his sedation Continue full mechanical ventilation support to prevent hypoxemia/hypercarbia and end organ damage. Low tidal volume ventilation strategy to prevent volutrauma. Permissive hypercapnia Blood cultures were sent and negative till now Patient's serial CT scans from 02/21 to now show progression of his COVID pneumonia and worsening of CT scan despite complete course of Remdesivir and continued dexamethasone and baricitinib on 03/07. (2) Pneumonia due to COVID-19 virus: Code(s): U07.1 - COVID-19; J12.82 - Pneumonia due to coronavirus disease 2019 Status: Acute Assessment and Plan: Patient tested positive for COVID-19 on 02/20/21 and initially was on room air. Patient 1st required oxygen on 02/25/2021 and has per had progressive hypoxemic respiratory failure since then, failing airflow high-flow nasal cannula and noninvasive ventilation and requiring intubation on 03/09/2021. He was started on Remdesivir 02/11 and completed 10 days. Status post complete course of dexamethasone -continue Baricitinib for total of 14 days His CRP is down to 1.7 (3) History of hyperlipidemia: Code(s): Z86.39 - Personal history of other endocrine, nutritional and metabolic disease Status: Inactive Assessment and Plan: on Zocor (4) Hyponatremia: Code(s): E87.1 - Hypo-osmolality and hyponatremia Status: Acute Assessment and Plan: Improving, continue flushes with normal saline Treat hyperglycemia (5) Hyperglycemia: Code(s): R73.9 - Hyperglycemia, unspecified Status: Acute Assessment and Plan: Continue sliding scale and Lantus Additional Plan DVT prophylaxis - Lovenox Stress ulcer prophylaxis - PPI Nutrition -continue tube feeds, MiraLax, docusate and Reglan. -03/19/2021 discussed with Lucretia, regarding tracheostomy and PEG tube placement, explained to her in details regarding want the procedures entails, I also told her that the patient will be transferred to LTAC facility at some point after all these procedures are done for Pulmonary and Rehab and Physical therapy and Occupational therapy. He is agreeable for tracheostomy and PEG tube placement Code Status - Full Code Total Critical Care Time - 32 minutes Due to a high probability of clinically significant, life threatening deterioration, the patient required my highest level of preparedness to intervene emergently and I personally spent this critical care time directly and personally managing the patient. This critical care time included obtaining a history; examining the patient; pulse oximetry; ordering and review of studies; arranging urgent treatment with development of a management plan; evaluation of patient's response to treatment; frequent reassessment; and discussions with other providers. It was exclusive of separately billable procedures and treating other patients and teaching time. Please see Assessment and Plan section and the rest of the note for further information on patient assessment and treatment Subjective Date/time seen: 03/23/21 12:29 Interval history: 66-year-old gentleman who presented to the ED with shortness of breath, CT angio was negative for PE but had bilateral patchy alveolar ground-glass infiltrates CT a stress take of COVID-19
[2021-03-23 13:09] LABS: Glucose Point of Care 136 mg/dl (65-105)
[2021-03-23] MEDS: DORNASE ALFA INH SOLN 1 MG/ML 2.5 ML AMP 2.5 MG INHALATION ×2 (13:53→19:16)
[2021-03-23] MEDS: FENTANYL 2,500MCG/NS250ML(*CRX 2,500 MCG/250 ML BAG 7.5 MCG IV CONT (14:49)
[2021-03-23 17:41] LABS: Glucose Point of Care 109 mg/dl (65-105)
[2021-03-23] MEDS: QUEtiapine FUMARATE 25 MG TABLET 50 MG PO (20:10)
[2021-03-23] MEDS: SODIUM CHLORIDE NASAL GEL 14.1 GM 1 APPLIC NASAL (20:11)
[2021-03-24] VITALS (22 sets, daily range): BP systolic 126–151; BP diastolic 65–76; PULSE 64–117; RESP 28–39; TEMP 36.7–37.6; O2SAT 93–97
[2021-03-24] MEDS: METOCLOPRAMIDE HCL 10 MG/10 ML SOLN UDC PO ×4 (00:38→17:10)
[2021-03-24 00:53] LABS: Glucose Point of Care 114 mg/dl (65-105)
[2021-03-24 04:57] LABS: Base Excess ABG 7.3 mEq/l (+/-2.0); Total Hemoglobin 10.3 g/dL (12.0-18.0)
[2021-03-24 04:58] LABS: Oxygen Content ABG 14.2 %vol (16.0-22.0)
[2021-03-24 04:59] LABS: Carboxyhemoglobin 0.4 % THb (0-2.0); Fractional Inspired Oxygen 60 %; Methemoglobin ABG 0.3 %THb (0-1.5); PO2 FiO2 Ratio Arterial Blood 1.85 %; Reduced Hemoglobin 2.7 %THb (0-5.0); Site Drawn RIGHT RADIAL
[2021-03-24 05:00] LABS: Device VENTILATOR; Modified Allen's Test Pass
[2021-03-24 05:01] LABS: Arterial Blood Gas PEEP 10 cmH2O; Arterial Blood Gas Tidal Volume 420 ml; Arterial Blood Gas Vent Mode CMV; Arterial Blood Gas Ventilator rate 28 /MIN
[2021-03-24] MEDS: CENTRAL LINE FLUSH 10 ML IV PUSH ×3 (05:20→21:09)
[2021-03-24 05:34] LABS: Basophils Absolute Auto 0.1 K/mm3 (0.0-0.1); Basophils Percent Auto 0.9 % (0.2-1.2); Eosinophils Absolute Auto 0.6 K/mm3 (0-0.3); Eosinophils Percent Auto 7.2 % (0-4.4); Hematocrit 32.3 % (42.0-52.0); Hemoglobin 9.9 g/dL (14.0-18.0); Immature Granulocyte Absolute 0.52 K/mm3 (0.00-0.031); Immature Granulocyte Percent A 6.7 % (0-0.5); Lymphocytes Absolute Auto 0.92 K/mm3 (0.9-3.2); Lymphocytes Percent Auto 11.9 % (18.3-44.2); Mean Corpuscular HGB Conc 30.7 g/dl (32-36); Mean Corpuscular Hemoglobin 30.7 pg (26-34); Mean Platelet Volume 9.4 fl (7.4-10.4); Monocytes Absolute Auto 0.7 K/mm3 (0.1-0.6); Monocytes Percent Auto 8.9 % (2.6-8.5); Neutrophils Percent Auto 64.4 % (45.5-73.1); Nucleated Red Blood Cells Perc 0.3 % (0.0-0.2); Platelet Count Result 258 k/mm3 (150-375); Red Blood Count 3.23 M/mm3 (4.6-6.20); Red Cell Distribution Width 14.4 % (11.5-14.5); White Blood Count 7.8 K/mm3 (4.5-10.0)
[2021-03-24 05:47] LABS: Alanine Aminotransferase 20 U/L (4-50); Albumin Level 2.7 g/dL (3.5-5.1); Alkaline Phosphatase 83 U/L (38-126); Anion Gap 0 mmol/L (8-16); Aspartate Amino Transferase 37 U/L (17-59); Bilirubin,Total 0.6 mg/dL (0.2-1.3); Blood Urea Nitrogen 17 mg/dL (9-20); Calcium 8.3 mg/dL (8.4-10.2); Carbon Dioxide 35 mmol/L (22-30); Chloride 100 mmol/L (98-107); Estimated CRCL calculation 171 ml/min; Estimated Glomerular Filt Rate > 60; Glucose 132 mg/dL (65-110); Magnesium 1.9 mg/dL (1.6-2.3); Phosphorus 4.6 mg/dL (2.5-4.5); Potassium 4.3 mmol/L (3.4-5.0); Sodium 135 mmol/L (137-145)
[2021-03-24] MEDS: DORNASE ALFA INH SOLN 1 MG/ML 2.5 ML AMP 2.5 MG INHALATION (08:00)
[2021-03-24] MEDS: polyethylene glycoL 3350 17 GM POWD.PACK PO (08:57)
[2021-03-24] MEDS: SIMVASTATIN 20 MG TABLET PO (08:57)
[2021-03-24] MEDS: ENOXAPARIN 40 MG/0.4 ML SYRINGE SUB-Q (08:57)
[2021-03-24] MEDS: INSULIN GLARGINE (*BKC) 100 UNITS/ML 25 UNITS SUB-Q (08:57)
[2021-03-24] MEDS: ALPRAZolam (*CRX) 0.5 MG TABLET PO ×3 (08:57→17:10)
[2021-03-24] MEDS: DOCUSATE SODIUM LIQ 100 MG/10 ML UDC FEED TUBE ×2 (08:57→20:02)
[2021-03-24] MEDS: CHOLECALCIFEROL 1,000 UNITS TABLET 1000 UNITS PO (08:58)
[2021-03-24] MEDS: ZINC SULFATE 220 MG CAPSULE PO (08:58)
[2021-03-24] MEDS: amLODIPine BESYLATE 2.5 MG, amLODIPine BESYLATE 5 MG 7.5 MG PO (08:58)
[2021-03-24] MEDS: PANTOPRAZOLE SODIUM IV 40 MG VIAL IV PUSH (08:58)
[2021-03-24] MEDS: ASPIRIN 81 MG CHEWABLE TABLET PO (08:59)
[2021-03-24] MEDS: QUEtiapine FUMARATE 25 MG TABLET 50 MG PO ×2 (08:59→20:02)
[2021-03-24] MEDS: ASCORBIC ACID 500 MG TABLET PO (08:59)
[2021-03-24] MEDS: MINERAL OIL/WHITE PETROLATUM OINTMENT 1 APPLIC EACH EYE ×2 (08:59→20:03)
--- NOTE | 2021-03-24 11:16 | WPDINTPN ---
Progress Note: A&P Assessment and Plan (1) Acute respiratory failure with hypoxia: Code(s): J96.01 - Acute respiratory failure with hypoxia Status: Acute Assessment and Plan: Acute Respiratory failure secondary to COVID-19 pneumonia 03/09/2021 patient was emergently intubated and placed on mechanical ventilation Chest x-ray and ABGs reviewed, and a PEEP of 10 and 50% FiO2, wean FiO2 to maintain O2 sats greater than 92% -sedated with fentanyl, Versed infusion. Both placed on hold for sedation vacation -continue Seroquel and continue Xanax -02/17/2022: TRACHEOSTOMY AND PEG TUBE placed Continue full mechanical ventilation support to prevent hypoxemia/hypercarbia and end organ damage. Not a candidate for weaning trial at this time Low tidal volume ventilation strategy to prevent volutrauma. Permissive hypercapnia Blood cultures were sent and negative till now Patient's serial CT scans from 02/21 to now show progression of his COVID pneumonia and worsening of CT scan despite treatment (2) Pneumonia due to COVID-19 virus: Code(s): U07.1 - COVID-19; J12.82 - Pneumonia due to coronavirus disease 2019 Status: Acute Assessment and Plan: Patient tested positive for COVID-19 on 02/20/21 and initially was on room air. Patient 1st required oxygen on 02/25/2021 and has per had progressive hypoxemic respiratory failure since then, failing airflow high-flow nasal cannula and noninvasive ventilation and requiring intubation on 03/09/2021. He was started on Remdesivir 02/11 and completed 10 days. Status post complete course of dexamethasone Completed Baricitinib for total of 14 days His CRP is down to 1.7 I will discontinue zinc sulfate (3) History of hyperlipidemia: Code(s): Z86.39 - Personal history of other endocrine, nutritional and metabolic disease Status: Inactive Assessment and Plan: on Zocor (4) Hyponatremia: Code(s): E87.1 - Hypo-osmolality and hyponatremia Status: Acute Assessment and Plan: Improving, continue flushes with normal saline Treat hyperglycemia (5) Hyperglycemia: Code(s): R73.9 - Hyperglycemia, unspecified Status: Acute Assessment and Plan: Continue sliding scale and Lantus (6) Essential hypertension: Code(s): I10 - Essential (primary) hypertension Status: Acute Assessment and Plan: On Norvasc Additional Plan DVT prophylaxis - Lovenox Stress ulcer prophylaxis - PPI Nutrition -continue tube feeds, MiraLax, docusate and Reglan. Patient now awaits LTAC placement Code Status - Full Code Total Critical Care Time - 30 minutes Due to a high probability of clinically significant, life threatening deterioration, the patient required my highest level of preparedness to intervene emergently and I personally spent this critical care time directly and personally managing the patient. This critical care time included obtaining a history; examining the patient; pulse oximetry; ordering and review of studies; arranging urgent treatment with development of a management plan; evaluation of patient's response to treatment; frequent reassessment; and discussions with other providers. It was exclusive of separately billable procedures and treating other patients and teaching time. Please see Assessment and Plan section and the rest of the note for further information on patient assessment and treatment Subjective Date/time seen: 03/24/21 11:16 Overnight events reviewed. Afebrile Continues to be on mechanical ventilation PEEP of 10 and 50% FiO2 Continues to be sedated with Versed and fentanyl Vitals acceptable Interval history: 66-year-old gentleman who presented to the ED with shortness of breath, CT angio was negative for PE but had bilateral patchy alveolar ground-glass infiltrates CT a stress take of COVID-19 pneumonia. Patient was initially on room air from 02/21/2021 to 02/25/2021 after which he
--- NOTE | 2021-03-24 11:22 | W.PM.PROC2 ---
Procedure Note - Detailed Date of Procedure 03/24/21 Pre-op Diagnosis Respiratory failure with hypoxia/COVID 19 Surgeon Christiano Bee MD Urine Output 600
--- NOTE | 2021-03-24 11:26 | W.PM.PROC2 ---
Procedure Note - Detailed Date of Procedure 03/24/21 Pre-op Diagnosis Respiratory failure with hypoxia/COVID 19 Surgeon Christiano Bee MD Urine Output 600
--- NOTE | 2021-03-24 11:33 | PCFNICU ---
ICU Rounding Note: Pt current nutrition is Vital AF 1.2 at 65 ml/hr over 22 hours. Nutrition recommendation: 75 ml/hr over 22 hours. Last recorded weight is 126.2 kg-stable Bowel Motility:+BM reported 03/20 Labs Reviewed:PO4 4.6, Cr 0.5,Glu 132, Na 135, Hct 32.3,Hgb 9.9 Meds Noted:Reglan, Colace, Lantus, Versed, Protonix, Zocor, Nimbex, Miralax, Lovenox, Vit D, Seroquel. Skin:WNL Additional Notes: Patient current with Trach and PEG. Spoke with nursing today. Versed and Fentanyl are on hold. Tube feedings of Vital AF 1.2 at 65 ml/hr with plans for goal rate today. 75 ml/hr will provide 1980 kcals/124 gm protein/1338 ml water. 60 ml q 4hours NS for flush, Na 135 today. Agree with diet orders. Monitor pt. labs, medications, weight and tube feeding tolerance every Wednesday and Wednesday as well as daily in ICU rounds.
[2021-03-24 11:47] LABS: Glucose Point of Care 145 mg/dl (65-105)
[2021-03-24 17:19] LABS: Glucose Point of Care 138 mg/dl (65-105)
[2021-03-24] MEDS: MIDAZOLAM 100MG/NS 100ML(*CRX) 100 MG/100 ML BAG IV CONT (17:39)
[2021-03-24] MEDS: SODIUM CHLORIDE NASAL GEL 14.1 GM 1 APPLIC NASAL (20:03)
[2021-03-25] VITALS (20 sets, daily range): BP systolic 118–159; BP diastolic 53–91; PULSE 76–114; RESP 27–34; TEMP 36.4–37.2; O2SAT 92–96
[2021-03-25] MEDS: METOCLOPRAMIDE HCL 10 MG/10 ML SOLN UDC PO ×5 (00:08→23:39)
[2021-03-25 00:23] LABS: Glucose Point of Care 138 mg/dl (65-105)
[2021-03-25 05:10] LABS: Basophils Absolute Auto 0.1 K/mm3 (0.0-0.1); Basophils Percent Auto 0.8 % (0.2-1.2); Eosinophils Absolute Auto 0.6 K/mm3 (0-0.3); Eosinophils Percent Auto 6.7 % (0-4.4); Hemoglobin 10.3 g/dL (14.0-18.0); Immature Granulocyte Absolute 0.63 K/mm3 (0.00-0.031); Lymphocytes Absolute Auto 0.91 K/mm3 (0.9-3.2); Lymphocytes Percent Auto 10.1 % (18.3-44.2); Mean Corpuscular HGB Conc 31.2 g/dl (32-36); Mean Corpuscular Hemoglobin 30.6 pg (26-34); Mean Corpuscular Volume 97.9 fl (80-100); Mean Platelet Volume 9.2 fl (7.4-10.4); Monocytes Absolute Auto 0.6 K/mm3 (0.1-0.6); Monocytes Percent Auto 6.7 % (2.6-8.5); Neutrophils Absolute Auto 6.2 K/mm3 (1.3-6.7); Neutrophils Percent Auto 68.7 % (45.5-73.1); Nucleated Red Blood Cells Perc 0.3 % (0.0-0.2); Platelet Count Result 250 k/mm3 (150-375); Red Blood Count 3.37 M/mm3 (4.6-6.20); Red Cell Distribution Width 14.4 % (11.5-14.5); White Blood Count 9.1 K/mm3 (4.5-10.0)
[2021-03-25 05:22] LABS: Alveolar/Arterial O2 Gradient 267.7 mmHg; Base Excess ABG 6.4 mEq/l (+/-2.0); Carboxyhemoglobin 0.7 % THb (0-2.0); Fractional Inspired Oxygen 55 %; HCO3 ABG 32.2 mEq/l (22.0-26.0); Methemoglobin ABG 0.3 %THb (0-1.5); Oxygen Content ABG 14.2 %vol (16.0-22.0); Oxygen Saturation ABG 92.8 % (95.0-100.0); Oxyhemoglobin 90.5 % THb (90.0-100.0); PCO2 ABG 52.5 mmHg (35.0-45.0); Reduced Hemoglobin 8.5 %THb (0-5.0); Total Hemoglobin 11.1 g/dL (12.0-18.0); pH ABG 7.406 (7.350-7.450)
[2021-03-25 05:23] LABS: Arterial Blood Gas PEEP 10 cmH2O; Arterial Blood Gas Tidal Volume 420 ml; Arterial Blood Gas Vent Mode CMV; Arterial Blood Gas Ventilator rate 28 /MIN; Device VENTILATOR; Modified Allen's Test Unable to perform; Site Drawn RIGHT RADIAL
[2021-03-25 05:26] LABS: Alanine Aminotransferase 23 U/L (4-50); Alkaline Phosphatase 104 U/L (38-126); Anion Gap 0 mmol/L (8-16); Aspartate Amino Transferase 28 U/L (17-59); Bilirubin,Total 0.5 mg/dL (0.2-1.3); Blood Urea Nitrogen 14 mg/dL (9-20); Calcium 8.7 mg/dL (8.4-10.2); Carbon Dioxide 35 mmol/L (22-30); Chloride 102 mmol/L (98-107); Estimated CRCL calculation 171 ml/min; Estimated Glomerular Filt Rate > 60; Glucose 153 mg/dL (65-110); Phosphorus 4.3 mg/dL (2.5-4.5); Potassium 3.9 mmol/L (3.4-5.0); Sodium 137 mmol/L (137-145)
[2021-03-25] MEDS: CENTRAL LINE FLUSH 10 ML IV PUSH ×3 (05:27→22:43)
[2021-03-25] MEDS: ALPRAZolam (*CRX) 0.5 MG TABLET PO ×3 (08:28→17:01)
[2021-03-25] MEDS: INSULIN GLARGINE (*BKC) 100 UNITS/ML 25 UNITS SUB-Q (08:28)
[2021-03-25] MEDS: DOCUSATE SODIUM LIQ 100 MG/10 ML UDC FEED TUBE ×2 (08:29→20:11)
[2021-03-25] MEDS: ASCORBIC ACID 500 MG TABLET PO (08:29)
[2021-03-25] MEDS: MINERAL OIL/WHITE PETROLATUM OINTMENT 1 APPLIC EACH EYE ×2 (08:29→20:10)
[2021-03-25] MEDS: ENOXAPARIN 40 MG/0.4 ML SYRINGE SUB-Q (08:29)
[2021-03-25] MEDS: polyethylene glycoL 3350 17 GM POWD.PACK PO (08:29)
[2021-03-25] MEDS: CHOLECALCIFEROL 1,000 UNITS TABLET 1000 UNITS PO (08:30)
[2021-03-25] MEDS: amLODIPine BESYLATE 2.5 MG, amLODIPine BESYLATE 5 MG 7.5 MG PO (08:30)
[2021-03-25] MEDS: QUEtiapine FUMARATE 25 MG TABLET 50 MG PO ×2 (08:30→20:11)
[2021-03-25] MEDS: SIMVASTATIN 20 MG TABLET PO (08:30)
[2021-03-25] MEDS: ASPIRIN 81 MG CHEWABLE TABLET PO (08:30)
[2021-03-25] MEDS: ALTEPLASE 2 MG VIAL (CATHFLO) IV PUSH (08:39)
[2021-03-25] MEDS: LANSOPRAZOLE ORAL SUSP 30 MG/10 ML ORAL.SUSP FEED TUBE (08:39)
--- NOTE | 2021-03-25 11:51 | PCNFU ---
Nutrition Follow-Up Complete: Inadequate oral intake related to mechanical ventilation as evidenced by need for advanced nutrition support. Goal; Pt. to meet estimated nutritional needs. Patient will continue current goal. Pt current nutrition is Vital AF 1.2 at 75 ml/hr over 22 hours. Last recorded weight is 129.2 kg-stable Bowel Motility: +BM reported 03/24 Labs Reviewed: Glu 153, Cr 0.5,Alb 3.0,Hgb 10.3,Hct 33.0 Meds Noted:Reglan, Colace, Lantus, Versed, Protonix, Zocor, Nimbex, Miralax, Lovenox, Vit D, Seroquel. Skin: WNL Additional Notes: Patient current with PEG and Trach. Tube feedings of Vital AF 1.2 at 75 ml/hr over 22 hours and tolerating per nursing. Sedation is on hold. Current tube feeding is providing 1980 kcals/124 gm protein/1338 ml water. 60 ml q 4 hours NS. Agree with diet orders. Monitor pt. labs, medications, weight and tube feeding tolerance every Wednesday and Wednesday as well as daily in ICU rounds.
[2021-03-25 12:33] LABS: Glucose Point of Care 164 mg/dl (65-105)
--- NOTE | 2021-03-25 13:49 | WPDINTPN ---
Progress Note: A&P Assessment and Plan (1) Acute respiratory failure with hypoxia: Code(s): J96.01 - Acute respiratory failure with hypoxia Status: Acute Assessment and Plan: Acute Respiratory failure secondary to COVID-19 pneumonia 03/09/2021 patient was emergently intubated and placed on mechanical ventilation Chest x-ray and ABGs reviewed, and a PEEP of 10 and 50% FiO2, wean FiO2 to maintain O2 sats greater than 92% -sedated with Versed infusion. I have discontinued Versed infusion and switched to p.r.n. -continue Seroquel and continue Xanax -02/17/2022: TRACHEOSTOMY AND PEG TUBE placed Continue full mechanical ventilation support to prevent hypoxemia/hypercarbia and end organ damage. Not a candidate for weaning trial at this time Low tidal volume ventilation strategy to prevent volutrauma. Permissive hypercapnia Blood cultures were sent and negative till now Patient's serial CT scans from 02/21 to now show progression of his COVID pneumonia and worsening of CT scan despite treatment (2) Pneumonia due to COVID-19 virus: Code(s): U07.1 - COVID-19; J12.82 - Pneumonia due to coronavirus disease 2019 Status: Acute Assessment and Plan: Patient tested positive for COVID-19 on 02/20/21 and initially was on room air. Patient 1st required oxygen on 02/25/2021 and has per had progressive hypoxemic respiratory failure since then, failing airflow high-flow nasal cannula and noninvasive ventilation and requiring intubation on 03/09/2021. He was started on Remdesivir 02/11 and completed 10 days. Status post complete course of dexamethasone Completed Baricitinib for total of 14 days His CRP is down to 1.7 Off zinc sulfate (3) History of hyperlipidemia: Code(s): Z86.39 - Personal history of other endocrine, nutritional and metabolic disease Status: Inactive Assessment and Plan: on Zocor (4) Hyponatremia: Code(s): E87.1 - Hypo-osmolality and hyponatremia Status: Acute Assessment and Plan: Improving, continue flushes with normal saline Treat hyperglycemia (5) Hyperglycemia: Code(s): R73.9 - Hyperglycemia, unspecified Status: Acute Assessment and Plan: Continue sliding scale and Lantus (6) Essential hypertension: Code(s): I10 - Essential (primary) hypertension Status: Acute Assessment and Plan: On Norvas Additional Plan DVT prophylaxis - Lovenox Stress ulcer prophylaxis - PPI Nutrition -continue tube feeds, MiraLax, docusate and Reglan. Patient now awaits LTAC placement Code Status - Full Code Total Critical Care Time - 30 minutes Due to a high probability of clinically significant, life threatening deterioration, the patient required my highest level of preparedness to intervene emergently and I personally spent this critical care time directly and personally managing the patient. This critical care time included obtaining a history; examining the patient; pulse oximetry; ordering and review of studies; arranging urgent treatment with development of a management plan; evaluation of patient's response to treatment; frequent reassessment; and discussions with other providers. It was exclusive of separately billable procedures and treating other patients and teaching time. Please see Assessment and Plan section and the rest of the note for further information on patient assessment and treatment Subjective Date/time seen: 03/25/21 13:49 Overnight events reviewed. Afebrile Continues to be on mechanical ventilation Continues to be sedated with Versed infusion Vitals acceptable Interval history: 66-year-old gentleman who presented to the ED with shortness of breath, CT angio was negative for PE but had bilateral patchy alveolar ground-glass infiltrates CT a stress take of COVID-19 pneumonia. Patient was initially on room air from 02/21/2021 to 02/25/2021 after which he started requiring nasal cannula, th
[2021-03-25 17:51] LABS: Glucose Point of Care 123 mg/dl (65-105)
[2021-03-25] MEDS: SODIUM CHLORIDE NASAL GEL 14.1 GM 1 APPLIC NASAL (20:10)
[2021-03-26] VITALS (19 sets, daily range): BP systolic 126–150; BP diastolic 60–81; PULSE 91–105; RESP 31–40; TEMP 36.6–37.7; O2SAT 91–98
[2021-03-26 00:25] LABS: Glucose Point of Care 112 mg/dl (65-105)
[2021-03-26 05:06] LABS: Basophils Absolute Auto 0.1 K/mm3 (0.0-0.1); Basophils Percent Auto 0.6 % (0.2-1.2); Eosinophils Absolute Auto 0.6 K/mm3 (0-0.3); Eosinophils Percent Auto 6.6 % (0-4.4); Immature Granulocyte Absolute 0.61 K/mm3 (0.00-0.031); Immature Granulocyte Percent A 6.4 % (0-0.5); Lymphocytes Absolute Auto 0.76 K/mm3 (0.9-3.2); Mean Corpuscular HGB Conc 30.3 g/dl (32-36); Mean Corpuscular Hemoglobin 30.4 pg (26-34); Mean Corpuscular Volume 100.3 fl (80-100); Mean Platelet Volume 9.1 fl (7.4-10.4); Monocytes Absolute Auto 0.6 K/mm3 (0.1-0.6); Monocytes Percent Auto 6.3 % (2.6-8.5); Neutrophils Absolute Auto 6.9 K/mm3 (1.3-6.7); Neutrophils Percent Auto 72.1 % (45.5-73.1); Nucleated Red Blood Cells Perc 0.3 % (0.0-0.2); Platelet Count Result 262 k/mm3 (150-375); Red Blood Count 3.29 M/mm3 (4.6-6.20); Red Cell Distribution Width 14.6 % (11.5-14.5); White Blood Count 9.6 K/mm3 (4.5-10.0)
[2021-03-26 05:18] LABS: Alanine Aminotransferase 23 U/L (4-50); Albumin Level 2.9 g/dL (3.5-5.1); Alkaline Phosphatase 111 U/L (38-126); Anion Gap 1 mmol/L (8-16); Aspartate Amino Transferase 28 U/L (17-59); Bilirubin,Total 0.2 mg/dL (0.2-1.3); Blood Urea Nitrogen 14 mg/dL (9-20); Calcium 8.6 mg/dL (8.4-10.2); Carbon Dioxide 37 mmol/L (22-30); Chloride 100 mmol/L (98-107); Estimated CRCL calculation 166 ml/min; Estimated Glomerular Filt Rate > 60; Glucose 152 mg/dL (65-110); Magnesium 2.1 mg/dL (1.6-2.3); Phosphorus 4.1 mg/dL (2.5-4.5); Potassium 3.9 mmol/L (3.4-5.0); Sodium 138 mmol/L (137-145)
[2021-03-26 05:52] LABS: Alveolar/Arterial O2 Gradient 263.9 mmHg; Base Excess ABG 7.2 mEq/l (+/-2.0); Carboxyhemoglobin 0.4 % THb (0-2.0); Fractional Inspired Oxygen 55 %; HCO3 ABG 32.7 mEq/l (22.0-26.0); Methemoglobin ABG 0.3 %THb (0-1.5); Oxygen Content ABG 13.4 %vol (16.0-22.0); Oxygen Saturation ABG 94.3 % (95.0-100.0); Oxyhemoglobin 93.1 % THb (90.0-100.0); PCO2 ABG 51.5 mmHg (35.0-45.0); PO2 FiO2 Ratio Arterial Blood 1.29 %; Reduced Hemoglobin 6.2 %THb (0-5.0); Total Hemoglobin 10.2 g/dL (12.0-18.0); pH ABG 7.421 (7.350-7.450)
[2021-03-26 05:53] LABS: Arterial Blood Gas PEEP 10 cmH2O; Arterial Blood Gas Tidal Volume 420 ml; Arterial Blood Gas Vent Mode CMV; Arterial Blood Gas Ventilator rate 28 /MIN; Device VENTILATOR; Modified Allen's Test Pass; Site Drawn RIGHT RADIAL
[2021-03-26] MEDS: LANSOPRAZOLE ORAL SUSP 30 MG/10 ML ORAL.SUSP FEED TUBE (06:01)
[2021-03-26] MEDS: CENTRAL LINE FLUSH 10 ML IV PUSH ×3 (06:01→22:18)
[2021-03-26] MEDS: METOCLOPRAMIDE HCL 10 MG/10 ML SOLN UDC PO ×3 (06:01→17:57)
[2021-03-26] MEDS: QUEtiapine FUMARATE 25 MG TABLET 50 MG PO ×2 (08:21→20:34)
[2021-03-26] MEDS: ASPIRIN 81 MG CHEWABLE TABLET PO (08:21)
[2021-03-26] MEDS: ENOXAPARIN 40 MG/0.4 ML SYRINGE SUB-Q (08:21)
[2021-03-26] MEDS: DOCUSATE SODIUM LIQ 100 MG/10 ML UDC FEED TUBE ×2 (08:21→20:35)
[2021-03-26] MEDS: INSULIN GLARGINE (*BKC) 100 UNITS/ML 25 UNITS SUB-Q (08:21)
[2021-03-26] MEDS: ASCORBIC ACID 500 MG TABLET PO (08:21)
[2021-03-26] MEDS: polyethylene glycoL 3350 17 GM POWD.PACK PO (08:21)
[2021-03-26] MEDS: LORazepam INJ (*CRX) 2 MG/ML VIAL IV PUSH (08:21)
[2021-03-26] MEDS: amLODIPine BESYLATE 2.5 MG, amLODIPine BESYLATE 5 MG 7.5 MG PO (08:21)
[2021-03-26] MEDS: ALPRAZolam (*CRX) 0.5 MG TABLET PO ×3 (08:21→17:56)
[2021-03-26] MEDS: CHOLECALCIFEROL 1,000 UNITS TABLET 1000 UNITS PO (08:21)
[2021-03-26] MEDS: SIMVASTATIN 20 MG TABLET PO (08:21)
[2021-03-26] MEDS: MINERAL OIL/WHITE PETROLATUM OINTMENT 1 APPLIC EACH EYE ×2 (08:22→20:35)
--- NOTE | 2021-03-26 08:41 | WPDINTPN ---
Progress Note: A&P Assessment and Plan (1) Acute respiratory failure with hypoxia: Code(s): J96.01 - Acute respiratory failure with hypoxia Status: Acute Assessment and Plan: Acute Respiratory failure secondary to COVID-19 pneumonia 03/09/2021 patient was emergently intubated and placed on mechanical ventilation Chest x-ray and ABGs reviewed, and a PEEP of 10 and 50% FiO2, wean FiO2 to maintain O2 sats greater than 92% Off continue sedation and he patient is fairly tachypneic -not a candidate for weaning trial -continue Seroquel and continue Xanax -p.r.n. Ativan -02/17/2022: TRACHEOSTOMY AND PEG TUBE placed Continue full mechanical ventilation support to prevent hypoxemia/hypercarbia and end organ damage. Low tidal volume ventilation strategy to prevent volutrauma. Permissive hypercapnia Blood cultures were sent and negative till now Patient's serial CT scans from 02/21 to now show progression of his COVID pneumonia and worsening of CT scan despite treatment (2) Pneumonia due to COVID-19 virus: Code(s): U07.1 - COVID-19; J12.82 - Pneumonia due to coronavirus disease 2019 Status: Acute Assessment and Plan: Patient tested positive for COVID-19 on 02/20/21 and initially was on room air. Patient 1st required oxygen on 02/25/2021 and has per had progressive hypoxemic respiratory failure since then, failing airflow high-flow nasal cannula and noninvasive ventilation and requiring intubation on 03/09/2021. He was started on Remdesivir 02/11 and completed 10 days. Status post complete course of dexamethasone Completed Baricitinib for total of 14 days His CRP is down to 1.7 Off zinc sulfate (3) History of hyperlipidemia: Code(s): Z86.39 - Personal history of other endocrine, nutritional and metabolic disease Status: Inactive Assessment and Plan: on Zocor (4) Hyponatremia: Code(s): E87.1 - Hypo-osmolality and hyponatremia Status: Acute Assessment and Plan: Improving, continue flushes with normal saline Treat hyperglycemia (5) Hyperglycemia: Code(s): R73.9 - Hyperglycemia, unspecified Status: Acute Assessment and Plan: Continue sliding scale and Lantus (6) Essential hypertension: Code(s): I10 - Essential (primary) hypertension Status: Acute Assessment and Plan: On Norvasc Additional Plan DVT prophylaxis - Lovenox Stress ulcer prophylaxis - PPI Nutrition -continue tube feeds, MiraLax, docusate and Reglan. Patient now awaits LTAC placement Code Status - Full Code Total Critical Care Time - 30 minutes Due to a high probability of clinically significant, life threatening deterioration, the patient required my highest level of preparedness to intervene emergently and I personally spent this critical care time directly and personally managing the patient. This critical care time included obtaining a history; examining the patient; pulse oximetry; ordering and review of studies; arranging urgent treatment with development of a management plan; evaluation of patient's response to treatment; frequent reassessment; and discussions with other providers. It was exclusive of separately billable procedures and treating other patients and teaching time. Please see Assessment and Plan section and the rest of the note for further information on patient assessment and treatment Subjective Date/time seen: 03/26/21 08:41 Overnight events reviewed. Afebrile Continues to be on mechanical ventilation Off sedation Vitals acceptable Interval history: 66-year-old gentleman who presented to the ED with shortness of breath, CT angio was negative for PE but had bilateral patchy alveolar ground-glass infiltrates CT a stress take of COVID-19 pneumonia. Patient was initially on room air from 02/21/2021 to 02/25/2021 after which he started requiring nasal cannula, thereafter he was on Airvo on BiPAP after which she failed and
--- NOTE | 2021-03-26 09:22 | PCFNICU ---
ICU Rounding Note: Pt current nutrition is Vital AF 1.2 at 75 ml/hr over 22 hours. Last recorded weight is 119.8 kg, down from 130.7 kg on admit. Bowel Motility:+BM reported 2/2 Labs Reviewed:Glu 152, Cr 0.5,Alb 2.9,Hct 33.0,Hgb 10.0 Meds Noted:Colace, Vit C, Xanax, Lovenox, Lantus, Reglan, Ativan, Miralax, Zocor, Versed, Vit D. Skin: WNL Additional Notes: Patient current with PEG and Trach. Vital AF 1.2 at 75 ml/hr over 22 hours and tolerating. Free water flush 60 ml q 4 hours. Agree with diet orders. Following daily in ICU rounds. Monitor pt. labs, medications, weight and tube feeding tolerance every Wednesday and Wednesday.
[2021-03-26] MEDS: LORazepam INJ (*CRX) 2 MG/ML VIAL 4 MG IV PUSH (10:15)
[2021-03-26 12:09] LABS: Glucose Point of Care 134 mg/dl (65-105)
[2021-03-26 18:08] LABS: Glucose Point of Care 120 mg/dl (65-105)
[2021-03-26] MEDS: SODIUM CHLORIDE NASAL GEL 14.1 GM 1 APPLIC NASAL (20:35)
[2021-03-27] VITALS (30 sets, daily range): BP systolic 128–167; BP diastolic 60–79; PULSE 92–127; RESP 13–46; TEMP 37.2–38.1; O2SAT 86–100
[2021-03-27] MEDS: METOCLOPRAMIDE HCL 10 MG/10 ML SOLN UDC PO ×4 (00:15→17:23)
[2021-03-27] MEDS: ACETAMINOPHEN 325 MG TABLET 650 MG PO ×2 (00:18→09:42)
[2021-03-27 00:38] LABS: Glucose Point of Care 104 mg/dl (65-105)
[2021-03-27] MEDS: CENTRAL LINE FLUSH 10 ML IV PUSH ×2 (05:11→13:02)
[2021-03-27 05:21] LABS: Basophils Absolute Auto 0.1 K/mm3 (0.0-0.1); Basophils Percent Auto 0.6 % (0.2-1.2); Eosinophils Absolute Auto 0.5 K/mm3 (0-0.3); Eosinophils Percent Auto 3.4 % (0-4.4); Hematocrit 34.2 % (42.0-52.0); Hemoglobin 10.3 g/dL (14.0-18.0); Immature Granulocyte Percent A 4.4 % (0-0.5); Lymphocytes Absolute Auto 0.93 K/mm3 (0.9-3.2); Lymphocytes Percent Auto 6.8 % (18.3-44.2); Mean Corpuscular HGB Conc 30.1 g/dl (32-36); Mean Corpuscular Hemoglobin 30.3 pg (26-34); Mean Corpuscular Volume 100.6 fl (80-100); Mean Platelet Volume 9.1 fl (7.4-10.4); Monocytes Absolute Auto 0.8 K/mm3 (0.1-0.6); Monocytes Percent Auto 5.8 % (2.6-8.5); Neutrophils Absolute Auto 10.9 K/mm3 (1.3-6.7); Nucleated Red Blood Cells Perc 0.3 % (0.0-0.2); Platelet Count Result 255 k/mm3 (150-375); Red Cell Distribution Width 14.9 % (11.5-14.5); White Blood Count 13.7 K/mm3 (4.5-10.0)
[2021-03-27 05:31] LABS: Alveolar/Arterial O2 Gradient 254.4 mmHg; Base Excess ABG 7.2 mEq/l (+/-2.0); Carboxyhemoglobin 1.2 % THb (0-2.0); Fractional Inspired Oxygen 55 %; Methemoglobin ABG 0.3 %THb (0-1.5); Oxygen Content ABG 16.8 %vol (16.0-22.0); Oxygen Saturation ABG 91.1 % (95.0-100.0); Oxyhemoglobin 89.5 % THb (90.0-100.0); PO2 ABG 65.2 mmHg (80.0-100.0); PO2 FiO2 Ratio Arterial Blood 1.19 %; Total Hemoglobin 13.3 g/dL (12.0-18.0); pH ABG 7.348 (7.350-7.450)
[2021-03-27 05:34] LABS: Device VENTILATOR; Modified Allen's Test Unable to perform; PCO2 ABG 65.2 mmHg (35.0-45.0); Site Drawn RIGHT RADIAL
[2021-03-27 05:34] LABS: Alanine Aminotransferase 29 U/L (4-50); Albumin Level 3.1 g/dL (3.5-5.1); Alkaline Phosphatase 106 U/L (38-126); Anion Gap -1 mmol/L (8-16); Aspartate Amino Transferase 32 U/L (17-59); Bilirubin,Total 0.4 mg/dL (0.2-1.3); Blood Urea Nitrogen 15 mg/dL (9-20); Calcium 8.7 mg/dL (8.4-10.2); Carbon Dioxide 39 mmol/L (22-30); Chloride 100 mmol/L (98-107); Estimated CRCL calculation 170 ml/min; Estimated Glomerular Filt Rate > 60; Glucose 158 mg/dL (65-110); Potassium 4.1 mmol/L (3.4-5.0); Sodium 138 mmol/L (137-145)
[2021-03-27 05:35] LABS: Arterial Blood Gas PEEP 10 cmH2O; Arterial Blood Gas Pressure Support 15 cmH2O; Arterial Blood Gas Tidal Volume 420 ml; Arterial Blood Gas Vent Mode SIMV; Arterial Blood Gas Ventilator rate 28 /MIN
[2021-03-27] MEDS: LANSOPRAZOLE ORAL SUSP 30 MG/10 ML ORAL.SUSP FEED TUBE (05:58)
[2021-03-27] MEDS: ASCORBIC ACID 500 MG TABLET PO (09:36)
[2021-03-27] MEDS: ALPRAZolam (*CRX) 0.5 MG TABLET PO ×3 (09:36→17:22)
[2021-03-27] MEDS: CHOLECALCIFEROL 1,000 UNITS TABLET 1000 UNITS PO (09:36)
[2021-03-27] MEDS: amLODIPine BESYLATE 2.5 MG, amLODIPine BESYLATE 5 MG 7.5 MG PO (09:36)
[2021-03-27] MEDS: ASPIRIN 81 MG CHEWABLE TABLET PO (09:36)
[2021-03-27] MEDS: QUEtiapine FUMARATE 25 MG TABLET 50 MG PO ×2 (09:36→21:57)
[2021-03-27] MEDS: ENOXAPARIN 40 MG/0.4 ML SYRINGE SUB-Q (09:37)
[2021-03-27] MEDS: INSULIN GLARGINE (*BKC) 100 UNITS/ML 25 UNITS SUB-Q (09:37)
[2021-03-27] MEDS: SIMVASTATIN 20 MG TABLET PO (09:37)
[2021-03-27] MEDS: MINERAL OIL/WHITE PETROLATUM OINTMENT 1 APPLIC EACH EYE ×2 (09:37→21:57)
--- NOTE | 2021-03-27 10:38 | WPDINTPN ---
Progress Note: A&P Assessment and Plan (1) Acute respiratory failure with hypoxia: Code(s): J96.01 - Acute respiratory failure with hypoxia Status: Acute Assessment and Plan: Acute Respiratory failure secondary to COVID-19 pneumonia 03/09/2021 patient was emergently intubated and placed on mechanical ventilation Chest x-ray and ABGs reviewed, change back to CMV mode and continue PEEP of 10 and 50% FiO2, wean FiO2 to maintain O2 sats greater than 92% Off continue sedation and he patient is fairly tachypneic -not a candidate for weaning trial -continue Seroquel and continue Xanax -p.r.n. Ativan -02/17/2022: TRACHEOSTOMY AND PEG TUBE placed Continue full mechanical ventilation support to prevent hypoxemia/hypercarbia and end organ damage. Low tidal volume ventilation strategy to prevent volutrauma. Permissive hypercapnia Patient's serial CT scans from 02/21 to now show progression of his COVID pneumonia and worsening of CT scan despite treatment (2) Pneumonia due to COVID-19 virus: Code(s): U07.1 - COVID-19; J12.82 - Pneumonia due to coronavirus disease 2019 Status: Acute Assessment and Plan: Patient tested positive for COVID-19 on 02/20/21 and initially was on room air. Patient 1st required oxygen on 02/25/2021 and has per had progressive hypoxemic respiratory failure since then, failing airflow high-flow nasal cannula and noninvasive ventilation and requiring intubation on 03/09/2021. He was started on Remdesivir 02/11 and completed 10 days. Status post complete course of dexamethasone Completed Baricitinib for total of 14 days His CRP is down to 1.7 Off zinc sulfate and vitamin-C now (3) Fever: Code(s): R50.9 - Fever, unspecified Status: Acute Assessment and Plan: Fever with increase in WBC Check sputum and blood cultures Change Shaikh Check UA and culture (4) History of hyperlipidemia: Code(s): Z86.39 - Personal history of other endocrine, nutritional and metabolic disease Status: Inactive Assessment and Plan: on Zocor (5) Hyponatremia: Code(s): E87.1 - Hypo-osmolality and hyponatremia Status: Acute Assessment and Plan: Improving, continue flushes with normal saline Treat hyperglycemia (6) Hyperglycemia: Code(s): R73.9 - Hyperglycemia, unspecified Status: Acute Assessment and Plan: Continue sliding scale and Lantus (7) Essential hypertension: Code(s): I10 - Essential (primary) hypertension Status: Acute Assessment and Plan: On Norvasc Additional Plan DVT prophylaxis - Lovenox Stress ulcer prophylaxis - PPI Nutrition -continue tube feeds, MiraLax, docusate and Reglan. Patient now awaits LTAC placement Code Status - Full Code Total Critical Care Time - 30 minutes Due to a high probability of clinically significant, life threatening deterioration, the patient required my highest level of preparedness to intervene emergently and I personally spent this critical care time directly and personally managing the patient. This critical care time included obtaining a history; examining the patient; pulse oximetry; ordering and review of studies; arranging urgent treatment with development of a management plan; evaluation of patient's response to treatment; frequent reassessment; and discussions with other providers. It was exclusive of separately billable procedures and treating other patients and teaching time. Please see Assessment and Plan section and the rest of the note for further information on patient assessment and treatment Subjective Date/time seen: 03/27/21 10:38 Overnight events reviewed. febrile overnight Continues to be on mechanical ventilation Interval history: 66-year-old gentleman who presented to the ED with shortness of breath, CT angio was negative for PE but had bilateral patchy alveolar ground-glass infiltrates CT a stress take of COVID-19 pneumoni
[2021-03-27 11:49] LABS: Glucose Point of Care 157 mg/dl (65-105)
--- NOTE | 2021-03-27 13:48 | PCFNICU ---
ICU Rounding Note: Pt current nutrition is Vital AF 1.2 at 75 ml/hr Last recorded weight is 125.5 kg. Bowel Motility:+BM reported 2/3 Labs Reviewed: Hgb 10.3,Hct 34.2,Alb 3.1, Cr 0.5 Meds Noted:Reglan,Versed,Xanax,Seroquel, Vit D,Ativan,Lantus,Vit C,Zocor,Lantus Skin:WNL Additional Notes: Spoke with nursing today, patient current with Trach and PEG. Tolerating tube feedings of Vital AF 1.2 at 75 ml/hr. 30 ml water flush q 4 hours. Agree with diet orders. Monitor pt. labs, medications, weight and tube feeding tolerance every Wednesday and Wednesday as well as daily in ICU rounds.
[2021-03-27 14:22] LABS: Add Urine Microscopic? YES; Appearance Urine Clear (Clear); Bilirubin Urine Negative (Negative); Blood Urine Negative (Negative); Color Urine Yellow (Yellow); Glucose Urine UA Negative (Negative); Ketones Urine Negative (Negative); Leukocyte Esterase Ur Negative LEU/UL (Negative); Mucus Urine Rare /lpf; Nitrate Urine Negative (Negative); Protein Urine 1+ mg/dL (Negative); Squamous Epithelial Cell Urine Rare /hpf (Few); WBC Urine 0-3 /hpf
[2021-03-27 17:33] LABS: Glucose Point of Care 135 mg/dl (65-105)
[2021-03-27] MEDS: SODIUM CHLORIDE NASAL GEL 14.1 GM 1 APPLIC NASAL (21:57)
[2021-03-27] MEDS: LORazepam INJ (*CRX) 2 MG/ML VIAL IV PUSH (22:05)
[2021-03-28] VITALS (51 sets, daily range): BP systolic 108–142; BP diastolic 54–68; PULSE 83–122; RESP 30–51; TEMP 37.5–38.9; O2SAT 91–100
[2021-03-28 00:01] LABS: Glucose Point of Care 143 mg/dl (65-105)
[2021-03-28] MEDS: CENTRAL LINE FLUSH 10 ML IV PUSH ×3 (00:01→13:18)
[2021-03-28] MEDS: ACETAMINOPHEN ELIXIR 325 MG/10.15 ML UDC 650 MG FEED TUBE ×2 (00:31→13:18)
[2021-03-28 05:40] LABS: Hemoglobin 9.4 g/dL (14.0-18.0); Mean Corpuscular HGB Conc 29.4 g/dl (32-36); Mean Corpuscular Hemoglobin 29.7 pg (26-34); Mean Corpuscular Volume 101.3 fl (80-100); Mean Platelet Volume 9.5 fl (7.4-10.4); Platelet Count Result 249 k/mm3 (150-375); Red Blood Count 3.16 M/mm3 (4.6-6.20); Red Cell Distribution Width 15.1 % (11.5-14.5); White Blood Count 15.6 K/mm3 (4.5-10.0)
[2021-03-28 05:48] LABS: Alanine Aminotransferase 25 U/L (4-50); Albumin Level 2.9 g/dL (3.5-5.1); Alkaline Phosphatase 98 U/L (38-126); Anion Gap 1 mmol/L (8-16); Aspartate Amino Transferase 29 U/L (17-59); Bilirubin,Total 0.5 mg/dL (0.2-1.3); Blood Urea Nitrogen 22 mg/dL (9-20); Calcium 8.3 mg/dL (8.4-10.2); Carbon Dioxide 36 mmol/L (22-30); Chloride 100 mmol/L (98-107); Estimated CRCL calculation 145 ml/min; Estimated Glomerular Filt Rate > 60; Glucose 179 mg/dL (65-110); Magnesium 2.1 mg/dL (1.6-2.3); Phosphorus 4.4 mg/dL (2.5-4.5); Potassium 4.2 mmol/L (3.4-5.0); Sodium 137 mmol/L (137-145)
[2021-03-28 06:11] LABS: Alveolar/Arterial O2 Gradient 277.7 mmHg; Base Excess ABG 7.9 mEq/l (+/-2.0); Carboxyhemoglobin 1.1 % THb (0-2.0); Fractional Inspired Oxygen 60 %; HCO3 ABG 36.4 mEq/l (22.0-26.0); Methemoglobin ABG 0.3 %THb (0-1.5); Oxygen Content ABG 17.3 %vol (16.0-22.0); Oxyhemoglobin 91.9 % THb (90.0-100.0); PO2 ABG 72.6 mmHg (80.0-100.0); PO2 FiO2 Ratio Arterial Blood 1.21 %; Reduced Hemoglobin 6.7 %THb (0-5.0); Total Hemoglobin 13.4 g/dL (12.0-18.0); pH ABG 7.331 (7.350-7.450)
[2021-03-28 06:12] LABS: Device VENTILATOR; Modified Allen's Test Pass; PCO2 ABG 70.5 mmHg (35.0-45.0); Site Drawn LEFT RADIAL
[2021-03-28 06:13] LABS: Arterial Blood Gas PEEP 10 cmH2O; Arterial Blood Gas Tidal Volume 420 ml; Arterial Blood Gas Vent Mode CMV; Arterial Blood Gas Ventilator rate 28 /MIN
[2021-03-28 06:39] LABS: Anisocytosis 2+ (NORMAL); Band Neutrophils Percent 41 % (0-6); Hypochromasia 1+ (NORMAL); Lymphocytes Absolute Manual 0.93 K/mm3 (1.1-4.5); Monocytes Absolute Manual 0.78 K/mm3 (0.1-0.90); Monocytes Percent Manual 5 % (3-9); Neutrophils Absolute Manual 13.88 K/mm3 (1.3-6.7); Neutrophils Percent Manual 48 % (46-73); Platelet Estimate Adequate (Adequate); Total Cells Counted 100
[2021-03-28] MEDS: METOCLOPRAMIDE HCL 10 MG/10 ML SOLN UDC PO ×3 (07:09→18:19)
[2021-03-28] MEDS: ENOXAPARIN 40 MG/0.4 ML SYRINGE SUB-Q (09:49)
[2021-03-28] MEDS: ALPRAZolam (*CRX) 0.5 MG TABLET PO ×3 (09:50→18:19)
[2021-03-28] MEDS: amLODIPine BESYLATE 2.5 MG, amLODIPine BESYLATE 5 MG 7.5 MG PO (09:50)
[2021-03-28] MEDS: CHOLECALCIFEROL 1,000 UNITS TABLET 1000 UNITS PO (09:50)
[2021-03-28] MEDS: ASPIRIN 81 MG CHEWABLE TABLET PO (09:50)
[2021-03-28] MEDS: ASCORBIC ACID 500 MG TABLET PO (09:50)
[2021-03-28] MEDS: MINERAL OIL/WHITE PETROLATUM OINTMENT 1 APPLIC EACH EYE ×2 (09:51→21:51)
[2021-03-28] MEDS: LANSOPRAZOLE ORAL SUSP 30 MG/10 ML ORAL.SUSP FEED TUBE (09:52)
[2021-03-28] MEDS: INSULIN GLARGINE (*BKC) 100 UNITS/ML 25 UNITS SUB-Q (09:53)
--- NOTE | 2021-03-28 10:12 | WPDINTPN ---
Progress Note: A&P Assessment and Plan (1) Acute respiratory failure with hypoxia: Code(s): J96.01 - Acute respiratory failure with hypoxia Status: Acute Assessment and Plan: Acute Respiratory failure secondary to COVID-19 pneumonia 03/09/2021 patient was emergently intubated and placed on mechanical ventilation Chest x-ray and ABGs reviewed, change back to CMV mode and continue PEEP of 10 and 55% FiO2, wean FiO2 to maintain O2 sats greater than 92% Off continue sedation and he patient is fairly tachypneic. I am trying to avoid further sedatives and tolerate some tachypnea. patient does get a synchronous with the ventilator and his ABGs worse with hypercarbia. I have switched him back to CMV. will tolerate permissive hypercapnia as long his pH is above 7.3 -not a candidate for weaning trial -continue Seroquel and continue Xanax -p.r.n. Ativan -02/17/2022: TRACHEOSTOMY AND PEG TUBE placed Continue full mechanical ventilation support to prevent hypoxemia/hypercarbia and end organ damage. Patient's serial CT scans from 02/21 to now show progression of his COVID pneumonia and worsening of CT scan despite treatment (2) Pneumonia due to COVID-19 virus: Code(s): U07.1 - COVID-19; J12.82 - Pneumonia due to coronavirus disease 2018 Status: Acute Assessment and Plan: Patient tested positive for COVID-19 on 02/20/21 and initially was on room air. Patient 1st required oxygen on 02/25/2021 and has per had progressive hypoxemic respiratory failure since then, failing airflow high-flow nasal cannula and noninvasive ventilation and requiring intubation on 03/09/2021. He was started on Remdesivir 02/11 and completed 10 days. Status post complete course of dexamethasone Completed Baricitinib for total of 14 days His CRP is down to 1.7 Off zinc sulfate and vitamin-C now (3) Fever: Code(s): R50.9 - Fever, unspecified Status: Acute Assessment and Plan: Fever with increase in WBC 2/3 repeat sputum and blood cultures were sent, Shaikh was changed, UA and culture were sent, right IJ central venous catheter was removed patient was started on vancomycin and cefepime lipase was elevated at 452 UA was negative chest x-ray shows stable diffuse lung disease but patient is having thick yellow secretions coming out of his trach. check procalcitonin check lower extremity Dopplers to rule out DVT (4) History of hyperlipidemia: Code(s): Z86.39 - Personal history of other endocrine, nutritional and metabolic disease Status: Inactive Assessment and Plan: on Zocor (5) Hyponatremia: Code(s): E87.1 - Hypo-osmolality and hyponatremia Status: Acute Assessment and Plan: Improving, continue flushes with normal saline Treat hyperglycemia (6) Hyperglycemia: Code(s): R73.9 - Hyperglycemia, unspecified Status: Acute Assessment and Plan: Continue sliding scale and Lantus (7) Essential hypertension: Code(s): I10 - Essential (primary) hypertension Status: Acute Assessment and Plan: On Norvasc Additional Plan DVT prophylaxis - Lovenox Stress ulcer prophylaxis - PPI Nutrition -continue tube feeds, MiraLax, docusate and Reglan. Patient now awaits LTAC placement Code Status - Full Code Total Critical Care Time - 32 minutes Due to a high probability of clinically significant, life threatening deterioration, the patient required my highest level of preparedness to intervene emergently and I personally spent this critical care time directly and personally managing the patient. This critical care time included obtaining a history; examining the patient; pulse oximetry; ordering and review of studies; arranging urgent treatment with development of a management plan; evaluation of patient's response to treatment; frequent reassessment; and discussions with other providers. It was exclusive of separately billable proce
[2021-03-28 11:32] LABS: Procalcitonin 4.7 ng/mL
[2021-03-28] MEDS: DOCUSATE SODIUM LIQ 100 MG/10 ML UDC FEED TUBE ×2 (11:59→21:52)
[2021-03-28] MEDS: SIMVASTATIN 20 MG TABLET PO (12:00)
[2021-03-28] MEDS: polyethylene glycoL 3350 17 GM POWD.PACK PO (12:00)
[2021-03-28] MEDS: QUEtiapine FUMARATE 25 MG TABLET 50 MG PO ×2 (12:00→21:53)
--- NOTE | 2021-03-28 12:19 | PCNFU ---
Nutrition Follow-Up Complete: Inadequate oral intake related to mechanical ventilation as evidenced by need for advanced nutrition support. Goal: Pt. to meet estimated nutritional needs. patient is progressing towards goal. We will continue current goal. Pt current nutrition is Vital AF 1.2 at 75 ml/hr over 22 hours. Last recorded weight is 125.5 kg, down from 130.7 kg on admit. Bowel Motility:+BM reported 2/4 Labs Reviewed:Glu 179, BUN 22, Cr 0.6,Alb 2.9,Hct 32.0,Hgb 9.4 Meds Noted:Reglan, Colace, Lantus, Xanax,Vit C, Vit C, Lovenox, Miralax, Seroquel, Zocor. Skin: WNL Additional Notes: Patient current with PEG/Trach. Tube feedings of Vital AF 1.2 at 75 ml/hr and tolerating per nursing. Current tube feeding providing 1980 kcals/124 gm protein/ 1338 ml water. Free water flush 60 ml q 4 hours. Agree with diet orders. Monitoring: labs, medications, weight and tube feeding tolerance every Wednesday and Wednesday as well as daily in ICU rounds.
[2021-03-28 12:46] LABS: Glucose Point of Care 141 mg/dl (65-105)
[2021-03-28 17:07] LABS: Glucose Point of Care 136 mg/dl (65-105)
[2021-03-28] MEDS: SODIUM CHLORIDE NASAL GEL 14.1 GM 1 APPLIC NASAL (21:53)
[2021-03-29] VITALS (24 sets, daily range): BP systolic 97–132; BP diastolic 53–66; PULSE 79–119; RESP 29–36; TEMP 36.1–37.4; O2SAT 90–99
[2021-03-29] MEDS: METOCLOPRAMIDE HCL 10 MG/10 ML SOLN UDC PO ×3 (01:48→17:26)
[2021-03-29 01:55] LABS: Glucose Point of Care 125 mg/dl (65-105)
[2021-03-29 05:05] LABS: Alveolar/Arterial O2 Gradient 226.2 mmHg; Base Excess ABG 9.1 mEq/l (+/-2.0); Carboxyhemoglobin 1.1 % THb (0-2.0); Fractional Inspired Oxygen 50 %; Methemoglobin ABG 0.3 %THb (0-1.5); Oxygen Content ABG 12.7 %vol (16.0-22.0); Oxygen Saturation ABG 93.5 % (95.0-100.0); PCO2 ABG 55.3 mmHg (35.0-45.0); PO2 ABG 68.1 mmHg (80.0-100.0); PO2 FiO2 Ratio Arterial Blood 1.36 %; Reduced Hemoglobin 6.6 %THb (0-5.0); Total Hemoglobin 9.8 g/dL (12.0-18.0); pH ABG 7.419 (7.350-7.450)
[2021-03-29 05:06] LABS: Arterial Blood Gas PEEP 10 cmH2O; Arterial Blood Gas Tidal Volume 420 ml; Arterial Blood Gas Vent Mode CMV; Arterial Blood Gas Ventilator rate 28 /MIN; Device VENTILATOR; Modified Allen's Test Pass; Site Drawn LEFT RADIAL
[2021-03-29 07:47] LABS: Alanine Aminotransferase 25 U/L (4-50); Albumin Level 2.9 g/dL (3.5-5.1); Alkaline Phosphatase 103 U/L (38-126); Anion Gap 1 mmol/L (8-16); Aspartate Amino Transferase 27 U/L (17-59); Bilirubin,Total 0.3 mg/dL (0.2-1.3); Blood Urea Nitrogen 22 mg/dL (9-20); Calcium 8.6 mg/dL (8.4-10.2); Carbon Dioxide 36 mmol/L (22-30); Chloride 101 mmol/L (98-107); Estimated CRCL calculation 171 ml/min; Estimated Glomerular Filt Rate > 60; Glucose 130 mg/dL (65-110); Magnesium 2.4 mg/dL (1.6-2.3); Potassium 3.6 mmol/L (3.4-5.0); Sodium 138 mmol/L (137-145)
[2021-03-29 07:48] LABS: Hematocrit 31.2 % (42.0-52.0); Hemoglobin 9.2 g/dL (14.0-18.0); Mean Corpuscular HGB Conc 29.5 g/dl (32-36); Mean Corpuscular Hemoglobin 30.5 pg (26-34); Mean Corpuscular Volume 103.3 fl (80-100); Mean Platelet Volume 9.6 fl (7.4-10.4); Platelet Count Result 240 k/mm3 (150-375); Red Blood Count 3.02 M/mm3 (4.6-6.20); White Blood Count 10.4 K/mm3 (4.5-10.0)
[2021-03-29] MEDS: LANSOPRAZOLE ORAL SUSP 30 MG/10 ML ORAL.SUSP FEED TUBE (09:34)
[2021-03-29] MEDS: ALPRAZolam (*CRX) 0.5 MG TABLET PO ×3 (09:34→17:26)
[2021-03-29] MEDS: polyethylene glycoL 3350 17 GM POWD.PACK PO (09:34)
[2021-03-29] MEDS: ENOXAPARIN 40 MG/0.4 ML SYRINGE SUB-Q (09:36)
[2021-03-29] MEDS: CHOLECALCIFEROL 1,000 UNITS TABLET 1000 UNITS PO (09:36)
[2021-03-29] MEDS: SIMVASTATIN 20 MG TABLET PO (09:37)
[2021-03-29] MEDS: QUEtiapine FUMARATE 25 MG TABLET 50 MG PO ×2 (09:37→20:13)
[2021-03-29] MEDS: ASPIRIN 81 MG CHEWABLE TABLET PO (09:37)
[2021-03-29] MEDS: MINERAL OIL/WHITE PETROLATUM OINTMENT 1 APPLIC EACH EYE ×2 (09:38→20:12)
[2021-03-29] MEDS: ASCORBIC ACID 500 MG TABLET PO (09:38)
[2021-03-29] MEDS: DOCUSATE SODIUM LIQ 100 MG/10 ML UDC FEED TUBE ×2 (09:38→20:13)
[2021-03-29] MEDS: amLODIPine BESYLATE 2.5 MG, amLODIPine BESYLATE 5 MG 7.5 MG PO (09:38)
[2021-03-29] MEDS: INSULIN GLARGINE (*BKC) 100 UNITS/ML 25 UNITS SUB-Q (09:39)
[2021-03-29 10:06] LABS: Glucose Point of Care 87 mg/dl (65-105)
--- NOTE | 2021-03-29 10:49 | WPDINTPN ---
Progress Note: A&P Assessment and Plan (1) Acute respiratory failure with hypoxia: Code(s): J96.01 - Acute respiratory failure with hypoxia Status: Acute Assessment and Plan: Acute Respiratory failure secondary to COVID-19 pneumonia 03/09/2021 patient was emergently intubated and placed on mechanical ventilation Chest x-ray and ABGs reviewed, continue in CMV mode and continue PEEP of 10 and 55% FiO2, wean FiO2 to maintain O2 sats greater than 92% Off continue sedation and he he gets fairly tachypneic. I am trying to avoid further sedatives and tolerate some tachypnea. patient does get asynchronous with the ventilator and his ABGs worse with hypercarbia on SIMV. I have switched him back to CMV. will tolerate permissive hypercapnia as long his pH is above 7.3 -not a candidate for weaning trial -continue Seroquel and continue Xanax -p.r.n. Ativan -02/17/2022: TRACHEOSTOMY AND PEG TUBE placed Continue full mechanical ventilation support to prevent hypoxemia/hypercarbia and end organ damage. Patient's serial CT scans from 02/21 to now show progression of his COVID pneumonia and worsening of CT scan despite treatment (2) Pneumonia due to COVID-19 virus: Code(s): U07.1 - COVID-19; J12.82 - Pneumonia due to coronavirus disease 2018 Status: Acute Assessment and Plan: Patient tested positive for COVID-19 on 02/20/21 and initially was on room air. Patient 1st required oxygen on 02/25/2021 and has per had progressive hypoxemic respiratory failure since then, failing airflow high-flow nasal cannula and noninvasive ventilation and requiring intubation on 03/09/2021. He was started on Remdesivir 02/11 and completed 10 days. Status post complete course of dexamethasone Completed Baricitinib for total of 14 days His CRP is down to 1.7 Off zinc sulfate and vitamin-C now (3) Fever: Code(s): R50.9 - Fever, unspecified Status: Acute Assessment and Plan: Fever with increase in WBC 2/3 repeat sputum and blood cultures were sent, Shaikh was changed, UA and culture were sent, right IJ central venous catheter was removed patient was started on vancomycin and cefepime lipase was elevated at 452 UA was negative chest x-ray shows stable diffuse lung disease but patient is having thick yellow secretions coming out of his trach. procalcitonin level elevated at 4.7 Negative lower extremity Dopplers to rule out DVT his fever curve is down and WBC has improved (4) History of hyperlipidemia: Code(s): Z86.39 - Personal history of other endocrine, nutritional and metabolic disease Status: Inactive Assessment and Plan: on Zocor (5) Hyponatremia: Code(s): E87.1 - Hypo-osmolality and hyponatremia Status: Acute Assessment and Plan: Improving, continue flushes with normal saline Treat hyperglycemia (6) Hyperglycemia: Code(s): R73.9 - Hyperglycemia, unspecified Status: Acute Assessment and Plan: Continue sliding scale and Lantus (7) Essential hypertension: Code(s): I10 - Essential (primary) hypertension Status: Acute Assessment and Plan: On Norvasc Additional Plan DVT prophylaxis - Lovenox Stress ulcer prophylaxis - PPI Nutrition -continue tube feeds, MiraLax, docusate and Reglan. Patient now awaits LTAC placement Code Status - Full Code Total Critical Care Time - 30 minutes Due to a high probability of clinically significant, life threatening deterioration, the patient required my highest level of preparedness to intervene emergently and I personally spent this critical care time directly and personally managing the patient. This critical care time included obtaining a history; examining the patient; pulse oximetry; ordering and review of studies; arranging urgent treatment with development of a management plan; evaluation of patient's response to treatment; frequent reassessment; and discussions wi
[2021-03-29] MEDS: LORazepam INJ (*CRX) 2 MG/ML VIAL 4 MG IV PUSH ×3 (10:54→20:13)
[2021-03-29 12:36] LABS: Glucose Point of Care 132 mg/dl (65-105)
--- NOTE | 2021-03-29 12:38 | PM.IMPN ---
Progress Note: A&P Assessment and Plan (1) Acute respiratory failure with hypoxia: Code(s): J96.01 - Acute respiratory failure with hypoxia Status: Acute Assessment and Plan: Acute Respiratory failure secondary to COVID-19 pneumonia 03/09/2021 patient was emergently intubated and placed on mechanical ventilation Chest x-ray and ABGs reviewed, continue in CMV mode and continue PEEP of 10 and 55% FiO2, wean FiO2 to maintain O2 sats greater than 92% Off continue sedation and he he gets fairly tachypneic. I am trying to avoid further sedatives and tolerate some tachypnea. patient does get asynchronous with the ventilator and his ABGs worse with hypercarbia on SIMV. I have switched him back to CMV. will tolerate permissive hypercapnia as long his pH is above 7.3 -not a candidate for weaning trial -continue Seroquel and continue Xanax -p.r.n. Ativan -02/17/2022: TRACHEOSTOMY AND PEG TUBE placed Continue full mechanical ventilation support to prevent hypoxemia/hypercarbia and end organ damage. Patient's serial CT scans from 02/21 to now show progression of his COVID pneumonia and worsening of CT scan despite treatment (2) Pneumonia due to COVID-19 virus: Code(s): U07.1 - COVID-19; J12.82 - Pneumonia due to coronavirus disease 2018 Status: Acute Assessment and Plan: Patient tested positive for COVID-19 on 02/20/21 and initially was on room air. Patient 1st required oxygen on 02/25/2021 and has per had progressive hypoxemic respiratory failure since then, failing airflow high-flow nasal cannula and noninvasive ventilation and requiring intubation on 03/09/2021. He was started on Remdesivir 02/11 and completed 10 days. Status post complete course of dexamethasone Completed Baricitinib for total of 14 days His CRP is down to 1.7 Off zinc sulfate and vitamin-C now (3) Fever: Code(s): R50.9 - Fever, unspecified Status: Acute Assessment and Plan: Fever with increase in WBC 2/3 repeat sputum and blood cultures were sent, Shaikh was changed, UA and culture were sent, right IJ central venous catheter was removed patient was started on vancomycin and cefepime lipase was elevated at 452 UA was negative chest x-ray shows stable diffuse lung disease but patient is having thick yellow secretions coming out of his trach. procalcitonin level elevated at 4.7 Negative lower extremity Dopplers to rule out DVT his fever curve is down and WBC has improved (4) History of hyperlipidemia: Code(s): Z86.39 - Personal history of other endocrine, nutritional and metabolic disease Status: Inactive Assessment and Plan: on Zocor (5) Hyponatremia: Code(s): E87.1 - Hypo-osmolality and hyponatremia Status: Acute Assessment and Plan: Improving, continue flushes with normal saline Treat hyperglycemia (6) Hyperglycemia: Code(s): R73.9 - Hyperglycemia, unspecified Status: Acute Assessment and Plan: Continue sliding scale and Lantus (7) Essential hypertension: Code(s): I10 - Essential (primary) hypertension Status: Acute Assessment and Plan: On Norvasc Additional Plan 03/29/2021 Plan is to continue current plan of care and treatment. Provided PEG and trach care. Monitor labs closely with Subjective Date/time seen: 03/29/21 12:38 Patient was seen during the morning rounds today. No new overnight complaints. 66-year-old gentleman who presented to the ED with shortness of breath, CT angio was negative for PE but had bilateral patchy alveolar ground-glass infiltrates CT a stress take of COVID-19 pneumonia. Patient was initially on room air from 02/21/2021 to 02/25/2021 after which he started requiring nasal cannula, thereafter he was on Airvo on BiPAP after which she failed and was intubated on 03/09/2021. 03/20/2021: Tracheostomy and PEG tube was placed. Review of Systems Review of Systems: All [employer]
[2021-03-29] MEDS: POTASSIUM CHLORIDE 20 MEQ PACKET (FOR LIQUID) 40 MEQ FEED TUBE (13:24)
[2021-03-29 18:23] LABS: Glucose Point of Care 109 mg/dl (65-105)
[2021-03-29] MEDS: SODIUM CHLORIDE NASAL GEL 14.1 GM 1 APPLIC NASAL (20:13)
[2021-03-30] VITALS (22 sets, daily range): BP systolic 104–141; BP diastolic 55–72; PULSE 90–119; RESP 27–39; TEMP 37–37.5; O2SAT 91–100
[2021-03-30 00:12] LABS: Glucose Point of Care 122 mg/dl (65-105)
[2021-03-30] MEDS: METOCLOPRAMIDE HCL 10 MG/10 ML SOLN UDC PO ×2 (00:20→06:12)
[2021-03-30 05:57] LABS: Hematocrit 31.8 % (42.0-52.0); Hemoglobin 9.2 g/dL (14.0-18.0); Mean Corpuscular HGB Conc 28.9 g/dl (32-36); Mean Corpuscular Volume 103.6 fl (80-100); Mean Platelet Volume 9.7 fl (7.4-10.4); Platelet Count Result 278 k/mm3 (150-375); Red Blood Count 3.07 M/mm3 (4.6-6.20); Red Cell Distribution Width 15.3 % (11.5-14.5); White Blood Count 9.1 K/mm3 (4.5-10.0)
[2021-03-30 06:00] LABS: Alveolar/Arterial O2 Gradient 284.9 mmHg; Carboxyhemoglobin 0.4 % THb (0-2.0); Fractional Inspired Oxygen 60 %; HCO3 ABG 36.8 mEq/l (22.0-26.0); Methemoglobin ABG 0.3 %THb (0-1.5); Oxygen Content ABG 11.4 %vol (16.0-22.0); Oxygen Saturation ABG 95.6 % (95.0-100.0); Oxyhemoglobin 94.4 % THb (90.0-100.0); PCO2 ABG 58.1 mmHg (35.0-45.0); PO2 FiO2 Ratio Arterial Blood 1.32 %; Reduced Hemoglobin 4.9 %THb (0-5.0); Total Hemoglobin 8.5 g/dL (12.0-18.0)
[2021-03-30 06:01] LABS: Device VENTILATOR; Modified Allen's Test Pass; Site Drawn RIGHT RADIAL
[2021-03-30 06:02] LABS: Arterial Blood Gas PEEP 10 cmH2O; Arterial Blood Gas Tidal Volume 420 ml; Arterial Blood Gas Vent Mode CMV; Arterial Blood Gas Ventilator rate 28 /MIN
[2021-03-30] MEDS: LANSOPRAZOLE ORAL SUSP 30 MG/10 ML ORAL.SUSP FEED TUBE (06:12)
[2021-03-30 06:25] LABS: Alanine Aminotransferase 42 U/L (4-50); Albumin Level 2.9 g/dL (3.5-5.1); Alkaline Phosphatase 99 U/L (38-126); Anion Gap 2 mmol/L (8-16); Aspartate Amino Transferase 42 U/L (17-59); Bilirubin,Total 0.3 mg/dL (0.2-1.3); Blood Urea Nitrogen 20 mg/dL (9-20); Calcium 8.7 mg/dL (8.4-10.2); Carbon Dioxide 34 mmol/L (22-30); Chloride 102 mmol/L (98-107); Estimated CRCL calculation 208 ml/min; Estimated Glomerular Filt Rate > 60; Glucose 138 mg/dL (65-110); Magnesium 2.4 mg/dL (1.6-2.3); Sodium 138 mmol/L (137-145)
[2021-03-30 06:36] LABS: Glucose Point of Care 125 mg/dl (65-105)
--- NOTE | 2021-03-30 08:50 | P.PNINT_ITS ---
Progress Note: A&P Assessment and Plan (1) Acute respiratory failure with hypoxia: Code(s): J96.01 - Acute respiratory failure with hypoxia Status: Acute Assessment and Plan: Acute Respiratory failure secondary to COVID-19 pneumonia 03/09/2021 patient was emergently intubated and placed on mechanical ventilation Chest x-ray and ABGs reviewed, continue in CMV mode and continue PEEP of 10 and 55% FiO2, wean FiO2 to maintain O2 sats greater than 92% Off continue sedation and he he gets fairly tachypneic. I am trying to avoid further sedatives and tolerate some tachypnea. patient does get asynchronous with the ventilator and his ABGs worse with hypercarbia on SIMV. I have switched him back to CMV. will tolerate permissive hypercapnia as long his pH is above 7.3 -not a candidate for weaning trial -continue Seroquel and continue Xanax -p.r.n. Ativan -02/17/2022: TRACHEOSTOMY AND PEG TUBE placed Continue full mechanical ventilation support to prevent hypoxemia/hypercarbia and end organ damage. Patient's serial CT scans from 02/21 to now show progression of his COVID pneumonia and worsening of CT scan despite treatment (2) Pneumonia due to COVID-19 virus: Code(s): U07.1 - COVID-19; J12.82 - Pneumonia due to coronavirus disease 2018 Status: Acute Assessment and Plan: Patient tested positive for COVID-19 on 02/20/21 and initially was on room air. Patient 1st required oxygen on 02/25/2021 and has per had progressive hypoxemic respiratory failure since then, failing airflow high-flow nasal cannula and noninvasive ventilation and requiring intubation on 03/09/2021. He was started on Remdesivir 02/11 and completed 10 days. Status post complete course of dexamethasone Completed Baricitinib for total of 14 days His CRP is down to 1.7 Off zinc sulfate and vitamin-C now (3) Fever: Code(s): R50.9 - Fever, unspecified Status: Acute Assessment and Plan: Fever with increase in WBC 2/3 repeat sputum and blood cultures were sent, Shaikh was changed, UA and culture were sent, right IJ central venous catheter was removed patient was started on vancomycin and cefepime lipase was elevated at 452 UA was negative chest x-ray shows stable diffuse lung disease but patient is having thick yellow secretions coming out of his trach. procalcitonin level elevated at 4.7 Negative lower extremity Dopplers to rule out DVT now he is afebrile and WBC has improved to normal level (4) History of hyperlipidemia: Code(s): Z86.39 - Personal history of other endocrine, nutritional and metabolic disease Status: Inactive Assessment and Plan: on Zocor (5) Hyponatremia: Code(s): E87.1 - Hypo-osmolality and hyponatremia Status: Acute Assessment and Plan: Improving, continue flushes with normal saline Treat hyperglycemia (6) Hyperglycemia: Code(s): R73.9 - Hyperglycemia, unspecified Status: Acute Assessment and Plan: Continue sliding scale and Lantus (7) Essential hypertension: Code(s): I10 - Essential (primary) hypertension Status: Acute Assessment and Plan: On Norvasc Additional Plan DVT prophylaxis - Lovenox Stress ulcer prophylaxis - PPI Nutrition -continue tube feeds, MiraLax, docusate and Reglan. Patient now awaits LTAC placement Code Status - Full Code Total Critical Care Time - 30 minutes Due to a high probability of clinically significant, life threatening deterioration, the patient required my highest level of preparedness to int
[2021-03-30] MEDS: ALPRAZolam (*CRX) 0.5 MG TABLET PO ×3 (09:12→17:40)
[2021-03-30] MEDS: ASPIRIN 81 MG CHEWABLE TABLET PO (09:12)
[2021-03-30] MEDS: amLODIPine BESYLATE 2.5 MG, amLODIPine BESYLATE 5 MG 7.5 MG PO (09:13)
[2021-03-30] MEDS: CHOLECALCIFEROL 1,000 UNITS TABLET 1000 UNITS PO (09:13)
[2021-03-30] MEDS: MINERAL OIL/WHITE PETROLATUM OINTMENT 1 APPLIC EACH EYE ×2 (09:13→20:08)
[2021-03-30] MEDS: QUEtiapine FUMARATE 25 MG TABLET 50 MG PO ×2 (09:14→20:08)
[2021-03-30] MEDS: INSULIN GLARGINE (*BKC) 100 UNITS/ML 25 UNITS SUB-Q (09:14)
[2021-03-30] MEDS: DOCUSATE SODIUM LIQ 100 MG/10 ML UDC FEED TUBE (09:14)
[2021-03-30] MEDS: ENOXAPARIN 40 MG/0.4 ML SYRINGE SUB-Q (09:14)
[2021-03-30] MEDS: polyethylene glycoL 3350 17 GM POWD.PACK PO (09:14)
[2021-03-30] MEDS: ASCORBIC ACID 500 MG TABLET PO (09:14)
[2021-03-30] MEDS: SIMVASTATIN 20 MG TABLET PO (09:15)
--- NOTE | 2021-03-30 11:16 | PM.IMPN ---
Progress Note: A&P Assessment and Plan (1) Acute respiratory failure with hypoxia: Code(s): J96.01 - Acute respiratory failure with hypoxia Status: Acute Assessment and Plan: Acute Respiratory failure secondary to COVID-19 pneumonia 03/09/2021 patient was emergently intubated and placed on mechanical ventilation Chest x-ray and ABGs reviewed, continue in CMV mode and continue PEEP of 10 and 55% FiO2, wean FiO2 to maintain O2 sats greater than 92% Off continue sedation and he he gets fairly tachypneic. I am trying to avoid further sedatives and tolerate some tachypnea. patient does get asynchronous with the ventilator and his ABGs worse with hypercarbia on SIMV. I have switched him back to CMV. will tolerate permissive hypercapnia as long his pH is above 7.3 -not a candidate for weaning trial -continue Seroquel and continue Xanax -p.r.n. Ativan -02/17/2022: TRACHEOSTOMY AND PEG TUBE placed Continue full mechanical ventilation support to prevent hypoxemia/hypercarbia and end organ damage. Patient's serial CT scans from 02/21 to now show progression of his COVID pneumonia and worsening of CT scan despite treatment (2) Pneumonia due to COVID-19 virus: Code(s): U07.1 - COVID-19; J12.82 - Pneumonia due to coronavirus disease 2018 Status: Acute Assessment and Plan: Patient tested positive for COVID-19 on 02/20/21 and initially was on room air. Patient 1st required oxygen on 02/25/2021 and has per had progressive hypoxemic respiratory failure since then, failing airflow high-flow nasal cannula and noninvasive ventilation and requiring intubation on 03/09/2021. He was started on Remdesivir 02/11 and completed 10 days. Status post complete course of dexamethasone Completed Baricitinib for total of 14 days His CRP is down to 1.7 Off zinc sulfate and vitamin-C now (3) Fever: Code(s): R50.9 - Fever, unspecified Status: Acute Assessment and Plan: Fever with increase in WBC 2/3 repeat sputum and blood cultures were sent, Shaikh was changed, UA and culture were sent, right IJ central venous catheter was removed patient was started on vancomycin and cefepime lipase was elevated at 452 UA was negative chest x-ray shows stable diffuse lung disease but patient is having thick yellow secretions coming out of his trach. procalcitonin level elevated at 4.7 Negative lower extremity Dopplers to rule out DVT now he is afebrile and WBC has improved to normal level (4) History of hyperlipidemia: Code(s): Z86.39 - Personal history of other endocrine, nutritional and metabolic disease Status: Inactive Assessment and Plan: on Zocor (5) Hyponatremia: Code(s): E87.1 - Hypo-osmolality and hyponatremia Status: Acute Assessment and Plan: Improving, continue flushes with normal saline Treat hyperglycemia (6) Hyperglycemia: Code(s): R73.9 - Hyperglycemia, unspecified Status: Acute Assessment and Plan: Continue sliding scale and Lantus (7) Essential hypertension: Code(s): I10 - Essential (primary) hypertension Status: Acute Assessment and Plan: On Norvasc Additional Plan 03/30/2021 Plan is to continue current plan of care and treatment Monitor electrolytes, oxygen chest x-ray. pitch worker for placement. Subjective Date/time seen: 03/30/21 11:16 Patient was seen during the morning rounds today. No new overnight complaints Trach and PEG function ok. Mild shortness of breath no chest pain. Review of Systems Review of Systems: All systems reviewed & are unremarkable except as noted in HPI and below ROS unobtainable: Yes unobtainable due to endotracheal tube, unobtainable due to medical condition and unobtainable due to mental status Exam Narrative: General: Pt is sedated, on mechanical ventilation. Supine position Lungs/Chest: Trachea central Coarse BS B/L, No crackles or wheezing. Trac
[2021-03-30 12:50] LABS: Glucose Point of Care 113 mg/dl (65-105)
[2021-03-30] MEDS: LORazepam INJ (*CRX) 2 MG/ML VIAL IV PUSH ×2 (15:52→20:08)
[2021-03-30 17:44] LABS: Glucose Point of Care 127 mg/dl (65-105)
[2021-03-30] MEDS: SODIUM CHLORIDE NASAL GEL 14.1 GM 1 APPLIC NASAL (20:08)
[2021-03-31] VITALS (23 sets, daily range): BP systolic 99–150; BP diastolic 46–76; PULSE 88–115; RESP 25–38; TEMP 37.1–37.4; O2SAT 91–98
[2021-03-31 00:19] LABS: Glucose Point of Care 116 mg/dl (65-105)
[2021-03-31] MEDS: LORazepam INJ (*CRX) 2 MG/ML VIAL IV PUSH ×2 (04:21→20:17)
[2021-03-31] MEDS: LANSOPRAZOLE ORAL SUSP 30 MG/10 ML ORAL.SUSP FEED TUBE (06:11)
[2021-03-31 06:16] LABS: Glucose Point of Care 123 mg/dl (65-105)
[2021-03-31 06:40] LABS: Alveolar/Arterial O2 Gradient 274.7 mmHg; Base Excess ABG 5.7 mEq/l (+/-2.0); Carboxyhemoglobin 0.9 % THb (0-2.0); Fractional Inspired Oxygen 55 %; HCO3 ABG 31.5 mEq/l (22.0-26.0); Methemoglobin ABG 0.3 %THb (0-1.5); Oxygen Content ABG 15.2 %vol (16.0-22.0); Oxygen Saturation ABG 91.1 % (95.0-100.0); Oxyhemoglobin 89.5 % THb (90.0-100.0); PO2 ABG 60.7 mmHg (80.0-100.0); Reduced Hemoglobin 9.3 %THb (0-5.0); Total Hemoglobin 12.1 g/dL (12.0-18.0); pH ABG 7.408 (7.350-7.450)
[2021-03-31 06:42] LABS: Device VENTILATOR; Modified Allen's Test Pass; Site Drawn RIGHT RADIAL
[2021-03-31 06:43] LABS: Arterial Blood Gas PEEP 10 cmH2O; Arterial Blood Gas Tidal Volume 420 ml; Arterial Blood Gas Vent Mode CMV; Arterial Blood Gas Ventilator rate 28 /MIN
[2021-03-31] MEDS: ALPRAZolam (*CRX) 0.5 MG TABLET PO ×3 (09:32→16:58)
[2021-03-31] MEDS: ENOXAPARIN 40 MG/0.4 ML SYRINGE SUB-Q (09:33)
[2021-03-31] MEDS: ASPIRIN 81 MG CHEWABLE TABLET PO (09:33)
[2021-03-31] MEDS: INSULIN GLARGINE (*BKC) 100 UNITS/ML 25 UNITS SUB-Q (09:33)
[2021-03-31] MEDS: CHOLECALCIFEROL 1,000 UNITS TABLET 1000 UNITS PO (09:34)
[2021-03-31] MEDS: SIMVASTATIN 20 MG TABLET PO (09:35)
[2021-03-31] MEDS: ASCORBIC ACID 500 MG TABLET PO (09:35)
[2021-03-31] MEDS: QUEtiapine FUMARATE 25 MG TABLET 50 MG PO ×2 (09:35→20:19)
[2021-03-31] MEDS: amLODIPine BESYLATE 2.5 MG, amLODIPine BESYLATE 5 MG 7.5 MG PO (09:35)
[2021-03-31 09:45] LABS: Glucose Point of Care 136 mg/dl (65-105)
--- NOTE | 2021-03-31 10:15 | WPDINTPN ---
Progress Note: A&P Assessment and Plan (1) Acute respiratory failure with hypoxia: Code(s): J96.01 - Acute respiratory failure with hypoxia Status: Acute Assessment and Plan: Acute Respiratory failure secondary to COVID-19 pneumonia 03/09/2021 patient was emergently intubated and placed on mechanical ventilation Chest x-ray and ABGs reviewed, continue in CMV mode and continue PEEP of 10 and 55% FiO2, wean FiO2 to maintain O2 sats greater than 92% Off continue sedation and he he gets fairly tachypneic. I am trying to avoid further sedatives and tolerate some tachypnea. patient does get asynchronous with the ventilator and his ABGs worse with hypercarbia on SIMV. I have switched him back to CMV. will tolerate permissive hypercapnia as long his pH is above 7.3 -not a candidate for weaning trial due to tachypnea on CMV with increase rate on pressure support or SIMV -continue Seroquel and continue Xanax -p.r.n. Ativan -02/17/2022: TRACHEOSTOMY AND PEG TUBE placed Continue full mechanical ventilation support to prevent hypoxemia/hypercarbia and end organ damage. Patient's serial CT scans from 02/21 to now show progression of his COVID pneumonia and worsening of CT scan despite treatment (2) Pneumonia due to COVID-19 virus: Code(s): U07.1 - COVID-19; J12.82 - Pneumonia due to coronavirus disease 2019 Status: Acute Assessment and Plan: Patient tested positive for COVID-19 on 02/20/21 and initially was on room air. Patient 1st required oxygen on 02/25/2021 and has per had progressive hypoxemic respiratory failure since then, failing airflow high-flow nasal cannula and noninvasive ventilation and requiring intubation on 03/09/2021. He was started on Remdesivir 02/11 and completed 10 days. Status post complete course of dexamethasone Completed Baricitinib for total of 14 days His CRP is down to 1.7 Off zinc sulfate and vitamin-C now (3) Fever: Code(s): R50.9 - Fever, unspecified Status: Acute Assessment and Plan: Fever with increase in WBC 2/3 repeat sputum and blood cultures were sent, Shaikh was changed, UA and culture were sent, right IJ central venous catheter was removed patient was started on vancomycin and cefepime lipase was elevated at 452 UA was negative chest x-ray shows stable diffuse lung disease but patient is having thick yellow secretions coming out of his trach. procalcitonin level elevated at 4.7 Negative lower extremity Dopplers to rule out DVT now he is afebrile and WBC has improved to normal level (4) Hyponatremia: Code(s): E87.1 - Hypo-osmolality and hyponatremia Status: Acute Assessment and Plan: Improving, continue flushes with normal saline Treat hyperglycemia (5) Hyperglycemia: Code(s): R73.9 - Hyperglycemia, unspecified Status: Acute Assessment and Plan: Continue sliding scale and Lantus (6) Essential hypertension: Code(s): I10 - Essential (primary) hypertension Status: Acute Assessment and Plan: On Norvasc - increase dose to 10 and p.o. beta-lianet (7) Edema: Code(s): R60.9 - Edema, unspecified Status: Acute Assessment and Plan: will give a dose of Lasix today Additional Plan DVT prophylaxis - Lovenox Stress ulcer prophylaxis - PPI Nutrition -continue tube feeds, MiraLax, docusate and Reglan. Patient now awaits LTAC placement Code Status - Full Code Total Critical Care Time - 30 minutes Due to a high probability of clinically significant, life threatening deterioration, the patient required my highest level of preparedness to intervene emergently and I personally spent this critical care time directly and personally managing the patient. This critical care time included obtaining a history; examining the patient; pulse oximetry; ordering and review of studies; arranging urgent treatment with development of a management plan; evaluation of
[2021-03-31] MEDS: LORazepam INJ (*CRX) 2 MG/ML VIAL 4 MG IM (10:50)
[2021-03-31] MEDS: FUROSEMIDE INJ 40 MG/4 ML VIAL IV PUSH (10:57)
--- NOTE | 2021-03-31 10:57 | PM.IMPN ---
Progress Note: A&P Assessment and Plan (1) Acute respiratory failure with hypoxia: Code(s): J96.01 - Acute respiratory failure with hypoxia Status: Acute Assessment and Plan: Acute Respiratory failure secondary to COVID-19 pneumonia 03/09/2021 patient was emergently intubated and placed on mechanical ventilation Off continue sedation at this time. Continue Seroquel and Xanax -p.r.n. Ativan available. - Echo showing EF 65/70%, Grade I diastolic dysfunction, and moderate-severe pulm HTN -03/20/2021: Tracheostomy and PEG tube placed Continue full mechanical ventilation support (2) Pneumonia due to COVID-19 virus: Code(s): U07.1 - COVID-19; J12.82 - Pneumonia due to coronavirus disease 2018 Status: Acute Assessment and Plan: Patient tested positive for COVID-19 on 02/20/21. He had progressive hypoxemic respiratory failure requiring intubation on 03/09/2021. He completed Remdesivir, dexamethasone and Baricitinib. His CRP is down to 0.9. Off zinc sulfate and vitamin-C now. Continue supportive care. (3) Fever: Code(s): R50.9 - Fever, unspecified Status: Acute Assessment and Plan: Fever with increase in WBC 15K. Sputum collected 2/3 and was negative. Blood cultures collected 2/3 and no growth to date. Shaikh was changed. UA not consistent with UTI and did not prompt urine culture. Right IJ central venous catheter was removed. Lipase was elevated at 452 on 02/25/21. CXR today again showing diffuse bilateral airspace opacities. Procalcitonin elevated 4.7 on 03/28/2021. Bilateral lower extremity Dopplers negative for DVT. He is now afebrile and WBC has improved to normal level. Follow. (4) Hyponatremia: Code(s): E87.1 - Hypo-osmolality and hyponatremia Status: Acute Assessment and Plan: Sodium mostly in the low 130s but this has treated. Sodium normal now. Continue to Monitor. (5) Hyperglycemia: Code(s): R73.9 - Hyperglycemia, unspecified Status: Acute Assessment and Plan: The patient's blood glucose was reviewed on 03/31 Glucose remains well controlled. Continue AccuCheks covering with sliding scale. Hypoglycemia protocol available as needed. Continue Lantus. Check A1c (6) Essential hypertension: Code(s): I10 - Essential (primary) hypertension Status: Acute Assessment and Plan: Patient's blood pressure was reviewed on 03/31 Blood pressure noted. Norvasc increased to 10mg and Metoprolol added. Monitor closely. (7) Edema: Code(s): R60.9 - Edema, unspecified Status: Acute Assessment and Plan: Noted to have diffuse edema. [place] UE edema related to dependent edema given his weakness. Lasix ordered for today. (8) DVT prophylaxis: Code(s): Z29.9 - Encounter for prophylactic measures, unspecified Status: Acute Assessment and Plan: lovenox Subjective Date/time seen: 03/31/21 10:57 Interval history: 66yo man with neuropathy and HLD who presented to the ED on 02/21 with SOB and found to have COVID-19 pneumonia. Patient was intubated on 03/09/2021. Tracheostomy and PEG tube was placed 03/20/21. Assuming care. Chart reviewed. No issues overnight per nursing staff. Tolerating tube feedings. Review of Systems Review of Systems: ROS unobtainable: Yes unobtainable due to endotracheal tube Exam Narrative: AF 99.1 150/74 96 37 92% MV Gen - NARD Neck -tracheostomy in place secured in the midline; dressing is clean and dry Chest -lungs are coarse anteriorly. CV - RRR S1/S2. Telemetry showing no significant dysrhythmias Abd -soft. Nondistended. Positive bowel sounds. Peg tube in place and dressings clean and dry. Ext -diffuse edema with 1+ pitting bilateral pedal edema. 1+in the right 2+ left DP pulses. Neuro -patient awakens easily. Follows commands. Severe upper extremity weakness. Skin -right foot cool and dry. Objective Data Vital Signs
[2021-03-31 12:33] LABS: Hematocrit 34.4 % (42.0-52.0); Hemoglobin 10.2 g/dL (14.0-18.0); Mean Corpuscular HGB Conc 29.7 g/dl (32-36); Mean Corpuscular Hemoglobin 29.4 pg (26-34); Mean Corpuscular Volume 99.1 fl (80-100); Mean Platelet Volume 9.3 fl (7.4-10.4); Platelet Count Result 303 k/mm3 (150-375); Red Blood Count 3.47 M/mm3 (4.6-6.20); Red Cell Distribution Width 15.3 % (11.5-14.5); White Blood Count 13.6 K/mm3 (4.5-10.0)
[2021-03-31 12:39] LABS: Glucose Point of Care 129 mg/dl (65-105)
[2021-03-31] MEDS: ACETAMINOPHEN ELIXIR 325 MG/10.15 ML UDC 650 MG FEED TUBE (12:41)
[2021-03-31 12:50] LABS: Alanine Aminotransferase 44 U/L (4-50); Albumin Level 3.3 g/dL (3.5-5.1); Alkaline Phosphatase 109 U/L (38-126); Anion Gap 3 mmol/L (8-16); Aspartate Amino Transferase 39 U/L (17-59); Bilirubin,Total 0.3 mg/dL (0.2-1.3); Blood Urea Nitrogen 14 mg/dL (9-20); Calcium 8.8 mg/dL (8.4-10.2); Carbon Dioxide 35 mmol/L (22-30); Chloride 98 mmol/L (98-107); Estimated CRCL calculation 169 ml/min; Estimated Glomerular Filt Rate > 60; Glucose 140 mg/dL (65-110); Sodium 136 mmol/L (137-145)
--- NOTE | 2021-03-31 13:22 | PCFNICU ---
ICU Rounding Note: Pt current nutrition is Vital AF 1.2 at 75 ml/hr over 22 hours. Last recorded weight is 124 kg, down from 130.7 kg on admit. Bowel Motility: 2-Diarrhea reported. Labs Reviewed:Hgb 10.2,Hct 34.4,Na 136, Cr, 0.6,Glu 140 Meds Noted: Xanax, Vit C, Lovenox, Lantus, Prevacid, Zocor, Vit D Skin: WNL Additional Notes: Patient current with PEG and Trach. Tube feedings of Vital AF 1.2 at 75 ml/hr over 22 hours. Spoke with nursing today, patient is tolerating tube feedings. Reporting diarrhea. orders for Banatrol Plus today for stool bulking q 6 hours. Free water flush 60 ml q 4 hours. Agree with diet orders. Following daily in ICU rounds. Monitor pt. labs, medications, weight and tube feeding tolerance every Wednesday and Wednesday.
[2021-03-31 17:24] LABS: Glucose Point of Care 102 mg/dl (65-105)
[2021-03-31] MEDS: SODIUM CHLORIDE NASAL GEL 14.1 GM 1 APPLIC NASAL (20:17)
[2021-03-31] MEDS: MINERAL OIL/WHITE PETROLATUM OINTMENT 1 APPLIC EACH EYE (20:17)
[2021-03-31] MEDS: METOPROLOL TARTRATE 25 MG TABLET FEED TUBE (20:20)
[2021-04-01] VITALS (25 sets, daily range): BP systolic 117–136; BP diastolic 51–73; PULSE 90–106; RESP 28–35; TEMP 37.1–38.3; O2SAT 91–100
[2021-04-01] MEDS: LORazepam INJ (*CRX) 2 MG/ML VIAL IV PUSH ×4 (00:37→18:40)
[2021-04-01 00:46] LABS: Glucose Point of Care 139 mg/dl (65-105)
[2021-04-01] MEDS: LANSOPRAZOLE ORAL SUSP 30 MG/10 ML ORAL.SUSP FEED TUBE (03:26)
[2021-04-01 04:45] LABS: Alveolar/Arterial O2 Gradient 284.8 mmHg; Base Excess ABG 7.2 mEq/l (+/-2.0); Carboxyhemoglobin 0.7 % THb (0-2.0); Fractional Inspired Oxygen 60 %; HCO3 ABG 33.3 mEq/l (22.0-26.0); Methemoglobin ABG 0.3 %THb (0-1.5); Oxygen Content ABG 12.2 %vol (16.0-22.0); Oxygen Saturation ABG 95.6 % (95.0-100.0); Oxyhemoglobin 93.7 % THb (90.0-100.0); PCO2 ABG 56.5 mmHg (35.0-45.0); PO2 ABG 80.9 mmHg (80.0-100.0); PO2 FiO2 Ratio Arterial Blood 1.35 %; Reduced Hemoglobin 5.3 %THb (0-5.0); Total Hemoglobin 9.2 g/dL (12.0-18.0); pH ABG 7.388 (7.350-7.450)
[2021-04-01 04:47] LABS: Device VENTILATOR; Modified Allen's Test Pass; Site Drawn RIGHT RADIAL
[2021-04-01 04:48] LABS: Arterial Blood Gas PEEP 10 cmH2O; Arterial Blood Gas Tidal Volume 420 ml; Arterial Blood Gas Vent Mode CMV; Arterial Blood Gas Ventilator rate 28 /MIN
[2021-04-01 06:11] LABS: Hematocrit 34.1 % (42.0-52.0); Hemoglobin 10.2 g/dL (14.0-18.0); Mean Corpuscular HGB Conc 29.9 g/dl (32-36); Mean Corpuscular Hemoglobin 29.7 pg (26-34); Mean Corpuscular Volume 99.1 fl (80-100); Platelet Count Result 312 k/mm3 (150-375); Red Blood Count 3.44 M/mm3 (4.6-6.20); Red Cell Distribution Width 15.6 % (11.5-14.5); White Blood Count 16.1 K/mm3 (4.5-10.0)
[2021-04-01 06:22] LABS: Alanine Aminotransferase 47 U/L (4-50); Albumin Level 3.2 g/dL (3.5-5.1); Alkaline Phosphatase 115 U/L (38-126); Anion Gap 3 mmol/L (8-16); Aspartate Amino Transferase 42 U/L (17-59); Bilirubin,Total 0.3 mg/dL (0.2-1.3); Blood Urea Nitrogen 16 mg/dL (9-20); Calcium 8.9 mg/dL (8.4-10.2); Carbon Dioxide 34 mmol/L (22-30); Chloride 98 mmol/L (98-107); Estimated CRCL calculation 168 ml/min; Estimated Glomerular Filt Rate > 60; Glucose 126 mg/dL (65-110); Lipase 474 U/L (23-300); Magnesium 2.2 mg/dL (1.6-2.3); Potassium 4.2 mmol/L (3.4-5.0); Sodium 135 mmol/L (137-145)
[2021-04-01] MEDS: ENOXAPARIN 40 MG/0.4 ML SYRINGE SUB-Q (09:32)
[2021-04-01] MEDS: QUEtiapine FUMARATE 25 MG TABLET 50 MG PO ×2 (09:33→20:15)
[2021-04-01] MEDS: ASPIRIN 81 MG CHEWABLE TABLET PO (09:33)
[2021-04-01] MEDS: MINERAL OIL/WHITE PETROLATUM OINTMENT 1 APPLIC EACH EYE ×2 (09:33→20:24)
[2021-04-01] MEDS: INSULIN GLARGINE (*BKC) 100 UNITS/ML 25 UNITS SUB-Q (09:33)
[2021-04-01] MEDS: ALPRAZolam (*CRX) 0.5 MG TABLET PO ×3 (09:33→18:14)
[2021-04-01] MEDS: ASCORBIC ACID 500 MG TABLET PO (09:33)
[2021-04-01] MEDS: CHOLECALCIFEROL 1,000 UNITS TABLET 1000 UNITS PO (09:33)
[2021-04-01] MEDS: amLODIPine BESYLATE 5 MG TABLET 10 MG PO (09:37)
[2021-04-01] MEDS: METOPROLOL TARTRATE 25 MG TABLET FEED TUBE ×2 (09:38→20:15)
[2021-04-01] MEDS: SIMVASTATIN 20 MG TABLET PO (09:39)
[2021-04-01 11:50] LABS: Glucose Point of Care 117 mg/dl (65-105)
--- NOTE | 2021-04-01 12:23 | PCNFU ---
Nutrition Follow-Up Complete: Inadequate oral intake related to mechanical ventilation as evidenced by need for advanced nutrition support. Goal: Pt. to meet estimated nutritional needs. Patient will continue with current goal. Pt current nutrition is Vital AF 1.2 at 75 ml/hr over 22 hours. Last recorded weight is 122.2 kg, down from 130.7 kg. Bowel Motility:+BM reported 04/01 Labs Reviewed:Glu 126, Cr 0.5,Lipase 474,Alb 3.2,Na 135, Hct 34.1,Hgb 10.2 Meds Noted:Ativan, Lovenox, Lantus, Prevacid, Vit C, Xanax, Zocor, Vit D. Skin: WNL Additional Notes: Patient is current with PEG and Trach. Tube feedings of Vital AF 1.2 at 75 ml/hr over 22 hours. Providing 1980 kcals/124 gm protein/1338 ml water. Free water flush 60 ml q 4 hours. Tube feedings providing 89% of caloric needs and 100% of protein needs. Banatrol Plus given q 6 hours for stool bulking. Agree with diet orders. Monitor pt. labs, medications, weight and tube feeding tolerance every Wednesday and Wednesday as well as daily in ICU rounds.
--- NOTE | 2021-04-01 12:55 | WPDINTPN ---
Progress Note: A&P Assessment and Plan (1) Acute respiratory failure with hypoxia: Code(s): J96.01 - Acute respiratory failure with hypoxia Status: Acute Assessment and Plan: Acute Respiratory failure secondary to COVID-19 pneumonia 03/09/2021 patient was emergently intubated and placed on mechanical ventilation Chest x-ray and ABGs reviewed, continue in CMV mode and continue PEEP of 10 and 55% FiO2, wean FiO2 to maintain O2 sats greater than 92% Off continue sedation and he he gets fairly tachypneic. I am trying to avoid further sedatives and tolerate some tachypnea. patient does get asynchronous with the ventilator and his ABGs worse with hypercarbia on SIMV. I have switched him back to CMV. will tolerate permissive hypercapnia as long his pH is above 7.3 -not a candidate for weaning trial due to tachypnea on CMV with increase rate on pressure support or SIMV -continue Seroquel and continue Xanax -p.r.n. Ativan -02/17/2022: TRACHEOSTOMY AND PEG TUBE placed Continue full mechanical ventilation support to prevent hypoxemia/hypercarbia and end organ damage. Patient's serial CT scans from 02/21 to now show progression of his COVID pneumonia and worsening of CT scan despite treatment (2) Pneumonia due to COVID-19 virus: Code(s): U07.1 - COVID-19; J12.82 - Pneumonia due to coronavirus disease 2019 Status: Acute Assessment and Plan: Patient tested positive for COVID-19 on 02/20/21 and initially was on room air. Patient 1st required oxygen on 02/25/2021 and has per had progressive hypoxemic respiratory failure since then, failing airflow high-flow nasal cannula and noninvasive ventilation and requiring intubation on 03/09/2021. He was started on Remdesivir 02/11 and completed 10 days. Status post complete course of dexamethasone Completed Baricitinib for total of 14 days His CRP is down to 1.7 Off zinc sulfate and vitamin-C now (3) Fever: Code(s): R50.9 - Fever, unspecified Status: Acute Assessment and Plan: Fever with increase in WBC 2/3 repeat sputum and blood cultures were sent, Shaikh was changed, UA and culture were sent, right IJ central venous catheter was removed patient was started on vancomycin and cefepime lipase was elevated at 452 UA was negative chest x-ray shows stable diffuse lung disease but patient is having thick yellow secretions coming out of his trach. procalcitonin level elevated at 4.7 03/28/2021 lower extremity venous Dopplers were negative for DVT now he is afebrile and white count trending up -03/31/2021 bilateral upper extremity venous Dopplers were negative for DVT (4) Hyponatremia: Code(s): E87.1 - Hypo-osmolality and hyponatremia Status: Acute Assessment and Plan: Improving, continue flushes with normal saline Treat hyperglycemia (5) Hyperglycemia: Code(s): R73.9 - Hyperglycemia, unspecified Status: Acute Assessment and Plan: Improving with sliding scale insulin and Lantus, will continue (6) Essential hypertension: Code(s): I10 - Essential (primary) hypertension Status: Acute Assessment and Plan: On Norvasc and p.o. beta-lianet (7) Edema: Code(s): R60.9 - Edema, unspecified Status: Acute Assessment and Plan: Will diurese again patient today Additional Plan DVT prophylaxis - Lovenox Stress ulcer prophylaxis - PPI Nutrition -continue tube feeds, MiraLax, docusate and Reglan. Patient now awaits LTAC placement Code Status - Full Code Total Critical Care Time - 33 minutes Due to a high probability of clinically significant, life threatening deterioration, the patient required my highest level of preparedness to intervene emergently and I personally spent this critical care time directly and personally managing the patient. This critical care time included obtaining a history; examining the patient; pulse oximetry; ordering and review of studi
[2021-04-01] MEDS: METOCLOPRAMIDE HCL 10 MG/10 ML SOLN UDC PO ×2 (14:02→18:14)
[2021-04-01] MEDS: FUROSEMIDE INJ 40 MG/4 ML VIAL IV PUSH (14:04)
--- NOTE | 2021-04-01 15:12 | PM.IMPN ---
Progress Note: A&P Assessment and Plan (1) Acute respiratory failure with hypoxia: Code(s): J96.01 - Acute respiratory failure with hypoxia Status: Acute Assessment and Plan: Acute Respiratory failure secondary to COVID-19 pneumonia 03/09/2021 patient was emergently intubated and placed on mechanical ventilation Off sedation at this time. Continue scheduled Seroquel and Xanax with p.r.n. Ativan available. - Echo showing EF 65/70%, Grade I diastolic dysfunction, and moderate-severe pulm HTN - 03/20/2021: Tracheostomy and PEG tube placed - Continue full mechanical ventilation support. Waiting for acceptance to LTAC (2) Pneumonia due to COVID-19 virus: Code(s): U07.1 - COVID-19; J12.82 - Pneumonia due to coronavirus disease 2018 Status: Acute Assessment and Plan: Patient tested positive for COVID-19 on 02/20/21. He had progressive hypoxemic respiratory failure requiring intubation on 03/09/2021. He completed Remdesivir, dexamethasone and Baricitinib. His CRP is down to 0.9. Continue supportive care. (3) Fever: Code(s): R50.9 - Fever, unspecified Status: Acute Assessment and Plan: Fever with leukocytosis. Sputum 2/3 was negative. Blood cultures collected 2/3 and no growth to date. Shaikh was changed. UA not consistent with UTI and did not prompt urine culture. Right IJ central venous catheter was removed. Lipase elevated at 474. CXR today again showing diffuse bilateral lung disease. Procalcitonin elevated 4.7 on 03/28/2021. Bilateral upper and lower extremity Dopplers negative for DVT. He is now afebrile but WBC increasing. He remains off abx. Follow. (4) Hyponatremia: Code(s): E87.1 - Hypo-osmolality and hyponatremia Status: Acute Assessment and Plan: Sodium mostly in the low 130s but this was treated. Sodium near normal now. Continue to monitor. (5) Hyperglycemia: Code(s): R73.9 - Hyperglycemia, unspecified Status: Acute Assessment and Plan: A1c 6.0. The patient's blood glucose was reviewed on 04/01 Glucose remains well controlled. Continue AccuCheks covering with sliding scale. Hypoglycemia protocol available as needed. Continue Lantus. (6) Critical illness polyneuropathy: Code(s): G62.81 - Critical illness polyneuropathy Status: Acute Assessment and Plan: Patient has severe diffuse UE>LE weakness felt related to prolonged ICU hospitalization. Continue supportive care. Resume therapy. (7) Essential hypertension: Code(s): I10 - Essential (primary) hypertension Status: Acute Assessment and Plan: Patient's blood pressure was reviewed on 04/01 Blood pressure well controlled Continue Norvasc and Metoprolol. Monitor closely. (8) Edema: Code(s): R60.9 - Edema, unspecified Status: Acute Assessment and Plan: Noted to have diffuse edema. [place] UE edema related to dependent edema given his weakness. Tolerating intermittent Lasix (9) DVT prophylaxis: Code(s): Z29.9 - Encounter for prophylactic measures, unspecified Status: Acute Assessment and Plan: lovenox Subjective Date/time seen: 04/01/21 15:12 Interval history: 66yo man with neuropathy and HLD who presented to the ED on 02/21 with SOB and found to have COVID-19 pneumonia. Patient was intubated on 03/09/2021. Tracheostomy and PEG tube was placed 03/20/21. TF were off overnight. Had higher residual today. Yellowish brown drainage from the trach site. No fevers. Review of Systems Review of Systems: ROS unobtainable: Yes unobtainable due to endotracheal tube Exam Narrative: AF 99.0 128/64 91 33 91% MV Gen - tachypneic but appears to be reting quietly. Neck -tracheostomy in place secured in the midline; dressing is clean and dry but slight eryhema distal to the trach site around the sutures but minimal drainage at this time Chest -lungs are coarse anteriorly. CV - RRR
[2021-04-01 17:51] LABS: Glucose Point of Care 100 mg/dl (65-105)
--- NOTE | 2021-04-01 19:45 | PC.NURSE ---
Temperature 101.[address] Weldon notified of temperature and increased FIO2 needs. Get bldc, sputum, urine. Start Cefepime 2gm Q8h. Pharmacy to dose for Vancomycin.
[2021-04-01] MEDS: ACETAMINOPHEN ELIXIR 325 MG/10.15 ML UDC 650 MG FEED TUBE (19:59)
[2021-04-01] MEDS: SODIUM CHLORIDE NASAL GEL 14.1 GM 1 APPLIC NASAL (20:15)
[2021-04-01 23:58] LABS: Glucose Point of Care 139 mg/dl (65-105)
[2021-04-02] VITALS (36 sets, daily range): BP systolic 100–157; BP diastolic 50–73; PULSE 90–190; RESP 25–41; TEMP 36.8–38.2; O2SAT 89–97
[2021-04-02] MEDS: METOCLOPRAMIDE HCL 10 MG/10 ML SOLN UDC PO ×4 (00:14→17:11)
[2021-04-02] MEDS: LANSOPRAZOLE ORAL SUSP 30 MG/10 ML ORAL.SUSP FEED TUBE (04:08)
[2021-04-02] MEDS: LORazepam INJ (*CRX) 2 MG/ML VIAL IV PUSH ×2 (04:08→16:14)
[2021-04-02] MEDS: ACETAMINOPHEN ELIXIR 325 MG/10.15 ML UDC 650 MG FEED TUBE ×3 (04:37→20:30)
[2021-04-02 04:39] LABS: Hematocrit 31.2 % (42.0-52.0); Hemoglobin 9.5 g/dL (14.0-18.0); Mean Corpuscular HGB Conc 30.4 g/dl (32-36); Mean Corpuscular Hemoglobin 29.2 pg (26-34); Mean Platelet Volume 9.6 fl (7.4-10.4); Platelet Count Result 382 k/mm3 (150-375); Red Blood Count 3.25 M/mm3 (4.6-6.20); Red Cell Distribution Width 15.7 % (11.5-14.5); White Blood Count 14.8 K/mm3 (4.5-10.0)
[2021-04-02 05:00] LABS: Alanine Aminotransferase 47 U/L (4-50); Albumin Level 3.1 g/dL (3.5-5.1); Alkaline Phosphatase 104 U/L (38-126); Aspartate Amino Transferase 46 U/L (17-59); Bilirubin,Total 0.3 mg/dL (0.2-1.3); Blood Urea Nitrogen 16 mg/dL (9-20); Calcium 8.8 mg/dL (8.4-10.2); Carbon Dioxide > 40 mmol/L (22-30); Chloride 96 mmol/L (98-107); Estimated CRCL calculation 168 ml/min; Estimated Glomerular Filt Rate > 60; Glucose 129 mg/dL (65-110); Magnesium 2.1 mg/dL (1.6-2.3); Phosphorus 4.6 mg/dL (2.5-4.5); Potassium 4.2 mmol/L (3.4-5.0); Sodium 136 mmol/L (137-145)
[2021-04-02 05:22] LABS: Alveolar/Arterial O2 Gradient 266.9 mmHg; Carboxyhemoglobin 0.4 % THb (0-2.0); Fractional Inspired Oxygen 60 %; HCO3 ABG 37.4 mEq/l (22.0-26.0); Methemoglobin ABG 0.3 %THb (0-1.5); Oxygen Content ABG 13.6 %vol (16.0-22.0); Oxygen Saturation ABG 95.8 % (95.0-100.0); Oxyhemoglobin 94.3 % THb (90.0-100.0); PO2 ABG 86.3 mmHg (80.0-100.0); PO2 FiO2 Ratio Arterial Blood 1.44 %; Total Hemoglobin 10.2 g/dL (12.0-18.0); pH ABG 7.359 (7.350-7.450)
[2021-04-02 05:24] LABS: Device VENTILATOR; Modified Allen's Test Unable to perform; PCO2 ABG 67.8 mmHg (35.0-45.0); Site Drawn RIGHT RADIAL
[2021-04-02 05:25] LABS: Arterial Blood Gas PEEP 10 cmH2O; Arterial Blood Gas Tidal Volume 420 ml; Arterial Blood Gas Vent Mode CMV; Arterial Blood Gas Ventilator rate 28 /MIN
[2021-04-02 06:03] LABS: Anisocytosis 2+ (NORMAL); Atypical Lymphocytes Present; Band Neutrophils Percent 1 % (0-6); Eosinophils Absolute Manual 0.74 K/mm3 (0.02-0.5); Eosinophils Percent Manual 5 % (0-4); Hypochromasia 1+ (NORMAL); Lymphocytes Absolute Manual 3.25 K/mm3 (1.1-4.5); Monocytes Absolute Manual 1.33 K/mm3 (0.1-0.90); Monocytes Percent Manual 9 % (3-9); Neutrophils Absolute Manual 9.47 K/mm3 (1.3-6.7); Neutrophils Percent Manual 63 % (46-73); Platelet Estimate Adequate (Adequate); Total Cells Counted 100
[2021-04-02] MEDS: ALBUMIN HUMAN 25% 25 GM/100 ML 100 ML IVPB ×4 (08:17→23:37)
[2021-04-02] MEDS: ENOXAPARIN 40 MG/0.4 ML SYRINGE SUB-Q (08:21)
[2021-04-02] MEDS: polyethylene glycoL 3350 17 GM POWD.PACK PO (08:21)
[2021-04-02] MEDS: MINERAL OIL/WHITE PETROLATUM OINTMENT 1 APPLIC EACH EYE ×2 (08:22→19:52)
[2021-04-02] MEDS: ASPIRIN 81 MG CHEWABLE TABLET PO (08:25)
[2021-04-02] MEDS: QUEtiapine FUMARATE 25 MG TABLET 50 MG PO (08:25)
[2021-04-02] MEDS: ASCORBIC ACID 500 MG TABLET PO (08:25)
[2021-04-02] MEDS: SIMVASTATIN 20 MG TABLET PO (08:25)
[2021-04-02] MEDS: CHOLECALCIFEROL 1,000 UNITS TABLET 1000 UNITS PO (08:25)
[2021-04-02] MEDS: DOCUSATE SODIUM LIQ 100 MG/10 ML UDC FEED TUBE (08:25)
[2021-04-02] MEDS: INSULIN GLARGINE (*BKC) 100 UNITS/ML 25 UNITS SUB-Q (08:32)
[2021-04-02] MEDS: ALPRAZolam (*CRX) 0.5 MG TABLET PO ×3 (08:32→17:09)
--- NOTE | 2021-04-02 11:59 | PCFNICU ---
ICU Rounding Note: Pt current nutrition is Vital AF 1.2 at 75 ml/hr over 22 hours. Last recorded weight is 120.3 kg,down from 130.7 kg on admit. Bowel Motility:+BM reported 04/02 Labs Reviewed:PO4 4.6,Cr 0.5,Glu 129,Alb 3.1,Na 136, Hgb 9.5,Hct 31.2 Meds Noted:Lovenox, Vancomycin, Vit D, Vit C, Ativan, Zocor, Lantus, Prevacid, Xanax, Seroquel, Colace, Miralax, Reglan Skin: Maceration-Buttocks Additional Notes: Patient current with Trach/PEG. Tolerating tube feedings of Vital AF 1.2 at 75 ml/hr over 22 hours. Free water flush 60 ml q 4 hours. Banatrol Plus given q 6 hours via tube for stool bulking. Agree with diet orders. Following daily in ICU rounds, reassessing every Wednesday and Wednesday.
[2021-04-02 12:23] LABS: Glucose Point of Care 155 mg/dl (65-105)
--- NOTE | 2021-04-02 12:56 | WPDINTPN ---
Progress Note: A&P Assessment and Plan (1) Acute respiratory failure with hypoxia: Code(s): J96.01 - Acute respiratory failure with hypoxia Status: Acute Assessment and Plan: Acute Respiratory failure secondary to COVID-19 pneumonia 03/09/2021 patient was emergently intubated and placed on mechanical ventilation Chest x-ray and ABGs reviewed, continue in CMV mode and continue PEEP of 8 and 50% FiO2, wean FiO2 to maintain O2 sats greater than 92% Off continue sedation and he he gets fairly tachypneic. I am trying to avoid further sedatives and tolerate some tachypnea. -continue Seroquel and continue Xanax -p.r.n. Ativan -02/17/2022: TRACHEOSTOMY AND PEG TUBE placed Continue full mechanical ventilation support to prevent hypoxemia/hypercarbia and end organ damage. Patient's serial CT scans from 02/21 to now show progression of his COVID pneumonia and worsening of CT scan despite treatment (2) Pneumonia due to COVID-19 virus: Code(s): U07.1 - COVID-19; J12.82 - Pneumonia due to coronavirus disease 2018 Status: Acute Assessment and Plan: Patient tested positive for COVID-19 on 02/20/21 and initially was on room air. Patient 1st required oxygen on 02/25/2021 and has per had progressive hypoxemic respiratory failure since then, failing airflow high-flow nasal cannula and noninvasive ventilation and requiring intubation on 03/09/2021. He was started on Remdesivir 02/11 and completed 10 days. Status post complete course of dexamethasone Completed Baricitinib for total of 14 days His CRP is down to 1.7 Off zinc sulfate and vitamin-C now (3) Fever: Code(s): R50.9 - Fever, unspecified Status: Acute Assessment and Plan: Fever with increase in WBC 2/3 repeat sputum and blood cultures were sent, Shaikh was changed, UA and culture were sent, right IJ central venous catheter was removed patient was started on vancomycin and cefepime lipase was elevated at 452 UA was negative chest x-ray shows stable diffuse lung disease but patient is having thick yellow secretions coming out of his trach. procalcitonin level elevated at 4.7 03/28/2021 lower extremity venous Dopplers were negative for DVT now he is afebrile and white count trending up -03/31/2021 bilateral upper extremity venous Dopplers were negative for DVT (4) Hyponatremia: Code(s): E87.1 - Hypo-osmolality and hyponatremia Status: Acute Assessment and Plan: Improving, continue flushes with normal saline Treat hyperglycemia (5) Hyperglycemia: Code(s): R73.9 - Hyperglycemia, unspecified Status: Acute Assessment and Plan: Improving with sliding scale insulin and Lantus, will continue (6) Essential hypertension: Code(s): I10 - Essential (primary) hypertension Status: Acute Assessment and Plan: On Norvasc and p.o. beta-lianet (7) Edema: Code(s): R60.9 - Edema, unspecified Status: Acute Assessment and Plan: Will diurese again patient today Additional Plan DVT prophylaxis - Lovenox Stress ulcer prophylaxis - PPI Nutrition -continue tube feeds, MiraLax, docusate and Reglan. Patient now awaits LTAC placement Code Status - Full Code Total Critical Care Time - 32 minutes Due to a high probability of clinically significant, life threatening deterioration, the patient required my highest level of preparedness to intervene emergently and I personally spent this critical care time directly and personally managing the patient. This critical care time included obtaining a history; examining the patient; pulse oximetry; ordering and review of studies; arranging urgent treatment with development of a management plan; evaluation of patient's response to treatment; frequent reassessment; and discussions with other providers. It was exclusive of separately billable procedures and treating other patients and teaching time. Please see Assessment and
--- NOTE | 2021-04-02 13:36 | PM.IMPN ---
Progress Note: A&P Assessment and Plan (1) Acute respiratory failure with hypoxia: Code(s): J96.01 - Acute respiratory failure with hypoxia Status: Acute Assessment and Plan: Acute Respiratory failure secondary to COVID-19 pneumonia. Pateint was emergently intubated on 03/09/21 and placed on mechanical ventilation. Echo showing EF 65/70%, Grade I diastolic dysfunction, and moderate-severe pulm HTN. Tracheostomy and PEG tube placed on 03/20. Off sedation at this time. Continue scheduled Seroquel and Xanax with p.r.n. Ativan available. Continue full mechanical ventilation support. Waiting for acceptance to LTAC (2) Pneumonia due to COVID-19 virus: Code(s): U07.1 - COVID-19; J12.82 - Pneumonia due to coronavirus disease 2019 Status: Acute Assessment and Plan: Patient tested positive for COVID-19 on 02/20/21. He had progressive hypoxemic respiratory failure requiring intubation on 03/09/21. He completed Remdesivir, dexamethasone and Baricitinib. His CRP is down to 0.9. Continue supportive care. (3) Fever: Code(s): R50.9 - Fever, unspecified Status: Acute Assessment and Plan: Fever with leukocytosis. Sputum 2/3 was negative. Blood cultures 2/3 are negative. Shaikh was changed. UA not consistent with UTI and did not prompt urine culture. Right IJ central venous catheter was removed. Lipase elevated at 474. CXR today showing diffuse bilateral lung disease. Procalcitonin elevated 4.7 on 03/28/21. Bilateral upper and lower extremity Dopplers negative for DVT. He is still febrile but WBC decreasing. Abx in the form of Vanco and Cefepime started 04/01. Follow. (4) Hyponatremia: Code(s): E87.1 - Hypo-osmolality and hyponatremia Status: Acute Assessment and Plan: Sodium mostly in the low 130s but this was treated. Sodium near normal now. Continue to monitor. (5) Hyperglycemia: Code(s): R73.9 - Hyperglycemia, unspecified Status: Acute Assessment and Plan: A1c 6.0. The patient's blood glucose was reviewed on 04/02 Glucose remains well controlled. Continue AccuCheks covering with sliding scale. Hypoglycemia protocol available as needed. Continue Lantus. (6) Critical illness polyneuropathy: Code(s): G62.81 - Critical illness polyneuropathy Status: Acute Assessment and Plan: Patient has severe diffuse UE>LE weakness felt related to prolonged ICU hospitalization. Continue supportive care. Continue therapy. (7) Essential hypertension: Code(s): I10 - Essential (primary) hypertension Status: Acute Assessment and Plan: Patient's blood pressure was reviewed on 04/02 Blood pressure well controlled Norvasc and Metoprolol on hold. Monitor closely. (8) Edema: Code(s): R60.9 - Edema, unspecified Status: Acute Assessment and Plan: Noted to have diffuse edema. [place] UE edema related to dependent edema given his weakness. Tolerating intermittent Lasix (9) DVT prophylaxis: Code(s): Z29.9 - Encounter for prophylactic measures, unspecified Status: Acute Assessment and Plan: lovenox Subjective Date/time seen: 04/02/21 13:36 Interval history: 66yo man with neuropathy and HLD who presented to the ED on 02/21 with SOB and found to have COVID-19 pneumonia. Patient was intubated on 03/09/2021. Tracheostomy and PEG tube was placed 03/20/21. Fever last night. Intubated and sedated. Review of Systems Review of Systems: ROS unobtainable: Yes unobtainable due to endotracheal tube Exam Narrative: Tm 101.0 98.9 110/50 102 15 90% MV Gen - tachypneic Neck -tracheostomy in place secured in the midline; dressing is clean and dry Chest -lungs are coarse anteriorly. increased RR CV - tachcyardic. Telemetry showing one episode of 8beat NSVT. Abd -soft. Nondistended. Positive bowel sounds. Peg tube in place and dressings clean and dry. Ext -diffuse edema in both up
[2021-04-02] MEDS: hydrALAZINE HCL 20 MG/ML VIAL IV PUSH (16:39)
[2021-04-02] MEDS: PROPOFOL IV EMULSION 100 ML 3.61 MG IV CONT (17:15)
[2021-04-02] MEDS: fentaNYL CITRATE INJ (*CRX) 100 MCG/2 ML VIAL 50 MCG IV PUSH (18:42)
[2021-04-02] MEDS: PROPOFOL IV EMULSION 100 ML 14.44 MG IV CONT (20:05)
[2021-04-02 23:25] LABS: Glucose Point of Care 101 mg/dl (65-105)
[2021-04-03] VITALS (31 sets, daily range): BP systolic 131–176; BP diastolic 59–79; PULSE 80–104; RESP 22–36; TEMP 36.8–37.9; O2SAT 92–100; BMI 11.0
[2021-04-03] MEDS: fentaNYL CITRATE INJ (*CRX) 100 MCG/2 ML VIAL 50 MCG IV PUSH ×5 (02:06→23:11)
[2021-04-03 04:31] LABS: Alveolar/Arterial O2 Gradient 317.3 mmHg; Base Excess ABG 9.8 mEq/l (+/-2.0); Carboxyhemoglobin 0.2 % THb (0-2.0); Device VENTILATOR; Fractional Inspired Oxygen 65 %; HCO3 ABG 36.3 mEq/l (22.0-26.0); Methemoglobin ABG 0.3 %THb (0-1.5); Modified Allen's Test Pass; Oxygen Content ABG 13.9 %vol (16.0-22.0); Oxygen Saturation ABG 95.5 % (95.0-100.0); Oxyhemoglobin 94.4 % THb (90.0-100.0); PCO2 ABG 60.4 mmHg (35.0-45.0); PO2 ABG 80.5 mmHg (80.0-100.0); PO2 FiO2 Ratio Arterial Blood 1.24 %; Reduced Hemoglobin 5.1 %THb (0-5.0); Site Drawn RIGHT RADIAL; Total Hemoglobin 10.4 g/dL (12.0-18.0); pH ABG 7.397 (7.350-7.450)
[2021-04-03 04:32] LABS: Arterial Blood Gas PEEP 8 cmH2O; Arterial Blood Gas Tidal Volume 420 ml; Arterial Blood Gas Vent Mode CMV; Arterial Blood Gas Ventilator rate 28 /MIN
[2021-04-03] MEDS: ALBUMIN HUMAN 25% 25 GM/100 ML 100 ML IVPB ×2 (05:00→15:08)
[2021-04-03] MEDS: LANSOPRAZOLE ORAL SUSP 30 MG/10 ML ORAL.SUSP FEED TUBE (05:38)
[2021-04-03] MEDS: PROPOFOL IV EMULSION 100 ML 7.22 MG IV CONT (05:44)
[2021-04-03 08:19] LABS: Glucose Point of Care 141 mg/dl (65-105)
[2021-04-03] MEDS: ALPRAZolam (*CRX) 0.5 MG TABLET PO ×3 (08:52→17:20)
[2021-04-03] MEDS: MINERAL OIL/WHITE PETROLATUM OINTMENT 1 APPLIC EACH EYE ×2 (08:53→21:09)
[2021-04-03] MEDS: ENOXAPARIN 40 MG/0.4 ML SYRINGE SUB-Q (08:54)
[2021-04-03] MEDS: ASPIRIN 81 MG CHEWABLE TABLET PO (08:54)
[2021-04-03] MEDS: CHOLECALCIFEROL 1,000 UNITS TABLET 1000 UNITS PO (08:54)
[2021-04-03] MEDS: ASCORBIC ACID 500 MG TABLET PO (08:55)
[2021-04-03] MEDS: SIMVASTATIN 20 MG TABLET PO (08:55)
[2021-04-03] MEDS: INSULIN GLARGINE (*BKC) 100 UNITS/ML 25 UNITS SUB-Q (08:59)
[2021-04-03 09:06] LABS: Hematocrit 30.6 % (42.0-52.0); Hemoglobin 9.1 g/dL (14.0-18.0); Mean Corpuscular HGB Conc 29.7 g/dl (32-36); Mean Corpuscular Hemoglobin 29.6 pg (26-34); Mean Corpuscular Volume 99.7 fl (80-100); Mean Platelet Volume 9.5 fl (7.4-10.4); Platelet Count Result 398 k/mm3 (150-375); Red Blood Count 3.07 M/mm3 (4.6-6.20); Red Cell Distribution Width 15.7 % (11.5-14.5); White Blood Count 12.5 K/mm3 (4.5-10.0)
[2021-04-03 09:18] LABS: Anion Gap 4 mmol/L (8-16); Blood Urea Nitrogen 12 mg/dL (9-20); CRP 7.3 mg/dL (<1.0); Carbon Dioxide 37 mmol/L (22-30); Chloride 99 mmol/L (98-107); Estimated CRCL calculation 202 ml/min; Estimated Glomerular Filt Rate > 60; Glucose 154 mg/dL (65-110); Potassium 3.8 mmol/L (3.4-5.0); Sodium 140 mmol/L (137-145)
[2021-04-03 09:26] LABS: Band Neutrophils Percent 5 % (0-6); Eosinophils Absolute Manual 0.75 K/mm3 (0.02-0.5); Eosinophils Percent Manual 6 % (0-4); Monocytes Percent Manual 4 % (3-9); Myelocytes Percent 4 %; Neutrophils Absolute Manual 8.25 K/mm3 (1.3-6.7); Neutrophils Percent Manual 61 % (46-73); Platelet Estimate Adequate (Adequate); Total Cells Counted 100
[2021-04-03 09:27] LABS: Anisocytosis 1+ (NORMAL)
[2021-04-03 10:19] LABS: Vancomycin Trough 7.6 ug/mL (10.0-20.0)
[2021-04-03 10:31] LABS: Procalcitonin 0.4 ng/mL
[2021-04-03] MEDS: DORNASE ALFA INH SOLN 1 MG/ML 2.5 ML AMP 2.5 MG INHALATION ×2 (10:45→20:16)
[2021-04-03] MEDS: amLODIPine BESYLATE 5 MG TABLET PO (11:09)
[2021-04-03] MEDS: METOPROLOL TARTRATE 25 MG TABLET FEED TUBE ×2 (11:10→21:31)
[2021-04-03] MEDS: METOCLOPRAMIDE HCL 10 MG/10 ML SOLN UDC PO ×3 (11:11→23:18)
[2021-04-03] MEDS: QUEtiapine FUMARATE 25 MG TABLET 50 MG PO ×2 (11:11→20:01)
[2021-04-03] MEDS: LORazepam INJ (*CRX) 2 MG/ML VIAL IV PUSH ×4 (11:35→23:11)
[2021-04-03 12:10] LABS: Glucose Point of Care 149 mg/dl (65-105)
--- NOTE | 2021-04-03 12:27 | PCFNICU ---
ICU Rounding Note: Pt current nutrition is Vital AF 1.2 at 75 ml/hr over 22 hours. Last recorded weight is 120 kg, down from 130.7 kg on admit. Bowel Motility:+BM reported 04/02 Labs Reviewed:Glu 154,Cr 0.4,Hct 30.6,Hgb 9.1 Meds Noted:Lovenox, Vancomycin, Vit D, Vit C, Ativan, Zocor, Lantus, Prevacid, Xanax, Seroquel, Colace, Reglan. Skin:Maceration-coccyx. Additional Notes: Patient current with Trach/PEG. Tube feedings of Vital AF 1.2 at 75 ml/hr and tolerating. Free water flush 60 ml q 4 hours. Agree with diet orders. Following daily in ICU rounds and reassessing every Wednesday and Wednesday.
--- NOTE | 2021-04-03 13:16 | WPDINTPN ---
Progress Note: A&P Assessment and Plan (1) Acute respiratory failure with hypoxia: Code(s): J96.01 - Acute respiratory failure with hypoxia Status: Acute Assessment and Plan: Acute Respiratory failure secondary to COVID-19 pneumonia 03/09/2021 patient was emergently intubated and placed on mechanical ventilation Chest x-ray and ABGs reviewed, continue in CMV mode and continue PEEP of 8 and 50% FiO2, wean FiO2 to maintain O2 sats greater than 92% -lazy lazy continue low-dose propofol, wean off if patient tolerates. I am trying to avoid further sedatives and tolerate some tachypnea. -increase Seroquel and continue Xanax -p.r.n. Ativan -02/17/2022: TRACHEOSTOMY AND PEG TUBE placed Continue full mechanical ventilation support to prevent hypoxemia/hypercarbia and end organ damage. Patient's serial CT scans from 02/21 to now show progression of his COVID pneumonia and worsening of CT scan despite treatment (2) Pneumonia due to COVID-19 virus: Code(s): U07.1 - COVID-19; J12.82 - Pneumonia due to coronavirus disease 2019 Status: Acute Assessment and Plan: Patient tested positive for COVID-19 on 02/20/21 and initially was on room air. Patient 1st required oxygen on 02/25/2021 and has per had progressive hypoxemic respiratory failure since then, failing airflow high-flow nasal cannula and noninvasive ventilation and requiring intubation on 03/09/2021. He was started on Remdesivir 02/11 and completed 10 days. Status post complete course of dexamethasone Completed Baricitinib for total of 14 days His CRP is down to 1.7 Off zinc sulfate and vitamin-C now (3) Fever: Code(s): R50.9 - Fever, unspecified Status: Acute Assessment and Plan: Fevers resolved, white blood cell count improving 2/3 repeat sputum and blood cultures were sent, Shaikh was changed, UA and culture were sent, right IJ central venous catheter was removed patient was started on vancomycin and cefepime lipase was elevated at 452 UA was negative chest x-ray shows stable diffuse lung disease but patient is having thick yellow secretions coming out of his trach. procalcitonin level elevated at 4.7 03/28/2021 lower extremity venous Dopplers were negative for DVT now he is afebrile and white count trending up -03/31/2021 bilateral upper extremity venous Dopplers were negative for DVT -04/01/2021: Blood cultures growing GPC 1 of 2 bottles, urine cultures are negative, sputum cultures still in progress (4) Hyponatremia: Code(s): E87.1 - Hypo-osmolality and hyponatremia Status: Acute Assessment and Plan: Improving, continue flushes with normal saline Treat hyperglycemia (5) Hyperglycemia: Code(s): R73.9 - Hyperglycemia, unspecified Status: Acute Assessment and Plan: Improving with sliding scale insulin and Lantus, will continue (6) Essential hypertension: Code(s): I10 - Essential (primary) hypertension Status: Acute Assessment and Plan: On Norvasc and p.o. beta-lianet Additional Plan DVT prophylaxis - Lovenox Stress ulcer prophylaxis - PPI Nutrition -continue tube feeds, MiraLax, docusate and Reglan. Patient now awaits LTAC placement Code Status - Full Code Total Critical Care Time - 32 minutes Due to a high probability of clinically significant, life threatening deterioration, the patient required my highest level of preparedness to intervene emergently and I personally spent this critical care time directly and personally managing the patient. This critical care time included obtaining a history; examining the patient; pulse oximetry; ordering and review of studies; arranging urgent treatment with development of a management plan; evaluation of patient's response to treatment; frequent reassessment; and discussions with other providers. It was exclusive of separately billable procedures and treating other patients and teaching time. Please see
[2021-04-03] MEDS: IPRATROPIUM BR 0.02% INH SOLN 0.5 MG/2.5 ML VIAL INHALATION ×2 (14:18→20:16)
[2021-04-03] MEDS: LEVALBUTEROL NEB 1.25 MG/3 ML 0.63 MG INHALATION ×2 (14:18→20:16)
--- NOTE | 2021-04-03 14:45 | PM.IMPN ---
Progress Note: A&P Assessment and Plan (1) Acute respiratory failure with hypoxia: Code(s): J96.01 - Acute respiratory failure with hypoxia Status: Acute Assessment and Plan: Acute Respiratory failure secondary to COVID-19 pneumonia. Pateint was emergently intubated on 03/09/21 and placed on mechanical ventilation. Echo showing EF 65-70%, Grade I diastolic dysfunction, and moderate-severe pulm HTN. Tracheostomy and PEG tube placed on 03/20. Off sedation at this time. Continue scheduled Seroquel and Xanax with p.r.n. Ativan available. Continue full mechanical ventilation support. Waiting for acceptance to LTAC (2) Pneumonia due to COVID-19 virus: Code(s): U07.1 - COVID-19; J12.82 - Pneumonia due to coronavirus disease 2019 Status: Acute Assessment and Plan: Patient tested positive for COVID-19 on 02/20/21. He had progressive hypoxemic respiratory failure requiring intubation on 03/09/21. He completed Remdesivir, dexamethasone and Baricitinib. Continue supportive care. (3) Fever: Code(s): R50.9 - Fever, unspecified Status: Acute Assessment and Plan: Fever with leukocytosis. Sputum 2/3 was negative. Blood cultures 2/3 are negative. Shaikh was changed. UA not consistent with UTI and did not prompt urine culture. Right IJ central venous catheter was removed. Lipase elevated at 474. CXR 04/02 showing diffuse bilateral lung disease. Procalcitonin elevated 4.7 on 03/28/21 but now 0.4. Bilateral upper and lower extremity Dopplers negative for DVT. He is still febrile but WBC decreasing. CT brain showing bilateral otomastoiditis effusions and significant sinus opacity. Fevers probably related to sinusitis. Abx in the form of Vanco and Cefepime started 04/01. Continue the same. Follow. (4) Hyponatremia: Code(s): E87.1 - Hypo-osmolality and hyponatremia Status: Acute Assessment and Plan: Sodium was mostly in the low 130s and this was treated. Sodium normal now. Continue to monitor. (5) Hyperglycemia: Code(s): R73.9 - Hyperglycemia, unspecified Status: Acute Assessment and Plan: A1c 6.0. The patient's blood glucose was reviewed on 04/03 Glucose remains well controlled. Continue AccuCheks covering with sliding scale. Hypoglycemia protocol available as needed. Continue Lantus. (6) Critical illness polyneuropathy: Code(s): G62.81 - Critical illness polyneuropathy Status: Acute Assessment and Plan: Patient has severe diffuse UE>LE weakness felt related to prolonged ICU hospitalization. CT brain 04/02 showing no acute intracranial findings but with bilateral otomastoiditis effusions and significant sinus opacity. Continue supportive care. Continue therapy. (7) Essential hypertension: Code(s): I10 - Essential (primary) hypertension Status: Acute Assessment and Plan: Patient's blood pressure was reviewed on 04/03 Blood pressure more elevated now since anti-HTN medications held. Norvasc and Metoprolol resumed with lower dose of Norvasc. Monitor closely. (8) Edema: Code(s): R60.9 - Edema, unspecified Status: Acute Assessment and Plan: Noted to have diffuse edema. [place] UE edema related to dependent edema given his weakness. Tolerating intermittent Lasix (9) DVT prophylaxis: Code(s): Z29.9 - Encounter for prophylactic measures, unspecified Status: Acute Assessment and Plan: lovenox Subjective Date/time seen: 04/03/21 14:45 Interval history: 66yo man with neuropathy and HLD who presented to the ED on 02/21 with SOB and found to have COVID-19 pneumonia. Patient was intubated on 03/09/2021. Tracheostomy and PEG tube was placed 03/20/21. Still with low grade fevers. He did have increase in O2 requirement overnight. Propofol added. Exam Narrative: Tm 100.7 98.9 176/70 99 33 99% MV PEEP 8, 65% Gen - tachypneic but better than yesterday Neck - tracheo
[2021-04-03] MEDS: ACETAMINOPHEN ELIXIR 325 MG/10.15 ML UDC 650 MG FEED TUBE (17:18)
[2021-04-03 20:09] LABS: Glucose Point of Care 134 mg/dl (65-105)
[2021-04-03] MEDS: SALINE 0.65% NAS SOLN 44 ML BTL 1 SPRAY NASAL (21:09)
[2021-04-03] MEDS: LORazepam INJ (*CRX) 2 MG/ML VIAL 4 MG IV PUSH (21:10)
[2021-04-03] MEDS: SODIUM CHLORIDE NASAL GEL 14.1 GM 1 APPLIC NASAL (21:10)
[2021-04-03] MEDS: DOCUSATE SODIUM LIQ 100 MG/10 ML UDC FEED TUBE (21:11)
[2021-04-03 23:24] LABS: Glucose Point of Care 172 mg/dl (65-105)
[2021-04-04] VITALS (34 sets, daily range): BP systolic 124–159; BP diastolic 51–70; PULSE 87–126; RESP 29–43; TEMP 36.8–38; O2SAT 91–100
[2021-04-04] MEDS: IPRATROPIUM BR 0.02% INH SOLN 0.5 MG/2.5 ML VIAL INHALATION ×3 (02:04→14:00)
[2021-04-04] MEDS: LEVALBUTEROL NEB 1.25 MG/3 ML 0.63 MG INHALATION ×3 (02:04→14:00)
[2021-04-04] MEDS: LORazepam INJ (*CRX) 2 MG/ML VIAL IV PUSH (02:19)
[2021-04-04] MEDS: fentaNYL CITRATE INJ (*CRX) 100 MCG/2 ML VIAL 50 MCG IV PUSH ×3 (02:19→17:18)
[2021-04-04] MEDS: hydrALAZINE HCL 20 MG/ML VIAL IV PUSH ×2 (03:03→06:37)
--- NOTE | 2021-04-04 03:39 | ECG_ITS ---
Measurements Intervals [place] Rate: 95 P: 54 [place]: 147 QRS: 42 QRSD: 92 T: 19 QT: 335 QTc: 423 Interpretive Statements SINUS RHYTHM MINIMAL Q WAVES- INFERIOR LEADS NONSPECIFIC ST & T-WAVE ABNORMALITY- HIGH LATERAL LEADS BASELINE ARTIFACT- I, II, III, AVR, AVL, AVF, V1, V3-V6 BORDERLINE ECG Electronically Signed On 04-04-2021 6:31:25 [employer] by Kuldeep Nash D.O.
[2021-04-04] MEDS: QUEtiapine FUMARATE 25 MG TABLET 50 MG PO (04:08)
[2021-04-04] MEDS: LORazepam INJ (*CRX) 2 MG/ML VIAL 4 MG IV PUSH (04:14)
[2021-04-04 04:29] LABS: Alveolar/Arterial O2 Gradient 344.1 mmHg; Base Excess ABG 5.3 mEq/l (+/-2.0); Carboxyhemoglobin 0.8 % THb (0-2.0); Fractional Inspired Oxygen 70 %; HCO3 ABG 33.6 mEq/l (22.0-26.0); Methemoglobin ABG 0.3 %THb (0-1.5); Oxygen Content ABG 13.5 %vol (16.0-22.0); Oxygen Saturation ABG 93.1 % (95.0-100.0); Oxyhemoglobin 91.7 % THb (90.0-100.0); PO2 ABG 76.6 mmHg (80.0-100.0); PO2 FiO2 Ratio Arterial Blood 1.09 %; Reduced Hemoglobin 7.2 %THb (0-5.0); Total Hemoglobin 10.4 g/dL (12.0-18.0)
[2021-04-04 04:32] LABS: Arterial Blood Gas Vent Mode CMV; Arterial Blood Gas Ventilator rate 28 /MIN; Device VENTILATOR; Modified Allen's Test Unable to perform; PCO2 ABG 72.9 mmHg (35.0-45.0); Site Drawn RIGHT RADIAL; pH ABG 7.282 (7.350-7.450)
[2021-04-04 04:33] LABS: Arterial Blood Gas PEEP 8 cmH2O; Arterial Blood Gas Tidal Volume 420 ml
[2021-04-04 05:22] LABS: Hematocrit 31.8 % (42.0-52.0); Hemoglobin 9.2 g/dL (14.0-18.0); Mean Corpuscular HGB Conc 28.9 g/dl (32-36); Mean Corpuscular Hemoglobin 29.3 pg (26-34); Mean Corpuscular Volume 101.3 fl (80-100); Mean Platelet Volume 9.9 fl (7.4-10.4); Platelet Count Result 477 k/mm3 (150-375); Red Blood Count 3.14 M/mm3 (4.6-6.20); Red Cell Distribution Width 15.9 % (11.5-14.5); White Blood Count 16.1 K/mm3 (4.5-10.0)
[2021-04-04 05:43] LABS: Albumin Level 3.9 g/dL (3.5-5.1); Anion Gap 8 mmol/L (8-16); Blood Urea Nitrogen 14 mg/dL (9-20); Carbon Dioxide 36 mmol/L (22-30); Chloride 95 mmol/L (98-107); Estimated CRCL calculation 258 ml/min; Estimated Glomerular Filt Rate > 60; Glucose 186 mg/dL (65-110); Magnesium 2.1 mg/dL (1.6-2.3); Phosphorus 4.1 mg/dL (2.5-4.5); Potassium 3.8 mmol/L (3.4-5.0); Sodium 139 mmol/L (137-145)
[2021-04-04 05:55] LABS: Atypical Lymphocytes Present; Band Neutrophils Percent 10 % (0-6); Eosinophils Absolute Manual 0.32 K/mm3 (0.02-0.5); Eosinophils Percent Manual 2 % (0-4); Lymphocytes Absolute Manual 3.38 K/mm3 (1.1-4.5); Metamyelocytes Percent 4 %; Monocytes Absolute Manual 0.96 K/mm3 (0.1-0.90); Monocytes Percent Manual 6 % (3-9); Neutrophils Absolute Manual 10.78 K/mm3 (1.3-6.7); Neutrophils Percent Manual 57 % (46-73); Total Cells Counted 100
[2021-04-04 05:56] LABS: Anisocytosis 2+ (NORMAL); Hypochromasia 1+ (NORMAL); Platelet Estimate Increased (Adequate)
[2021-04-04] MEDS: LANSOPRAZOLE ORAL SUSP 30 MG/10 ML ORAL.SUSP FEED TUBE (06:35)
[2021-04-04] MEDS: METOCLOPRAMIDE HCL 10 MG/10 ML SOLN UDC PO ×3 (06:35→17:19)
[2021-04-04 07:03] LABS: Glucose Point of Care 159 mg/dl (65-105)
[2021-04-04] MEDS: DORNASE ALFA INH SOLN 1 MG/ML 2.5 ML AMP 2.5 MG INHALATION (08:49)
[2021-04-04] MEDS: PROPOFOL IV EMULSION 100 ML 3.61 MG IV CONT (09:07)
[2021-04-04] MEDS: ALPRAZolam (*CRX) 0.5 MG TABLET PO ×3 (09:08→17:16)
[2021-04-04] MEDS: INSULIN GLARGINE (*BKC) 100 UNITS/ML 25 UNITS SUB-Q (09:08)
[2021-04-04] MEDS: amLODIPine BESYLATE 5 MG TABLET PO (09:09)
[2021-04-04] MEDS: polyethylene glycoL 3350 17 GM POWD.PACK PO (09:09)
[2021-04-04] MEDS: CHOLECALCIFEROL 1,000 UNITS TABLET 1000 UNITS PO (09:09)
[2021-04-04] MEDS: METOPROLOL TARTRATE 25 MG TABLET FEED TUBE ×2 (09:09→19:58)
[2021-04-04] MEDS: ENOXAPARIN 40 MG/0.4 ML SYRINGE SUB-Q (09:09)
[2021-04-04] MEDS: MINERAL OIL/WHITE PETROLATUM OINTMENT 1 APPLIC EACH EYE ×2 (09:10→20:01)
[2021-04-04] MEDS: SIMVASTATIN 20 MG TABLET PO (09:10)
[2021-04-04] MEDS: ASPIRIN 81 MG CHEWABLE TABLET PO (09:10)
[2021-04-04] MEDS: ASCORBIC ACID 500 MG TABLET PO (09:10)
[2021-04-04 09:11] LABS: Glucose Point of Care 159 mg/dl (65-105)
[2021-04-04] MEDS: DOCUSATE SODIUM LIQ 100 MG/10 ML UDC FEED TUBE ×2 (09:11→20:02)
[2021-04-04 12:22] LABS: Glucose Point of Care 135 mg/dl (65-105)
--- NOTE | 2021-04-04 12:53 | WPDINTPN ---
Progress Note: A&P Assessment and Plan (1) Sepsis: Code(s): A41.9 - Sepsis, unspecified organism Status: Acute Assessment and Plan: Patient with worsening leukocytosis, tachycardic, worsening chest x-ray, shivering noted, febrile, tachypneic, increasing oxygen requirements and support on mechanical ventilation -currently on vancomycin and imipenem, will add levofloxacin given elevation of WBC count -currently hemodynamically stable not requiring any pressors -continue to monitor vitals closely -04/04: Pancultured (2) Acute respiratory failure with hypoxia: Code(s): J96.01 - Acute respiratory failure with hypoxia Status: Acute Assessment and Plan: Acute Respiratory failure secondary to COVID-19 pneumonia 03/09/2021 patient was emergently intubated and placed on mechanical ventilation Chest x-ray this morning shows Unchanged diffuse bilateral lung disease consistent with pneumonia versus pulmonary edema - ABGs was morning shows hypercapnic respiratory failure along with respiratory acidosis with pH of 7.28. -continue CMV mode of ventilation, increase PEEP to 10, patient on 70% FiO2. Will wean FiO2 to maintain O2 sats greater than 92% Sedated with Versed and propofol infusions. -continue Seroquel and continue Xanax -02/17/2022: TRACHEOSTOMY AND PEG TUBE placed Continue full mechanical ventilation support to prevent hypoxemia/hypercarbia and end organ damage. Patient's serial CT scans from 02/21 to now show progression of his COVID pneumonia and worsening of CT scan despite treatment (3) Pneumonia due to COVID-19 virus: Code(s): U07.1 - COVID-19; J12.82 - Pneumonia due to coronavirus disease 2018 Status: Acute Assessment and Plan: Patient tested positive for COVID-19 on 02/20/21 and initially was on room air. Patient 1st required oxygen on 02/25/2021 and has per had progressive hypoxemic respiratory failure since then, failing airflow high-flow nasal cannula and noninvasive ventilation and requiring intubation on 03/09/2021. He was started on Remdesivir 02/11 and completed 10 days. Status post complete course of dexamethasone Completed Baricitinib for total of 14 days His CRP is down to 1.7 Off zinc sulfate and vitamin-C now (4) Fever: Code(s): R50.9 - Fever, unspecified Status: Acute Assessment and Plan: Fevers resolved, white blood cell count improving 2/3 repeat sputum and blood cultures were sent, Shaikh was changed, UA and culture were sent, right IJ central venous catheter was removed patient was started on vancomycin and cefepime lipase was elevated at 452 UA was negative chest x-ray shows stable diffuse lung disease but patient is having thick yellow secretions coming out of his trach. procalcitonin level elevated at 4.7 03/28/2021 lower extremity venous Dopplers were negative for DVT now he is afebrile and white count trending up -03/31/2021 bilateral upper extremity venous Dopplers were negative for DVT -04/01/2021: Blood cultures growing CoNs, urine cultures are negative, sputum cultures negative so far (5) Hyponatremia: Code(s): E87.1 - Hypo-osmolality and hyponatremia Status: Acute Assessment and Plan: Improving, continue flushes with normal saline Treat hyperglycemia (6) Hyperglycemia: Code(s): R73.9 - Hyperglycemia, unspecified Status: Acute Assessment and Plan: Improving with sliding scale insulin and Lantus, will continue (7) Essential hypertension: Code(s): I10 - Essential (primary) hypertension Status: Acute Assessment and Plan: Continue Norvasc and beta-lianet Additional Plan DVT prophylaxis - Lovenox Stress ulcer prophylaxis -lansoprazole Nutrition -continue tube feeds, MiraLax, docusate and Reglan. Patient now awaits LTAC placement Code Status - Full Code Total Critical Care Time - 34 minutes Patient's , Lolis was at the bedside, updated h
--- NOTE | 2021-04-04 13:05 | PCNFU ---
Nutrition Follow-Up Complete: Inadequate oral intake related to mechanical ventilation as evidenced by need for advanced nutrition support. goal: Pt. to meet estimated nutritional needs. Patient is progressing towards goal. We will continue current goal. Pt current nutrition is Vital AF 1.2 at 75 ml/hr over 22 hours. Last recorded weight is 117.1 kg, down from 130.7 kg on admit. Bowel Motility:+BM reported 04/04 Labs Reviewed:Glu 186,Cr 0.3,Hct 31.8,Hgb 9.2 Meds Noted:Colace, Reglan, Nimbex, Propofol 10 maqz=448 kcals, Seroquel, Zocor,Vit D, Lopressor, Ativan, Levaquin, Lantus, Atrovent. Skin: Maceration-coccyx Additional Notes: Patient remains current with Trach/PEG. Tube feedings of Vital AF 1.2 at 75 ml/hr over 22 hours. Providing 1980 kcals/124 gms protein/1338 ml water. Meeting 89% of caloric needs/100% protein needs. Free water flush 60 ml q 4 hours. White count elevated today. Banatrol Plus q 6 hours for stool bulking. Agree with diet orders. Monitoring: every Wednesday and Wednesday as well as daily in ICU rounds.
--- NOTE | 2021-04-04 13:49 | PM.IMPN ---
Progress Note: A&P Assessment and Plan (1) Acute respiratory failure with hypoxia: Code(s): J96.01 - Acute respiratory failure with hypoxia Status: Acute Assessment and Plan: Acute Respiratory failure secondary to COVID-19 pneumonia. Pateint was emergently intubated on 03/09/21 and placed on mechanical ventilation. Echo showing EF 65-70%, Grade I diastolic dysfunction, and moderate-severe pulm HTN. Tracheostomy and PEG tube placed on 03/20/21. Sedation resumed. Continue scheduled Seroquel and Xanax with p.r.n. Ativan available. Continue full mechanical ventilation support. Waiting for acceptance to LTAC (2) Pneumonia due to COVID-19 virus: Code(s): U07.1 - COVID-19; J12.82 - Pneumonia due to coronavirus disease 2019 Status: Acute Assessment and Plan: Patient tested positive for COVID-19 on 02/20/21. He had progressive hypoxemic respiratory failure requiring intubation on 03/09/21. He completed Remdesivir, dexamethasone and Baricitinib. Continue supportive care. (3) Fever: Code(s): R50.9 - Fever, unspecified Status: Acute Assessment and Plan: Fever with leukocytosis. Sputum 03/27/21 was negative. Blood cultures 03/27/21 are negative. Shaikh was changed. UA not consistent with UTI and did not prompt urine culture. Right IJ central venous catheter was removed. Lipase elevated at 474. CXR 04/04 showing diffuse bilateral lung disease. Procalcitonin elevated 4.7 on 03/28/21 but now 0.4. Bilateral upper and lower extremity Dopplers negative for DVT. He is still mildly febrile and WBC back up. CT brain showing bilateral otomastoiditis effusions and significant sinus opacity. Fevers probably related to sinusitis. Abx in the form of Vanco and Cefepime started 04/01 and changed to Primaxin, Levaquin and vanco today. Continue to monitor. Follow. (4) Hyponatremia: Code(s): E87.1 - Hypo-osmolality and hyponatremia Status: Acute Assessment and Plan: Sodium was mostly in the low 130s and this was treated. Sodium normal now. Continue to monitor. (5) Hyperglycemia: Code(s): R73.9 - Hyperglycemia, unspecified Status: Acute Assessment and Plan: A1c 6.0. The patient's blood glucose was reviewed on 04/04 Glucose remains well controlled. Continue AccuCheks covering with sliding scale. Hypoglycemia protocol available as needed. Continue Lantus. (6) Critical illness polyneuropathy: Code(s): G62.81 - Critical illness polyneuropathy Status: Acute Assessment and Plan: Patient has severe diffuse UE>LE weakness felt related to prolonged ICU hospitalization. CT brain 04/02 showing no acute intracranial findings but with bilateral otomastoiditis effusions and significant sinus opacity. Continue supportive care. Continue therapy. (7) Essential hypertension: Code(s): I10 - Essential (primary) hypertension Status: Acute Assessment and Plan: Patient's blood pressure was reviewed on 04/04 Blood pressure mildly elevated now Continue Norvasc and Metoprolol. Monitor closely. (8) Edema: Code(s): R60.9 - Edema, unspecified Status: Acute Assessment and Plan: Noted to have diffuse edema. [place] UE edema related to dependent edema given his weakness. Tolerating intermittent Lasix (9) DVT prophylaxis: Code(s): Z29.9 - Encounter for prophylactic measures, unspecified Status: Acute Assessment and Plan: Lovenox Subjective Date/time seen: 04/04/21 13:49 Interval history: 66yo man with neuropathy and HLD who presented to the ED on 02/21 with SOB and found to have COVID-19 pneumonia. Patient was intubated on 03/09/2021. Tracheostomy and PEG tube was placed 03/20/21. PEEP increased to 10. Still having low grade fevers. Abx adjusted. Review of Systems Review of Systems: ROS unobtainable: Yes unobtainable due to endotracheal tube Exam Narrative: Tm 100.2 98.2 151/56 92 37 99%
[2021-04-04] MEDS: FUROSEMIDE INJ 40 MG/4 ML VIAL 20 MG IV PUSH (13:58)
[2021-04-04] MEDS: PROPOFOL IV EMULSION 100 ML 21.65 MG IV CONT (14:02)
[2021-04-04] MEDS: PROPOFOL IV EMULSION 100 ML 25.26 MG IV CONT (17:16)
[2021-04-04] MEDS: ACETAMINOPHEN ELIXIR 325 MG/10.15 ML UDC 650 MG FEED TUBE (17:20)
[2021-04-04 17:21] LABS: Glucose Point of Care 120 mg/dl (65-105)
--- NOTE | 2021-04-04 17:34 | WPDPROCEDUR ---
Procedures Other Procedures Procedure 1: Other Procedure: Patient was having some stridor and there was some question whether not the cuff to the trach was leaking. With the assistance of technical implementation lead we changed his tracheotomy tube with a size 8. Patient tolerated well without any complications. Dr. Holt is aware. The patient had improved respiratory effort after the tracheostomy tube was changed.
[2021-04-04] MEDS: SODIUM CHLORIDE NASAL GEL 14.1 GM 1 APPLIC NASAL (20:02)
[2021-04-04] MEDS: PROPOFOL IV EMULSION 100 ML 28.87 MG IV CONT (21:17)
[2021-04-04 22:34] LABS: Vancomycin Trough 14.4 ug/mL (10.0-20.0)
[2021-04-05] VITALS (28 sets, daily range): BP systolic 118–169; BP diastolic 59–75; PULSE 94–111; RESP 29–39; TEMP 37.4–38.2; O2SAT 91–100
[2021-04-05 00:24] LABS: Glucose Point of Care 152 mg/dl (65-105)
[2021-04-05] MEDS: PROPOFOL IV EMULSION 100 ML 28.87 MG IV CONT ×7 (00:26→21:11)
[2021-04-05] MEDS: METOCLOPRAMIDE HCL 10 MG/10 ML SOLN UDC PO ×4 (00:27→16:44)
[2021-04-05 04:17] LABS: Hematocrit 33.1 % (42.0-52.0); Hemoglobin 9.7 g/dL (14.0-18.0); Mean Corpuscular HGB Conc 29.3 g/dl (32-36); Mean Corpuscular Hemoglobin 29.2 pg (26-34); Mean Corpuscular Volume 99.7 fl (80-100); Mean Platelet Volume 9.5 fl (7.4-10.4); Platelet Count Result 553 k/mm3 (150-375); Red Blood Count 3.32 M/mm3 (4.6-6.20); Red Cell Distribution Width 16.2 % (11.5-14.5); White Blood Count 18.2 K/mm3 (4.5-10.0)
[2021-04-05] MEDS: IPRATROPIUM BR 0.02% INH SOLN 0.5 MG/2.5 ML VIAL INHALATION ×4 (04:19→20:34)
[2021-04-05] MEDS: LEVALBUTEROL NEB 1.25 MG/3 ML 0.63 MG INHALATION ×4 (04:24→20:34)
[2021-04-05] MEDS: DORNASE ALFA INH SOLN 1 MG/ML 2.5 ML AMP 2.5 MG INHALATION ×3 (04:27→20:34)
[2021-04-05 04:42] LABS: Alanine Aminotransferase 40 U/L (4-50); Albumin Level 3.8 g/dL (3.5-5.1); Alkaline Phosphatase 97 U/L (38-126); Aspartate Amino Transferase 36 U/L (17-59); Bilirubin,Total 0.4 mg/dL (0.2-1.3); Blood Urea Nitrogen 16 mg/dL (9-20); Calcium 9.2 mg/dL (8.4-10.2); Carbon Dioxide > 40 mmol/L (22-30); Chloride 91 mmol/L (98-107); Estimated CRCL calculation 164 ml/min; Estimated Glomerular Filt Rate > 60; Glucose 164 mg/dL (65-110); Magnesium 2.3 mg/dL (1.6-2.3); Potassium 4.7 mmol/L (3.4-5.0); Sodium 138 mmol/L (137-145)
[2021-04-05 05:10] LABS: Base Excess ABG 10.8 mEq/l (+/-2.0); Carboxyhemoglobin 0.8 % THb (0-2.0); Fractional Inspired Oxygen 70 %; HCO3 ABG 33.9 mEq/l (22.0-26.0); Oxygen Content ABG 13.7 %vol (16.0-22.0); Oxygen Saturation ABG 99.3 % (95.0-100.0); Oxyhemoglobin 97.8 % THb (90.0-100.0); PCO2 ABG 38.8 mmHg (35.0-45.0); PO2 ABG 170.6 mmHg (80.0-100.0); PO2 FiO2 Ratio Arterial Blood 2.44 %; Reduced Hemoglobin 1.4 %THb (0-5.0); Total Hemoglobin 9.7 g/dL (12.0-18.0)
[2021-04-05 05:13] LABS: Device VENTILATOR; Modified Allen's Test Pass; Site Drawn LEFT RADIAL; pH ABG 7.559 (7.350-7.450)
[2021-04-05 05:15] LABS: Arterial Blood Gas PEEP 10 cmH2O; Arterial Blood Gas Tidal Volume 420 ml; Arterial Blood Gas Vent Mode CMV; Arterial Blood Gas Ventilator rate 28 /MIN
[2021-04-05] MEDS: LANSOPRAZOLE ORAL SUSP 30 MG/10 ML ORAL.SUSP FEED TUBE (05:47)
[2021-04-05 07:30] LABS: Band Neutrophils Percent 8 % (0-6); Eosinophils Absolute Manual 0.72 K/mm3 (0.02-0.5); Eosinophils Percent Manual 4 % (0-4); Lymphocytes Absolute Manual 3.82 K/mm3 (1.1-4.5); Metamyelocytes Percent 3 %; Monocytes Absolute Manual 1.45 K/mm3 (0.1-0.90); Monocytes Percent Manual 8 % (3-9); Neutrophils Absolute Manual 11.64 K/mm3 (1.3-6.7); Neutrophils Percent Manual 56 % (46-73); Nucleated Red Blood Cells 1 %; Platelet Estimate Increased (Adequate); Total Cells Counted 100
[2021-04-05 07:31] LABS: Basophilic Stippling 2+ (NORMAL)
[2021-04-05 07:33] LABS: Atypical Lymphocytes Present; Stomatocytes 2+ (NORMAL)
[2021-04-05] MEDS: ALPRAZolam (*CRX) 0.5 MG TABLET PO ×3 (08:08→16:35)
[2021-04-05] MEDS: DOCUSATE SODIUM LIQ 100 MG/10 ML UDC FEED TUBE (08:08)
[2021-04-05] MEDS: polyethylene glycoL 3350 17 GM POWD.PACK PO (08:08)
[2021-04-05] MEDS: ENOXAPARIN 40 MG/0.4 ML SYRINGE SUB-Q (08:08)
[2021-04-05] MEDS: INSULIN GLARGINE (*BKC) 100 UNITS/ML 25 UNITS SUB-Q (08:08)
[2021-04-05] MEDS: METOPROLOL TARTRATE 25 MG TABLET FEED TUBE ×2 (08:09→20:18)
[2021-04-05] MEDS: SIMVASTATIN 20 MG TABLET PO (08:09)
[2021-04-05] MEDS: MINERAL OIL/WHITE PETROLATUM OINTMENT 1 APPLIC EACH EYE ×2 (08:09→20:18)
[2021-04-05] MEDS: amLODIPine BESYLATE 5 MG TABLET PO (08:09)
[2021-04-05] MEDS: CHOLECALCIFEROL 1,000 UNITS TABLET 1000 UNITS PO (08:09)
[2021-04-05] MEDS: ASCORBIC ACID 500 MG TABLET PO (08:09)
[2021-04-05] MEDS: ASPIRIN 81 MG CHEWABLE TABLET PO (08:10)
--- NOTE | 2021-04-05 11:24 | PM.IMPN ---
Progress Note: A&P Assessment and Plan (1) Acute respiratory failure with hypoxia: Code(s): J96.01 - Acute respiratory failure with hypoxia Status: Acute Assessment and Plan: Acute Respiratory failure secondary to COVID-19 pneumonia. Pateint was emergently intubated on 03/09/21 and placed on mechanical ventilation. Echo showing EF 65-70%, Grade I diastolic dysfunction, and moderate-severe pulm HTN. Tracheostomy and PEG tube placed on 03/20. Off sedation at this time. Continue full mechanical ventilation support. Waiting for acceptance to LTAC vent management per pulmonology (2) Pneumonia due to COVID-19 virus: Code(s): U07.1 - COVID-19; J12.82 - Pneumonia due to coronavirus disease 2019 Status: Acute Assessment and Plan: Patient tested positive for COVID-19 on 02/20/21. He had progressive hypoxemic respiratory failure requiring intubation on 03/09/21. He completed Remdesivir, dexamethasone and Baricitinib. Continue supportive care. (3) Fever: Code(s): R50.9 - Fever, unspecified Status: Acute Assessment and Plan: Fever with leukocytosis. Sputum 2/3 was negative. Blood cultures 2/3 are negative. Shaikh was changed. UA not consistent with UTI and did not prompt urine culture. Right IJ central venous catheter was removed. Lipase elevated at 474. CXR 04/02 showing diffuse bilateral lung disease. Procalcitonin elevated 4.7 on 03/28/21 but now 0.4. Bilateral upper and lower extremity Dopplers negative for DVT. He is still febrile but WBC decreasing. CT brain showing bilateral otomastoiditis effusions and significant sinus opacity. Fevers probably related to sinusitis. Abx in the form of Vanco and Cefepime started 04/01. Continue the same. Follow. Follow-up panculture (4) Hyponatremia: Code(s): E87.1 - Hypo-osmolality and hyponatremia Status: Acute Assessment and Plan: Sodium was mostly in the low 130s and this was treated. Sodium normal now. Continue to monitor. (5) Hyperglycemia: Code(s): R73.9 - Hyperglycemia, unspecified Status: Acute Assessment and Plan: A1c 6.0. The patient's blood glucose was reviewed on 04/03 Glucose remains well controlled. Continue AccuCheks covering with sliding scale. Hypoglycemia protocol available as needed. Continue Lantus. (6) Critical illness polyneuropathy: Code(s): G62.81 - Critical illness polyneuropathy Status: Acute Assessment and Plan: Patient has severe diffuse UE>LE weakness felt related to prolonged ICU hospitalization. CT brain 04/02 showing no acute intracranial findings but with bilateral otomastoiditis effusions and significant sinus opacity. Continue supportive care. Continue therapy. (7) Essential hypertension: Code(s): I10 - Essential (primary) hypertension Status: Acute Assessment and Plan: Patient's blood pressure was reviewed on 04/03 Blood pressure more elevated now since anti-HTN medications held. Norvasc and Metoprolol resumed with lower dose of Norvasc. Monitor closely. (8) Edema: Code(s): R60.9 - Edema, unspecified Status: Acute Assessment and Plan: Noted to have diffuse edema. [place] UE edema related to dependent edema given his weakness. Diuresis per critical care (9) DVT prophylaxis: Code(s): Z29.9 - Encounter for prophylactic measures, unspecified Status: Acute Assessment and Plan: lovenox Subjective Date/time seen: 04/05/21 11:24 Interval history: 66yo man with neuropathy and HLD who presented to the ED on 02/21 with SOB and found to have COVID-19 pneumonia. Patient was intubated on 03/09/2021. Tracheostomy and PEG tube was placed 03/20/21. Has episode of tried are tracheostomy tube was adjusted on 04/04/2021 Exam Narrative: Alert Chest decreased air entry bilateral Abdomen nontender nondistended CVS S1 + S2 Tracheostomy in place Objective Data Vital Signs Vital
[2021-04-05 11:57] LABS: Glucose Point of Care 161 mg/dl (65-105)
--- NOTE | 2021-04-05 12:33 | WPDINTPN ---
Progress Note: A&P Assessment and Plan (1) Sepsis: Code(s): A41.9 - Sepsis, unspecified organism Status: Acute Assessment and Plan: 04/05: Fever curve is improving Patient with worsening leukocytosis, tachycardic, worsening chest x-ray, shivering noted, febrile, tachypneic, increasing oxygen requirements and support on mechanical ventilation -currently on vancomycin and imipenem, levofloxacin was added on 04/04 -currently hemodynamically stable not requiring any pressors -continue to monitor vitals closely -04/04: Pancultured (2) Acute respiratory failure with hypoxia: Code(s): J96.01 - Acute respiratory failure with hypoxia Status: Acute Assessment and Plan: Acute Respiratory failure secondary to COVID-19 pneumonia 03/09/2021 patient was emergently intubated and placed on mechanical ventilation Chest x-ray this morning shows Unchanged diffuse bilateral lung disease consistent with pneumonia versus pulmonary edema -ABGs reviewed this morning, will decrease PEEP to 10, decrease respiratory rate to 26. Wean FiO2 to maintain O2 sats > 92% Sedated with Versed and propofol infusions. -continue Seroquel and continue Xanax -02/17/2022: TRACHEOSTOMY AND PEG TUBE placed Continue full mechanical ventilation support to prevent hypoxemia/hypercarbia and end organ damage. Patient's serial CT scans from 02/21 to now show progression of his COVID pneumonia and worsening of CT scan despite treatment (3) Pneumonia due to COVID-19 virus: Code(s): U07.1 - COVID-19; J12.82 - Pneumonia due to coronavirus disease 2019 Status: Acute Assessment and Plan: Patient tested positive for COVID-19 on 02/20/21 and initially was on room air. Patient 1st required oxygen on 02/25/2021 and has per had progressive hypoxemic respiratory failure since then, failing airflow high-flow nasal cannula and noninvasive ventilation and requiring intubation on 03/09/2021. He was started on Remdesivir 02/11 and completed 10 days. Status post complete course of dexamethasone Completed Baricitinib for total of 14 days His CRP is down to 1.7 Off zinc sulfate and vitamin-C now (4) Hyponatremia: Code(s): E87.1 - Hypo-osmolality and hyponatremia Status: Acute Assessment and Plan: Improving, continue flushes with normal saline Treat hyperglycemia (5) Hyperglycemia: Code(s): R73.9 - Hyperglycemia, unspecified Status: Acute Assessment and Plan: Improving with sliding scale insulin and Lantus, will continue (6) Essential hypertension: Code(s): I10 - Essential (primary) hypertension Status: Acute Assessment and Plan: Continue Norvasc and beta-lianet Additional Plan DVT prophylaxis - Lovenox Stress ulcer prophylaxis -lansoprazole Nutrition -continue tube feeds, MiraLax, docusate and Reglan. Patient now awaits LTAC placement Urinary catheter was replaced on 04/04 Code Status - Full Code Total Critical Care Time - 32 minutes Patient's , Lolis was at the bedside, updated her with patient's condition and plan of care. She is aware that this is a new onset of pneumonia, she is aware that patient has been started on a different set of antibiotics. I told her that patient will be here in the ICU over the weekend and re-evaluate regarding transfer to LTAC on Wednesday, 04/07. Due to a high probability of clinically significant, life threatening deterioration, the patient required my highest level of preparedness to intervene emergently and I personally spent this critical care time directly and personally managing the patient. This critical care time included obtaining a history; examining the patient; pulse oximetry; ordering and review of studies; arranging urgent treatment with development of a management plan; evaluation of patient's response to treatment; frequent reassessment; and discussions with other providers. It was exclusive of eusebia connors
[2021-04-05] MEDS: ACETAMINOPHEN ELIXIR 325 MG/10.15 ML UDC 650 MG FEED TUBE (16:35)
[2021-04-05 17:32] LABS: Glucose Point of Care 131 mg/dl (65-105)
[2021-04-05] MEDS: SODIUM CHLORIDE NASAL GEL 14.1 GM 1 APPLIC NASAL (20:20)
[2021-04-06] VITALS (30 sets, daily range): BP systolic 102–145; BP diastolic 63–90; PULSE 84–111; RESP 23–40; TEMP 36.6–37.6; O2SAT 89–100
[2021-04-06] MEDS: PROPOFOL IV EMULSION 100 ML 28.87 MG IV CONT ×3 (00:33→06:17)
[2021-04-06] MEDS: fentaNYL CITRATE INJ (*CRX) 100 MCG/2 ML VIAL 50 MCG IV PUSH (00:34)
[2021-04-06 00:45] LABS: Glucose Point of Care 131 mg/dl (65-105)
[2021-04-06] MEDS: LEVALBUTEROL NEB 1.25 MG/3 ML 0.63 MG INHALATION ×4 (02:23→20:34)
[2021-04-06] MEDS: IPRATROPIUM BR 0.02% INH SOLN 0.5 MG/2.5 ML VIAL INHALATION ×4 (02:24→20:34)
[2021-04-06 05:02] LABS: Alanine Aminotransferase 35 U/L (4-50); Albumin Level 3.6 g/dL (3.5-5.1); Alkaline Phosphatase 90 U/L (38-126); Anion Gap 7 mmol/L (8-16); Aspartate Amino Transferase 47 U/L (17-59); Bilirubin,Total 0.3 mg/dL (0.2-1.3); Blood Urea Nitrogen 15 mg/dL (9-20); Calcium 8.7 mg/dL (8.4-10.2); Carbon Dioxide 37 mmol/L (22-30); Chloride 96 mmol/L (98-107); Estimated CRCL calculation 206 ml/min; Estimated Glomerular Filt Rate > 60; Glucose 133 mg/dL (65-110); Magnesium 2.3 mg/dL (1.6-2.3); Phosphorus 3.6 mg/dL (2.5-4.5); Potassium 4.4 mmol/L (3.4-5.0); Sodium 140 mmol/L (137-145)
[2021-04-06 05:18] LABS: Alveolar/Arterial O2 Gradient 208.5 mmHg; Base Excess ABG 15.1 mEq/l (+/-2.0); Fractional Inspired Oxygen 50 %; HCO3 ABG 41.1 mEq/l (22.0-26.0); Methemoglobin ABG 0.3 %THb (0-1.5); Oxygen Content ABG 12.7 %vol (16.0-22.0); Oxyhemoglobin 94.1 % THb (90.0-100.0); PO2 ABG 80.4 mmHg (80.0-100.0); PO2 FiO2 Ratio Arterial Blood 1.61 %; Reduced Hemoglobin 4.6 %THb (0-5.0); Total Hemoglobin 9.5 g/dL (12.0-18.0); pH ABG 7.453 (7.350-7.450)
[2021-04-06 05:22] LABS: Device VENTILATOR; Modified Allen's Test Pass; PCO2 ABG 60.1 mmHg (35.0-45.0); Site Drawn LEFT RADIAL
[2021-04-06 05:23] LABS: Arterial Blood Gas PEEP 8 cmH2O; Arterial Blood Gas Tidal Volume 420 ml; Arterial Blood Gas Vent Mode CMV; Arterial Blood Gas Ventilator rate 26 /MIN
[2021-04-06 06:11] LABS: Hematocrit 28.5 % (42.0-52.0); Hemoglobin 8.6 g/dL (14.0-18.0); Mean Corpuscular HGB Conc 30.2 g/dl (32-36); Mean Platelet Volume 9.6 fl (7.4-10.4); Platelet Count Result 468 k/mm3 (150-375); Red Blood Count 2.97 M/mm3 (4.6-6.20); White Blood Count 14.8 K/mm3 (4.5-10.0)
[2021-04-06] MEDS: LANSOPRAZOLE ORAL SUSP 30 MG/10 ML ORAL.SUSP FEED TUBE (06:11)
[2021-04-06] MEDS: DORNASE ALFA INH SOLN 1 MG/ML 2.5 ML AMP 2.5 MG INHALATION ×2 (08:11→20:34)
[2021-04-06] MEDS: polyethylene glycoL 3350 17 GM POWD.PACK PO (08:34)
[2021-04-06] MEDS: DOCUSATE SODIUM LIQ 100 MG/10 ML UDC FEED TUBE ×2 (08:34→20:04)
[2021-04-06] MEDS: SIMVASTATIN 20 MG TABLET PO (08:34)
[2021-04-06] MEDS: ASCORBIC ACID 500 MG TABLET PO (08:35)
[2021-04-06] MEDS: ASPIRIN 81 MG CHEWABLE TABLET PO (08:35)
[2021-04-06] MEDS: amLODIPine BESYLATE 5 MG TABLET PO (08:35)
[2021-04-06] MEDS: INSULIN GLARGINE (*BKC) 100 UNITS/ML 25 UNITS SUB-Q (08:36)
[2021-04-06] MEDS: CHOLECALCIFEROL 1,000 UNITS TABLET 1000 UNITS PO (08:36)
[2021-04-06] MEDS: ENOXAPARIN 40 MG/0.4 ML SYRINGE SUB-Q (08:36)
[2021-04-06] MEDS: METOPROLOL TARTRATE 25 MG TABLET FEED TUBE ×2 (08:38→20:04)
[2021-04-06] MEDS: MINERAL OIL/WHITE PETROLATUM OINTMENT 1 APPLIC EACH EYE ×2 (08:38→20:05)
[2021-04-06] MEDS: ALPRAZolam (*CRX) 0.5 MG TABLET PO ×3 (08:46→17:00)
[2021-04-06] MEDS: BUMETANIDE INJ 1 MG/4 ML VIAL IV PUSH ×2 (08:46→17:01)
[2021-04-06 08:50] LABS: Band Neutrophils Percent 8 % (0-6); Lymphocytes Absolute Manual 3.99 K/mm3 (1.1-4.5); Metamyelocytes Percent 2 %; Monocytes Absolute Manual 0.44 K/mm3 (0.1-0.90); Monocytes Percent Manual 3 % (3-9); Neutrophils Absolute Manual 10.06 K/mm3 (1.3-6.7); Neutrophils Percent Manual 60 % (46-73); Total Cells Counted 100
[2021-04-06 08:51] LABS: Platelet Estimate Increased (Adequate); Stomatocytes 1+ (NORMAL)
--- NOTE | 2021-04-06 09:50 | PM.IMPN ---
Progress Note: A&P Assessment and Plan (1) Sepsis: Code(s): A41.9 - Sepsis, unspecified organism Status: Acute Assessment and Plan: Secondary to COVID-19 pneumonia Status post tracheostomy Plan for LTAC (2) Critical illness polyneuropathy: Code(s): G62.81 - Critical illness polyneuropathy Status: Acute Assessment and Plan: PT OT evaluate (3) Edema: Code(s): R60.9 - Edema, unspecified Status: Acute Assessment and Plan: Diuresis as tolerated per Critical Care (4) Essential hypertension: Code(s): I10 - Essential (primary) hypertension Status: Acute Assessment and Plan: Stable continue current management (5) Dysphagia: Code(s): R13.10 - Dysphagia, unspecified Status: Acute Assessment and Plan: Continue tube feeding (6) Acute respiratory failure with hypoxia: Code(s): J96.01 - Acute respiratory failure with hypoxia Status: Acute Assessment and Plan: Secondary to COVID-19 pneumonia Tracheostomy (7) Pneumonia due to COVID-19 virus: Code(s): U07.1 - COVID-19; J12.82 - Pneumonia due to coronavirus disease 2019 Status: Acute (8) Fever: Code(s): R50.9 - Fever, unspecified Status: Acute Assessment and Plan: Pancultured Leukocytosis improved Continue current antibiotics Subjective Date/time seen: 04/06/21 09:50 Interval history: Patient seen and examined Patient unable to provide his Tolerated tube feed Leukocytosis improved I am seeing the patient for COVID-19 Exam Narrative: Alert Chest no wheeze crackles Abdomen nontender nondistended CVS S1 + S2 Minimal Lower extremity edema Objective Data Vital Signs Vital Signs: Vital Signs - 24 hr 04/05/21 10:00 04/05/21 10:51 04/05/21 12:00 Temperature 100.4 F H 100.1 F H Pulse Rate 94 94 106 H Respiratory Rate 33 H 39 H Blood Pressure 132/65 139/68 Pulse Oximetry 100 100 93 04/05/21 13:44 04/05/21 13:54 04/05/21 14:00 Temperature 100.1 F H Pulse Rate 106 H 104 H 102 H Respiratory Rate 35 H 35 H 34 H Blood Pressure 122/61 Pulse Oximetry 97 100 04/05/21 14:22 04/05/21 14:23 04/05/21 16:00 Temperature 100.7 F H Pulse Rate 105 H 105 H 102 H Respiratory Rate 33 H 33 H 29 H Blood Pressure 128/65 Pulse Oximetry 100 04/05/21 16:35 04/05/21 17:05 04/05/21 17:35 Temperature 100.7 F H 100.0 F H Pulse Rate 108 H Respiratory Rate Blood Pressure Pulse Oximetry 94 04/05/21 17:43 04/05/21 20:00 04/05/21 20:18 Temperature 100.0 F H 99.3 F Pulse Rate 105 H 104 H 104 H Respiratory Rate 33 H 37 H Blood Pressure 118/59 L 144/75 H Pulse Oximetry 93 95 04/05/21 20:25 04/05/21 20:45 04/05/21 22:00 Temperature Pulse Rate 107 H 107 H 105 H Respiratory Rate 35 H 35 H 38 H Blood Pressure 118/70 Pulse Oximetry 99 91 04/05/21 23:29 04/06/21 00:00 04/06/21 02:00 Temperature 99.6 F Pulse Rate 106 H 103 H 102 H Respiratory Rate 40 H 36 H Blood Pressure 132/71 125/74 Pulse Oximetry 92 98 98 04/06/21 02:30 04/06/21 02:40 04/06/21 03:48 Temperature 99.3 F Pulse Rate 101 H 101 H 98 Respiratory Rate 36 H 36 H 32 H Blood Pressure 129/73 Pulse Oximetry 100 99 04/06/21 03:50 04/06/21 04:00 04/06/21 04:50 Temperature Pulse Rate 97 102 H Respiratory Rate Blood Pressure Pulse Oximetry 100 98 04/06/21 06:00 04/06/21 08:10 04/06/21 08:20 Temperature 99.1 F Pulse Rate 98 100 102 H Respiratory Rate 35 H 33 H Blood Pressure 132/75 Pulse Oximetry 98 100 04/06/21 08:22 Temperature Pulse Rate 99 Respiratory Rate 31 H Blood Pressure Pulse Oximetry Intake/Output Intake/Output: Intake & Output 04/03/21 04/04/21 04/05/21 04/06/21 23:59 23:59 23:59 23:59 Intake Total 3022 3547 4219 1450 Output Total 2550 1720 2850 900 Balance 472 1827 1369 550 Meds/Results Medications: Active Medications Generic Name Dose
[2021-04-06] MEDS: PROPOFOL IV EMULSION 100 ML 21.65 MG IV CONT ×2 (11:05→14:29)
[2021-04-06] MEDS: METOCLOPRAMIDE HCL 10 MG/10 ML SOLN UDC PO ×3 (11:14→23:53)
--- NOTE | 2021-04-06 11:36 | P.PNINT_ITS ---
Progress Note: A&P Assessment and Plan (1) Sepsis: Code(s): A41.9 - Sepsis, unspecified organism Status: Acute Assessment and Plan: 04/06: WBC count and fever curve - improving 04/03: Patient with worsening leukocytosis, tachycardic, worsening chest x-ray, shivering noted, febrile, tachypneic, increasing oxygen requirements and support on mechanical ventilation -currently on vancomycin and imipenem (04/03), levofloxacin was added on 04/04 -currently hemodynamically stable not requiring any pressors -continue to monitor vitals closely -04/05: Blood cultures negative x2 on preliminary report -04/05: Urine culture pending -04/05: Sputum culture, no organisms seen, culture in process (2) Acute respiratory failure with hypoxia: Code(s): J96.01 - Acute respiratory failure with hypoxia Status: Acute Assessment and Plan: Acute Respiratory failure secondary to COVID-19 pneumonia 03/09/2021 patient was emergently intubated and placed on mechanical ventilation Chest x-ray this morning shows Unchanged diffuse bilateral lung disease consistent with pneumonia versus pulmonary edema -ABGs reviewed this morning, continue CMV mode of ventilation trial of 8 and 50% FiO2. Wean FiO2 to maintain O2 sats > 92% Sedated with Versed and propofol infusions. Wean sedation gradually to off -continue Seroquel and continue Xanax -02/17/2022: TRACHEOSTOMY AND PEG TUBE placed Continue full mechanical ventilation support to prevent hypoxemia/hypercarbia and end organ damage. Patient's serial CT scans from 02/21 to now show progression of his COVID pneumonia and worsening of CT scan despite treatment (3) Pneumonia due to COVID-19 virus: Code(s): U07.1 - COVID-19; J12.82 - Pneumonia due to coronavirus disease 2019 Status: Acute Assessment and Plan: Patient tested positive for COVID-19 on 02/20/21 and initially was on room air. Patient 1st required oxygen on 02/25/2021 and has per had progressive hypoxemic respiratory failure since then, failing airflow high-flow nasal cannula and noninvasive ventilation and requiring intubation on 03/09/2021. He was started on Remdesivir 02/11 and completed 10 days. Status post complete course of dexamethasone Completed Baricitinib for total of 14 days His CRP is down to 1.7 Off zinc sulfate and vitamin-C now (4) Hyponatremia: Code(s): E87.1 - Hypo-osmolality and hyponatremia Status: Acute Assessment and Plan: Improving, continue flushes with normal saline Treat hyperglycemia (5) Hyperglycemia: Code(s): R73.9 - Hyperglycemia, unspecified Status: Acute Assessment and Plan: Improving with sliding scale insulin and Lantus, will continue (6) Essential hypertension: Code(s): I10 - Essential (primary) hypertension Status: Acute Assessment and Plan: Continue Norvasc and beta-lianet Additional Plan DVT prophylaxis - Lovenox Stress ulcer prophylaxis -lansoprazole Nutrition -continue tube feeds, MiraLax, docusate and Reglan. Patient now awaits LTAC placement Urinary catheter was replaced on 04/04 Code Status - Full Code Total Critical Care Time - 32 minutes Patient's , Lolis was at the bedside, updated her with patient's condition and plan of care. She is aware that this is a new onset of pneumonia, she is aware that patient has been started on a different set of antibiotics. I told her that patient will be here in the ICU over the weekend and re-evaluate regarding transfer to LTAC on Wednesday, 04/07. Due to a high probability of clinically si
[2021-04-06 11:44] LABS: Glucose Point of Care 145 mg/dl (65-105)
[2021-04-06 11:44] LABS: Glucose Point of Care 158 mg/dl (65-105)
--- NOTE | 2021-04-06 12:40 | PCOTNOTE ---
Pt is currently sedated and is not appropriate for therapy at this time. Per OTR, therapist spoke with RN in regards to cancel therapy orders due to current medical status.
[2021-04-06] MEDS: PROPOFOL IV EMULSION 100 ML 18.05 MG IV CONT ×2 (14:38→22:35)
[2021-04-06 18:34] LABS: Glucose Point of Care 156 mg/dl (65-105)
[2021-04-06] MEDS: SODIUM CHLORIDE NASAL GEL 14.1 GM 1 APPLIC NASAL (20:06)
[2021-04-07] VITALS (31 sets, daily range): BP systolic 115–145; BP diastolic 65–76; PULSE 84–114; RESP 28–42; TEMP 37.3–37.7; O2SAT 92–100
[2021-04-07 00:15] LABS: Glucose Point of Care 206 mg/dl (65-105)
[2021-04-07] MEDS: INSULIN ASPART (*BKC) 100 UNITS/ML SUB-Q (00:42)
[2021-04-07] MEDS: IPRATROPIUM BR 0.02% INH SOLN 0.5 MG/2.5 ML VIAL INHALATION ×4 (02:00→20:44)
[2021-04-07] MEDS: LEVALBUTEROL NEB 1.25 MG/3 ML 0.63 MG INHALATION ×4 (02:00→20:00)
[2021-04-07] MEDS: PROPOFOL IV EMULSION 100 ML 14.44 MG IV CONT (03:48)
[2021-04-07 04:21] LABS: Hematocrit 32.1 % (42.0-52.0); Hemoglobin 9.6 g/dL (14.0-18.0); Mean Corpuscular HGB Conc 29.9 g/dl (32-36); Mean Corpuscular Hemoglobin 29.1 pg (26-34); Mean Corpuscular Volume 97.3 fl (80-100); Mean Platelet Volume 9.1 fl (7.4-10.4); Platelet Count Result 500 k/mm3 (150-375); Red Cell Distribution Width 16.3 % (11.5-14.5); White Blood Count 20.7 K/mm3 (4.5-10.0)
[2021-04-07 05:01] LABS: Alanine Aminotransferase 32 U/L (4-50); Albumin Level 3.5 g/dL (3.5-5.1); Alkaline Phosphatase 104 U/L (38-126); Aspartate Amino Transferase 40 U/L (17-59); Bilirubin,Total 0.3 mg/dL (0.2-1.3); Blood Urea Nitrogen 17 mg/dL (9-20); Calcium 8.9 mg/dL (8.4-10.2); Carbon Dioxide > 40 mmol/L (22-30); Chloride 91 mmol/L (98-107); Estimated CRCL calculation 199 ml/min; Estimated Glomerular Filt Rate > 60; Glucose 155 mg/dL (65-110); Magnesium 2.1 mg/dL (1.6-2.3); Phosphorus 4.3 mg/dL (2.5-4.5); Potassium 4.5 mmol/L (3.4-5.0); Sodium 137 mmol/L (137-145)
[2021-04-07 05:14] LABS: Glucose Point of Care 155 mg/dl (65-105)
[2021-04-07 05:18] LABS: Alveolar/Arterial O2 Gradient 216.8 mmHg; Base Excess ABG 11.4 mEq/l (+/-2.0); Fractional Inspired Oxygen 50 %; HCO3 ABG 39.1 mEq/l (22.0-26.0); Methemoglobin ABG 0.3 %THb (0-1.5); Oxygen Content ABG 14.1 %vol (16.0-22.0); Oxygen Saturation ABG 89.8 % (95.0-100.0); Oxyhemoglobin 89.1 % THb (90.0-100.0); PO2 ABG 61.4 mmHg (80.0-100.0); PO2 FiO2 Ratio Arterial Blood 1.23 %; Reduced Hemoglobin 9.6 %THb (0-5.0); Total Hemoglobin 11.2 g/dL (12.0-18.0); pH ABG 7.367 (7.350-7.450)
[2021-04-07 05:21] LABS: PCO2 ABG 69.6 mmHg (35.0-45.0)
[2021-04-07 05:22] LABS: Device VENTILATOR; Modified Allen's Test Pass; Site Drawn LEFT RADIAL
[2021-04-07 05:24] LABS: Arterial Blood Gas PEEP 8 cmH2O; Arterial Blood Gas Vent Mode CMV; Arterial Blood Gas Ventilator rate 26 /MIN
[2021-04-07 05:25] LABS: Arterial Blood Gas Tidal Volume 420 ml
[2021-04-07 05:48] LABS: Band Neutrophils Percent 4 % (0-6); Basophils Percent Manual 1 % (0-1); Eosinophils Absolute Manual 0.62 K/mm3 (0.02-0.5); Eosinophils Percent Manual 3 % (0-4); Lymphocytes Absolute Manual 3.31 K/mm3 (1.1-4.5); Monocytes Absolute Manual 0.41 K/mm3 (0.1-0.90); Monocytes Percent Manual 2 % (3-9); Neutrophils Absolute Manual 16.14 K/mm3 (1.3-6.7); Neutrophils Percent Manual 74 % (46-73); Platelet Estimate Increased (Adequate); Total Cells Counted 100
[2021-04-07 05:49] LABS: Anisocytosis 2+ (NORMAL); Atypical Lymphocytes Present; Poikilocytosis 1+ (NORMAL)
[2021-04-07] MEDS: LANSOPRAZOLE ORAL SUSP 30 MG/10 ML ORAL.SUSP FEED TUBE (06:05)
[2021-04-07] MEDS: DORNASE ALFA INH SOLN 1 MG/ML 2.5 ML AMP 2.5 MG INHALATION ×2 (08:05→20:45)
[2021-04-07] MEDS: PROPOFOL IV EMULSION 100 ML 18.05 MG IV CONT (08:18)
[2021-04-07] MEDS: fentaNYL CITRATE INJ (*CRX) 100 MCG/2 ML VIAL 50 MCG IV PUSH (08:34)
--- NOTE | 2021-04-07 09:04 | PM.IMPN ---
Progress Note: A&P Assessment and Plan (1) Acute respiratory failure with hypoxia: Code(s): J96.01 - Acute respiratory failure with hypoxia Status: Acute Assessment and Plan: Acute Respiratory failure secondary to COVID-19 pneumonia. Patient was emergently intubated on 03/09/21 and placed on mechanical ventilation. Echo showing EF 65-70%, Grade I diastolic dysfunction, and moderate-severe pulm HTN. Tracheostomy and PEG tube placed on 03/20/21. Sedation resumed. Continue scheduled Xanax with p.r.n. Ativan available. Seroquel stopped. Continue full mechanical ventilation support. Apprecaite plug wirer input. Waiting for acceptance to LTAC (2) Pneumonia due to COVID-19 virus: Code(s): U07.1 - COVID-19; J12.82 - Pneumonia due to coronavirus disease 2019 Status: Acute Assessment and Plan: Patient tested positive for COVID-19 on 02/20/21. He had progressive hypoxemic respiratory failure requiring intubation on 03/09/21. He completed Remdesivir, dexamethasone and Baricitinib. He remains on Vitamin C +D. Continue supportive care. (3) Fever: Code(s): R50.9 - Fever, unspecified Status: Acute Assessment and Plan: Fever with leukocytosis. Sputum 03/27/21 was negative. Blood cultures 03/27/21 are negative. Shaikh was changed. UA not consistent with UTI and did not prompt urine culture. Right IJ central venous catheter was removed. Lipase elevated at 474. BCx 2 growing Coag negative Staph (1of2) felt to be contaminate. CXR 04/04 showing diffuse bilateral lung disease. Procalcitonin elevated 4.7 on 03/28/21 but now 0.4. Bilateral upper and lower extremity Dopplers negative for DVT. CT scan does show sinusitis. Fevers probably related to sinusitis. Abx in the form of Vanco and Cefepime started 04/01 and changed to Primaxin, Levaquin and vanco 04/04. His last fever was on 04/05/21. WBC has been up and down. Sputum 04/05 pending. UCx 04/05 negative. BCx 04/05 NGTD. Continue to monitor. Follow. (4) Hyponatremia: Code(s): E87.1 - Hypo-osmolality and hyponatremia Status: Acute Assessment and Plan: Sodium was mostly in the low 130s and this was treated. Sodium normal now. Continue to monitor. (5) Hyperglycemia: Code(s): R73.9 - Hyperglycemia, unspecified Status: Acute Assessment and Plan: A1c 6.0. The patient's blood glucose was reviewed on 04/07 Glucose remains reasonably well controlled. Continue AccuCheks covering with sliding scale. Hypoglycemia protocol available as needed. Continue Lantus. (6) Critical illness polyneuropathy: Code(s): G62.81 - Critical illness polyneuropathy Status: Acute Assessment and Plan: Patient has severe diffuse UE>LE weakness felt related to prolonged ICU hospitalization. CT brain 04/02 showing no acute intracranial findings but with bilateral otomastoiditis effusions and significant sinus opacity. Continue supportive care. Continue therapy. (7) Essential hypertension: Code(s): I10 - Essential (primary) hypertension Status: Acute Assessment and Plan: Patient's blood pressure was reviewed on 04/07 Blood pressure well controlled. Continue Norvasc and Metoprolol. Monitor closely. (8) Edema: Code(s): R60.9 - Edema, unspecified Status: Acute Assessment and Plan: Noted to have diffuse edema. [place] UE edema related to dependent edema given his weakness. Tolerating intermittent Lasix (9) DVT prophylaxis: Code(s): Z29.9 - Encounter for prophylactic measures, unspecified Status: Acute Assessment and Plan: lovenox Subjective Date/time seen: 04/07/21 09:04 Interval history: 66yo man with neuropathy and HLD who presented to the ED on 02/21 with SOB and found to have COVID-19 pneumonia. Patient was intubated on 03/09/2021. Tracheostomy and PEG tube was placed 03/20/21. Resuming care. Chart reviewed. More tachypnic requiring more sedation and ve
[2021-04-07] MEDS: INSULIN GLARGINE (*BKC) 100 UNITS/ML 25 UNITS SUB-Q (09:16)
[2021-04-07 09:19] LABS: Glucose Point of Care 149 mg/dl (65-105)
[2021-04-07] MEDS: amLODIPine BESYLATE 5 MG TABLET PO (09:20)
[2021-04-07] MEDS: CHOLECALCIFEROL 1,000 UNITS TABLET 1000 UNITS PO (09:21)
[2021-04-07] MEDS: SIMVASTATIN 20 MG TABLET PO (09:21)
[2021-04-07] MEDS: acetaZOLAMIDE SODIUM FOR INJ 500 MG VIAL 250 MG IV PUSH ×2 (09:21→19:37)
[2021-04-07] MEDS: METOPROLOL TARTRATE 25 MG TABLET FEED TUBE ×2 (09:22→21:25)
[2021-04-07] MEDS: ASPIRIN 81 MG CHEWABLE TABLET PO (09:23)
[2021-04-07] MEDS: ASCORBIC ACID 500 MG TABLET PO (09:23)
[2021-04-07] MEDS: ENOXAPARIN 40 MG/0.4 ML SYRINGE SUB-Q (09:24)
[2021-04-07] MEDS: DOCUSATE SODIUM LIQ 100 MG/10 ML UDC FEED TUBE ×2 (09:24→21:24)
[2021-04-07] MEDS: MINERAL OIL/WHITE PETROLATUM OINTMENT 1 APPLIC EACH EYE ×2 (09:25→21:25)
[2021-04-07] MEDS: polyethylene glycoL 3350 17 GM POWD.PACK PO (09:25)
[2021-04-07] MEDS: ALPRAZolam (*CRX) 0.5 MG TABLET PO ×3 (09:32→18:19)
--- NOTE | 2021-04-07 10:59 | WPDINTPN ---
Progress Note: A&P Assessment and Plan (1) Sepsis: Code(s): A41.9 - Sepsis, unspecified organism Status: Acute Assessment and Plan: 04/06: WBC count and fever curve - improving 04/03: Patient with worsening leukocytosis, tachycardic, worsening chest x-ray, shivering noted, febrile, tachypneic, increasing oxygen requirements and support on mechanical ventilation -currently on vancomycin and imipenem (04/03), levofloxacin was added on 04/04 -currently hemodynamically stable not requiring any pressors -continue to monitor vitals closely -04/05: Blood cultures negative x2 on preliminary report -04/05: Urine culture neg -04/05: Sputum culture, no organisms seen, culture in process (2) Acute respiratory failure with hypoxia: Code(s): J96.01 - Acute respiratory failure with hypoxia Status: Acute Assessment and Plan: Acute Respiratory failure secondary to COVID-19 pneumonia 03/09/2021 patient was emergently intubated and placed on mechanical ventilation Chest x-ray this morning shows Unchanged diffuse bilateral lung disease consistent with pneumonia versus pulmonary edema -ABGs reviewed this morning, continue CMV mode of ventilation trial of 8 and 50% FiO2. Wean FiO2 to maintain O2 sats > 92% Sedated with Versed and propofol infusions. Wean sedation gradually to off -continue Seroquel and continue Xanax -02/17/2022: TRACHEOSTOMY AND PEG TUBE placed Continue full mechanical ventilation support to prevent hypoxemia/hypercarbia and end organ damage. Patient's serial CT scans from 02/21 to now show progression of his COVID pneumonia and worsening of CT scan despite treatment (3) Pneumonia due to COVID-19 virus: Code(s): U07.1 - COVID-19; J12.82 - Pneumonia due to coronavirus disease 2019 Status: Acute Assessment and Plan: Patient tested positive for COVID-19 on 02/20/21 and initially was on room air. Patient 1st required oxygen on 02/25/2021 and has per had progressive hypoxemic respiratory failure since then, failing airflow high-flow nasal cannula and noninvasive ventilation and requiring intubation on 03/09/2021. He was started on Remdesivir 02/11 and completed 10 days. Status post complete course of dexamethasone Completed Baricitinib for total of 14 days His CRP is down to 1.7 Off zinc sulfate and vitamin-C now (4) Hyponatremia: Code(s): E87.1 - Hypo-osmolality and hyponatremia Status: Acute Assessment and Plan: Improving, continue flushes with normal saline Treat hyperglycemia (5) Hyperglycemia: Code(s): R73.9 - Hyperglycemia, unspecified Status: Acute Assessment and Plan: Improving with sliding scale insulin and Lantus, will continue (6) Essential hypertension: Code(s): I10 - Essential (primary) hypertension Status: Acute Assessment and Plan: Continue Norvasc and beta-lianet Additional Plan DVT prophylaxis - Lovenox Stress ulcer prophylaxis -lansoprazole Nutrition -continue tube feeds, MiraLax, docusate and Reglan. Patient now awaits LTAC placement Urinary catheter was replaced on 04/04 Code Status - Full Code Total Critical Care Time - 32 minutes Patient's , Lolis was at the bedside, updated her with patient's condition and plan of care. She is aware that this is a new onset of pneumonia, she is aware that patient has been started on a different set of antibiotics. I told her that patient will be here in the ICU over the weekend and re-evaluate regarding transfer to LTAC on Wednesday, 04/07. Due to a high probability of clinically significant, life threatening deterioration, the patient required my highest level of preparedness to intervene emergently and I personally spent this critical care time directly and personally managing the patient. This critical care time included obtaining a history; examining the patient; pulse oximetry; ordering and review of studies; arranging urgent treatment wi
[2021-04-07] MEDS: PROPOFOL IV EMULSION 100 ML 36.09 MG IV CONT ×5 (11:13→21:41)
[2021-04-07 11:21] LABS: Triglycerides 229 mg/dL (<150)
[2021-04-07] MEDS: METOCLOPRAMIDE HCL 10 MG/10 ML SOLN UDC PO ×2 (11:52→18:20)
--- NOTE | 2021-04-07 12:20 | PCFNICU ---
ICU Rounding Note: Pt current nutrition is Vital AF 1. 2 at 50 ml/hr over 22 hours. Last recorded weight is 121.2 kg, down from 130.7 kg on admit. Bowel Motility: +BM reported 04/05 Labs Reviewed:Glu 155, Hct 32.1,Hgb 9.6, Cr 0.4, TG 229 Meds Noted:Atrovent, Nimbex, Miralax, Vit C, Xanax, Prevacid, Ativan, Lovenox, Norvasc,Propofol 50 bbrr=695 kcals. Skin: maceration-coccyx Additional Notes: Patient remains current with Trach/PEG. Propofol at 50 mics,TG 229. Discussed with MD today tube feedings rates. Recommend tube feeding decrease to 50 ml/hr over 22 hours. Tube feedings at 50 ml/hr will provide 1320 kcals and 83 gms protein with additional 593 kcals from dhchndoo=5339 kcals and 83 gms protein. Meeting 86% of caloric needs and 86% protein needs. Free water flush 60 ml q 4 hours. Agree with diet orders. Following daily in ICU rounds and reassessing every Wednesday and Wednesday.
[2021-04-07 13:03] LABS: Glucose Point of Care 157 mg/dl (65-105)
[2021-04-07 18:38] LABS: Glucose Point of Care 92 mg/dl (65-105)
[2021-04-07] MEDS: SODIUM CHLORIDE NASAL GEL 14.1 GM 1 APPLIC NASAL (21:25)
[2021-04-07 22:54] LABS: Glucose Point of Care 121 mg/dl (65-105)
[2021-04-08] VITALS (32 sets, daily range): BP systolic 115–139; BP diastolic 61–74; PULSE 90–103; RESP 28–34; TEMP 37.1–37.7; O2SAT 92–100; BMI 35.6
[2021-04-08] MEDS: METOCLOPRAMIDE HCL 10 MG/10 ML SOLN UDC PO ×5 (00:14→23:22)
[2021-04-08] MEDS: PROPOFOL IV EMULSION 100 ML 36.09 MG IV CONT ×3 (00:19→05:56)
[2021-04-08] MEDS: IPRATROPIUM BR 0.02% INH SOLN 0.5 MG/2.5 ML VIAL INHALATION ×4 (02:52→20:07)
[2021-04-08] MEDS: LEVALBUTEROL NEB 1.25 MG/3 ML 0.63 MG INHALATION ×4 (02:52→20:06)
[2021-04-08 05:12] LABS: Glucose Point of Care 127 mg/dl (65-105)
[2021-04-08] MEDS: LANSOPRAZOLE ORAL SUSP 30 MG/10 ML ORAL.SUSP FEED TUBE (05:13)
[2021-04-08 05:36] LABS: Alveolar/Arterial O2 Gradient 190.1 mmHg; Base Excess ABG 5.4 mEq/l (+/-2.0); Carboxyhemoglobin 0.7 % THb (0-2.0); Fractional Inspired Oxygen 50 %; HCO3 ABG 34.2 mEq/l (22.0-26.0); Methemoglobin ABG 0.3 %THb (0-1.5); Oxygen Content ABG 13.7 %vol (16.0-22.0); Oxygen Saturation ABG 93.5 % (95.0-100.0); Oxyhemoglobin 92.8 % THb (90.0-100.0); PO2 ABG 79.7 mmHg (80.0-100.0); PO2 FiO2 Ratio Arterial Blood 1.59 %; Reduced Hemoglobin 6.2 %THb (0-5.0); Total Hemoglobin 10.4 g/dL (12.0-18.0)
[2021-04-08 05:37] LABS: PCO2 ABG 77.1 mmHg (35.0-45.0); pH ABG 7.265 (7.350-7.450)
[2021-04-08 05:38] LABS: Device VENTILATOR; Modified Allen's Test Pass; Site Drawn LEFT RADIAL
[2021-04-08 05:39] LABS: Arterial Blood Gas PEEP 8 cmH2O; Arterial Blood Gas Tidal Volume 470 ml; Arterial Blood Gas Vent Mode CMV; Arterial Blood Gas Ventilator rate 26 /MIN
[2021-04-08 05:40] LABS: Alanine Aminotransferase 26 U/L (4-50); Albumin Level 3.2 g/dL (3.5-5.1); Alkaline Phosphatase 97 U/L (38-126); Anion Gap 5 mmol/L (8-16); Aspartate Amino Transferase 34 U/L (17-59); Bilirubin,Total 0.3 mg/dL (0.2-1.3); Blood Urea Nitrogen 15 mg/dL (9-20); Calcium 8.7 mg/dL (8.4-10.2); Carbon Dioxide 34 mmol/L (22-30); Chloride 101 mmol/L (98-107); Estimated CRCL calculation 166 ml/min; Estimated Glomerular Filt Rate > 60; Glucose 130 mg/dL (65-110); Magnesium 2.2 mg/dL (1.6-2.3); Phosphorus 4.2 mg/dL (2.5-4.5); Potassium 3.4 mmol/L (3.4-5.0); Sodium 140 mmol/L (137-145)
[2021-04-08 07:44] LABS: Hemoglobin 9.3 g/dL (14.0-18.0); Immature Platelet Fraction Pct 3.1 % (0.9-11.2); Mean Corpuscular HGB Conc 29.1 g/dl (32-36); Mean Corpuscular Hemoglobin 29.2 pg (26-34); Mean Corpuscular Volume 100.6 fl (80-100); Mean Platelet Volume 10.3 fl (7.4-10.4); Platelet Count Result 510 k/mm3 (150-375); Red Blood Count 3.18 M/mm3 (4.6-6.20); Red Cell Distribution Width 16.5 % (11.5-14.5); White Blood Count 18.3 K/mm3 (4.5-10.0)
[2021-04-08 08:15] LABS: Band Neutrophils Percent 9 % (0-6); Eosinophils Absolute Manual 0.91 K/mm3 (0.02-0.5); Eosinophils Percent Manual 5 % (0-4); Lymphocytes Absolute Manual 1.28 K/mm3 (1.1-4.5); Monocytes Absolute Manual 0.18 K/mm3 (0.1-0.90); Monocytes Percent Manual 1 % (3-9); Neutrophils Absolute Manual 15.92 K/mm3 (1.3-6.7); Neutrophils Percent Manual 78 % (46-73); Platelet Estimate Adequate (Adequate); Total Cells Counted 100
[2021-04-08 08:16] LABS: Anisocytosis 1+ (NORMAL); Atypical Lymphocytes Present; Polychromasia 1+ (NORMAL)
[2021-04-08] MEDS: PROPOFOL IV EMULSION 100 ML 28.87 MG IV CONT ×5 (08:56→23:16)
[2021-04-08] MEDS: DORNASE ALFA INH SOLN 1 MG/ML 2.5 ML AMP 2.5 MG INHALATION ×2 (08:56→20:07)
[2021-04-08] MEDS: ALPRAZolam (*CRX) 0.5 MG TABLET PO ×3 (09:10→18:36)
[2021-04-08] MEDS: ENOXAPARIN 40 MG/0.4 ML SYRINGE SUB-Q (09:10)
[2021-04-08] MEDS: amLODIPine BESYLATE 5 MG TABLET PO (09:11)
[2021-04-08] MEDS: SIMVASTATIN 20 MG TABLET PO (09:11)
[2021-04-08] MEDS: ASCORBIC ACID 500 MG TABLET PO (09:11)
[2021-04-08] MEDS: ASPIRIN 81 MG CHEWABLE TABLET PO (09:12)
[2021-04-08] MEDS: METOPROLOL TARTRATE 25 MG TABLET FEED TUBE ×2 (09:12→20:42)
[2021-04-08] MEDS: CHOLECALCIFEROL 1,000 UNITS TABLET 1000 UNITS PO (09:13)
[2021-04-08] MEDS: FUROSEMIDE INJ 40 MG/4 ML VIAL IV PUSH (09:19)
[2021-04-08] MEDS: INSULIN GLARGINE (*BKC) 100 UNITS/ML 25 UNITS SUB-Q (09:20)
[2021-04-08] MEDS: MINERAL OIL/WHITE PETROLATUM OINTMENT 1 APPLIC EACH EYE ×2 (09:20→20:42)
[2021-04-08 10:46] LABS: Glucose Point of Care 122 mg/dl (65-105)
--- NOTE | 2021-04-08 11:21 | WPDINTPN ---
Progress Note: A&P Assessment and Plan (1) Sepsis: Code(s): A41.9 - Sepsis, unspecified organism Status: Acute Assessment and Plan: 04/06: WBC count is still elevated but he has become afebrile 04/03: Patient with worsening leukocytosis, tachycardic, worsening chest x-ray, shivering noted, febrile, tachypneic, increasing oxygen requirements and support on mechanical ventilation -currently hemodynamically stable not requiring any pressors -04/05: Blood cultures x2 negative till now -04/05: Urine culture neg -04/05: Sputum culture - VRE Switch -was started on vancomycin and imipenem (04/03), levofloxacin was added on 04/04 - 04/08 switch vancomycin to daptomycin (2) Acute respiratory failure with hypoxia: Code(s): J96.01 - Acute respiratory failure with hypoxia Status: Acute Assessment and Plan: Acute Respiratory failure secondary to COVID-19 pneumonia 03/09/2021 patient was emergently intubated and placed on mechanical ventilation -02/17/2022: TRACHEOSTOMY AND PEG TUBE placed -Reviewed Chest x-ray this morning shows Unchanged diffuse bilateral lung disease consistent with pneumonia versus pulmonary edema -ABGs reviewed-increase respiratory rate to 30 - Sedated with propofol infusions. Wean sedation gradually to off - Continue full mechanical ventilation support to prevent hypoxemia/hypercarbia and end organ damage. -Lasix 40 mg IV x1 today Patient's serial CT scans from 02/21 to now show progression of his COVID pneumonia and worsening of CT scan despite treatment (3) Pneumonia due to COVID-19 virus: Code(s): U07.1 - COVID-19; J12.82 - Pneumonia due to coronavirus disease 2019 Status: Acute Assessment and Plan: Patient tested positive for COVID-19 on 02/20/21 and initially was on room air. Patient 1st required oxygen on 02/25/2021 and has per had progressive hypoxemic respiratory failure since then, failing airflow high-flow nasal cannula and noninvasive ventilation and requiring intubation on 03/09/2021. He was started on Remdesivir 02/11 and completed 10 days. Status post complete course of dexamethasone Completed Baricitinib for total of 14 days Off zinc sulfate and vitamin-C now (4) Hyponatremia: Code(s): E87.1 - Hypo-osmolality and hyponatremia Status: Acute Assessment and Plan: Improved with flushes with normal saline (5) Hyperglycemia: Code(s): R73.9 - Hyperglycemia, unspecified Status: Acute Assessment and Plan: Continue sliding scale insulin and Lantus, will continue (6) Essential hypertension: Code(s): I10 - Essential (primary) hypertension Status: Acute Assessment and Plan: Continue Norvasc and beta-lianet Additional Plan DVT prophylaxis - Lovenox Stress ulcer prophylaxis -lansoprazole Nutrition -continue tube feeds, MiraLax, docusate and Reglan. Patient now awaits LTAC placement Urinary catheter was replaced on 04/04 PICC line ordered Code Status - Full Code Total Critical Care Time - 30 minutes Due to a high probability of clinically significant, life threatening deterioration, the patient required my highest level of preparedness to intervene emergently and I personally spent this critical care time directly and personally managing the patient. This critical care time included obtaining a history; examining the patient; pulse oximetry; ordering and review of studies; arranging urgent treatment with development of a management plan; evaluation of patient's response to treatment; frequent reassessment; and discussions with other providers. It was exclusive of separately billable procedures and treating other patients and teaching time. Please see Assessment and Plan section and the rest of the note for further information on patient assessment and treatment Subjective Date/time seen: 04/08/21 11:21 Overnight events reviewed. Afebrile Continues to be on mechanical ventilation 60% Fi
[2021-04-08] MEDS: LIDOCAINE HCL 1% PF INJ 5 ML VIAL INFILTRATE (11:30)
--- NOTE | 2021-04-08 11:57 | PCNFU ---
Nutrition Follow-Up Complete: Inadequate oral intake related to mechanical ventilation as evidenced by need for advanced nutrition support. Goal: Pt. to meet estimated nutritional needs. Patient is progressing towards goal. We will continue current goal. Pt current nutrition is Vital AF 1.2 at 50 ml/hr over 22 hours. Last recorded weight is 119.4 kg, down from 130.7 kg. Bowel Motility:+BM reported 04/07, banatrol plus discontinued. Stools improved. Labs Reviewed:Glu 130, Cr 0.5,Hct 32.0,Hgb 9.3,Alb 3.2 Meds Noted:Propofol 40 xwqk=963 kcals, Atrovent, Nimbex, Miralax, Vit C, Xanax, Prevacid, Ativan, Lovenox, Norvasc Skin: maceration-coccyx. Additional Notes: Patient remain current with Trach/PEG. Propofol decreased from 50 to 40 mics providing an additional 762 kcals. Tube feeding of Vital AF 1.2 at 50 ml/hr over 22 hours. Total caloric intake meeting 84% of caloric needs and 77% of protein needs. Free water flush 60 ml q 4hours. Agree with diet orders. Monitor pt. labs, medications, weight and tube feeding tolerance every Wednesday and Wednesday as well as daily in ICU rounds.
[2021-04-08 12:26] LABS: Glucose Point of Care 140 mg/dl (65-105)
[2021-04-08] MEDS: CENTRAL LINE FLUSH 10 ML IV PUSH ×2 (13:03→20:42)
--- NOTE | 2021-04-08 16:42 | PM.IMPN ---
Progress Note: A&P Assessment and Plan (1) Acute respiratory failure with hypoxia: Code(s): J96.01 - Acute respiratory failure with hypoxia Status: Acute Assessment and Plan: Acute respiratory failure secondary to COVID-19 pneumonia. Patient was emergently intubated on 03/09/21 and placed on mechanical ventilation. Echo showing EF 65-70%, Grade I diastolic dysfunction, and moderate-severe pulm HTN. Tracheostomy and PEG tube placed on 03/20/21. Sedation resumed. Continue scheduled Xanax with p.r.n. Ativan available. Seroquel stopped. Continue full mechanical ventilation support. Appreciate emergency medical technician basic input. Waiting for acceptance to LTAC (2) Pneumonia due to COVID-19 virus: Code(s): U07.1 - COVID-19; J12.82 - Pneumonia due to coronavirus disease 2019 Status: Acute Assessment and Plan: Patient tested positive for COVID-19 on 02/20/21. He had progressive hypoxemic respiratory failure requiring intubation on 03/09/21. He completed Remdesivir, dexamethasone and Baricitinib. He remains on Vitamin C +D. Continue supportive care. (3) Fever: Code(s): R50.9 - Fever, unspecified Status: Acute Assessment and Plan: Fever with leukocytosis. Sputum 03/27/21 was negative. Blood cultures 03/27/21 are negative. Shaikh was changed. UA not consistent with UTI and did not prompt urine culture. Right IJ central venous catheter was removed. Lipase elevated at 474. BCx 2 growing Coag negative Staph (1of2) felt to be contaminate. CXR 04/04 showing diffuse bilateral lung disease. Procalcitonin elevated 4.7 on 03/28/21 but now 0.4. Bilateral upper and lower extremity Dopplers negative for DVT. CT scan does show sinusitis. Abx in the form of Vanco and Cefepime started 04/01 and changed to Primaxin, Levaquin and Vanco 04/04. His last fever was on 04/05/21. Sputum Cx 04/05 growing VRE sensitive to Amp. UCx 04/05 negative. BCx 04/05 NGTD. WBC has been up and down. Fevers probably related to sinusitis and possibly PNA. Changed to Primaxin, Levaquin and Daptomycin 04/08. Continue to monitor. Follow. (4) Hyponatremia: Code(s): E87.1 - Hypo-osmolality and hyponatremia Status: Acute Assessment and Plan: Sodium was mostly in the low 130s and this was treated. Sodium normal now. Continue to monitor. (5) Hyperglycemia: Code(s): R73.9 - Hyperglycemia, unspecified Status: Acute Assessment and Plan: A1c 6.0. The patient's blood glucose was reviewed on 04/08 Glucose remains reasonably well controlled. Tolerating TF. Continue AccuCheks covering with sliding scale. Hypoglycemia protocol available as needed. Continue Lantus. (6) Critical illness polyneuropathy: Code(s): G62.81 - Critical illness polyneuropathy Status: Acute Assessment and Plan: Patient has severe diffuse UE>LE weakness felt related to prolonged ICU hospitalization. CT brain 04/02 showing no acute intracranial findings but with bilateral otomastoiditis effusions and significant sinus opacity. Continue supportive care. Continue therapy. (7) Essential hypertension: Code(s): I10 - Essential (primary) hypertension Status: Acute Assessment and Plan: Patient's blood pressure was reviewed on 04/08 Blood pressure well controlled. Continue Norvasc and Metoprolol. Monitor closely. (8) Edema: Code(s): R60.9 - Edema, unspecified Status: Acute Assessment and Plan: Noted to have diffuse edema. [place] UE edema related to dependent edema given his weakness. Tolerating intermittent Lasix (9) DVT prophylaxis: Code(s): Z29.9 - Encounter for prophylactic measures, unspecified Status: Acute Assessment and Plan: Lovenox Subjective Date/time seen: 04/08/21 16:42 Interval history: 66yo man with neuropathy and HLD who presented to the ED on 02/21 with SOB and found to have COVID-19 pneumonia. Patient was intubated on 03/09/2021. Tracheostomy and PEG t
[2021-04-08 18:45] LABS: Glucose Point of Care 123 mg/dl (65-105)
[2021-04-08] MEDS: SODIUM CHLORIDE NASAL GEL 14.1 GM 1 APPLIC NASAL (20:42)
[2021-04-08 23:31] LABS: Glucose Point of Care 136 mg/dl (65-105)
[2021-04-09] VITALS (40 sets, daily range): BP systolic 129–143; BP diastolic 58–67; PULSE 91–114; RESP 30–99; TEMP 37.8–38.1; O2SAT 92–97
[2021-04-09] MEDS: PROPOFOL IV EMULSION 100 ML 28.87 MG IV CONT ×7 (01:46→22:06)
[2021-04-09] MEDS: IPRATROPIUM BR 0.02% INH SOLN 0.5 MG/2.5 ML VIAL INHALATION ×4 (03:05→20:36)
[2021-04-09] MEDS: LEVALBUTEROL NEB 1.25 MG/3 ML 0.63 MG INHALATION ×4 (03:06→20:36)
[2021-04-09] MEDS: ACETAMINOPHEN ELIXIR 325 MG/10.15 ML UDC 650 MG FEED TUBE ×2 (03:30→21:10)
[2021-04-09 04:48] LABS: Base Excess ABG 8.2 mEq/l (+/-2.0); Carboxyhemoglobin 0.9 % THb (0-2.0); Fractional Inspired Oxygen 50 %; HCO3 ABG 35.8 mEq/l (22.0-26.0); Oxygen Content ABG 16.3 %vol (16.0-22.0); PO2 ABG 80.3 mmHg (80.0-100.0); PO2 FiO2 Ratio Arterial Blood 1.61 %; Reduced Hemoglobin 5.1 %THb (0-5.0); Total Hemoglobin 12.3 g/dL (12.0-18.0); pH ABG 7.358 (7.350-7.450)
[2021-04-09 04:49] LABS: Arterial Blood Gas Vent Mode CMV; Arterial Blood Gas Ventilator rate 30 /MIN; Device VENTILATOR; Modified Allen's Test Pass; PCO2 ABG 65.1 mmHg (35.0-45.0); Site Drawn LEFT RADIAL
[2021-04-09 04:50] LABS: Arterial Blood Gas PEEP 8 cmH2O; Arterial Blood Gas Tidal Volume 470 ml
[2021-04-09 04:57] LABS: Hematocrit 30.4 % (42.0-52.0); Hemoglobin 8.7 g/dL (14.0-18.0); Mean Corpuscular HGB Conc 28.6 g/dl (32-36); Mean Corpuscular Hemoglobin 28.6 pg (26-34); Mean Platelet Volume 9.8 fl (7.4-10.4); Platelet Count Result 444 k/mm3 (150-375); Red Blood Count 3.04 M/mm3 (4.6-6.20); Red Cell Distribution Width 16.9 % (11.5-14.5); White Blood Count 18.3 K/mm3 (4.5-10.0)
[2021-04-09 05:12] LABS: Alanine Aminotransferase 26 U/L (4-50); Albumin Level 3.3 g/dL (3.5-5.1); Alkaline Phosphatase 97 U/L (38-126); Anion Gap 6 mmol/L (8-16); Aspartate Amino Transferase 39 U/L (17-59); Bilirubin,Total 0.2 mg/dL (0.2-1.3); Blood Urea Nitrogen 18 mg/dL (9-20); Calcium 8.8 mg/dL (8.4-10.2); Carbon Dioxide 34 mmol/L (22-30); Chloride 103 mmol/L (98-107); Estimated CRCL calculation 166 ml/min; Estimated Glomerular Filt Rate > 60; Glucose 148 mg/dL (65-110); Magnesium 2.1 mg/dL (1.6-2.3); Potassium 3.6 mmol/L (3.4-5.0); Sodium 143 mmol/L (137-145); Triglycerides 265 mg/dL (<150)
[2021-04-09] MEDS: METOCLOPRAMIDE HCL 10 MG/10 ML SOLN UDC PO ×3 (05:24→17:19)
[2021-04-09] MEDS: LANSOPRAZOLE ORAL SUSP 30 MG/10 ML ORAL.SUSP FEED TUBE (05:24)
[2021-04-09] MEDS: CENTRAL LINE FLUSH 10 ML IV PUSH ×3 (05:24→21:10)
[2021-04-09 06:34] LABS: Anisocytosis 1+ (NORMAL); Band Neutrophils Percent 8 % (0-6); Eosinophils Absolute Manual 0.73 K/mm3 (0.02-0.5); Eosinophils Percent Manual 4 % (0-4); Lymphocytes Absolute Manual 2.37 K/mm3 (1.1-4.5); Monocytes Absolute Manual 0.91 K/mm3 (0.1-0.90); Monocytes Percent Manual 5 % (3-9); Neutrophils Absolute Manual 14.27 K/mm3 (1.3-6.7); Neutrophils Percent Manual 70 % (46-73); Total Cells Counted 100
[2021-04-09] MEDS: DORNASE ALFA INH SOLN 1 MG/ML 2.5 ML AMP 2.5 MG INHALATION ×2 (08:11→20:40)
--- NOTE | 2021-04-09 09:03 | WPDINTPN ---
Progress Note: A&P Assessment and Plan (1) Sepsis: Code(s): A41.9 - Sepsis, unspecified organism Status: Acute Assessment and Plan: 04/03: Patient with worsening leukocytosis, tachycardic, worsening chest x-ray, shivering noted, febrile, tachypneic, increasing oxygen requirements and support on mechanical ventilation - Urinary catheter was replaced on 04/04 -04/05: Blood cultures x2 negative till now -04/05: Urine culture neg -04/05: Sputum culture - VRE -He was started on vancomycin and imipenem (04/03), levofloxacin was added on 04/04 - 04/08 switched vancomycin to daptomycin to cover for VRE -currently hemodynamically stable not requiring any pressors -WBC remained elevated and patient is febrile -repeat procalcitonin level, check lipase, check venous Dopplers (2) Acute respiratory failure with hypoxia: Code(s): J96.01 - Acute respiratory failure with hypoxia Status: Acute Assessment and Plan: Acute Respiratory failure secondary to COVID-19 pneumonia 03/09/2021 patient was emergently intubated and placed on mechanical ventilation -02/17/2022: TRACHEOSTOMY AND PEG TUBE placed -Reviewed Chest x-ray this morning shows Unchanged diffuse bilateral lung disease consistent with pneumonia versus pulmonary edema -ABGs reviewed-permissive hypercapnia - Sedated with propofol infusions. Wean sedation gradually to off - Continue full mechanical ventilation support to prevent hypoxemia/hypercarbia and end organ damage. -continue diuretics Patient's serial CT scans from 02/21 to now show progression of his COVID pneumonia and worsening of CT scan despite treatment (3) Pneumonia due to COVID-19 virus: Code(s): U07.1 - COVID-19; J12.82 - Pneumonia due to coronavirus disease 2019 Status: Acute Assessment and Plan: Patient tested positive for COVID-19 on 02/20/21 and initially was on room air. Patient 1st required oxygen on 02/25/2021 and has per had progressive hypoxemic respiratory failure since then, failing airflow high-flow nasal cannula and noninvasive ventilation and requiring intubation on 03/09/2021. He was started on Remdesivir 02/11 and completed 10 days. Status post complete course of dexamethasone Completed Baricitinib for total of 14 days Off zinc sulfate and vitamin-C now (4) Hyponatremia: Code(s): E87.1 - Hypo-osmolality and hyponatremia Status: Acute Assessment and Plan: Improved with flushes with normal saline (5) Hyperglycemia: Code(s): R73.9 - Hyperglycemia, unspecified Status: Acute Assessment and Plan: Continue sliding scale insulin and Lantus (6) Essential hypertension: Code(s): I10 - Essential (primary) hypertension Status: Acute Assessment and Plan: Continue Norvasc and beta-lianet Additional Plan DVT prophylaxis - Lovenox Stress ulcer prophylaxis -lansoprazole Nutrition -continue tube feeds, MiraLax, docusate and Reglan. Patient now awaits LTAC placement PICC line ordered Code Status - Full Code Total Critical Care Time - 31 minutes Due to a high probability of clinically significant, life threatening deterioration, the patient required my highest level of preparedness to intervene emergently and I personally spent this critical care time directly and personally managing the patient. This critical care time included obtaining a history; examining the patient; pulse oximetry; ordering and review of studies; arranging urgent treatment with development of a management plan; evaluation of patient's response to treatment; frequent reassessment; and discussions with other providers. It was exclusive of separately billable procedures and treating other patients and teaching time. Please see Assessment and Plan section and the rest of the note for further information on patient assessment and treatment Subjective Date/time seen: 04/09/21 Overnight events reviewed. Febrile overnight Continues to
[2021-04-09] MEDS: ASPIRIN 81 MG CHEWABLE TABLET PO (09:26)
[2021-04-09] MEDS: POTASSIUM CHLORIDE 20 MEQ PACKET (FOR LIQUID) 40 MEQ FEED TUBE (09:27)
[2021-04-09] MEDS: ALPRAZolam (*CRX) 0.5 MG TABLET PO ×3 (09:27→16:55)
[2021-04-09] MEDS: INSULIN GLARGINE (*BKC) 100 UNITS/ML 25 UNITS SUB-Q (09:28)
[2021-04-09] MEDS: MINERAL OIL/WHITE PETROLATUM OINTMENT 1 APPLIC EACH EYE ×2 (09:28→21:09)
[2021-04-09] MEDS: ENOXAPARIN 40 MG/0.4 ML SYRINGE SUB-Q (09:30)
[2021-04-09] MEDS: ASCORBIC ACID 500 MG TABLET PO (09:32)
[2021-04-09] MEDS: CHOLECALCIFEROL 1,000 UNITS TABLET 1000 UNITS PO (09:32)
[2021-04-09] MEDS: amLODIPine BESYLATE 5 MG TABLET PO (09:33)
[2021-04-09] MEDS: METOPROLOL TARTRATE 25 MG TABLET FEED TUBE ×2 (09:33→21:10)
[2021-04-09 11:26] LABS: Lipase 258 U/L (23-300)
--- NOTE | 2021-04-09 12:01 | PCNFU ---
Nutrition Follow-Up Complete: Inadequate oral intake related to mechanical ventilation as evidenced by need for advanced nutrition support. Goal: Pt. to meet estimated nutritional needs. Patient will continue current goal. Pt current nutrition is Vital AF 1.2 at 50 ml/hr over 22 hours. Last recorded weight is 119.2 kg, down from 130.7 kg on admit. Bowel Motility: +BM reported 04/08 Labs Reviewed:Hgb 8.7,Hct 30.4,Cr 0.5,Glu 148,TG 265 Meds Noted:Propofol 40 apzg=208 kcals,Atrovent, Nimbex, Miralax, Vit C, Vit D, Xanax, Prevacid, Ativan, Lovenox, Norvasc, Reglan Skin: maceration-coccyx Additional Notes: Patient is current with Vital AF 1.2 at 50 ml/hr over 22 hours. Propofol providing an additional 762 kcals. Current tube feedings is providing 1320 kcals/83 gms protein/892 ml water. Total calorie intake, 2082 kcals and 83 gms protein. Free water flush 60 ml q 4 hours. Agree with current diet orders. Monitor pt. labs, medications, weight and tube feeding tolerance every Wednesday and Wednesday as well as daily in ICU rounds.
[2021-04-09 12:08] LABS: Procalcitonin 0.3 ng/mL
[2021-04-09 12:48] LABS: Glucose Point of Care 115 mg/dl (65-105)
--- NOTE | 2021-04-09 16:46 | PM.IMPN ---
Progress Note: A&P Assessment and Plan (1) Acute respiratory failure with hypoxia: Code(s): J96.01 - Acute respiratory failure with hypoxia Status: Acute Assessment and Plan: Acute respiratory failure secondary to COVID-19 pneumonia. Patient was emergently intubated on 03/09/21 and placed on mechanical ventilation. Echo showing EF 65-70%, Grade I diastolic dysfunction, and moderate-severe pulm HTN. Tracheostomy and PEG tube placed on 03/20/21. Sedation resumed. Continue scheduled Xanax with p.r.n. Ativan available. Seroquel stopped. Continue full mechanical ventilation support. Appreciate platform builder input. Waiting for acceptance to LTAC (2) Sepsis: Code(s): A41.9 - Sepsis, unspecified organism Status: Acute Assessment and Plan: Fever with leukocytosis. Sputum 03/27/21 was negative. Blood cultures 03/27/21 are negative. Shaikh was changed. UA not consistent with UTI and did not prompt urine culture. Right IJ central venous catheter was removed. Lipase elevated at 474. BCx 2 growing Coag negative Staph (1of2) felt to be contaminate. CT scan does show sinusitis. Abx in the form of Vanco and Cefepime started 04/01 and changed to Primaxin, Levaquin and Vanco 04/04. Sputum Cx 04/05 growing VRE sensitive to Amp. UCx 04/05 negative. BCx 04/05 NGTD. Changed to Primaxin, Levaquin and Daptomycin 04/08. Having fevers again overnight. CXR showing diffuse lung disease. Procalcitonin 0.3 today. Bilateral upper extremity Dopplers positive for Left cephalic thrombus. He remains on Primaxin, Levaquin and Daptomycin. WBC about the same. Continue to follow (3) Pneumonia due to COVID-19 virus: Code(s): U07.1 - COVID-19; J12.82 - Pneumonia due to coronavirus disease 2019 Status: Acute Assessment and Plan: Patient tested positive for COVID-19 on 02/20/21. He had progressive hypoxemic respiratory failure requiring intubation on 03/09/21. He completed Remdesivir, dexamethasone and Baricitinib. He remains on Vitamin C +D. Continue supportive care. (4) Cephalic vein thrombosis, left: Code(s): I82.612 - Acute embolism and thrombosis of superficial veins of left upper extremity Status: Acute Assessment and Plan: Doppler showing left cephalic superficial thrombosis. Symptomatic care. (5) Hyponatremia: Code(s): E87.1 - Hypo-osmolality and hyponatremia Status: Acute Assessment and Plan: Sodium was mostly in the low 130s and this was treated. Sodium normal now. Continue to monitor. (6) Hyperglycemia: Code(s): R73.9 - Hyperglycemia, unspecified Status: Acute Assessment and Plan: A1c 6.0. The patient's blood glucose was reviewed on 04/09 Glucose remains reasonably well controlled. Tolerating TF. Continue AccuCheks covering with sliding scale. Hypoglycemia protocol available as needed. Continue Lantus. (7) Critical illness polyneuropathy: Code(s): G62.81 - Critical illness polyneuropathy Status: Acute Assessment and Plan: Patient has severe diffuse UE>LE weakness felt related to prolonged ICU hospitalization. CT brain 04/02 showing no acute intracranial findings but with bilateral otomastoiditis effusions and significant sinus opacity. Continue supportive care. Continue therapy. (8) Essential hypertension: Code(s): I10 - Essential (primary) hypertension Status: Acute Assessment and Plan: Patient's blood pressure was reviewed on 04/09 Blood pressure well controlled. Continue Norvasc and Metoprolol. Monitor closely. (9) Edema: Code(s): R60.9 - Edema, unspecified Status: Acute Assessment and Plan: Noted to have diffuse edema. [place] UE edema related to dependent edema given his weakness. Tolerating intermittent Lasix (10) DVT prophylaxis: Code(s): Z29.9 - Encounter for prophylactic measures, unspecified Status: Acute Assessment and Plan: Lovenox Subjective
[2021-04-09 18:07] LABS: Glucose Point of Care 119 mg/dl (65-105)
[2021-04-09] MEDS: SODIUM CHLORIDE NASAL GEL 14.1 GM 1 APPLIC NASAL (21:10)
[2021-04-09] MEDS: DOCUSATE SODIUM LIQ 100 MG/10 ML UDC FEED TUBE (21:10)
[2021-04-10] VITALS (75 sets, daily range): BP systolic 128–171; BP diastolic 64–73; PULSE 91–139; RESP 20–41; TEMP 37–37.9; O2SAT 81–98
[2021-04-10] MEDS: METOCLOPRAMIDE HCL 10 MG/10 ML SOLN UDC PO ×5 (00:20→23:45)
[2021-04-10] MEDS: PROPOFOL IV EMULSION 100 ML 28.87 MG IV CONT ×3 (01:02→07:50)
[2021-04-10 01:31] LABS: Glucose Point of Care 134 mg/dl (65-105)
[2021-04-10] MEDS: IPRATROPIUM BR 0.02% INH SOLN 0.5 MG/2.5 ML VIAL INHALATION ×4 (02:52→20:31)
[2021-04-10] MEDS: LEVALBUTEROL NEB 1.25 MG/3 ML 0.63 MG INHALATION ×4 (02:52→20:31)
[2021-04-10] MEDS: hydrALAZINE HCL 20 MG/ML VIAL IV PUSH ×2 (04:33→10:23)
[2021-04-10 04:46] LABS: Basophils Absolute Auto 0.1 K/mm3 (0.0-0.1); Eosinophils Absolute Auto 0.7 K/mm3 (0-0.3); Eosinophils Percent Auto 4.8 % (0-4.4); Hematocrit 30.4 % (42.0-52.0); Hemoglobin 8.8 g/dL (14.0-18.0); Immature Granulocyte Percent A 6.3 % (0-0.5); Lymphocytes Absolute Auto 1.81 K/mm3 (0.9-3.2); Lymphocytes Percent Auto 12.7 % (18.3-44.2); Mean Corpuscular HGB Conc 28.9 g/dl (32-36); Mean Corpuscular Hemoglobin 28.9 pg (26-34); Mean Platelet Volume 9.6 fl (7.4-10.4); Monocytes Absolute Auto 1.1 K/mm3 (0.1-0.6); Monocytes Percent Auto 7.9 % (2.6-8.5); Neutrophils Absolute Auto 9.6 K/mm3 (1.3-6.7); Neutrophils Percent Auto 67.3 % (45.5-73.1); Nucleated Red Blood Cells Perc 0.2 % (0.0-0.2); Platelet Count Result 397 k/mm3 (150-375); Red Blood Count 3.04 M/mm3 (4.6-6.20); Red Cell Distribution Width 17.1 % (11.5-14.5); White Blood Count 14.2 K/mm3 (4.5-10.0)
[2021-04-10] MEDS: CENTRAL LINE FLUSH 10 ML IV PUSH ×3 (05:30→19:59)
[2021-04-10 05:39] LABS: Hypochromasia 1+ (NORMAL); Platelet Estimate Adequate (Adequate)
[2021-04-10] MEDS: LANSOPRAZOLE ORAL SUSP 30 MG/10 ML ORAL.SUSP FEED TUBE (06:05)
[2021-04-10 06:18] LABS: Alveolar/Arterial O2 Gradient 60.4 mmHg; Base Excess ABG 7.6 mEq/l (+/-2.0); Carboxyhemoglobin 1.1 % THb (0-2.0); Fractional Inspired Oxygen 30 %; HCO3 ABG 34.3 mEq/l (22.0-26.0); Methemoglobin ABG 0.3 %THb (0-1.5); Oxygen Content ABG 13.8 %vol (16.0-22.0); Oxygen Saturation ABG 95.6 % (95.0-100.0); Oxyhemoglobin 93.6 % THb (90.0-100.0); PO2 ABG 82.8 mmHg (80.0-100.0); PO2 FiO2 Ratio Arterial Blood 2.76 %; Total Hemoglobin 10.4 g/dL (12.0-18.0); pH ABG 7.374 (7.350-7.450)
[2021-04-10 06:20] LABS: PCO2 ABG 60.2 mmHg (35.0-45.0)
[2021-04-10 06:21] LABS: Device VENTILATOR; Modified Allen's Test Pass; Site Drawn RIGHT RADIAL
[2021-04-10 06:22] LABS: Arterial Blood Gas PEEP 8 cmH2O; Arterial Blood Gas Tidal Volume 470 ml; Arterial Blood Gas Vent Mode CMV; Arterial Blood Gas Ventilator rate 30 /MIN
[2021-04-10 06:58] LABS: Alanine Aminotransferase 24 U/L (4-50); Alkaline Phosphatase 101 U/L (38-126); Anion Gap 1 mmol/L (8-16); Aspartate Amino Transferase 34 U/L (17-59); Bilirubin,Total 0.3 mg/dL (0.2-1.3); Blood Urea Nitrogen 19 mg/dL (9-20); CRP 5.6 mg/dL (<1.0); Calcium 8.6 mg/dL (8.4-10.2); Carbon Dioxide 38 mmol/L (22-30); Chloride 103 mmol/L (98-107); Estimated CRCL calculation 204 ml/min; Estimated Glomerular Filt Rate > 60; Glucose 120 mg/dL (65-110); Phosphorus 3.8 mg/dL (2.5-4.5); Potassium 4.3 mmol/L (3.4-5.0); Sodium 142 mmol/L (137-145)
[2021-04-10] MEDS: INSULIN GLARGINE (*BKC) 100 UNITS/ML 25 UNITS SUB-Q (08:02)
[2021-04-10] MEDS: polyethylene glycoL 3350 17 GM POWD.PACK PO (08:04)
[2021-04-10] MEDS: ASPIRIN 81 MG CHEWABLE TABLET PO (08:04)
[2021-04-10] MEDS: ASCORBIC ACID 500 MG TABLET PO (08:05)
[2021-04-10] MEDS: CHOLECALCIFEROL 1,000 UNITS TABLET 1000 UNITS PO (08:05)
[2021-04-10] MEDS: ENOXAPARIN 40 MG/0.4 ML SYRINGE SUB-Q (08:05)
[2021-04-10] MEDS: METOPROLOL TARTRATE 25 MG TABLET FEED TUBE ×2 (08:05→19:56)
[2021-04-10] MEDS: amLODIPine BESYLATE 5 MG TABLET PO (08:05)
[2021-04-10] MEDS: MINERAL OIL/WHITE PETROLATUM OINTMENT 1 APPLIC EACH EYE ×2 (08:06→19:57)
[2021-04-10] MEDS: DOCUSATE SODIUM LIQ 100 MG/10 ML UDC FEED TUBE ×2 (08:09→19:57)
[2021-04-10] MEDS: DORNASE ALFA INH SOLN 1 MG/ML 2.5 ML AMP 2.5 MG INHALATION (08:15)
[2021-04-10] MEDS: ALPRAZolam (*CRX) 0.5 MG TABLET PO (08:21)
[2021-04-10] MEDS: fentaNYL CITRATE INJ (*CRX) 100 MCG/2 ML VIAL 50 MCG IV PUSH ×3 (09:20→19:54)
[2021-04-10] MEDS: LORazepam INJ (*CRX) 2 MG/ML VIAL 4 MG IV PUSH ×3 (09:21→13:47)
[2021-04-10] MEDS: FUROSEMIDE INJ 40 MG/4 ML VIAL IV PUSH (09:41)
--- NOTE | 2021-04-10 11:13 | WPDINTPN ---
Progress Note: A&P Assessment and Plan (1) Sepsis: Code(s): A41.9 - Sepsis, unspecified organism Status: Acute Assessment and Plan: 04/03: Patient with worsening leukocytosis, tachycardic, worsening chest x-ray, shivering noted, febrile, tachypneic, increasing oxygen requirements and support on mechanical ventilation - Urinary catheter was replaced on 04/04 -04/05: Blood cultures x2 negative till now -04/05: Urine culture neg -04/05: Sputum culture - VRE - imipenem (04/03) -> DC 04/10, - levofloxacin was added on 04/04 - 04/03 vancomycin - > 04/08 switched vancomycin to daptomycin to cover for VRE, -currently hemodynamically stable not requiring any pressors -WBC remained elevated but improved and patient is afebrile today --repeat procalcitonin level was only 0.3 which points against bacterial infection -lipase was normal - Venous Dopplers showed superficial thrombus in left cephalic vein. (2) Acute respiratory failure with hypoxia: Code(s): J96.01 - Acute respiratory failure with hypoxia Status: Acute Assessment and Plan: Acute Respiratory failure secondary to COVID-19 pneumonia 03/09/2021 patient was emergently intubated and placed on mechanical ventilation -02/17/2022: TRACHEOSTOMY AND PEG TUBE placed -Reviewed Chest x-ray this morning shows Unchanged diffuse bilateral lung disease consistent with pneumonia versus pulmonary edema -ABGs reviewed-permissive hypercapnia -currently sedated with propofol. I will hold propofol and use p.r.n. sedative as needed. Tolerate tachypnea as long as patient not in distress and vitals are stable - Continue full mechanical ventilation support to prevent hypoxemia/hypercarbia and end organ damage. -decrease FiO2 to 45%. Continue peep at 8 -continue diuretics today Patient's serial CT scans from 02/21 to now show progression of his COVID pneumonia and worsening of CT scan despite treatment (3) Pneumonia due to COVID-19 virus: Code(s): U07.1 - COVID-19; J12.82 - Pneumonia due to coronavirus disease 2018 Status: Acute Assessment and Plan: Patient tested positive for COVID-19 on 02/20/21 and initially was on room air. Patient 1st required oxygen on 02/25/2021 and has per had progressive hypoxemic respiratory failure since then, failing airflow high-flow nasal cannula and noninvasive ventilation and requiring intubation on 03/09/2021. He was started on Remdesivir 02/11 and completed 10 days. Status post complete course of dexamethasone Completed Baricitinib for total of 14 days Off zinc sulfate and vitamin-C now (4) Hyponatremia: Code(s): E87.1 - Hypo-osmolality and hyponatremia Status: Acute Assessment and Plan: Improved with flushes with normal saline (5) Hyperglycemia: Code(s): R73.9 - Hyperglycemia, unspecified Status: Acute Assessment and Plan: Continue sliding scale insulin and Lantus (6) Essential hypertension: Code(s): I10 - Essential (primary) hypertension Status: Acute Assessment and Plan: Continue Norvasc and beta-lianet Additional Plan DVT prophylaxis - Lovenox Stress ulcer prophylaxis -lansoprazole Nutrition -continue tube feeds, MiraLax, docusate and Reglan. Discussed with home care and home health aides teacher regarding restarting process for LTAC placement PICC line in place Code Status - Full Code Total Critical Care Time - 30 minutes Due to a high probability of clinically significant, life threatening deterioration, the patient required my highest level of preparedness to intervene emergently and I personally spent this critical care time directly and personally managing the patient. This critical care time included obtaining a history; examining the patient; pulse oximetry; ordering and review of studies; arranging urgent treatment with development of a management plan; evaluation of patient's response to treatment; frequent reassessment; and discussions with other provi
--- NOTE | 2021-04-10 11:26 | PCFNICU ---
ICU Rounding Note: Pt current nutrition is Vital AF 1.2 at 50 ml/hr over 22 hours. Last recorded weight is 121.8 kg, down from 130.7 kg on admit. Bowel Motility: +BM reported 04/09 Labs Reviewed:Cr 0.4,Alb 3.0 Meds Noted:Atrovent, Nimbex, Miralax, Vit C, Vit D, Xanax, Prevacid, Ativan, Lovenox, Norvasc, Reglan Skin: maceration-coccyx. Additional Notes: Patient remains current with Trach/PEG. Per nursing, propofol has been turned off. Recommend increasing tube feedings to goal rate of 75 ml/hr providing 1980 kcals/124 gm protein/1338 ml water. Free water flush 60 ml q 4 hours. Agree with diet orders. Following daily in ICU rounds. Monitor pt. labs, medications, weight and tube feeding tolerance every Wednesday and Wednesday.
[2021-04-10 12:04] LABS: Glucose Point of Care 155 mg/dl (65-105)
[2021-04-10] MEDS: ALPRAZolam (*CRX) 0.5 MG TABLET 1 MG FEED TUBE ×2 (13:47→17:22)
--- NOTE | 2021-04-10 16:16 | PM.IMPN ---
Progress Note: A&P Assessment and Plan (1) Acute respiratory failure with hypoxia: Code(s): J96.01 - Acute respiratory failure with hypoxia Status: Acute Assessment and Plan: Acute respiratory failure secondary to COVID-19 pneumonia. Patient was emergently intubated on 03/09/21 and placed on mechanical ventilation. CTA chest 03/09 negative for PE. Echo showing EF 65-70%, Grade I diastolic dysfunction, and moderate-severe pulm HTN. Tracheostomy and PEG tube placed on 03/20/21. Weaning off sedation as he tolerates. Continue scheduled Xanax with p.r.n. Ativan available. Seroquel stopped. CXR reviewed and appears worse. Continue full mechanical ventilation support. Appreciate mash filter press operator input. Waiting for acceptance to LTAC (2) Sepsis: Code(s): A41.9 - Sepsis, unspecified organism Status: Acute Assessment and Plan: Fever with leukocytosis. Sputum 03/27/21 was negative. Blood cultures 03/27/21 are negative. Shaikh was changed. UA not consistent with UTI and did not prompt urine culture. Right IJ central venous catheter was removed. Lipase elevated at 474. BCx 2/ growing Coag negative Staph (1of2) felt to be contaminate. CT scan does show sinusitis. Abx in the form of Vanco and Cefepime started 04/01 and changed to Primaxin, Levaquin and Vanco 04/04. Sputum Cx 04/05 growing VRE sensitive to Amp. UCx 04/05 negative. BCx 04/05 NGTD. Changed to Primaxin, Levaquin and Daptomycin 04/08. Had fevers yesterday but not now. CXR showing diffuse lung disease. Procalcitonin 0.3 yesterday. Bilateral upper extremity Dopplers positive for Left cephalic thrombus. He remains on Primaxin, Levaquin and Daptomycin. WBC better today. Continue to follow (3) Pneumonia due to COVID-19 virus: Code(s): U07.1 - COVID-19; J12.82 - Pneumonia due to coronavirus disease 2018 Status: Acute Assessment and Plan: Patient tested positive for COVID-19 on 02/20/21. He had progressive hypoxemic respiratory failure requiring intubation on 03/09/21. He completed Remdesivir, dexamethasone and Baricitinib. He remains on Vitamin C and D. Continue supportive care. (4) Cephalic vein thrombosis, left: Code(s): I82.612 - Acute embolism and thrombosis of superficial veins of left upper extremity Status: Acute Assessment and Plan: Doppler showing left cephalic superficial thrombosis. Symptomatic care. (5) Hyponatremia: Code(s): E87.1 - Hypo-osmolality and hyponatremia Status: Acute Assessment and Plan: Sodium was mostly in the low 130s and this was treated. Sodium normal now. Continue to monitor. (6) Hyperglycemia: Code(s): R73.9 - Hyperglycemia, unspecified Status: Acute Assessment and Plan: A1c 6.0. The patient's blood glucose was reviewed on 04/10 Glucose remains reasonably well controlled. Tolerating TF. Continue AccuCheks covering with sliding scale. Hypoglycemia protocol available as needed. Continue Lantus. (7) Critical illness polyneuropathy: Code(s): G62.81 - Critical illness polyneuropathy Status: Acute Assessment and Plan: Patient has severe diffuse UE>LE weakness felt related to prolonged ICU hospitalization. CT brain 04/02 showing no acute intracranial findings but with bilateral otomastoiditis effusions and significant sinus opacity. Continue supportive care. Continue therapy. (8) Essential hypertension: Code(s): I10 - Essential (primary) hypertension Status: Acute Assessment and Plan: Patient's blood pressure was reviewed on 04/10 Blood pressure elevated earlier but better controlled now. Continue Norvasc and Metoprolol. Monitor closely. (9) Edema: Code(s): R60.9 - Edema, unspecified Status: Acute Assessment and Plan: Noted to have diffuse edema. [place] UE edema related to dependent edema given his weakness. Tolerating intermittent Lasix (10) DVT prophylaxis: Code(s): Z29.9 - [place]
[2021-04-10 17:47] LABS: Glucose Point of Care 119 mg/dl (65-105)
--- NOTE | 2021-04-10 18:06 | PC.NURSE ---
Updated spouse on patient condition and plan of care.
[2021-04-10] MEDS: SALINE 0.65% NAS SOLN 44 ML BTL 1 SPRAY NASAL (19:58)
[2021-04-10] MEDS: SODIUM CHLORIDE NASAL GEL 14.1 GM 1 APPLIC NASAL (23:46)
[2021-04-11] VITALS (53 sets, daily range): BP systolic 137–165; BP diastolic 68–87; PULSE 93–115; RESP 15–40; TEMP 37.6–38.1; O2SAT 89–99
[2021-04-11 00:32] LABS: Glucose Point of Care 126 mg/dl (65-105)
[2021-04-11] MEDS: hydrALAZINE HCL 20 MG/ML VIAL IV PUSH (00:36)
[2021-04-11] MEDS: LORazepam INJ (*CRX) 2 MG/ML VIAL 4 MG IV PUSH (01:45)
[2021-04-11] MEDS: ACETAMINOPHEN ELIXIR 325 MG/10.15 ML UDC 650 MG FEED TUBE (04:50)
[2021-04-11 04:57] LABS: Alveolar/Arterial O2 Gradient 188.8 mmHg; Carboxyhemoglobin 1.1 % THb (0-2.0); Fractional Inspired Oxygen 45 %; HCO3 ABG 35.6 mEq/l (22.0-26.0); Methemoglobin ABG 0.3 %THb (0-1.5); Oxygen Content ABG 13.1 %vol (16.0-22.0); Oxygen Saturation ABG 94.5 % (95.0-100.0); Oxyhemoglobin 92.3 % THb (90.0-100.0); PCO2 ABG 53.7 mmHg (35.0-45.0); PO2 FiO2 Ratio Arterial Blood 1.58 %; Reduced Hemoglobin 6.3 %THb (0-5.0); pH ABG 7.439 (7.350-7.450)
[2021-04-11 04:58] LABS: Modified Allen's Test Pass; Site Drawn RIGHT RADIAL
[2021-04-11 04:59] LABS: Arterial Blood Gas PEEP 8 cmH2O; Arterial Blood Gas Tidal Volume 470 ml; Arterial Blood Gas Vent Mode CMV; Arterial Blood Gas Ventilator rate 30 /MIN; Device VENTILATOR
[2021-04-11] MEDS: LANSOPRAZOLE ORAL SUSP 30 MG/10 ML ORAL.SUSP FEED TUBE (05:09)
[2021-04-11] MEDS: METOCLOPRAMIDE HCL 10 MG/10 ML SOLN UDC PO ×3 (05:09→17:22)
[2021-04-11] MEDS: CENTRAL LINE FLUSH 10 ML IV PUSH ×3 (05:14→20:48)
[2021-04-11 05:23] LABS: Hematocrit 32.1 % (42.0-52.0); Hemoglobin 9.2 g/dL (14.0-18.0); Mean Corpuscular HGB Conc 28.7 g/dl (32-36); Mean Corpuscular Hemoglobin 28.6 pg (26-34); Mean Corpuscular Volume 99.7 fl (80-100); Mean Platelet Volume 9.9 fl (7.4-10.4); Platelet Count Result 393 k/mm3 (150-375); Red Blood Count 3.22 M/mm3 (4.6-6.20); Red Cell Distribution Width 17.2 % (11.5-14.5)
[2021-04-11 05:32] LABS: Albumin Level 3.4 g/dL (3.5-5.1); Anion Gap 5 mmol/L (8-16); Blood Urea Nitrogen 24 mg/dL (9-20); Calcium 9.1 mg/dL (8.4-10.2); Carbon Dioxide 39 mmol/L (22-30); Chloride 101 mmol/L (98-107); Estimated CRCL calculation 204 ml/min; Estimated Glomerular Filt Rate > 60; Glucose 143 mg/dL (65-110); Magnesium 2.1 mg/dL (1.6-2.3); Phosphorus 3.2 mg/dL (2.5-4.5); Potassium 3.9 mmol/L (3.4-5.0); Sodium 145 mmol/L (137-145)
[2021-04-11 05:52] LABS: Glucose Point of Care 125 mg/dl (65-105)
[2021-04-11] MEDS: IPRATROPIUM BR 0.02% INH SOLN 0.5 MG/2.5 ML VIAL INHALATION ×3 (08:23→20:16)
[2021-04-11] MEDS: LEVALBUTEROL NEB 1.25 MG/3 ML 0.63 MG INHALATION ×3 (08:24→20:15)
--- NOTE | 2021-04-11 08:28 | WPDINTPN ---
Progress Note: A&P Assessment and Plan (1) Sepsis: Code(s): A41.9 - Sepsis, unspecified organism Status: Acute Assessment and Plan: 04/03: Patient with worsening leukocytosis, tachycardic, worsening chest x-ray, shivering noted, febrile, tachypneic, increasing oxygen requirements and support on mechanical ventilation - Urinary catheter was replaced on 04/04 -04/05: Blood cultures x2 negative till now -04/05: Urine culture neg -04/05: Sputum culture - VRE - imipenem (04/03) -> DC 04/10, - levofloxacin was added on 04/04 - 04/03 vancomycin - > 04/08 switched vancomycin to daptomycin to cover for VRE, -currently hemodynamically stable not requiring any pressors -WBC remained elevated patient continues to be febrile --repeat procalcitonin level was only 0.3 which points against bacterial infection -lipase was normal - Venous Dopplers showed superficial thrombus in left cephalic vein. -check CT of sinuses/C/A/P pelvis (2) Acute respiratory failure with hypoxia: Code(s): J96.01 - Acute respiratory failure with hypoxia Status: Acute Assessment and Plan: Acute Respiratory failure secondary to COVID-19 pneumonia 03/09/2021 patient was emergently intubated and placed on mechanical ventilation -02/17/2022: TRACHEOSTOMY AND PEG TUBE placed -Reviewed Chest x-ray this morning shows Unchanged diffuse bilateral lung disease consistent with pneumonia versus pulmonary edema -ABGs reviewed-permissive hypercapnia -currently sedated with propofol. I will hold propofol and use p.r.n. sedative as needed. Tolerate tachypnea as long as patient not in distress and vitals are stable - Continue full mechanical ventilation support to prevent hypoxemia/hypercarbia and end organ damage. -decrease FiO2 to 45%. Continue peep at [address] scans from 02/21 to now show progression of his COVID pneumonia and worsening of CT scan despite treatment (3) Pneumonia due to COVID-19 virus: Code(s): U07.1 - COVID-19; J12.82 - Pneumonia due to coronavirus disease 2019 Status: Acute Assessment and Plan: Patient tested positive for COVID-19 on 02/20/21 and initially was on room air. Patient 1st required oxygen on 02/25/2021 and has per had progressive hypoxemic respiratory failure since then, failing airflow high-flow nasal cannula and noninvasive ventilation and requiring intubation on 03/09/2021. He was started on Remdesivir 02/11 and completed 10 days. Status post complete course of dexamethasone Completed Baricitinib for total of 14 days Off zinc sulfate and vitamin-C now (4) Hyponatremia: Code(s): E87.1 - Hypo-osmolality and hyponatremia Status: Acute Assessment and Plan: Improved with flushes with normal saline (5) Hyperglycemia: Code(s): R73.9 - Hyperglycemia, unspecified Status: Acute Assessment and Plan: Continue sliding scale insulin and Lantus (6) Essential hypertension: Code(s): I10 - Essential (primary) hypertension Status: Acute Assessment and Plan: Continue Norvasc and beta-lianet Additional Plan DVT prophylaxis - Lovenox Stress ulcer prophylaxis -lansoprazole Nutrition -continue tube feeds, MiraLax, docusate and Reglan. PICC line in place Code Status - Full Code Total Critical Care Time - 30 minutes Due to a high probability of clinically significant, life threatening deterioration, the patient required my highest level of preparedness to intervene emergently and I personally spent this critical care time directly and personally managing the patient. This critical care time included obtaining a history; examining the patient; pulse oximetry; ordering and review of studies; arranging urgent treatment with development of a management plan; evaluation of patient's response to treatment; frequent reassessment; and discussions with other providers. It was exclusive of separately billable procedures and treating other patients a
[2021-04-11] MEDS: LORazepam INJ (*CRX) 2 MG/ML VIAL IV PUSH (08:35)
[2021-04-11] MEDS: INSULIN GLARGINE (*BKC) 100 UNITS/ML 25 UNITS SUB-Q (09:36)
[2021-04-11] MEDS: ENOXAPARIN 40 MG/0.4 ML SYRINGE SUB-Q (09:36)
[2021-04-11] MEDS: MINERAL OIL/WHITE PETROLATUM OINTMENT 1 APPLIC EACH EYE ×2 (09:37→20:47)
[2021-04-11] MEDS: ALPRAZolam (*CRX) 0.5 MG TABLET 1 MG FEED TUBE ×3 (09:37→17:25)
[2021-04-11] MEDS: METOPROLOL TARTRATE 25 MG TABLET FEED TUBE ×2 (09:37→20:46)
[2021-04-11] MEDS: CHOLECALCIFEROL 1,000 UNITS TABLET 1000 UNITS PO (09:38)
[2021-04-11] MEDS: ASPIRIN 81 MG CHEWABLE TABLET PO (09:38)
[2021-04-11] MEDS: amLODIPine BESYLATE 5 MG TABLET PO (09:38)
[2021-04-11] MEDS: ASCORBIC ACID 500 MG TABLET PO (09:39)
--- NOTE | 2021-04-11 11:27 | PCNFU ---
Nutrition Follow-Up Complete: Inadequate oral intake related to mechanical ventilation as evidenced by need for advanced nutrition support. Goal: Pt. to meet estimated nutritional needs. Patient is progressing towards goal. We will continue current goal. Pt current nutrition is Vital AF 1.2 at 75 ml/hr over 22 hours. Last recorded weight is 121.8 kg, down from 130.7 kg on admit. Bowel Motility:+BM reported 04/11 Labs Reviewed: Glu 143,Cr 0.4,BUN 24,Hct 32.1, Hgb 9.2,Alb 3.4 Meds Noted:Norvasc, Lovenox, Atrovent, Prevacid, Xopenex, Levaquin, Ativan, Reglan, Lopressor, Vit D Skin: Maceration-buttock. Additional Notes: Patient remains current with Trach/PEG. Propofol has been discontinued. Tube feeding are at goal rate of 75 ml/hr over 22 hours of Vital AF 1.2. Tube feedings are providing 1980 kcals/124 gms protein/1338 ml water, meeting 80% caloric needs and 100% protein needs. Free water flush 60 ml q 4 hours. Agree with diet orders. Monitor pt. labs, medications, weight and tube feeding tolerance every Wednesday and Wednesday as well as daily in ICU rounds.
[2021-04-11 13:00] LABS: Glucose Point of Care 133 mg/dl (65-105)
[2021-04-11 17:19] LABS: Glucose Point of Care 122 mg/dl (65-105)
[2021-04-11] MEDS: fentaNYL CITRATE INJ (*CRX) 100 MCG/2 ML VIAL 50 MCG IV PUSH (17:30)
[2021-04-11] MEDS: SODIUM CHLORIDE NASAL GEL 14.1 GM 1 APPLIC NASAL (20:48)
[2021-04-12] VITALS (31 sets, daily range): BP systolic 154–183; BP diastolic 57–76; PULSE 81–113; RESP 14–39; TEMP 37.3–37.9; O2SAT 92–96
[2021-04-12 00:31] LABS: Glucose Point of Care 134 mg/dl (65-105)
[2021-04-12] MEDS: IPRATROPIUM BR 0.02% INH SOLN 0.5 MG/2.5 ML VIAL INHALATION ×4 (02:02→20:19)
[2021-04-12] MEDS: LEVALBUTEROL NEB 1.25 MG/3 ML 0.63 MG INHALATION ×4 (02:02→20:19)
[2021-04-12] MEDS: CENTRAL LINE FLUSH 10 ML IV PUSH ×3 (05:03→20:01)
[2021-04-12] MEDS: LANSOPRAZOLE ORAL SUSP 30 MG/10 ML ORAL.SUSP FEED TUBE (05:03)
[2021-04-12 05:04] LABS: Glucose Point of Care 124 mg/dl (65-105)
[2021-04-12] MEDS: hydrALAZINE HCL 20 MG/ML VIAL IV PUSH ×3 (05:05→18:11)
[2021-04-12] MEDS: amLODIPine BESYLATE 5 MG TABLET PO (08:19)
[2021-04-12] MEDS: ASCORBIC ACID 500 MG TABLET PO (08:19)
[2021-04-12] MEDS: ASPIRIN 81 MG CHEWABLE TABLET PO (08:19)
[2021-04-12] MEDS: ENOXAPARIN 40 MG/0.4 ML SYRINGE SUB-Q (08:20)
[2021-04-12] MEDS: CHOLECALCIFEROL 1,000 UNITS TABLET 1000 UNITS PO (08:20)
[2021-04-12] MEDS: METOPROLOL TARTRATE 25 MG TABLET FEED TUBE ×2 (08:21→20:01)
[2021-04-12] MEDS: MINERAL OIL/WHITE PETROLATUM OINTMENT 1 APPLIC EACH EYE ×2 (08:21→20:01)
[2021-04-12] MEDS: ALPRAZolam (*CRX) 0.5 MG TABLET 1 MG FEED TUBE ×3 (08:24→18:10)
[2021-04-12] MEDS: INSULIN GLARGINE (*BKC) 100 UNITS/ML 25 UNITS SUB-Q (08:30)
--- NOTE | 2021-04-12 11:39 | WPDINTPN ---
Progress Note: A&P Assessment and Plan (1) Sepsis: Code(s): A41.9 - Sepsis, unspecified organism Status: Acute Assessment and Plan: 04/03: Patient with worsening leukocytosis, tachycardic, worsening chest x-ray, shivering noted, febrile, tachypneic, increasing oxygen requirements and support on mechanical ventilation - Urinary catheter was replaced on 04/04 -04/05: Blood cultures x2 negative till now -04/05: Urine culture neg -04/05: Sputum culture - VRE - imipenem (04/03) -> DC 04/10, - levofloxacin was added on 04/04 - 04/03 vancomycin - > 04/08 switched vancomycin to daptomycin to cover for VRE, -currently hemodynamically stable and not requiring any pressors - continues to have low-grade fever --repeat procalcitonin level was only 0.3 which points against bacterial infection -lipase was normal - Venous Dopplers showed superficial thrombus in left cephalic vein. - CT of sinuses suggest sinusitis, patient continues to have changes of pneumonia 04/11 CT of sinuses Leftward deviation of nasal septum Soft tissue swelling of right nasal turbinates Completely opacified left ostiomeatal unit Moderate mucoperiosteal thickening of the frontal sinuses, patchy opacification of ethmoid air cells Complete opacification of left maxillary sinus and bilateral sphenoid sinuses Complete opacification of the mastoid air cells bilaterally 04/11 CT C/A/P IMPRESSION: 1. Diffuse bilateral lung disease consistent with pneumonia, pulmonary edema, acute respiratory distress syndrome (ARDS) or some combination thereof. Line 2. Mild emphysema. 3. Mild cardiomegaly. 4. Mild likely reactive mediastinal lymphadenopathy. 5. Small fat-containing left inguinal hernia. (2) Acute respiratory failure with hypoxia: Code(s): J96.01 - Acute respiratory failure with hypoxia Status: Acute Assessment and Plan: Acute Respiratory failure secondary to COVID-19 pneumonia 03/09/2021 patient was emergently intubated and placed on mechanical ventilation -02/17/2022: TRACHEOSTOMY AND PEG TUBE placed -Reviewed most recent Chest x-ray which shows Unchanged diffuse bilateral lung disease consistent with pneumonia versus pulmonary edema -ABGs reviewed-permissive hypercapnia - Currently on 50% FiO2 and PEEP of 8 - high respiratory rate and minute ventilation precluding weaning - I placed him on high pressure support ventilation today to see if that helps with tachypnea rather than CMV (3) Pneumonia due to COVID-19 virus: Code(s): U07.1 - COVID-19; J12.82 - Pneumonia due to coronavirus disease 2019 Status: Acute Assessment and Plan: Patient tested positive for COVID-19 on 02/20/21 and initially was on room air. Patient 1st required oxygen on 02/25/2021 and has per had progressive hypoxemic respiratory failure since then, failing airflow high-flow nasal cannula and noninvasive ventilation and requiring intubation on 03/09/2021. He was started on Remdesivir 02/11 and completed 10 days. Status post complete course of dexamethasone Completed Baricitinib for total of 14 days Off zinc sulfate and vitamin-C now (4) Hyponatremia: Code(s): E87.1 - Hypo-osmolality and hyponatremia Status: Acute Assessment and Plan: Improved with flushes with normal saline (5) Hyperglycemia: Code(s): R73.9 - Hyperglycemia, unspecified Status: Acute Assessment and Plan: Continue sliding scale insulin and Lantus (6) Essential hypertension: Code(s): I10 - Essential (primary) hypertension Status: Acute Assessment and Plan: Continue Norvasc and beta-lianet (7) Diarrhea: Code(s): R19.7 - Diarrhea, unspecified Status: Acute Assessment and Plan: patient had constipation earlier and high gastric residuals. Discontinue Reglan and MiraLax Additional Plan DVT prophylaxis - Lovenox Stress ulcer prophylaxis -lansoprazole Nutrition -continue tube feeds, PICC line
[2021-04-12 12:40] LABS: Glucose Point of Care 131 mg/dl (65-105)
[2021-04-12] MEDS: LABETALOL HCL INJ 100 MG/20 ML VIAL 20 MG IV PUSH (14:29)
[2021-04-12 17:56] LABS: Glucose Point of Care 140 mg/dl (65-105)
[2021-04-12 23:29] LABS: Glucose Point of Care 142 mg/dl (65-105)
[2021-04-12] MEDS: LORazepam INJ (*CRX) 2 MG/ML VIAL IV PUSH (23:51)
[2021-04-13] VITALS (35 sets, daily range): BP systolic 131–172; BP diastolic 53–70; PULSE 80–101; RESP 25–36; TEMP 37.2–37.8; O2SAT 87–99
[2021-04-13] MEDS: IPRATROPIUM BR 0.02% INH SOLN 0.5 MG/2.5 ML VIAL INHALATION ×4 (02:42→19:55)
[2021-04-13] MEDS: LEVALBUTEROL NEB 1.25 MG/3 ML 0.63 MG INHALATION ×4 (02:42→19:55)
[2021-04-13 04:53] LABS: Hematocrit 31.8 % (42.0-52.0); Mean Corpuscular HGB Conc 28.3 g/dl (32-36); Mean Corpuscular Hemoglobin 28.7 pg (26-34); Mean Corpuscular Volume 101.3 fl (80-100); Platelet Count Result 318 k/mm3 (150-375); Red Blood Count 3.14 M/mm3 (4.6-6.20); Red Cell Distribution Width 17.4 % (11.5-14.5); White Blood Count 11.8 K/mm3 (4.5-10.0)
[2021-04-13 04:54] LABS: Alveolar/Arterial O2 Gradient 194.9 mmHg; Base Excess ABG 6.8 mEq/l (+/-2.0); Carboxyhemoglobin 1.5 % THb (0-2.0); Fractional Inspired Oxygen 50 %; HCO3 ABG 34.8 mEq/l (22.0-26.0); Oxygen Content ABG 19.1 %vol (16.0-22.0); Oxygen Saturation ABG 96.1 % (95.0-100.0); Oxyhemoglobin 94.2 % THb (90.0-100.0); PO2 ABG 88.7 mmHg (80.0-100.0); PO2 FiO2 Ratio Arterial Blood 1.77 %; Reduced Hemoglobin 4.3 %THb (0-5.0); Total Hemoglobin 14.4 g/dL (12.0-18.0); pH ABG 7.348 (7.350-7.450)
[2021-04-13 04:55] LABS: Device VENTILATOR; Modified Allen's Test Pass; PCO2 ABG 64.8 mmHg (35.0-45.0); Site Drawn RIGHT RADIAL
[2021-04-13 04:56] LABS: Arterial Blood Gas Vent Mode SPONTANEOUS
[2021-04-13 04:57] LABS: Arterial Blood Gas PEEP 8 cmH2O; Arterial Blood Gas Pressure Support 30 cmH2O
[2021-04-13 05:06] LABS: Alanine Aminotransferase 19 U/L (4-50); Albumin Level 3.4 g/dL (3.5-5.1); Alkaline Phosphatase 106 U/L (38-126); Anion Gap 2 mmol/L (8-16); Aspartate Amino Transferase 28 U/L (17-59); Bilirubin,Total 0.4 mg/dL (0.2-1.3); Blood Urea Nitrogen 26 mg/dL (9-20); Calcium 8.9 mg/dL (8.4-10.2); Carbon Dioxide 38 mmol/L (22-30); Chloride 103 mmol/L (98-107); Estimated CRCL calculation 260 ml/min; Estimated Glomerular Filt Rate > 60; Glucose 143 mg/dL (65-110); Magnesium 2.2 mg/dL (1.6-2.3); Potassium 3.7 mmol/L (3.4-5.0); Sodium 143 mmol/L (137-145)
[2021-04-13] MEDS: CENTRAL LINE FLUSH 10 ML IV PUSH ×3 (06:15→20:04)
[2021-04-13] MEDS: LANSOPRAZOLE ORAL SUSP 30 MG/10 ML ORAL.SUSP FEED TUBE (06:15)
[2021-04-13] MEDS: METOPROLOL TARTRATE 50 MG TAB FEED TUBE ×2 (08:51→20:01)
[2021-04-13] MEDS: ALPRAZolam (*CRX) 0.5 MG TABLET 1 MG FEED TUBE ×3 (08:51→17:33)
[2021-04-13] MEDS: ENOXAPARIN 40 MG/0.4 ML SYRINGE SUB-Q (08:52)
[2021-04-13] MEDS: amLODIPine BESYLATE 5 MG TABLET 10 MG PO (08:52)
[2021-04-13] MEDS: CHOLECALCIFEROL 1,000 UNITS TABLET 1000 UNITS PO (08:52)
[2021-04-13] MEDS: ASPIRIN 81 MG CHEWABLE TABLET PO (08:52)
[2021-04-13] MEDS: ASCORBIC ACID 500 MG TABLET PO (08:52)
[2021-04-13] MEDS: INSULIN GLARGINE (*BKC) 100 UNITS/ML 25 UNITS SUB-Q (08:53)
[2021-04-13] MEDS: MINERAL OIL/WHITE PETROLATUM OINTMENT 1 APPLIC EACH EYE ×2 (08:59→20:02)
--- NOTE | 2021-04-13 09:25 | WPDINTPN ---
Progress Note: A&P Assessment and Plan (1) Sepsis: Code(s): A41.9 - Sepsis, unspecified organism Status: Acute Assessment and Plan: 04/03: Patient with worsening leukocytosis, tachycardic, worsening chest x-ray, shivering noted, febrile, tachypneic, increasing oxygen requirements and support on mechanical ventilation - Urinary catheter was replaced on 04/04 -04/05: Blood cultures x2 negative till now -04/05: Urine culture neg -04/05: Sputum culture - VRE - imipenem (04/03) -> DC 04/10, - levofloxacin was added on 04/04 - will continue for 14 days - 04/03 vancomycin - > 04/08 switched vancomycin to daptomycin to cover for VRE, -currently hemodynamically stable and not requiring any pressors - WBC improved and afebrile overnight --repeat procalcitonin level was only 0.3 which points against bacterial infection -lipase was normal - Venous Dopplers showed superficial thrombus in left cephalic vein. - CT of sinuses suggest sinusitis, patient continues to have changes of pneumonia 04/11 CT of sinuses Leftward deviation of nasal septum Soft tissue swelling of right nasal turbinates Completely opacified left ostiomeatal unit Moderate mucoperiosteal thickening of the frontal sinuses, patchy opacification of ethmoid air cells Complete opacification of left maxillary sinus and bilateral sphenoid sinuses Complete opacification of the mastoid air cells bilaterally 04/11 CT C/A/P IMPRESSION: 1. Diffuse bilateral lung disease consistent with pneumonia, pulmonary edema, acute respiratory distress syndrome (ARDS) or some combination thereof. Line 2. Mild emphysema. 3. Mild cardiomegaly. 4. Mild likely reactive mediastinal lymphadenopathy. 5. Small fat-containing left inguinal hernia. (2) Acute respiratory failure with hypoxia: Code(s): J96.01 - Acute respiratory failure with hypoxia Status: Acute Assessment and Plan: Acute Respiratory failure secondary to COVID-19 pneumonia 03/09/2021 patient was emergently intubated and placed on mechanical ventilation -02/17/2022: TRACHEOSTOMY AND PEG TUBE placed -Reviewed most recent Chest x-ray which shows Unchanged diffuse bilateral lung disease consistent with pneumonia versus pulmonary edema -ABGs reviewed-permissive hypercapnia - Currently on 50% FiO2 and PSV of 30/8 - high respiratory rate and minute ventilation precluding weaning - I placed him on high pressure support ventilation to see if that helps with tachypnea rather than CMV (3) Pneumonia due to COVID-19 virus: Code(s): U07.1 - COVID-19; J12.82 - Pneumonia due to coronavirus disease 2019 Status: Acute Assessment and Plan: Patient tested positive for COVID-19 on 02/20/21 and initially was on room air. Patient 1st required oxygen on 02/25/2021 and has per had progressive hypoxemic respiratory failure since then, failing airflow high-flow nasal cannula and noninvasive ventilation and requiring intubation on 03/09/2021. He was started on Remdesivir 02/11 and completed 10 days. Status post complete course of dexamethasone Completed Baricitinib for total of 14 days Off zinc sulfate and vitamin-C now (4) Hyponatremia: Code(s): E87.1 - Hypo-osmolality and hyponatremia Status: Acute Assessment and Plan: Improved with flushes with normal saline (5) Hyperglycemia: Code(s): R73.9 - Hyperglycemia, unspecified Status: Acute Assessment and Plan: Continue sliding scale insulin and Lantus (6) Essential hypertension: Code(s): I10 - Essential (primary) hypertension Status: Acute Assessment and Plan: Blood pressure elevated. I will increase doses of Norvasc and beta-lianet (7) Diarrhea: Code(s): R19.7 - Diarrhea, unspecified Status: Acute Assessment and Plan: patient had constipation earlier and high gastric residuals. Discontinue Reglan and MiraLax Additional Plan DVT prophylaxis - Lovenox Stress ulcer
[2021-04-13 12:35] LABS: Glucose Point of Care 111 mg/dl (65-105)
[2021-04-13 17:51] LABS: Glucose Point of Care 128 mg/dl (65-105)
[2021-04-13 23:11] LABS: Glucose Point of Care 123 mg/dl (65-105)
[2021-04-13] MEDS: LORazepam INJ (*CRX) 2 MG/ML VIAL IV PUSH (23:28)
[2021-04-13] MEDS: ACETAMINOPHEN ELIXIR 325 MG/10.15 ML UDC 650 MG FEED TUBE (23:28)
[2021-04-14] VITALS (30 sets, daily range): BP systolic 128–181; BP diastolic 55–83; PULSE 74–115; RESP 26–44; TEMP 37.1–37.6; O2SAT 90–98
[2021-04-14] MEDS: LEVALBUTEROL NEB 1.25 MG/3 ML 0.63 MG INHALATION ×4 (01:01→20:18)
[2021-04-14] MEDS: IPRATROPIUM BR 0.02% INH SOLN 0.5 MG/2.5 ML VIAL INHALATION ×4 (01:01→20:19)
[2021-04-14] MEDS: LORazepam INJ (*CRX) 2 MG/ML VIAL IV PUSH ×3 (03:20→19:47)
[2021-04-14] MEDS: LANSOPRAZOLE ORAL SUSP 30 MG/10 ML ORAL.SUSP FEED TUBE (04:47)
[2021-04-14] MEDS: CENTRAL LINE FLUSH 10 ML IV PUSH ×3 (04:47→20:02)
[2021-04-14 04:55] LABS: Hematocrit 31.6 % (42.0-52.0); Hemoglobin 8.8 g/dL (14.0-18.0); Mean Corpuscular HGB Conc 27.8 g/dl (32-36); Mean Corpuscular Hemoglobin 28.1 pg (26-34); Mean Platelet Volume 10.3 fl (7.4-10.4); Platelet Count Result 317 k/mm3 (150-375); Red Blood Count 3.13 M/mm3 (4.6-6.20); Red Cell Distribution Width 17.4 % (11.5-14.5); White Blood Count 9.5 K/mm3 (4.5-10.0)
[2021-04-14 05:04] LABS: Alanine Aminotransferase 19 U/L (4-50); Albumin Level 3.2 g/dL (3.5-5.1); Alkaline Phosphatase 101 U/L (38-126); Aspartate Amino Transferase 35 U/L (17-59); Bilirubin,Total 0.3 mg/dL (0.2-1.3); Blood Urea Nitrogen 24 mg/dL (9-20); Calcium 8.7 mg/dL (8.4-10.2); Carbon Dioxide > 40 mmol/L (22-30); Chloride 104 mmol/L (98-107); Estimated CRCL calculation 204 ml/min; Estimated Glomerular Filt Rate > 60; Glucose 123 mg/dL (65-110); Magnesium 2.2 mg/dL (1.6-2.3); Potassium 3.8 mmol/L (3.4-5.0); Sodium 145 mmol/L (137-145)
[2021-04-14 05:15] LABS: Alveolar/Arterial O2 Gradient 166.7 mmHg; Base Excess ABG 8.3 mEq/l (+/-2.0); Carboxyhemoglobin 0.9 % THb (0-2.0); Fractional Inspired Oxygen 45 %; HCO3 ABG 35.8 mEq/l (22.0-26.0); Methemoglobin ABG 0.2 %THb (0-1.5); Oxygen Content ABG 13.1 %vol (16.0-22.0); Oxygen Saturation ABG 94.3 % (95.0-100.0); Oxyhemoglobin 92.7 % THb (90.0-100.0); PCO2 ABG 67.5 mmHg (35.0-45.0); PO2 ABG 77.4 mmHg (80.0-100.0); PO2 FiO2 Ratio Arterial Blood 1.72 %; Reduced Hemoglobin 6.2 %THb (0-5.0); Site Drawn RIGHT RADIAL; pH ABG 7.342 (7.350-7.450)
[2021-04-14 05:16] LABS: Arterial Blood Gas PEEP 8 cmH2O; Arterial Blood Gas Pressure Support 30 cmH2O; Arterial Blood Gas Vent Mode SPONTANEOUS; Device VENTILATOR; Modified Allen's Test Pass
[2021-04-14] MEDS: ASPIRIN 81 MG CHEWABLE TABLET PO (08:31)
[2021-04-14] MEDS: ALPRAZolam (*CRX) 0.5 MG TABLET 1 MG FEED TUBE ×3 (08:31→16:50)
[2021-04-14] MEDS: CHOLECALCIFEROL 1,000 UNITS TABLET 1000 UNITS PO (08:32)
[2021-04-14] MEDS: ENOXAPARIN 40 MG/0.4 ML SYRINGE SUB-Q (08:32)
[2021-04-14] MEDS: INSULIN GLARGINE (*BKC) 100 UNITS/ML 25 UNITS SUB-Q (08:32)
[2021-04-14] MEDS: ASCORBIC ACID 500 MG TABLET PO (08:32)
[2021-04-14] MEDS: amLODIPine BESYLATE 5 MG TABLET 10 MG PO (08:32)
[2021-04-14] MEDS: METOPROLOL TARTRATE 50 MG TAB FEED TUBE ×2 (08:33→20:01)
--- NOTE | 2021-04-14 09:31 | WPDINTPN ---
Progress Note: A&P Assessment and Plan (1) Sepsis: Code(s): A41.9 - Sepsis, unspecified organism Status: Acute Assessment and Plan: 04/03: Patient with worsening leukocytosis, tachycardic, worsening chest x-ray, shivering noted, febrile, tachypneic, increasing oxygen requirements and support on mechanical ventilation - Urinary catheter was replaced on 04/04 -04/05: Blood cultures x2 negative till now -04/05: Urine culture neg -04/05: Sputum culture - VRE - imipenem (04/03) -> DC 04/10, - levofloxacin was added on 04/04 - will continue for 14 days - 04/03 vancomycin - > 04/08 switched vancomycin to daptomycin to cover for VRE, -currently hemodynamically stable and not requiring any pressors - WBC improved and afebrile overnight --repeat procalcitonin level was only 0.3 which points against bacterial infection -lipase was normal - Venous Dopplers showed superficial thrombus in left cephalic vein. - CT of sinuses suggest sinusitis, patient continues to have changes of pneumonia 04/11 CT of sinuses Leftward deviation of nasal septum Soft tissue swelling of right nasal turbinates Completely opacified left ostiomeatal unit Moderate mucoperiosteal thickening of the frontal sinuses, patchy opacification of ethmoid air cells Complete opacification of left maxillary sinus and bilateral sphenoid sinuses Complete opacification of the mastoid air cells bilaterally 04/11 CT C/A/P IMPRESSION: 1. Diffuse bilateral lung disease consistent with pneumonia, pulmonary edema, acute respiratory distress syndrome (ARDS) or some combination thereof. Line 2. Mild emphysema. 3. Mild cardiomegaly. 4. Mild likely reactive mediastinal lymphadenopathy. 5. Small fat-containing left inguinal hernia. (2) Acute respiratory failure with hypoxia: Code(s): J96.01 - Acute respiratory failure with hypoxia Status: Acute Assessment and Plan: Acute Respiratory failure secondary to COVID-19 pneumonia 03/09/2021 patient was emergently intubated and placed on mechanical ventilation -02/17/2022: TRACHEOSTOMY AND PEG TUBE placed -Reviewed most recent Chest x-ray which shows Unchanged diffuse bilateral lung disease consistent with pneumonia versus pulmonary edema -ABGs reviewed-permissive hypercapnia - Currently on 50% FiO2 and PSV of 30/8 - high respiratory rate and minute ventilation precluding weaning -he was placed on high pressure support ventilation, and his tachypnea has improved (3) Pneumonia due to COVID-19 virus: Code(s): U07.1 - COVID-19; J12.82 - Pneumonia due to coronavirus disease 2019 Status: Acute Assessment and Plan: Patient tested positive for COVID-19 on 02/20/21 and initially was on room air. Patient 1st required oxygen on 02/25/2021 and has per had progressive hypoxemic respiratory failure since then, failing airflow high-flow nasal cannula and noninvasive ventilation and requiring intubation on 03/09/2021. He was started on Remdesivir 02/11 and completed 10 days. Status post complete course of dexamethasone Completed Baricitinib for total of 14 days Off zinc sulfate and vitamin-C now (4) Hyponatremia: Code(s): E87.1 - Hypo-osmolality and hyponatremia Status: Acute Assessment and Plan: Will switch to free water flushes (5) Hyperglycemia: Code(s): R73.9 - Hyperglycemia, unspecified Status: Acute Assessment and Plan: Continue sliding scale insulin and Lantus (6) Essential hypertension: Code(s): I10 - Essential (primary) hypertension Status: Acute Assessment and Plan: Blood pressure elevated. Continue Norvasc and beta-lianet (7) Diarrhea: Code(s): R19.7 - Diarrhea, unspecified Status: Acute Assessment and Plan: patient had constipation earlier and high gastric residuals. Discontinue Reglan and MiraLax Additional Plan DVT prophylaxis - Lovenox Stress ulcer prophylaxis -lansoprazole Nutrition -co
[2021-04-14 11:56] LABS: Glucose Point of Care 130 mg/dl (65-105)
--- NOTE | 2021-04-14 12:10 | PCFNICU ---
ICU Rounding Note: Pt current nutrition is Vital AF 1.2 at 75 ml/hr. Last recorded weight is 121.7 kg, down from 130.7 kg on admit. Bowel Motility:+BM reported 04/13 Labs Reviewed:Glu 123,Cr 0.4,BUN 24, Alb 3.2,Hct 31.6,Hgb 8.8 Meds Noted:Norvasc, Lovenox, Atrovent, Prevacid, Xopenex, Levaquin, Ativan, Reglan, Lopressor, Vit D Skin: maceration-coccyx Additional Notes: Patient current with Trach and PEG. Vital AF 1.2 at 75 ml/hr and tolerating per nursing. Free water flush 60 ml q 4 hours. Agree with diet orders. Following daily in ICU rounds. Monitor pt. labs, medications, weight and tube feeding tolerance every Wednesday and Wednesday as well as daily in ICU rounds.
--- NOTE | 2021-04-14 15:26 | PM.IMPN ---
Progress Note: A&P Assessment and Plan (1) Acute respiratory failure with hypoxia: Code(s): J96.01 - Acute respiratory failure with hypoxia Status: Acute Assessment and Plan: Acute respiratory failure secondary to COVID-19 pneumonia. Patient was emergently intubated on 03/09/21 and placed on mechanical ventilation. CTA chest 03/09 negative for PE. Echo showing EF 65-70%, Grade I diastolic dysfunction, and moderate-severe pulm HTN. Tracheostomy and PEG tube placed on 03/20/21. Weaning off sedation as he tolerates. Continue scheduled Xanax with p.r.n. Ativan available. Seroquel stopped. Continue full mechanical ventilation support. Appreciate methods and procedures analyst input. Waiting for acceptance to LTAC (2) Sepsis: Code(s): A41.9 - Sepsis, unspecified organism Status: Acute Assessment and Plan: Fever with leukocytosis. Sputum 03/27/21 was negative. Blood cultures 03/27/21 are negative. Shaikh was changed. UA not consistent with UTI and did not prompt urine culture. Right IJ central venous catheter was removed. BCx 2 growing Coag negative Staph (1of2) felt to be contaminate. CT brain does show sinusitis. Abx in the form of Vanco and Cefepime started 04/01 and changed to Primaxin, Levaquin and Vanco 04/04. Sputum Cx 04/05 growing VRE sensitive to Amp. UCx 04/05 negative. BCx 04/05 Negative. Changed to Primaxin, Levaquin and Daptomycin 04/08. Fevers waning. Procalcitonin was 0.3. Bilateral upper extremity Dopplers 04/09 positive for Left cephalic thrombus. Primaxin stopped 04/10. He remains on Levaquin and Daptomycin. WBC normal today. Continue to follow (3) Pneumonia due to COVID-19 virus: Code(s): U07.1 - COVID-19; J12.82 - Pneumonia due to coronavirus disease 2019 Status: Acute Assessment and Plan: Patient tested positive for COVID-19 on 02/20/21. He had progressive hypoxemic respiratory failure requiring intubation on 03/09/21. He completed Remdesivir, dexamethasone and Baricitinib. He remains on Vitamin C and D. Continue supportive care. (4) Cephalic vein thrombosis, left: Code(s): I82.612 - Acute embolism and thrombosis of superficial veins of left upper extremity Status: Acute Assessment and Plan: Doppler showing left cephalic superficial thrombosis. Symptomatic care. (5) Hyponatremia: Code(s): E87.1 - Hypo-osmolality and hyponatremia Status: Acute Assessment and Plan: Sodium was mostly in the low 130s and this was treated. Sodium normal now. Continue to monitor. (6) Hyperglycemia: Code(s): R73.9 - Hyperglycemia, unspecified Status: Acute Assessment and Plan: A1c 6.0. The patient's blood glucose was reviewed on 04/14 Glucose remains well controlled. Tolerating TF. Continue AccuCheks covering with sliding scale. Hypoglycemia protocol available as needed. Continue Lantus. (7) Critical illness polyneuropathy: Code(s): G62.81 - Critical illness polyneuropathy Status: Acute Assessment and Plan: Patient has severe diffuse UE>LE weakness felt related to prolonged ICU hospitalization. CT brain 04/02 showing no acute intracranial findings but with bilateral otomastoiditis effusions and significant sinus opacity. Continue supportive care. Continue therapy. (8) Essential hypertension: Code(s): I10 - Essential (primary) hypertension Status: Acute Assessment and Plan: Patient's blood pressure was reviewed on 04/14 Blood pressure elevated at times but overall stable. Continue Norvasc and Metoprolol. Monitor closely. (9) Edema: Code(s): R60.9 - Edema, unspecified Status: Acute Assessment and Plan: Noted to have diffuse edema. [place] UE edema related to dependent edema given his weakness. Tolerating intermittent Lasix (10) DVT prophylaxis: Code(s): Z29.9 - Encounter for prophylactic measures, unspecified Status: Acute Assessment and Plan: Lovenox
[2021-04-14 17:48] LABS: Glucose Point of Care 122 mg/dl (65-105)
[2021-04-14] MEDS: hydrALAZINE HCL 20 MG/ML VIAL IV PUSH (17:56)
--- NOTE | 2021-04-14 18:37 | PC.NURSE ---
PATIENT HR 111, RESP 44. GAVE ATIVAN 2 MG IVP ORDERED FOR AGITATION. WILL CONTINUE TO MONITOR.
[2021-04-14] MEDS: ACETAMINOPHEN ELIXIR 325 MG/10.15 ML UDC 650 MG FEED TUBE (19:46)
[2021-04-14] MEDS: MINERAL OIL/WHITE PETROLATUM OINTMENT 1 APPLIC EACH EYE (20:02)
[2021-04-15] VITALS (31 sets, daily range): BP systolic 117–157; BP diastolic 54–73; PULSE 74–108; RESP 26–37; TEMP 37–37.5; O2SAT 92–98
[2021-04-15 00:27] LABS: Glucose Point of Care 106 mg/dl (65-105)
[2021-04-15] MEDS: IPRATROPIUM BR 0.02% INH SOLN 0.5 MG/2.5 ML VIAL INHALATION ×4 (02:08→20:02)
[2021-04-15] MEDS: LEVALBUTEROL NEB 1.25 MG/3 ML 0.63 MG INHALATION ×4 (02:08→20:02)
[2021-04-15] MEDS: LORazepam INJ (*CRX) 2 MG/ML VIAL IV PUSH ×3 (04:42→22:20)
[2021-04-15] MEDS: CENTRAL LINE FLUSH 10 ML IV PUSH ×3 (04:56→20:07)
[2021-04-15 05:04] LABS: Hematocrit 32.1 % (42.0-52.0); Hemoglobin 9.1 g/dL (14.0-18.0); Mean Corpuscular HGB Conc 28.3 g/dl (32-36); Mean Corpuscular Hemoglobin 28.6 pg (26-34); Mean Corpuscular Volume 100.9 fl (80-100); Mean Platelet Volume 10.7 fl (7.4-10.4); Platelet Count Result 229 k/mm3 (150-375); Red Blood Count 3.18 M/mm3 (4.6-6.20); Red Cell Distribution Width 17.3 % (11.5-14.5); White Blood Count 10.3 K/mm3 (4.5-10.0)
[2021-04-15 05:42] LABS: Alanine Aminotransferase 18 U/L (4-50); Alkaline Phosphatase 91 U/L (38-126); Anion Gap 3 mmol/L (8-16); Aspartate Amino Transferase 26 U/L (17-59); Bilirubin,Total 0.4 mg/dL (0.2-1.3); Blood Urea Nitrogen 22 mg/dL (9-20); Calcium 8.8 mg/dL (8.4-10.2); Carbon Dioxide 37 mmol/L (22-30); Chloride 103 mmol/L (98-107); Estimated CRCL calculation 263 ml/min; Estimated Glomerular Filt Rate > 60; Glucose 101 mg/dL (65-110); Potassium 3.8 mmol/L (3.4-5.0); Sodium 143 mmol/L (137-145)
[2021-04-15 05:43] LABS: Alveolar/Arterial O2 Gradient 154.5 mmHg; Base Excess ABG 8.2 mEq/l (+/-2.0); Carboxyhemoglobin 1.1 % THb (0-2.0); Fractional Inspired Oxygen 45 %; HCO3 ABG 34.9 mEq/l (22.0-26.0); Methemoglobin ABG 0.1 %THb (0-1.5); Oxygen Content ABG 13.7 %vol (16.0-22.0); Oxyhemoglobin 95.3 % THb (90.0-100.0); PO2 ABG 96.4 mmHg (80.0-100.0); PO2 FiO2 Ratio Arterial Blood 2.14 %; Reduced Hemoglobin 3.5 %THb (0-5.0); Total Hemoglobin 10.1 g/dL (12.0-18.0); pH ABG 7.372 (7.350-7.450)
[2021-04-15 05:47] LABS: Device VENTILATOR; Modified Allen's Test Pass; PCO2 ABG 61.5 mmHg (35.0-45.0); Site Drawn RIGHT RADIAL
[2021-04-15 05:48] LABS: Arterial Blood Gas PEEP 8 cmH2O; Arterial Blood Gas Pressure Support 30 cmH2O; Arterial Blood Gas Vent Mode SPONTANEOUS
[2021-04-15] MEDS: ALPRAZolam (*CRX) 0.5 MG TABLET 1 MG FEED TUBE ×3 (08:18→17:17)
[2021-04-15] MEDS: INSULIN GLARGINE (*BKC) 100 UNITS/ML 25 UNITS SUB-Q (08:18)
[2021-04-15] MEDS: ASCORBIC ACID 500 MG TABLET PO (08:19)
[2021-04-15] MEDS: ASPIRIN 81 MG CHEWABLE TABLET PO (08:19)
[2021-04-15] MEDS: amLODIPine BESYLATE 5 MG TABLET 10 MG PO (08:19)
[2021-04-15] MEDS: ENOXAPARIN 40 MG/0.4 ML SYRINGE SUB-Q (08:19)
[2021-04-15] MEDS: MINERAL OIL/WHITE PETROLATUM OINTMENT 1 APPLIC EACH EYE ×2 (08:19→20:07)
[2021-04-15] MEDS: CHOLECALCIFEROL 1,000 UNITS TABLET 1000 UNITS PO (08:19)
[2021-04-15] MEDS: METOPROLOL TARTRATE 50 MG TAB FEED TUBE ×2 (08:19→20:07)
[2021-04-15] MEDS: LANSOPRAZOLE ORAL SUSP 30 MG/10 ML ORAL.SUSP FEED TUBE (09:52)
[2021-04-15] MEDS: ACETAMINOPHEN ELIXIR 325 MG/10.15 ML UDC 650 MG FEED TUBE ×2 (11:00→20:27)
--- NOTE | 2021-04-15 11:08 | PCNFU ---
Nutrition Follow-Up Complete: Inadequate oral intake related to mechanical ventilation as evidenced by need for advanced nutrition support. Goal: Pt. to meet estimated nutritional needs. Patient continues with current goal. Pt current nutrition is Vital AF 1.2 at 75 ml/hr over 22 hours. Last recorded weight is 124.7 kg, down from 130.7 kg on admit. Bowel Motility:+BM reported 04/14 Labs Reviewed:Alb 3.0,BUN 22, Cr 0.3,Hgb 9.1, Hct 32.1 Meds Noted:Norvasc, Lovenox, Atrovent, Prevacid, Xopenex, Levaquin, Ativan, Reglan, Lopressor, Vit D, Lantus Skin: Maceration-coccyx. Additional Notes: Patient current with Trach/PEG. tolerating tube feedings at 75 ml/hr of Vital AF 1.2. Tube feeding is providing 1980 kcals/124 gms protein/1338 ml water. Free water flush reduced from 60 ml to 30 ml q 4 hours. Agree with diet orders. Monitor pt. labs, medications, weight and tube feeding tolerance every Wednesday and Wednesday as well as daily in ICU rounds.
[2021-04-15 11:30] LABS: Glucose Point of Care 133 mg/dl (65-105)
--- NOTE | 2021-04-15 11:33 | P.PNINT_ITS ---
Progress Note: A&P Assessment and Plan (1) Sepsis: Code(s): A41.9 - Sepsis, unspecified organism Status: Acute Assessment and Plan: 04/03: Patient with worsening leukocytosis, tachycardic, worsening chest x-ray, shivering noted, febrile, tachypneic, increasing oxygen requirements and support on mechanical ventilation - Urinary catheter was replaced on 04/04 -04/05: Blood cultures x2 negative till now -04/05: Urine culture neg -04/05: Sputum culture - VRE - imipenem (04/03) -> DC 04/10, - levofloxacin was added on 04/04 - will continue for 14 days - 04/03 vancomycin - > 04/08 switched vancomycin to daptomycin to cover for VRE, -currently hemodynamically stable and not requiring any pressors - WBC improved and afebrile overnight --repeat procalcitonin level was only 0.3 which points against bacterial infection -lipase was normal - Venous Dopplers showed superficial thrombus in left cephalic vein. - CT of sinuses suggest sinusitis, patient continues to have changes of pneumonia 04/11 CT of sinuses Leftward deviation of nasal septum Soft tissue swelling of right nasal turbinates Completely opacified left ostiomeatal unit Moderate mucoperiosteal thickening of the frontal sinuses, patchy opacification of ethmoid air cells Complete opacification of left maxillary sinus and bilateral sphenoid sinuses Complete opacification of the mastoid air cells bilaterally 04/11 CT C/A/P IMPRESSION: 1. Diffuse bilateral lung disease consistent with pneumonia, pulmonary edema, acute respiratory distress syndrome (ARDS) or some combination thereof. Line 2. Mild emphysema. 3. Mild cardiomegaly. 4. Mild likely reactive mediastinal lymphadenopathy. 5. Small fat-containing left inguinal hernia. (2) Acute respiratory failure with hypoxia: Code(s): J96.01 - Acute respiratory failure with hypoxia Status: Acute Assessment and Plan: Acute Respiratory failure secondary to COVID-19 pneumonia 03/09/2021 patient was emergently intubated and placed on mechanical ventilation -02/17/2022: TRACHEOSTOMY AND PEG TUBE placed -Reviewed most recent Chest x-ray which shows Unchanged diffuse bilateral lung disease consistent with pneumonia versus pulmonary edema -ABGs reviewed-permissive hypercapnia - Currently on 50% FiO2 and PSV of 30/8 - high respiratory rate and minute ventilation precluding weaning -he was placed on high pressure support ventilation, and his tachypnea has improved (3) Pneumonia due to COVID-19 virus: Code(s): U07.1 - COVID-19; J12.82 - Pneumonia due to coronavirus disease 2019 Status: Acute Assessment and Plan: Patient tested positive for COVID-19 on 02/20/21 and initially was on room air. Patient 1st required oxygen on 02/25/2021 and has per had progressive hypoxemic respiratory failure since then, failing airflow high-flow nasal cannula and noninvasive ventilation and requiring intubation on 03/09/2021. He was started on Remdesivir 02/11 and completed 10 days. Status post complete course of dexamethasone Completed Baricitinib for total of 14 days Off zinc sulfate and vitamin-C now (4) Hyponatremia: Code(s): E87.1 - Hypo-osmolality and hyponatremia Status: Acute Assessment and Plan: Will switch to free water flushes (5) Hyperglycemia: Code(s): R73.9 - Hyperglycemia, unspecified Status: Acute Assessment and Plan: Continue sliding scale insulin and Lantus (6) Essential hypertension: Code(s): I10 - Essential (primary) hypertension Status: Acute Assessmen
--- NOTE | 2021-04-15 15:33 | PM.IMPN ---
Progress Note: A&P Assessment and Plan (1) Acute respiratory failure with hypoxia: Code(s): J96.01 - Acute respiratory failure with hypoxia Status: Acute Assessment and Plan: Acute respiratory failure secondary to COVID-19 pneumonia. Patient was emergently intubated on 03/09/21 and placed on mechanical ventilation. CTA chest 03/09 negative for PE. Echo showing EF 65-70%, Grade I diastolic dysfunction, and moderate-severe pulm HTN. Tracheostomy and PEG tube placed on 03/20/21. Weaning off sedation as he tolerates. Continue scheduled Xanax with p.r.n. Ativan available. Seroquel stopped. Continue full mechanical ventilation support. Appreciate microstrategy architect input. Waiting for acceptance to LTAC (2) Sepsis: Code(s): A41.9 - Sepsis, unspecified organism Status: Acute Assessment and Plan: Fever with leukocytosis. Sputum 03/27/21 was negative. Blood cultures 03/27/21 are negative. Shaikh was changed. UA not consistent with UTI and did not prompt urine culture. Right IJ central venous catheter was removed. BCx 2 growing Coag negative Staph (1of2) felt to be contaminate. CT brain does show sinusitis. Abx in the form of Vanco and Cefepime started 04/01 and changed to Primaxin, Levaquin and Vanco 04/04. Sputum Cx 04/05 growing VRE sensitive to Amp. UCx 04/05 negative. BCx 04/05 Negative. Changed to Primaxin, Levaquin and Daptomycin 04/08. Fevers waning. Procalcitonin was 0.3. Bilateral upper extremity Dopplers 04/09 positive for Left cephalic thrombus. Primaxin stopped 04/10. He remains on Levaquin and Daptomycin. Continue to follow (3) Pneumonia due to COVID-19 virus: Code(s): U07.1 - COVID-19; J12.82 - Pneumonia due to coronavirus disease 2019 Status: Acute Assessment and Plan: Patient tested positive for COVID-19 on 02/20/21. He had progressive hypoxemic respiratory failure requiring intubation on 03/09/21. He completed Remdesivir, dexamethasone and Baricitinib. He remains on Vitamin C and D. Continue supportive care. (4) Cephalic vein thrombosis, left: Code(s): I82.612 - Acute embolism and thrombosis of superficial veins of left upper extremity Status: Acute Assessment and Plan: Doppler showing left cephalic superficial thrombosis. Symptomatic care. (5) Hyponatremia: Code(s): E87.1 - Hypo-osmolality and hyponatremia Status: Acute Assessment and Plan: Sodium was mostly in the low 130s and this was treated. Sodium normal now. Continue to monitor. (6) Hyperglycemia: Code(s): R73.9 - Hyperglycemia, unspecified Status: Acute Assessment and Plan: A1c 6.0. The patient's blood glucose was reviewed on 04/15 Glucose remains well controlled. Tolerating TF. Continue AccuCheks covering with sliding scale. Hypoglycemia protocol available as needed. Continue Lantus. (7) Critical illness polyneuropathy: Code(s): G62.81 - Critical illness polyneuropathy Status: Acute Assessment and Plan: Patient has severe diffuse UE>LE weakness felt related to prolonged ICU hospitalization. CT brain 04/02 showing no acute intracranial findings but with bilateral otomastoiditis effusions and significant sinus opacity. Continue supportive care. Continue therapy. (8) Essential hypertension: Code(s): I10 - Essential (primary) hypertension Status: Acute Assessment and Plan: Patient's blood pressure was reviewed on 04/15 Blood pressure elevated at times but overall stable. Continue Norvasc and Metoprolol. Monitor closely. (9) Edema: Code(s): R60.9 - Edema, unspecified Status: Acute Assessment and Plan: Noted to have diffuse edema. [place] UE edema related to dependent edema given his weakness. Tolerating intermittent Lasix (10) DVT prophylaxis: Code(s): Z29.9 - Encounter for prophylactic measures, unspecified Status: Acute Assessment and Plan: Lovenox Subjective Date/ugo
[2021-04-15 17:57] LABS: Glucose Point of Care 97 mg/dl (65-105)
[2021-04-16] VITALS (31 sets, daily range): BP systolic 123–175; BP diastolic 65–82; PULSE 71–102; RESP 26–38; TEMP 37.2–37.6; O2SAT 93–100
[2021-04-16 00:07] LABS: Glucose Point of Care 127 mg/dl (65-105)
[2021-04-16] MEDS: IPRATROPIUM BR 0.02% INH SOLN 0.5 MG/2.5 ML VIAL INHALATION ×4 (02:04→19:38)
[2021-04-16] MEDS: LEVALBUTEROL NEB 1.25 MG/3 ML 0.63 MG INHALATION ×4 (02:04→19:38)
[2021-04-16] MEDS: LORazepam INJ (*CRX) 2 MG/ML VIAL IV PUSH (02:15)
[2021-04-16] MEDS: LANSOPRAZOLE ORAL SUSP 30 MG/10 ML ORAL.SUSP FEED TUBE (04:26)
[2021-04-16] MEDS: CENTRAL LINE FLUSH 10 ML IV PUSH ×3 (04:26→20:23)
[2021-04-16 05:03] LABS: Hematocrit 31.1 % (42.0-52.0); Hemoglobin 8.9 g/dL (14.0-18.0); Mean Corpuscular HGB Conc 28.6 g/dl (32-36); Mean Corpuscular Hemoglobin 28.3 pg (26-34); Mean Corpuscular Volume 98.7 fl (80-100); Mean Platelet Volume 10.3 fl (7.4-10.4); Platelet Count Result 268 k/mm3 (150-375); Red Blood Count 3.15 M/mm3 (4.6-6.20); Red Cell Distribution Width 17.3 % (11.5-14.5)
[2021-04-16 05:27] LABS: Alanine Aminotransferase 18 U/L (4-50); Albumin Level 3.1 g/dL (3.5-5.1); Alkaline Phosphatase 95 U/L (38-126); Anion Gap 1 mmol/L (8-16); Aspartate Amino Transferase 25 U/L (17-59); Bilirubin,Total 0.4 mg/dL (0.2-1.3); Blood Urea Nitrogen 20 mg/dL (9-20); Calcium 8.1 mg/dL (8.4-10.2); Carbon Dioxide 38 mmol/L (22-30); Chloride 102 mmol/L (98-107); Estimated CRCL calculation 264 ml/min; Estimated Glomerular Filt Rate > 60; Glucose 122 mg/dL (65-110); Magnesium 2.1 mg/dL (1.6-2.3); Potassium 3.7 mmol/L (3.4-5.0); Sodium 141 mmol/L (137-145)
[2021-04-16] MEDS: amLODIPine BESYLATE 5 MG TABLET 10 MG PO (08:48)
[2021-04-16] MEDS: MINERAL OIL/WHITE PETROLATUM OINTMENT 1 APPLIC EACH EYE ×2 (08:48→20:23)
[2021-04-16] MEDS: METOPROLOL TARTRATE 50 MG TAB FEED TUBE ×2 (08:48→20:23)
[2021-04-16] MEDS: CHOLECALCIFEROL 1,000 UNITS TABLET 1000 UNITS PO (08:48)
[2021-04-16] MEDS: ENOXAPARIN 40 MG/0.4 ML SYRINGE SUB-Q (08:48)
[2021-04-16] MEDS: ASCORBIC ACID 500 MG TABLET PO (08:48)
[2021-04-16] MEDS: ALPRAZolam (*CRX) 0.5 MG TABLET 1 MG FEED TUBE ×3 (08:48→20:22)
[2021-04-16] MEDS: ASPIRIN 81 MG CHEWABLE TABLET PO (08:48)
[2021-04-16] MEDS: INSULIN GLARGINE (*BKC) 100 UNITS/ML 25 UNITS SUB-Q (08:55)
--- NOTE | 2021-04-16 11:16 | WPDINTPN ---
Progress Note: A&P Assessment and Plan (1) Sepsis: Code(s): A41.9 - Sepsis, unspecified organism Status: Acute Assessment and Plan: 04/03: Patient with worsening leukocytosis, tachycardic, worsening chest x-ray, shivering noted, febrile, tachypneic, increasing oxygen requirements and support on mechanical ventilation - Urinary catheter was replaced on 04/04 -04/05: Blood cultures x2 negative till now -04/05: Urine culture neg -04/05: Sputum culture - VRE - imipenem (04/03) -> DC 04/10, - levofloxacin was added on 04/04 - will continue for 14 days - 04/03 vancomycin - > 04/08 switched vancomycin to daptomycin to cover for VRE, for total of 14 days -currently hemodynamically stable and not requiring any pressors - WBC improved and afebrile overnight --repeat procalcitonin level was only 0.3 which points against bacterial infection -lipase was normal - Venous Dopplers showed superficial thrombus in left cephalic vein. - CT of sinuses suggest sinusitis, patient continues to have changes of pneumonia 04/11 CT of sinuses Leftward deviation of nasal septum Soft tissue swelling of right nasal turbinates Completely opacified left ostiomeatal unit Moderate mucoperiosteal thickening of the frontal sinuses, patchy opacification of ethmoid air cells Complete opacification of left maxillary sinus and bilateral sphenoid sinuses Complete opacification of the mastoid air cells bilaterally 04/11 CT C/A/P IMPRESSION: 1. Diffuse bilateral lung disease consistent with pneumonia, pulmonary edema, acute respiratory distress syndrome (ARDS) or some combination thereof. Line 2. Mild emphysema. 3. Mild cardiomegaly. 4. Mild likely reactive mediastinal lymphadenopathy. 5. Small fat-containing left inguinal hernia. (2) Acute respiratory failure with hypoxia: Code(s): J96.01 - Acute respiratory failure with hypoxia Status: Acute Assessment and Plan: Acute Respiratory failure secondary to COVID-19 pneumonia 03/09/2021 patient was emergently intubated and placed on mechanical ventilation -02/17/2022: TRACHEOSTOMY AND PEG TUBE placed -Reviewed most recent Chest x-ray which shows Unchanged diffuse bilateral lung disease consistent with pneumonia versus pulmonary edema -ABGs reviewed-permissive hypercapnia - Currently on 50% FiO2 and PSV of 30/8, Will decrease inspiratory pressure 26 and continue to wean inspiratory pressure to maintain tidal volumes around 500 mL -he was placed on high pressure support ventilation, and his tachypnea has improved (3) Pneumonia due to COVID-19 virus: Code(s): U07.1 - COVID-19; J12.82 - Pneumonia due to coronavirus disease 2019 Status: Acute Assessment and Plan: Patient tested positive for COVID-19 on 02/20/21 and initially was on room air. Patient 1st required oxygen on 02/25/2021 and has per had progressive hypoxemic respiratory failure since then, failing airflow high-flow nasal cannula and noninvasive ventilation and requiring intubation on 03/09/2021. He was started on Remdesivir 02/11 and completed 10 days. Status post complete course of dexamethasone Completed Baricitinib for total of 14 days Off zinc sulfate and vitamin-C now (4) Hyponatremia: Code(s): E87.1 - Hypo-osmolality and hyponatremia Status: Acute Assessment and Plan: Will switch to free water flushes (5) Hyperglycemia: Code(s): R73.9 - Hyperglycemia, unspecified Status: Acute Assessment and Plan: Continue sliding scale insulin and Lantus (6) Essential hypertension: Code(s): I10 - Essential (primary) hypertension Status: Acute Assessment and Plan: Blood pressure elevated. Continue Norvasc and beta-lianet (7) Diarrhea: Code(s): R19.7 - Diarrhea, unspecified Status: Acute Assessment and Plan: patient had constipation earlier and high gastric residuals. This has resolved Discontinue Reglan and MiraLax Zafar
--- NOTE | 2021-04-16 12:17 | PCFNICU ---
ICU Rounding Note: Pt current nutrition is Vital AF 1.2 at 75 ml/hr over 22 hours. Last recorded weight is 125.1 kg, down from 130.78 kg on admit. Bowel Motility: +BM reported 04/15 Labs Reviewed:Glu 122, Cr 0.3, Hct 31.1,Alb 3.1, Hgb 8.9 Meds Noted:Norvasc, Lovenox, Atrovent, Prevacid, Xopenex, Levaquin, Ativan, Reglan, Lopressor, Vit D, Lantus Skin: maceration-coccyx Additional Notes: Patient is current with Trach/PEG. Tube feedings continue to be tolerated of Vital AF 1.2 at 75 ml/hr. Free water flush 30 ml q 4 hours. Agree with diet orders. Awaiting for placement. Following daily in ICU rounds. Monitor pt. labs, medications, weight and tube feeding tolerance every Wednesday and Wednesday.
[2021-04-16 12:21] LABS: Glucose Point of Care 112 mg/dl (65-105)
--- NOTE | 2021-04-16 14:35 | PM.IMPN ---
Progress Note: A&P Assessment and Plan (1) Acute respiratory failure with hypoxia: Code(s): J96.01 - Acute respiratory failure with hypoxia Status: Acute Assessment and Plan: Acute respiratory failure secondary to COVID-19 pneumonia. Patient was emergently intubated on 03/09/21 and placed on mechanical ventilation. CTA chest 03/09 negative for PE. Echo showing EF 65-70%, Grade I diastolic dysfunction, and moderate-severe pulm HTN. Tracheostomy and PEG tube placed on 03/20/21. Weaning off sedation as he tolerates. Continue scheduled Xanax (increased to Q6hr) with Ativan available prn. Continue full mechanical ventilation support. Appreciate machine shop lead man input. Waiting for acceptance to LTAC (2) Sepsis: Code(s): A41.9 - Sepsis, unspecified organism Status: Acute Assessment and Plan: Fever with leukocytosis. Sputum 03/27/21 was negative. Blood cultures 03/27/21 are negative. Shaikh was changed. UA not consistent with UTI and did not prompt urine culture. Right IJ central venous catheter was removed. BCx 2 growing Coag negative Staph (1of2) felt to be contaminate. CT brain does show sinusitis. Abx in the form of Vanco and Cefepime started 04/01 and changed to Primaxin, Levaquin and Vanco 04/04. Sputum Cx 04/05 growing VRE sensitive to Amp. UCx 04/05 negative. BCx 04/05 Negative. Changed to Primaxin, Levaquin and Daptomycin 04/08. No longer having fevers. Procalcitonin was 0.3. Bilateral upper extremity Dopplers 04/09 positive for Left cephalic thrombus. Primaxin stopped 04/10. He remains on Levaquin (Day 13) and Daptomycin (Day 9). Continue to follow (3) Pneumonia due to COVID-19 virus: Code(s): U07.1 - COVID-19; J12.82 - Pneumonia due to coronavirus disease 2019 Status: Acute Assessment and Plan: Patient tested positive for COVID-19 on 02/20/21. He had progressive hypoxemic respiratory failure requiring intubation on 03/09/21. He completed Remdesivir, dexamethasone and Baricitinib. He remains on Vitamin C and D. Continue supportive care. (4) Cephalic vein thrombosis, left: Code(s): I82.612 - Acute embolism and thrombosis of superficial veins of left upper extremity Status: Acute Assessment and Plan: Doppler showing left cephalic superficial thrombosis. Symptomatic care. (5) Hyponatremia: Code(s): E87.1 - Hypo-osmolality and hyponatremia Status: Acute Assessment and Plan: Sodium was mostly in the low 130s and this was treated. Sodium normal now. Continue to monitor. (6) Hyperglycemia: Code(s): R73.9 - Hyperglycemia, unspecified Status: Acute Assessment and Plan: A1c 6.0. The patient's blood glucose was reviewed on 04/16 Glucose remains well controlled. Tolerating TF. Continue AccuCheks covering with sliding scale. Hypoglycemia protocol available as needed. Continue Lantus. (7) Critical illness polyneuropathy: Code(s): G62.81 - Critical illness polyneuropathy Status: Acute Assessment and Plan: Patient has severe diffuse UE>LE weakness felt related to prolonged ICU hospitalization. CT brain 04/02 showing no acute intracranial findings but with bilateral otomastoiditis effusions and significant sinus opacity. Continue supportive care. Continue therapy. (8) Essential hypertension: Code(s): I10 - Essential (primary) hypertension Status: Acute Assessment and Plan: Patient's blood pressure was reviewed on 04/16 Blood pressure mostly well controlled Continue Norvasc and Metoprolol. Monitor closely. (9) Edema: Code(s): R60.9 - Edema, unspecified Status: Acute Assessment and Plan: Noted to have diffuse edema. [place] UE edema related to dependent edema given his weakness. Tolerating intermittent Lasix (10) DVT prophylaxis: Code(s): Z29.9 - Encounter for prophylactic measures, unspecified Status: Acute Assessment and Plan: Lovenox Subjective
[2021-04-16 17:07] LABS: Glucose Point of Care 100 mg/dl (65-105)
[2021-04-17] VITALS (16 sets, daily range): BP systolic 130–170; BP diastolic 65–84; PULSE 80–102; RESP 26–36; TEMP 37.3–37.4; O2SAT 92–96
[2021-04-17] MEDS: LORazepam INJ (*CRX) 2 MG/ML VIAL IV PUSH ×2 (00:02→04:44)
[2021-04-17 00:07] LABS: Glucose Point of Care 106 mg/dl (65-105)
[2021-04-17] MEDS: LEVALBUTEROL NEB 1.25 MG/3 ML 0.63 MG INHALATION ×2 (01:25→08:42)
[2021-04-17] MEDS: IPRATROPIUM BR 0.02% INH SOLN 0.5 MG/2.5 ML VIAL INHALATION ×2 (01:25→08:42)
[2021-04-17] MEDS: ALPRAZolam (*CRX) 0.5 MG TABLET 1 MG FEED TUBE ×2 (02:12→08:31)
[2021-04-17] MEDS: LANSOPRAZOLE ORAL SUSP 30 MG/10 ML ORAL.SUSP FEED TUBE (04:45)
[2021-04-17] MEDS: CENTRAL LINE FLUSH 10 ML IV PUSH (04:45)
[2021-04-17 05:15] LABS: Hematocrit 33.4 % (42.0-52.0); Hemoglobin 9.9 g/dL (14.0-18.0); Mean Corpuscular HGB Conc 29.6 g/dl (32-36); Mean Corpuscular Hemoglobin 28.2 pg (26-34); Mean Corpuscular Volume 95.2 fl (80-100); Mean Platelet Volume 10.1 fl (7.4-10.4); Platelet Count Result 314 k/mm3 (150-375); Red Blood Count 3.51 M/mm3 (4.6-6.20); Red Cell Distribution Width 17.2 % (11.5-14.5); White Blood Count 13.3 K/mm3 (4.5-10.0)
[2021-04-17 05:25] LABS: Alanine Aminotransferase 22 U/L (4-50); Albumin Level 3.3 g/dL (3.5-5.1); Alkaline Phosphatase 102 U/L (38-126); Anion Gap 4 mmol/L (8-16); Aspartate Amino Transferase 30 U/L (17-59); Bilirubin,Total 0.3 mg/dL (0.2-1.3); Blood Urea Nitrogen 19 mg/dL (9-20); Calcium 8.5 mg/dL (8.4-10.2); Carbon Dioxide 37 mmol/L (22-30); Chloride 101 mmol/L (98-107); Estimated CRCL calculation 264 ml/min; Estimated Glomerular Filt Rate > 60; Glucose 114 mg/dL (65-110); Potassium 3.4 mmol/L (3.4-5.0); Sodium 142 mmol/L (137-145)
[2021-04-17] MEDS: ENOXAPARIN 40 MG/0.4 ML SYRINGE SUB-Q (08:32)
[2021-04-17] MEDS: INSULIN GLARGINE (*BKC) 100 UNITS/ML 25 UNITS SUB-Q (08:32)
[2021-04-17] MEDS: POTASSIUM CHLORIDE 20 MEQ PACKET (FOR LIQUID) 40 MEQ PO (08:32)
[2021-04-17] MEDS: ASPIRIN 81 MG CHEWABLE TABLET PO (08:32)
[2021-04-17] MEDS: METOPROLOL TARTRATE 50 MG TAB FEED TUBE (08:32)
[2021-04-17] MEDS: CHOLECALCIFEROL 1,000 UNITS TABLET 1000 UNITS PO (08:32)
[2021-04-17] MEDS: ASCORBIC ACID 500 MG TABLET PO (08:32)
[2021-04-17] MEDS: amLODIPine BESYLATE 5 MG TABLET 10 MG PO (08:32)
[2021-04-17] MEDS: MINERAL OIL/WHITE PETROLATUM OINTMENT 1 APPLIC EACH EYE (08:46)
--- NOTE | 2021-04-17 12:02 | PM.DS ---
DS: Admitting Diagnosis Discharge Date 04/17/21 Admitting Diagnosis Shortness of breath DS: Discharge Diagnosis Discharge Diagnosis (1) Acute respiratory failure with hypoxia: Code(s): J96.01 - Acute respiratory failure with hypoxia Status: Acute Assessment and Plan: Acute respiratory failure secondary to COVID-19 pneumonia. Patient was emergently intubated on 03/09/21 and placed on mechanical ventilation. CTA chest 03/09 negative for PE. Echo showing EF 65-70%, Grade I diastolic dysfunction, and moderate-severe pulm HTN. Tracheostomy and PEG tube placed on 03/20/21. Weaning off sedation as he tolerates. He remained on full mechanical ventilation support. Appreciate electric utility lineworker input. Patient is stable for transfer and has been acceptance to LTAC (2) Sepsis: Code(s): A41.9 - Sepsis, unspecified organism Status: Acute Assessment and Plan: Intermittent fevers with leukocytosis. Sputum 03/27/21 was negative. Blood cultures 03/27/21 are negative. Shaikh was changed. UA not consistent with UTI and did not prompt urine culture. Right IJ central venous catheter was removed. BCx 2 growing Coag negative Staph (1of2) felt to be contaminate. CT brain does show sinusitis. Abx in the form of Vanco and Cefepime started 04/01 and changed to Primaxin, Levaquin and Vanco 04/04. Sputum Cx 04/05 growing VRE sensitive to Amp. UCx 04/05 negative. BCx 04/05 Negative. Changed to Primaxin, Levaquin and Daptomycin on 04/08. No longer having fevers. Procalcitonin was 0.3. Bilateral upper extremity Dopplers 04/09 positive for left cephalic thrombus. Primaxin stopped 04/10. He remains on Levaquin (Day 14) and Daptomycin (Day 10). Continue to follow (3) Pneumonia due to COVID-19 virus: Code(s): U07.1 - COVID-19; J12.82 - Pneumonia due to coronavirus disease 2018 Status: Acute Assessment and Plan: Patient tested positive for COVID-19 on 02/20/21. He had progressive hypoxemic respiratory failure requiring intubation on 03/09/21. He completed Remdesivir, dexamethasone and Baricitinib. He remains on Vitamin C and D. (4) Cephalic vein thrombosis, left: Code(s): I82.612 - Acute embolism and thrombosis of superficial veins of left upper extremity Status: Acute Assessment and Plan: Doppler showing left cephalic superficial thrombosis. Symptomatic care. (5) Hyponatremia: Code(s): E87.1 - Hypo-osmolality and hyponatremia Status: Acute Assessment and Plan: Sodium was mostly in the low 130s and this was treated. Sodium normal now. (6) Hyperglycemia: Code(s): R73.9 - Hyperglycemia, unspecified Status: Acute Assessment and Plan: A1c 6.0. The patient's blood glucose was monitored closely with Accuchecks covering with sliding scale. Hypoglycemia protocol available as needed. Treated with Lantus. (7) Critical illness polyneuropathy: Code(s): G62.81 - Critical illness polyneuropathy Status: Acute Assessment and Plan: Patient has severe diffuse UE>LE weakness felt related to prolonged ICU hospitalization. CT brain 04/02 showing no acute intracranial findings but with bilateral otomastoiditis effusions and significant sinus opacity. He worked with therapy. (8) Essential hypertension: Code(s): I10 - Essential (primary) hypertension Status: Acute Assessment and Plan: Patient's blood pressure was well controlled. Treated Norvasc and Metoprolol. (9) Edema: Code(s): R60.9 - Edema, unspecified Status: Acute Assessment and Plan: Noted to have diffuse edema. Doppler negative for DVT in the upper extremities. [place] UE edema related to dependent edema given his weakness. Tolerating intermittent Lasix DS: Summary Hospital Course Reason for hospitalization: 66yo man with neuropathy and HLD who presented to the ED on 02/21 with SOB and found to have COVID-19 pneumonia. He is unvaccinated. Patient wa
--- NOTE | 2021-04-17 12:03 | P.PNINT_ITS ---
Progress Note: A&P Assessment and Plan (1) Sepsis: Code(s): A41.9 - Sepsis, unspecified organism Status: Acute Assessment and Plan: 04/03: Patient with worsening leukocytosis, tachycardic, worsening chest x-ray, shivering noted, febrile, tachypneic, increasing oxygen requirements and support on mechanical ventilation - Urinary catheter was replaced on 04/04 -04/05: Blood cultures x2 negative till now -04/05: Urine culture neg -04/05: Sputum culture - VRE - imipenem (04/03) -> DC 04/10, - levofloxacin was added on 04/04 - will continue for 14 days - 04/03 vancomycin - > 04/08 switched vancomycin to daptomycin to cover for VRE, for total of 14 days -currently hemodynamically stable and not requiring any pressors - WBC improved and afebrile overnight --repeat procalcitonin level was only 0.3 which points against bacterial infection -lipase was normal - Venous Dopplers showed superficial thrombus in left cephalic vein. - CT of sinuses suggest sinusitis, patient continues to have changes of pneumonia 04/11 CT of sinuses Leftward deviation of nasal septum Soft tissue swelling of right nasal turbinates Completely opacified left ostiomeatal unit Moderate mucoperiosteal thickening of the frontal sinuses, patchy opacification of ethmoid air cells Complete opacification of left maxillary sinus and bilateral sphenoid sinuses Complete opacification of the mastoid air cells bilaterally 04/11 CT C/A/P IMPRESSION: 1. Diffuse bilateral lung disease consistent with pneumonia, pulmonary edema, acute respiratory distress syndrome (ARDS) or some combination thereof. Line 2. Mild emphysema. 3. Mild cardiomegaly. 4. Mild likely reactive mediastinal lymphadenopathy. 5. Small fat-containing left inguinal hernia. (2) Acute respiratory failure with hypoxia: Code(s): J96.01 - Acute respiratory failure with hypoxia Status: Acute Assessment and Plan: Acute Respiratory failure secondary to COVID-19 pneumonia 03/09/2021 patient was emergently intubated and placed on mechanical ventilation -02/17/2022: TRACHEOSTOMY AND PEG TUBE placed -Reviewed most recent Chest x-ray which shows Unchanged diffuse bilateral lung disease consistent with pneumonia versus pulmonary edema -ABGs reviewed-permissive hypercapnia - Currently on 50% FiO2 and PSV of 30/8, Will decrease inspiratory pressure 26 and continue to wean inspiratory pressure to maintain tidal volumes around 500 mL -he was placed on high pressure support ventilation, and his tachypnea has improved (3) Pneumonia due to COVID-19 virus: Code(s): U07.1 - COVID-19; J12.82 - Pneumonia due to coronavirus disease 2019 Status: Acute Assessment and Plan: Patient tested positive for COVID-19 on 02/20/21 and initially was on room air. Patient 1st required oxygen on 02/25/2021 and has per had progressive hypoxemic respiratory failure since then, failing airflow high-flow nasal cannula and noninvasive ventilation and requiring intubation on 03/09/2021. He was started on Remdesivir 02/11 and completed 10 days. Status post complete course of dexamethasone Completed Baricitinib for total of 14 days Off zinc sulfate and vitamin-C now (4) Hyponatremia: Code(s): E87.1 - Hypo-osmolality and hyponatremia Status: Acute Assessment and Plan: Will switch to free water flushes (5) Hyperglycemia: Code(s): R73.9 - Hyperglycemia, unspecified Status: Acute Assessment and Plan: Continue sliding scale insulin and Lantus (6) Essential hypertension: Code(s): I1
--- NOTE | 2021-04-17 12:04 | PCFNICU ---
ICU Rounding Note: Pt current nutrition is Vital AF 1.2 at 75 ml/hr over 22 hours. Last recorded weight is 125.1 kg, down from 130.7 kg on admit. Bowel Motility:+BM reported 04/16 Labs Reviewed:Glu 144, Cr 0.3,Alb 3.3, Hct 3.3, Hgb 9.9 Meds Noted: Norvasc, Lovenox, Atrovent, Prevacid, Xopenex, Levaquin, Ativan, Lopressor, Vit D, Lantus Skin: maceration-coccyx Additional Notes: Patient remains current with Trach/PEG. Tube feeding are being tolerating. Free water flush 30 ml q 4 hours. Awaiting bed at LTAC. Monitor pt. labs, medications, weight and tube feeding tolerance every Wednesday and Wednesday as well as daily in ICU rounds.
== END 2021-04-17 12:20 | DRG 4 ==
LOC: ANHED 13:36 → ANH3MEDSUR 13:56 → ANHIMU 03-09 05:28 → ANHICU 03-09 12:43
PROVIDERS: Family Medicine; Hospitalist; Internal Medicine; Internal Medicine Gastroenterology; Otolaryngology; Physician Assistant; Admitting Provider Internal Medicine; Emergency Provider Emergency Medicine; PCP Internal Medicine; Visit Provider Internal Medicine
PROC: 0B110F4 Bypass Trachea to Cutaneous with Tracheostomy Device, Open Approach (ICD-10-PCS; principal; 2021-03-20 12:00)
PROC: 0DH63UZ Insertion of Feeding Device into Stomach, Percutaneous Approach (ICD-10-PCS; CPT 43246; principal; 2021-03-20 12:30)
DX: U07.1 COVID-19 (principal); J12.82 Pneumonia due to coronavirus disease 2019; J96.01 Acute respiratory failure with hypoxia; A41.89 Other specified sepsis; E87.1 Hypo-osmolality and hyponatremia; E87.2 Acidosis; G62.81 Critical illness polyneuropathy; I82.612 Acute embolism and thrombosis of superficial veins of left upper extremity; E78.5 Hyperlipidemia, unspecified; G62.9 Polyneuropathy, unspecified; D75.1 Secondary polycythemia; R74.01 Elevation of levels of liver transaminase levels; I10 Essential (primary) hypertension; R19.7 Diarrhea, unspecified; E86.0 Dehydration; E66.9 Obesity, unspecified; Z68.37 Body mass index [BMI] 37.0-37.9, adult; R73.9 Hyperglycemia, unspecified; R60.9 Edema, unspecified; K59.00 Constipation, unspecified; I27.20 Pulmonary hypertension, unspecified
CPT/HCPCS: 31500; 36415; 36569; 36600; 43246; 70450; 70486; 71045; 71250; 71275; 74176; 80048; 80053; 80069; 80074; 80202; 81001; 82248; 82375; 82550; 82565; 82728; 82805; 82948; 83036; 83050; 83605; 83615; 83690; 83735; 83880; 84100; 84145; 84450; 84460; 84478; 85025; 85027; 85049; 85055; 85380; 85384; 85610; 85652; 85730; 86140; 87040; 87045; 87070; 87077; 87086; 87088; 87147; 87181; 87186; 87205; 87427; 89055; 93005; 93306; 93970; 94002; 94003; 94640; 96365; 96372; 96375; 97110; 97161; 97162; 97165; 97166; 97530; 97535; 99291; A9270; C1751; C9113; G0378; J0360; J0690; J0692; J0743; J0878; J1100; J1120; J1650; J1815; J1940; J1956; J2060; J2250; J2405; J2704; J2997; J3010; J3370; J7030; J7040; P9047; Q9957; Q9967

== ENCOUNTER 2021-10-14 16:35 | Emergency (ER) | payer OTHER, SELFPAY ==
--- NOTE | ~2021-10-14 | XR_ITS ---
EXAMINATION: XR chest 2V Exam Date/Time: 10/14/2021 17:10 CDT HISTORY: cough with sob Comparison: CT chest abdomen and pelvis 04/11/2021. RESULT: Lines, tubes, and devices: None. Lungs and pleura: Mild fine diffuse reticular and peripheral interstitial opacities. Bilateral costo phrenic angle blunting. Cardiomediastinal silhouette: Stable. Other: No acute osseous or upper abdominal finding. IMPRESSION: Pulmonary findings likely represent interstitial edema, overlying chronic interstitial lung disease. Small bilateral effusions versus chronic pleural blunting. Reviewed, dictated and finalized at location [facility]. IMPRESSION: Pulmonary findings likely represent interstitial edema, overlying chronic inter stitial lung disease. Small bilateral effusions versus chronic pleural blunting .
[2021-10-14 16:47] VITALS: BP 133/70; PULSE 92; RESP 24; TEMP 36.7; O2SAT 96
--- NOTE | 2021-10-14 17:01 | ED.URI ---
HPI - URI/Sore Throat General Chief Complaint: Upper Respiratory Infection Stated Complaint: Allerygies Time Seen by Provider: 10/14/21 17:01 Source: patient Mode of arrival: ambulatory Limitations: no limitations History of Present Illness HPI Narrative: 66 y/o male with recent hospitalization for covid pneumonia from 01/2021 - 06/2021 presented for c/o hoarseness and increased post nasal drainage since yesterday. Cough worse at night. Also states he has more discharge from his open trach insertion site. They change the dressing daily, follows with ENT. States he is at baseline breathing, off oxygen x3 weeks. He states he thinks it is r/t allergies, took Claritin. Denies wheezing, nausea, vomiting, diarrhea, fever or chills. Related Data Home Medications Medication Instructions Recorded Confirmed aspirin 81 mg tablet,delayed 81 mg PO DAILY 06/27/21 10/14/21 release cholecalciferol (vitamin D3) 50 50 mcg PO DAILY 06/27/21 10/14/21 mcg (2,000 unit) capsule cyanocobalamin (vitamin B-12) 1,000 mcg PO DAILY 06/27/21 10/14/21 1,000 mcg capsule [id number]-dlnvgq tablet 1 tablet PO DAILY 06/27/21 06/27/21 omega-3 fatty acids 1,000 mg PO DAILY 06/27/21 06/27/21 simvastatin 20 mg tablet 20 mg PO DAILY 06/27/21 10/14/21 pregabalin 75 mg capsule 75 mg BID 10/14/21 10/14/21 Allergies Allergy/AdvReac Type Severity Reaction Status Date / Time No Known Allergies Allergy Verified 10/14/21 17:11 Review of Systems Review of Systems: CONSTITUTIONAL: Denies body aches, fever, chills, or sweats. EYES: Denies visual changes, redness, or discharge. ENT: Reports rhinorrhea, congestion, denies sore throat, or otalgia. CARDIOVASCULAR: Denies chest pain, palpitations, or edema. RESPIRATORY: Reports cough, sob, more trach drainage, denies wheezing. GASTROINTESTINAL: Denies abdominal pain, nausea, vomiting, or diarrhea. SKIN: Denies rash, itching, or wounds. MUSCULOSKELETAL: Denies back pain, joint pain, or myalgia. NEUROLOGIC: Denies headache All systems reviewed & are unremarkable except as noted in HPI and below PMFSH Past Medical History Medical History History of hyperlipidemia Neuropathy Patient denies significant medical history Surgical History Surgical History History of ankle surgery Family History Family History Father Colon cancer Diabetes mellitus Mother Hypertension Social History Social History Social History: Patient drinks a couple drinks a week but nothing significant. He does not smoke or do drugs. 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 He would like to be a full code. His surrogate decision maker is his , Lucretia Smoking status: Never smoker Alcohol intake: unknown Substance use: never Spiritual care concerns: No Comments At time of signature, I have reviewed and agree with nursing past medical, surgical, social and family history unless otherwise noted. Please see nursing chart for further information. There is no relevant family history pertinent to the presenting complaint Exam Narrative: GENERAL: ill-appearing, nontoxic, no acute distress. EYES: EOMI. Conjunctivae normal. Right eye with scant purulent drainge ENT: Mucous membranes pink and moist. No rhinorrhea. TMs normal bilaterally. Oropharynx normal. Uvula midline. Open trach insertion site with large amount thick yellow/green drainage NECK: Normal AROM. Supple. CHEST: Labored, No respiratory distress. Lungs with crackles to bilateral bases HEART: Regular rate and rhythm. No murmur appreciated. ABDOMEN: Soft, nontender, normal active bowel sounds. EXTREMITIES: Normal range of motion. No edema. SKIN: Warm, dry, no rash. Capillary refill normal. Normal skin turgor. NEURO: Mei
== END 2021-10-14 17:40 | disposition short-term general hospital (02) ==
PROVIDERS: Emergency Provider Nurse Practitioner Family; PCP Physician Assistant Medical
DX: R05.1 Acute cough (principal); E78.5 Hyperlipidemia, unspecified; G62.9 Polyneuropathy, unspecified
CPT/HCPCS: 71046; 99213; G0463

== ENCOUNTER 2021-10-14 18:02 | Emergency (ER) | payer OTHER, SELFPAY ==
[2021-10-14 18:06] VITALS: BP 154/82; PULSE 83; RESP 20; TEMP 36.7; O2SAT 91
[2021-10-14 19:26] VITALS: O2SAT 96
[2021-10-14 20:05] LABS: Basophils Absolute Auto 0.1 K/mm3 (0.0-0.1); Basophils Percent Auto 0.7 % (0.2-1.2); Eosinophils Absolute Auto 0.3 K/mm3 (0-0.3); Eosinophils Percent Auto 2.7 % (0-4.4); Hematocrit 47.5 % (42.0-52.0); Hemoglobin 15.1 g/dL (14.0-18.0); Immature Granulocyte Absolute 0.08 K/mm3 (0.00-0.031); Immature Granulocyte Percent A 0.9 % (0-0.5); Lymphocytes Absolute Auto 2.07 K/mm3 (0.9-3.2); Lymphocytes Percent Auto 22.5 % (18.3-44.2); Mean Corpuscular HGB Conc 31.8 g/dl (32-36); Mean Corpuscular Hemoglobin 26.8 pg (26-34); Mean Corpuscular Volume 84.4 fl (80-100); Mean Platelet Volume 9.9 fl (7.4-10.4); Monocytes Absolute Auto 0.8 K/mm3 (0.1-0.6); Monocytes Percent Auto 8.3 % (2.6-8.5); Neutrophils Percent Auto 64.9 % (45.5-73.1); Platelet Count Result 204 k/mm3 (150-375); Red Blood Count 5.63 M/mm3 (4.6-6.20); Red Cell Distribution Width 21.5 % (11.5-14.5); White Blood Count 9.2 K/mm3 (4.5-10.0)
[2021-10-14 20:18] LABS: Anion Gap 9 mmol/L (8-16); Blood Urea Nitrogen 10 mg/dL (9-20); Calcium 8.9 mg/dL (8.4-10.2); Carbon Dioxide 28 mmol/L (22-30); Chloride 102 mmol/L (98-107); Estimated CRCL calculation 106 ml/min; Estimated Glomerular Filt Rate > 60; Glucose 89 mg/dL (65-110); Potassium 4.3 mmol/L (3.4-5.0); Sodium 139 mmol/L (137-145)
[2021-10-14 20:27] LABS: NT Pro B Type Natriuretic Pept 23 pg/mL (5-100)
[2021-10-14 20:41] LABS: SARS-CoV-2 RNA PCR Negative
[2021-10-14 21:16] VITALS: BP 145/81; PULSE 75; RESP 26; O2SAT 93
--- NOTE | 2021-10-14 21:22 | ED.GENADULT ---
HPI - General Adult General Chief complaint: Upper Respiratory Infection Stated complaint: cough, horseness Time Seen by Provider: 10/14/21 19:06 Related Data Home Medications Medication Instructions Recorded Confirmed aspirin 81 mg tablet,delayed 81 mg PO DAILY 06/27/21 10/14/21 release cholecalciferol (vitamin D3) 50 50 mcg PO DAILY 06/27/21 10/14/21 mcg (2,000 unit) capsule cyanocobalamin (vitamin B-12) 1,000 mcg PO DAILY 06/27/21 10/14/21 1,000 mcg capsule emglcmmvloku-fedbemtp-[id number] tablet 1 tablet PO DAILY 06/27/21 06/27/21 omega-3 fatty acids 1,000 mg PO DAILY 06/27/21 06/27/21 simvastatin 20 mg tablet 20 mg PO DAILY 06/27/21 10/14/21 pregabalin 75 mg capsule 75 mg BID 10/14/21 10/14/21 Allergies Allergy/AdvReac Type Severity Reaction Status Date / Time No Known Allergies Allergy Verified 10/14/21 17:11 [facility] Past Medical History Medical History History of hyperlipidemia Neuropathy Patient denies significant medical history Surgical History Surgical History History of ankle surgery Family History Family History Father Colon cancer Diabetes mellitus Mother Hypertension Social History Social History Social History: Patient drinks a couple drinks a week but nothing significant. He does not smoke or do drugs. 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 He would like to be a full code. His surrogate decision maker is his , Lucretia Smoking status: Never smoker Alcohol intake: unknown Substance use: never Spiritual care concerns: No Course Vital Signs Vital signs: Vital Signs Temperature 98.0 F 10/14/21 18:06 Pulse Rate 83 10/14/21 18:06 Respiratory Rate 20 10/14/21 18:06 Blood Pressure 154/82 H 10/14/21 18:06 Pulse Oximetry 91 10/14/21 18:06 Oxygen Delivery Room Air 10/14/21 18:06 Temperature 98.0 F 10/14/21 18:06 Pulse Rate 75 10/14/21 21:16 Respiratory Rate 26 H 10/14/21 21:16 Blood Pressure 145/81 H 10/14/21 21:16 Pulse Oximetry 93 10/14/21 21:16 Oxygen Delivery Room Air 10/14/21 19:26 Medical Decision Making Vital Signs Vital Signs: Vital Signs Temperature 98.0 F 10/14/21 18:06 Pulse Rate 83 10/14/21 18:06 Respiratory Rate 20 10/14/21 18:06 Blood Pressure 154/82 H 10/14/21 18:06 Pulse Oximetry 91 10/14/21 18:06 Oxygen Delivery Room Air 10/14/21 18:06 Temperature 98.0 F 10/14/21 18:06 Pulse Rate 75 10/14/21 21:16 Respiratory Rate 26 H 10/14/21 21:16 Blood Pressure 145/81 H 10/14/21 21:16 Pulse Oximetry 93 10/14/21 21:16 Oxygen Delivery Room Air 10/14/21 19:26 Lab Data Result diagrams: 10/14/21 19:54 10/14/21 19:54 Labs: Lab Results 10/14/21 10/14/21 10/14/21 Range/Units 19:54 19:54 19:54 WBC 9.2 (4.5-10.0) K/mm3 RBC 5.63 (4.6-6.20) M/mm3 Hgb 15.1 (14.0-18.0) g/dL Hct 47.5 (42.0-52.0) % MCV 84.4 (80-100) fl MCH 26.8 (26-34) pg MCHC 31.8 L (32-36) g/dl RDW 21.5 H (11.5-14.5) % Plt Count 204 (150-375) k/mm3 MPV 9.9 (7.4-10.4) fl Immature Gran % (Auto) 0.9 H (0-0.5) % Neut % (Auto) 64.9 (45.5-73.1) % Lymph % (Auto) 22.5 (18.3-44.2) % [place] % (Auto) 8.3 (2.6-8.5) % Eos % (Auto) 2.7 (0-4.4) % Baso % (Auto) 0.7 (0.2-1.2) % Lymph # (Auto) 2.07 (0.9-3.2) K/mm3 [place] # (Auto) 0.8 H (0.1-0.6) K/mm3 Eos # (Auto) 0.3 (0-0.3) K/mm3 Baso # (Auto) 0.1 (0.0-0.1) K/mm3 Abs Immat Gran (auto) 0.08 H (0.00-0.031) K/mm3 Absolute Neuts (auto) 6.0 (1.3-6.7) K/mm3 Absolute Nucleated RBC 0.0 (0.0-0.012) K/mm3 Nucleated RBC % 0.0 (0.0-0.2) % Sodium 139 (137-145) mmol/L Potassium 4.3 (3.4-5.0) mmo
== END 2021-10-14 21:36 | disposition home or self-care (01) ==
PROVIDERS: Emergency Medicine; Emergency Provider Emergency Medicine; PCP Physician Assistant Medical
DX: J04.10 Acute tracheitis without obstruction (principal); E78.5 Hyperlipidemia, unspecified; G62.9 Polyneuropathy, unspecified; Z20.822 Contact with and (suspected) exposure to COVID-19; Z86.16 Personal history of COVID-19; Z79.82 Long term (current) use of aspirin
CPT/HCPCS: 36415; 71046; 80048; 83880; 85025; 87070; 87077; 87185; 87205; 99283; C9803; U0003; U0005

== ENCOUNTER 2021-11-18 00:52 | Day surgery (SDC) | payer OTHER, SELFPAY ==
[2021-11-12 15:45] VITALS: BMI 33.9
--- NOTE | 2021-11-12 16:01 | PC.NURSE ---
Report to the Outpatient Waiting Room, entrance under the green pavilion located off [facility], at time 0715 on date 11/18/21. OR Time: 0915. Time changes happen often and if your time is changed the preop area will call you the afternoon before. - You and your visitor will be asked to self-screen and do not enter if you have any COVID symptoms. - Only one visitor and NO children visitors are allowed at this time. - The patient visitor is requested to leave or wait in car when not with patient due to restrictions. - A mask is required within the hospital. Patients may have clear liquids (water, carbonated beverages, clear teas, apple juice) until 3 hours prior to surgery with a maximum of 20 ounces. - No food from midnight until time of surgery Take the following medications with a SIP of water the morning of surgery: AMLODIPINE, DULOXETINE, PREGABALIN Medications to discontinue per physician: VITAMINS/SUPPLEMENTS Date to take last dose: 11/14/[address] VILLARREAL'S INSTRUCTIONS Please no make-up, nail estonian, hairspray, perfume, deodorant, or body powder the day of surgery. No jewelry (including any body piercings) or valuables the day of surgery, leave them at home. Please take a shower or bath the night before, or the morning of, surgery with an antibacterial soap. Wear comfortable, loose fitting clothing. - Jewelry must be removed prior to entering the operating room. Rings and piercings that are not removed may be cut off. - The hospital will not accept responsibility for valuables. - Please leave all valuables, including medications, at home the day of surgery. If you are going home after surgery, a licensed lead driver must drive you home. - NO public transportation without another adult. - We recommend that an adult stay with you for 24 hours following discharge. - We also recommend that you do not drive, make important decision, drink alcoholic beverages, or take any drugs that were not prescribed by your health care provider for at least 24 hours after your discharge time. Follow any additional instructions given to you from your surgeon. If you or anyone in your household have experienced Covid symptoms in the past week, please notify your surgeon or the nurse liaison at the phone number below for possible testing. Telephone instructions given to PT - FRED ROBINS and asked if any additional questions and then verbalized understanding. Patient advised to call surgeon office or pre surgery nurse liaison [phone] if any additional questions.
--- NOTE | 2021-11-17 17:08 | PM.IMHP ---
H&P: HPI History of Present Illness Date/Time: 11/17/21 17:08 Chief Complaint: Tracheocutaneous fistula Narrative: planned surgical procedure Review of Systems Review of Systems: All systems reviewed & are unremarkable except as noted in HPI and below PMFSH Past Medical History Medical History (Updated 11/17/21 @ 17:10 by Roland Holt MD) Chronic pain History of hyperlipidemia Neuropathy Patient denies significant medical history Surgical History Surgical History History of ankle surgery Family History Family History Father Colon cancer Diabetes mellitus Mother Hypertension Social History Social History Social History: Patient drinks a couple drinks a week but nothing significant. He does not smoke or do drugs. 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 He would like to be a full code. His surrogate decision maker is his , Lucretia Smoking status: Never smoker Alcohol intake: current Drinks per week: 3 Substance use: never Substance use type: does not use Living arrangements: with family Spiritual care concerns: No Meds Home Medications and Allergies Home Medications Medication Instructions Recorded Confirmed Type aspirin 81 mg tablet,delayed 81 mg PO DAILY 06/27/21 11/12/21 History release cholecalciferol (vitamin D3) 50 50 mcg PO DAILY 06/27/21 11/12/21 History mcg (2,000 unit) capsule cyanocobalamin (vitamin B-12) 1,000 mcg PO DAILY 06/27/21 11/12/21 History 1,000 mcg capsule bzmwtynjlcat-aizkbeey-nadkia tablet 1 tablet PO DAILY 06/27/21 11/12/21 History omega-3 fatty acids 1,000 mg PO DAILY 06/27/21 11/12/21 History ascorbic acid (vitamin C) 500 mg 500 mg PO DAILY #0 tabs 07/11/21 11/12/21 Rx tablet (Vitamin C) cetirizine 10 mg tablet 10 mg PO DAILY #0 tabs 07/11/21 11/12/21 Rx amlodipine 5 mg tablet (Norvasc) 5 mg PO QAM 90 days #90 tabs 11/03/21 11/12/21 Rx duloxetine 60 mg capsule,delayed 60 mg PO QAM 90 days #90 caps 11/03/21 11/12/21 Rx release pantoprazole 20 mg tablet,delayed 20 mg PO QAM #90 tabs 11/03/21 11/12/21 Rx release simvastatin 20 mg tablet 20 mg PO QHS #90 tabs 11/03/21 11/12/21 Rx terazosin 5 mg capsule 5 mg PO HS 90 days #90 caps 11/03/21 11/12/21 Rx cyclobenzaprine 5 mg tablet 5 mg PO QHS #90 tabs 11/07/21 11/12/21 Rx pregabalin 75 mg capsule 75 mg PO BID #180 caps 11/13/21 Rx Allergies Allergy/AdvReac Type Severity Reaction Status Date / Time No Known Allergies Allergy Verified 11/12/21 15:37 Exam Narrative: normal ENT exam small tracheocutaneous fistula Assessment and Plan Assessment and plan (1) Tracheocutaneous fistula following tracheostomy: Code(s): J95.04 - Tracheo-esophageal fistula following tracheostomy Status: Acute Assessment and Plan: plan operating room direct laryngoscopy will need endoscope to view subglottic ensure there was no pathology which could have a disastrous result of with close the fistula, did not see 1 in the office. We then closed tracheocutaneous fistula need soft tissue plastic straight. As well as Bovie bipolar. Total operative length 1-2 hours. Risks discussed with the patient cleaning including pneumothorax pneumomediastinum and air with. Patient voiced understanding of risk of need for placement of tracheostomy again. Other risks are infection damage to surrounding structures.
--- NOTE | 2021-11-18 07:18 | WPDHPUPDATE1 ---
History and Physical Update Update Date/Time: 11/18/21 07:18 History and Physical has been reviewed, including an updated exam of the patient. There are NO changes in the patient's condition. Risks, benefits, and alternatives have been discussed and questions answered. Patient agrees to proceed with procedure.
--- NOTE | 2021-11-18 08:11 | WPDANESEPPF ---
Anes - Initial Pre Proc Eval Procedure: Operation Date: 11/18/21 09:15 Proposed Procedures p Direct Laryngoscopy with Endoscope, Tracheostomy Closure - Roland Holt MD Date/Time: 11/18/21 08:11 Surgeon: Roland Holt MD Pre Op Diagnosis: Tracheostomy complication Patient Data Age: 66 Gender: M Height: 1.83 m Weight: 116.6 kg Allergies Allergy/AdvReac Type Severity Reaction Status Date / Time No Known Allergies Allergy Verified 11/18/21 08:06 Home Medications Medication Instructions Recorded Confirmed Type aspirin 81 mg tablet,delayed 81 mg PO DAILY 06/27/21 11/12/21 History release cholecalciferol (vitamin D3) 50 50 mcg PO DAILY 06/27/21 11/12/21 History mcg (2,000 unit) capsule cyanocobalamin (vitamin B-12) 1,000 mcg PO DAILY 06/27/21 11/12/21 History 1,000 mcg capsule tnfqmwhknmyo-ldadrodd-zwkqdj tablet 1 tablet PO DAILY 06/27/21 11/12/21 History omega-3 fatty acids 1,000 mg PO DAILY 06/27/21 11/12/21 History ascorbic acid (vitamin C) 500 mg 500 mg PO DAILY #0 tabs 07/11/21 11/12/21 Rx tablet (Vitamin C) cetirizine 10 mg tablet 10 mg PO DAILY #0 tabs 07/11/21 11/12/21 Rx amlodipine 5 mg tablet (Norvasc) 5 mg PO QAM 90 days #90 tabs 11/03/21 11/12/21 Rx duloxetine 60 mg capsule,delayed 60 mg PO QAM 90 days #90 caps 11/03/21 11/12/21 Rx release pantoprazole 20 mg tablet,delayed 20 mg PO QAM #90 tabs 11/03/21 11/12/21 Rx release simvastatin 20 mg tablet 20 mg PO QHS #90 tabs 11/03/21 11/12/21 Rx terazosin 5 mg capsule 5 mg PO HS 90 days #90 caps 11/03/21 11/12/21 Rx cyclobenzaprine 5 mg tablet 5 mg PO QHS #90 tabs 11/07/21 11/12/21 Rx pregabalin 75 mg capsule 75 mg PO BID #180 caps 11/13/21 Rx Patient hx anesthesia problems: none Family hx anesthesia problems: none Results Review: All pre-operative results and documents have been reviewed as part of the pre-operative evaluation. [facility] Past Medical History Medical History (Updated 11/17/21 @ 17:10 by Roland Holt MD) Chronic pain History of hyperlipidemia Neuropathy Patient denies significant medical history Surgical History Surgical History History of ankle surgery Family History Family History Father Colon cancer Diabetes mellitus Mother Hypertension Social History Social History Social History: Patient drinks a couple drinks a week but nothing significant. He does not smoke or do drugs. 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 He would like to be a full code. His surrogate decision maker is his , Lucretia Smoking status: Never smoker Alcohol intake: current Drinks per week: 3 Substance use: never Substance use type: does not use Living arrangements: with family Spiritual care concerns: No Anes - Eval Final PreProcedure Day of Procedure 11/18/21 08:11 Patient weight: obese Heart: regular rate and rhythm Lungs: clear to auscultation and normal air movement Airway: Mallampati scale class II Neurological: alert and oriented Last oral intake: >/= 8 hours ASA classification: III Emergent: no Anesthetic plan: proceed Anesthesia type and monitoring: general ETT Results Review: All pre-operative results and documents have been reviewed as part of the pre-operative evaluation. Informed Consent: The patient's anesthetic plan and its attendant risks and benefits were discussed with the patient/family/POA. Questions were solicited and answers provided to the satisfaction of the patient/family/POA.
[2021-11-18] MEDS: ceFAZolin 2 GM/D5W 50 ML 2 GM/50 ML BAG IVPB (08:53)
[2021-11-18] MEDS: LIDO 1%/EPINEPHRINE 1:100,000 10 ML VIAL INFILTRATE (09:34)
[2021-11-18] MEDS: NEOMYCIN/POLYMYXIN/BACITRACIN OINTMENT 15 GM TUBE 1 APPLIC TOPICAL (09:55)
[2021-11-18 10:00] VITALS: BP 135/70; PULSE 83; RESP 15; TEMP 36.8; O2SAT 100
[2021-11-18] MEDS: LACTATED RINGERS 1,000 ML 30 ML IV CONT (10:04)
[2021-11-18 10:20] VITALS: BP 145/92; PULSE 75; RESP 16; O2SAT 100
--- NOTE | 2021-11-18 10:25 | P.OP_ITS ---
Procedure Note - Detailed Date of Procedure 11/18/21 Pre-op Diagnosis Persistent tracheocutaneous fistula Post-op Diagnosis Same Procedure Performed Direct laryngoscopy, closure of tracheocutaneous fistula Surgeon Roland Holt MD Anesthesia General Indications See above Findings Very small area of granulation tissue probably 10% anteriorly very small several mm across tracheocutaneous fistula closed three-layer closure Description of Procedure Patient identified consent verified. Patient brought operating room. Time-out performed. General anesthesia induced endotracheal tube secured the airway. Patient prepped and draped 2nd time-out performed. Direct laryngoscopy performed with Dedo laryngoscope maxillary tooth mouth guard placed in airway laryngoscope placed easy view of the glottis. Patient placed as suspension. 0 degree endoscope utilized to perform laryngoscopy subglottic Rachana there was a very small piece of granulation tissue anteriorly about 10% obstructing the airway small. Patient taken out of suspension maxillary tooth mouth guard all hardware removed. Patient prepped and draped for next part of the procedure. Tracheocutaneous fistula was outlined a very small ellipse about 3-5 mm outside of the fistula. Injected with 2 cc 1% lidocaine 1 100,000 parts epinephrine. Skin and dermis incised with 15 blade. Scissors utilized to separate the tract from the remaining portion of the neck. The trach was then trimmed of epidermis. It was then imbricated and folded on itself and closed with about 5 interrupted 4-0 Vicryl sutures undyed. The dermis was then closed using several interrupted 4-0 Vicryl sutures. The skin was closed with 4 interrupted nylon sutures in a watertight fashion. Given the very small area of dissection and the complete closure of the fistula, no drain was placed. There is no crepitus no air in the neck. The endotracheal tube was then pulled up above the fistula and the patient was ventilated again with no air leaking and no crepitus noted i n the neck. The wound was then covered in antibiotic ointment. Blood loss about 1 cc. Care the patient given Anesthesiology. Was there and performed all dictated portions of procedure. There were no complications. Patient taken to PACU. Of note 20 and 30 minutes later the patient's neck was again examined in PACU and there is no crepitus noted no air leak. Estimated Blood Loss 2 Drains No Packing No Pathology None sent Complications No immediate complications Condition Stable Disposition PACU
[2021-11-18 10:35] VITALS: BP 139/79; PULSE 69; RESP 12; O2SAT 93
[2021-11-18 10:50] VITALS: BP 137/82; PULSE 82; RESP 18; O2SAT 97
[2021-11-18 11:05] VITALS: BP 137/80; PULSE 79
[2021-11-18 11:35] VITALS: BP 137/71; PULSE 71
== END 2021-11-18 11:45 | disposition home or self-care (01) ==
PROVIDERS: PCP Physician Assistant Medical; Visit Provider Otolaryngology
PROC: 0CJS8ZZ Inspection of Larynx, Via Natural or Artificial Opening Endoscopic (ICD-10-PCS; CPT 31820; principal; 2021-11-18 09:15)
DX: J95.04 Tracheo-esophageal fistula following tracheostomy (principal); E78.5 Hyperlipidemia, unspecified; G62.9 Polyneuropathy, unspecified; G89.29 Other chronic pain; Z79.82 Long term (current) use of aspirin; E66.9 Obesity, unspecified; Z68.34 Body mass index [BMI] 34.0-34.9, adult
CPT/HCPCS: 31820; A9270; J0330; J0690; J1100; J2405; J2704; J3010; J7120

== ENCOUNTER 2022-02-19 05:48 | Emergency (ER) | payer OTHER, SELFPAY ==
--- NOTE | ~2022-02-19 | XR_ITS ---
Clinical Indication: Cough PA and lateral views of the chest: Comparison: 10/14/2021 Findings: Stable areas of minimal haziness noted in the lungs bilaterally. No definite pleural effusi on.. Cardiomediastinal silhouette is within normal limits. Bones and soft tissues are unremarkable. Impression: Stable areas of minimal haziness in the lungs. Given chronicity, findings suggest underlying chronic interstitial disease. Reviewed, dictated and finalized at location M. ER BULK SYSTEM Impression: Stable areas of minimal haziness in the lungs. Given chronicity, findings sugge st underlying chronic interstitial disease.
[2022-02-19 05:53] VITALS: BP 165/80; PULSE 92; RESP 20; TEMP 36.3; O2SAT 94
[2022-02-19 06:49] LABS: Strep Group A RT-PCR NOT DETECTED (Negative)
--- NOTE | 2022-02-19 06:49 | ED.URI ---
HPI - URI/Sore Throat General Chief Complaint: Upper Respiratory Infection <Vandana Corrales MD - Last Filed: 02/25/22 05:14> Stated Complaint: sore throat, cough <Vandana Corrales MD - Last Filed: 02/25/22 05:14> Time Seen by Provider: 02/19/22 05:57 <Vandana Corrales MD - Last Filed: 02/25/22 05:14> History of Present Illness HPI Narrative: Patient presents with sore throat and cough that started yesterday, he was worried because about a year ago he had been diagnosed with COVID-pneumonia before he was vaccinated for COVID and ended up intubated on a ventilator for multiple weeks, and required months of rehab and oxygen therapy. Since then, he has gotten vaccinated for COVID as well as flu and all other respiratory diseases. He is feeling somewhat anxious. <Vandana Corrales MD - Last Filed: 02/25/22 05:14> Related Data Home Medications: Home Medications Medication Instructions Recorded Confirmed aspirin 81 mg tablet,delayed 81 mg PO DAILY 06/27/21 01/20/22 release cholecalciferol (vitamin D3) 50 50 mcg PO DAILY 06/27/21 01/20/22 mcg (2,000 unit) capsule auhmneumscfk-agrnkykl-ocugto tablet 1 tablet PO DAILY 06/27/21 01/20/22 omega-3 fatty acids 1,000 mg PO DAILY 06/27/21 01/20/22 Elderberry Gummies See Rx Instructions .Route 1XD 12/19/21 01/20/22 <Vandana Corrales MD - Last Filed: 02/25/22 05:14> Allergies/Adverse Reactions: Allergies Allergy/AdvReac Type Severity Reaction Status Date / Time No Known Allergies Allergy Verified 02/24/22 15:20 <Vandana Corrales MD - Last Filed: 02/25/22 05:14> Review of Systems Review of Systems: CONST: No fever. HEENT: sore throat C/V: No chest pain RESP: cough GI: No nausea, vomiting, diarrhea : No dysuria. M/S: No joint pain. SKIN: No rash. 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 Holt 11/18/2021 <Vandana Corrales MD - Last Filed: 02/25/22 05:14> Surgical History Surgical History: Surgical History History of ankle surgery <Vandana Corrales MD - Last Filed: 02/25/22 05:14> Family History Family History: Family History Father Colon cancer Diabetes mellitus Mother Hypertension <Vandana Corrales MD - Last Filed: 02/25/22 05:14> Social History Social History: Social History Social History: Patient drinks a couple drinks a week but nothing significant. He does not smoke or do drugs. 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 He would like to be a full code. His surrogate decision maker is his Lucretia Smoking status: Never smoker Alcohol intake: current Drinks per week: 3 Substance use: never Substance use type: does not use Living arrangements: with family Occupation/Education: occupation Gender identity (if verbalized by the patient): Male Spiritual care concerns: No <Vandana Corrales MD - Last Filed: 02/25/22 05:14> Exam Narrative: EXAMINATION OF ORGAN SYSTEMS/BODY AREAS: Constitutional: Vital signs per nursing GENERAL:[No acute distress, non-toxic appearing.] HEAD: Normal with no signs of head trauma. EYES: EOMI, conjunctiva normal ENT: Hearing grossly intact LUNGS: Nonlabored breathing. Clear to auscultation bilaterally HEART: [Regular rate and rhythm] ABD: [Soft], [nontender to palpation] EXT: Normal range of motion, no lower extremity swelling
[2022-02-19 07:03] LABS: Influenza A QL RT-PCR Negative (Negative); Influenza B QL RT-PCR Negative (Negative); RSV RNA, RT-PCR Negative (Negative); SARS-CoV-2 RNA PCR Negative
[2022-02-19 07:15] VITALS: BP 149/94; PULSE 80; RESP 15; O2SAT 100
== END 2022-02-19 08:08 | disposition home or self-care (01) ==
PROVIDERS: Emergency Provider Emergency Medicine; PCP Physician Assistant Medical
DX: B34.9 Viral infection, unspecified (principal); J02.9 Acute pharyngitis, unspecified; Z20.822 Contact with and (suspected) exposure to COVID-19; E78.5 Hyperlipidemia, unspecified; G62.9 Polyneuropathy, unspecified; Z86.16 Personal history of COVID-19; Z87.01 Personal history of pneumonia (recurrent); Z79.82 Long term (current) use of aspirin; Z79.85 Long-term (current) use of injectable non-insulin antidiabetic drugs
CPT/HCPCS: 71046; 87637; 87651; 96372; 99283; J1100

== ENCOUNTER 2023-01-20 14:51 | Emergency (ER) | payer MEDICARE, SELFPAY ==
--- NOTE | 2023-01-20 14:59 | ED.BACK ---
HPI - Back Pain/Injury General Chief Complaint: Back Pain/Injury Stated Complaint: . Time Seen by Provider: 01/20/23 14:54 Source: patient Mode of arrival: ambulatory Limitations: no limitations History of Present Illness HPI Narrative: Patient is a 67-year-old male who presents with 1 and half to 2 weeks of left shoulder pain. Denies any pain with movement but states it hurts when lying flat at night. Also has point tenderness to mid upper arm and posterior shoulder. Patient has been taking ibuprofen with moderate relief. Denies any numbness, tingling or weakness to extremity. Denies any chest pain, shortness of breath. Has had steroid injections a shoulder pain previously. Related Data Home Medications Medication Instructions Recorded Confirmed aspirin 81 mg tablet,delayed 81 mg PO DAILY 06/27/21 01/20/23 release cholecalciferol (vitamin D3) 50 50 mcg PO DAILY 06/27/21 01/20/23 mcg (2,000 unit) capsule wgtybwbkvmrw-bhmhuaqw-pujkpo tablet 1 tablet PO DAILY 06/27/21 01/20/23 omega-3 fatty acids 1,200 mg PO DAILY 05/01/22 01/20/23 Allergies Allergy/AdvReac Type Severity Reaction Status Date / Time No Known Allergies Allergy Verified 12/28/22 10:32 Review of Systems Review of Systems: All systems reviewed & are unremarkable except as noted in HPI and below Constitutional: Constitutional: Denies body ache(s), Denies chills, Denies fatigue, Denies fever(s), Denies headache(s), Denies malaise and Denies weakness Eyes: Eyes: Denies blurry vision, Denies irritation and Denies loss of vision ENT: Denies otalgia, Denies headache(s), Denies nasal discharge, Denies sinus pain and Denies sore throat Cardiovascular: Cardiovascular: Denies chest pain, Denies irregular heart rhythm and Denies dyspnea Respiratory: Respiratory: Denies dyspnea Gastrointestinal: Gastrointestinal: Denies abdominal pain, Denies melena, Denies hematochezia, Denies diarrhea, Denies nausea and Denies vomiting Musculoskeletal: Musculoskeletal: Denies back pain, Denies myalgias and Reports arthralgias Integumentary/Breasts: Skin/Breast: Denies pruritus and Denies rash Neurologic: Denies headache(s), Denies loss of vision and Denies weakness Psychiatric: Psychiatric: Reports no additional psychiatric complaints Endocrine: Endocrine: Denies fatigue PMFSH Past Medical History Medical History Cephalic vein thrombosis, left COVID related Chronic pain COPD (chronic obstructive pulmonary disease) History of hyperlipidemia Neuropathy Obesity (BMI 30-39.9) LAINA (obstructive sleep apnea) Pneumonia due to COVID-19 virus requiring ventilator 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 Holt 11/18/2021 URI (upper respiratory infection) Surgical History Surgical History History of ankle surgery Family History Family History Father Colon cancer Diabetes mellitus Mother Hypertension Social History Social History Social History: Patient drinks a couple drinks a week but nothing significant. He does not smoke or do drugs. 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 He would like to be a full code. His surrogate decision maker is his , Lucretia Smoking status: Never smoker Alcohol intake: current Drinks per week: 3 Substance use: never Substance use type: does not use Lack of Transportation: No Lack of Food: Never True Current Housing: I Have Housing Concerned About Future Housing: No Difficulty Paying Gas/Electric Bills: No Difficulty Paying for Meds: No Currently Unemployed: No Education: High School Diploma/GED Difficulty w/ Childcare or Family Care: No Living arrangements:
[2023-01-20 15:01] VITALS: BP 139/80; PULSE 81; RESP 18; TEMP 36.5; O2SAT 96
== END 2023-01-20 15:15 | disposition home or self-care (01) ==
PROVIDERS: Emergency Provider Nurse Practitioner Family; PCP Physician Assistant Medical
DX: M25.512 Pain in left shoulder (principal); J44.9 Chronic obstructive pulmonary disease, unspecified; E78.5 Hyperlipidemia, unspecified; G62.9 Polyneuropathy, unspecified; E66.9 Obesity, unspecified; Z68.37 Body mass index [BMI] 37.0-37.9, adult; Z86.718 Personal history of other venous thrombosis and embolism; Z86.16 Personal history of COVID-19; Z79.82 Long term (current) use of aspirin
CPT/HCPCS: 99213; G0463

== ENCOUNTER 2023-10-26 01:07 | Day surgery (SDC) | payer MEDICARE, SELFPAY ==
[2023-10-05 12:00] VITALS: BMI 38.8
[2023-10-26 07:24] VITALS: BP 131/78; PULSE 70; RESP 18; TEMP 36.1; O2SAT 97
[2023-10-26] MEDS: LACTATED RINGERS 1,000 ML 150 ML IV CONT (07:42)
--- NOTE | 2023-10-26 08:02 | WPDANESEPPF ---
Anes - Initial Pre Proc Eval Procedure: Operation Date: 10/26/23 08:30 Proposed Procedures p Screening Colonoscopy - Terrence Pacheco DO Date/Time: 10/26/23 08:02 Surgeon: Terrence Pacheco DO Pre Op Diagnosis: Screening for malignant neoplasm of colon Patient Data Age: 68 Gender: M Height: 1.83 m Weight: 127.8 kg Last Vital Signs Temp 97 F L 10/26/23 07:24 Pulse 70 10/26/23 07:24 Resp 18 10/26/23 07:24 BP 131/78 10/26/23 07:24 Pulse Ox 97 10/26/23 07:24 O2 Del Method Room Air 10/26/23 07:24 Allergies Allergy/AdvReac Type Severity Reaction Status Date / Time No Known Allergies Allergy Verified 10/26/23 07:22 Home Medications Medication Instructions Recorded Confirmed Type aspirin 81 mg tablet,delayed 81 mg PO DAILY 06/27/21 10/26/23 History release cholecalciferol (vitamin D3) 50 50 mcg PO DAILY 06/27/21 10/26/23 History mcg (2,000 unit) capsule [id number]-ebrzaqrr-nmzwbs tablet 1 tablet PO DAILY 06/27/21 10/26/23 History cetirizine 10 mg tablet 10 mg PO DAILY #0 tabs 07/11/21 10/26/23 Rx cyanocobalamin (vitamin B-12) 1,000 mcg PO QHS #90 caps 04/28/22 10/26/23 Rx 1,000 mcg capsule omega-3 fatty acids 1,200 mg PO DAILY 05/01/22 10/26/23 History ascorbate calcium (vitamin C) 500 500 mg PO BID 04/05/23 10/26/23 History mg tablet fiber tablet 1 tablet PO DAILY 04/05/23 10/26/23 History zinc 50 mg tablet 50 mg PO DAILY 04/05/23 10/26/23 History alpha lipoic acid 600 mg capsule 600 mg PO DAILY 04/08/23 10/26/23 History pregabalin 100 mg capsule 100 mg PO BID #180 caps 05/19/23 10/26/23 Rx albuterol sulfate 90 mcg/actuation 1 inh inhalation Q4H PRN shortness 06/15/23 10/26/23 Rx aerosol inhaler of breath or wheezing #8.5 grams methocarbamol 500 mg tablet 500 mg PO TID PRN muscle strain 07/13/23 10/26/23 Rx #30 tabs tramadol 50 mg tablet 50 mg PO Q6H PRN pain #30 tabs 07/13/23 10/26/23 Rx duloxetine 60 mg capsule,delayed 60 mg PO DAILY #90 caps 08/04/23 10/26/23 Rx release pregabalin 50 mg capsule 50 mg PO .Noon #90 caps 08/19/23 10/26/23 Rx duloxetine 30 mg capsule,delayed 30 mg PO DAILY #90 caps 10/01/23 10/26/23 Rx release tirzepatide (weight loss) 10/05/23 History simvastatin 40 mg tablet 40 mg PO QHS #90 tabs 10/11/23 10/26/23 Rx Patient hx anesthesia problems: none Family hx anesthesia problems: none Results Review: All pre-operative results and documents have been reviewed as part of the pre-operative evaluation. 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 He does not smoke or do drugs. 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 He would like to be a full code. His surrogate decision maker is his , Lucretia Smoking status: Never smoker Alcohol intake: current Drinks per week: 3 Alcohol use details: glass wine
--- NOTE | 2023-10-26 08:28 | PM.IMHP ---
H&P: HPI History of Present Illness Date/Time: 10/26/23 08:28 Chief Complaint: History of colon polyps Narrative: this is a 68-year-old man who presents for colonoscopy. His last colonoscopy was about 7 years ago. He states that he had polyps at that time. He denies any family history of colon cancer and denies any hematochezia or melena. Review of Systems Review of Systems: All systems reviewed & are unremarkable except as noted in HPI and below Constitutional: Constitutional: Denies chills, Denies fever(s), Denies headache(s) and Denies weight loss Eyes: Eyes: Denies change in vision ENT: Denies dizziness, Denies headache(s), Denies neck mass and Denies throat swelling Cardiovascular: Cardiovascular: Denies chest pain, Denies lightheadedness and Denies dyspnea Respiratory: Respiratory: Denies cough, Denies dyspnea and Denies wheezing Gastrointestinal: Gastrointestinal: Denies abdominal pain, Denies change in bowel habits, Denies nausea and Denies vomiting Genitourinary: Genitourinary: Denies hematuria and Denies dysuria Musculoskeletal: Musculoskeletal: Reports as per HPI Integumentary/Breasts: Skin/Breast: Reports as per HPI Neurologic: Denies dizziness and Denies headache(s) Allergic/Immunologic: Allergic/Immunologic: Denies throat swelling and Denies wheezing [facility] Past Medical History Medical History (Updated 10/26/23 @ 08:30 by Terrence Pacheco DO) Abnormal screening cardiac CT coronary calcium score 462 Acute respiratory failure with hypoxia Acute sinusitis Cephalic vein thrombosis, left COVID related Chronic pain COPD (chronic obstructive pulmonary disease) COVID-19 DVT prophylaxis Dyslipidemia Essential hypertension Fever History of hyperlipidemia Hyperglycemia Obesity (BMI 30-39.9) LAINA (obstructive sleep apnea) Peripheral neuropathy Pneumonia due to COVID-19 virus requiring ventilator 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 He does not smoke or do drugs. 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 He would like to be a full code. His surrogate decision maker is his , Lucretia Smoking status: Never smoker Alcohol intake: current Drinks per week: 3 Alcohol use details: glass wine daily Substance use: never Substance use type: does not use Lack of Transportation: No Lack of Food: Never True Current Housing: I Have Housing Concerned About Future Housing: No Difficulty Paying Gas/Electric Bills: No Difficulty Paying for Meds: No Currently Unemployed: No Education: High School Diploma/GED Difficulty w/ Childcare or Family Care: No Living arrangements: with family Occupation/Education: occupation Gender identity (if verbalized by the patient): Male Spiritual care concerns: No Meds Home Medications and Allergies Home Medications Medication Instructions Recorded Confirmed Type aspirin 81 mg tablet,delayed 81 mg PO DAILY 06/27/21 10/26/23 History release cholecalciferol (vitamin D3) 50 50 mcg PO DAILY 06/27/21 10/26/23 History mcg (2,000 unit) capsule [id number]-ydhlhnqb-ignxts tablet 1 tablet PO DAILY 06/27/21 10/26/23 History cetirizine 10 mg tablet 10 mg PO DAILY #0 tabs 07/11/21 10/26/23 Rx cyanocobalamin (vitamin B-12) 1,000 mcg PO QHS #90 caps 04/28/22 10/26/23 Rx 1,000 mcg capsule omega-3 fatty acids 1,200 mg PO DAILY 05/01/22 10/26/23 History ascor
[2023-10-26 08:53] VITALS: BP 98/53; PULSE 88; RESP 17; O2SAT 97
[2023-10-26 09:03] VITALS: BP 123/67; PULSE 61; RESP 16; O2SAT 98
[2023-10-26 09:13] VITALS: BP 119/77; PULSE 68; RESP 17
== END 2023-10-26 09:20 | disposition home or self-care (01) ==
PROVIDERS: PCP Physician Assistant Medical; Visit Provider Surgery
PROC: 0DJD8ZZ Inspection of Lower Intestinal Tract, Via Natural or Artificial Opening Endoscopic (ICD-10-PCS; CPT 45378; principal; 2023-10-26 08:30)
DX: Z12.11 Encounter for screening for malignant neoplasm of colon (principal); K57.30 Diverticulosis of large intestine without perforation or abscess without bleeding; J44.9 Chronic obstructive pulmonary disease, unspecified; I10 Essential (primary) hypertension; E78.5 Hyperlipidemia, unspecified; G47.33 Obstructive sleep apnea (adult) (pediatric); G62.9 Polyneuropathy, unspecified; E66.9 Obesity, unspecified; Z68.38 Body mass index [BMI] 38.0-38.9, adult; Z79.82 Long term (current) use of aspirin; Z79.51 Long term (current) use of inhaled steroids
CPT/HCPCS: G0121; J2704; J7120